=== PATIENT | female | born 1970 | race Caucasian/White ===

== ENCOUNTER → 2017-03-24 17:11 | Outpatient (CLI) | payer OTHER, SELFPAY ==
[2017-03-24 17:52] LABS: Prothrombin Time (Protime)PT. 12.9 SECONDS (11.7-14.9)
== END ==
PROVIDERS: Family Provider Student in an Organized Health Care Education/Training Program; PCP Student in an Organized Health Care Education/Training Program; Visit Provider Internal Medicine Nephrology
DX: R80.9 Proteinuria, unspecified (principal)
CPT/HCPCS: 36415; 85610; 85730

== ENCOUNTER → 2017-03-26 08:56 | Outpatient (CLI) | payer OTHER, SELFPAY ==
--- NOTE | 2017-03-26 09:00 | CT_ITS ---
PROCEDURE: CT GUIDED PERCUTANEOUS KIDNEY BIOPSY. DATE: March 26, 2017. INDICATION: Female, 46 years old. Proteinuria PHYSICIAN: Ulisses Navarro M.D. MEDICATIONS: 3 mg of Versed and 75 mcg of fentanyl intravenously. Conscious sedation protocol was followed and monitored in the pelvis by the department nurse. Conscious sedation was started 9:54 AM and terminated at 10:11 AM. ACCESS SITE: Lower pole left kidney. NEEDLE: 18-gauge core biopsy needle SPECIMEN: 4 18-gauge cores EBL: None. COMPLICATIONS: None immediate. RADIATION DOSAGE (If Supplied By Facility): CTDIvol = ( 13 ) mGy, DLP = ( 285.1 ) mGycm. Individualized dose optimization techniques were utilized. The risks, benefits, and alternatives to the procedure and sedation were explained to the patient. The specific risk of hemorrhage requiring further treatment or intervention was detailed and accepted. Written informed consent was obtained. The patient was placed on the CT table in the prone position. Multiple axial images were obtained from the lung base through the caudal extent of the kidneys. An appropriate entry site was identified and a angel made on the skin. The skin overlying the [left ] posterior flank was prepped and draped in sterile fashion. 1% lidocaine was administered subcutaneously for local anesthesia. Initially, a 22 gauge needle was advanced and CT images confirmed good needle position. The 22 gauge needle was then exchanged for an 17 gauge introducer needle which was advanced. Repeat CT images confirmed good needle trajectory and tip position. The introducer needle was then advanced into the periphery of the inferior renal pole, and CT images were again obtained to confirm exact tip location. The inner stylet of the introducer needle was then removed and an 18 gauge coaxial needle was advanced thru the introducer needle and biopsy performed. A total of [4 ] passes were performed and the specimen collected was sent to Pathology for further evaluation. The needle was withdrawn. Hemostasis was achieved with manual compression and a sterile dressing was applied. Repeat CT images of the biopsy area was performed which demonstrated no gross bleeding or hematoma. The patient tolerated the procedure well without immediate complications. The patient was transported to the [floor/recovery area] in stable condition. CT/Biopsy/Inj or Needle Placement IMPRESSION: Successful CT guided percutaneous kidney biopsy. Electronically Signed: Ulisses Navarro MD at 11:40 EST Tel [phone], Service support ,
[2017-03-26 09:16] VITALS: BP 143/57; PULSE 76; RESP 14; TEMP 37.1; O2SAT 95; BMI 46.0
--- NOTE | 2017-03-26 10:10 | KI_PTH ---
PATIENT: SHAYNE ROME LOC: CT U#:[id number] AGE/SX: 54/F ROOM: RE03/26/[address]: Dr. Estefania Hedrick DO : 1970 BED: DIS: SPEC #: [id number] RECD: 03/26/17 11:30 STATUS: ARVIND JADEN #: [id number] OMAR: 03/26/17 10:[address]: Estefania Hedrick DEPT: SURGICAL PATHOLOGY RECD BY: Nyasia Rhodes ENTERED: 03/26/17 13:21 SP TYPE: KIDNEY BX OTHR DR: Dr. Deven James DO Tissues: Kidney, NOS Procedures: Electron Microscopy (ACH) Fluorescent Antibody (ACH) Sp St Grp II Kidney (ACH) Kidney Biopsy (ACH) HEADER OPERATION: CT-guided left kidney biopsy PRE-OP DIAGNOSIS: Proteinuria TISSUE SUBMITTED: 18g core x4, left kidney MICROSCOPIC DIAGNOSIS Renal biopsy demonstrating amyloidosis, arteriosclerosis and chronic tubulointerstitial changes. COMMENT The findings in this renal biopsy are consistent with amyloidosis. Immunofluorescence for kappa and lambda light chains is negative which is not suggestive of AL type. MICROSCOPIC DESCRIPTION Sections are evaluated with H & E, PAS, Wong, trichrome and Congo red stains. Ten glomeruli are present. Glomeruli demonstrate extensive expansion of mesangial areas and capillary loops by amorphous eosinophilic material. No cellular proliferation or active glomerulitis are identified. There is approximately 50-60% interstitial fibrosis with proportionate tubular atrophy. There is a moderate, patchy mononuclear inflammatory infiltrate. Arterioles show moderate medial thickening. No arteritis is identified. Congo red stains demonstrate diffuse orangeophilic staining of the glomeruli with apple green birefringence under polarization. IMMUNOFLUORESCENCE: There is no specific glomerular staining to indicate the deposition of immunoglobulins (IgG, IgA or IgM) or complement components (C3 or C1q). Stains for light chains kappa and lambda show no evidence of deposition in glomerular or tubular basement membranes. Glomerular fibrin deposition is not increased. ELECTRON MICROSCOPY: One glomerulus is evaluated. Mesangial areas are significantly expanded with small, randomly arranged fibrillary deposits. Glomerular capillary loops are markedly thickened with small, randomly arranged fibrillary deposits. There is extensive effacement of overlying epithelial cell foot processes. Tubular basement membranes are slightly thickened with no discrete electron dense deposits. GROSS DESCRIPTION The specimen is sent entirely to [facility] for diagnosis. The specimen is received in transport medium and consists of four cores of foote renal tissue that range in length from 0.5 cm to 2.0 cm. The cores are divided for histology, immunofluorescence and electron microscopy.
[2017-03-26 11:40] VITALS: BP 102/39; PULSE 60; RESP 14; O2SAT 95
== END ==
PROVIDERS: Family Provider Student in an Organized Health Care Education/Training Program; PCP Student in an Organized Health Care Education/Training Program; Visit Provider Internal Medicine Nephrology
DX: R80.9 Proteinuria, unspecified (principal)
CPT/HCPCS: 50200; 77012; 88305; 88313; 88346; 88348; 99156; 99157; J7040; A4216

== ENCOUNTER → 2017-04-07 11:58 | Outpatient (CLI) | payer OTHER, SELFPAY ==
[2017-04-08 16:09] LABS: Albumin 3.4 g/dL (2.9-4.4); Albumin, Ur 79.1 % (.); Alpha-1-Globulin, Ur 3.3 % (.); Alpha-1-Globulins 0.2 g/dL (0.0-0.4); Alpha-2-Globulins, Ur 2.6 % (.); Beta Globulin, Ur 8.5 % (.); Gamma Globulin 1.1 g/dL (0.4-1.8); Gamma Globulin, Ur 6.5 % (.); Immunoglobulin A 547 mg/dL (87-352); Immunoglobulin G 847 mg/dL (700-1600); Immunoglobulin M 56 mg/dL (26-217); M-Spike, Ur % Not Observed % (Not Observed)
[2017-04-09 10:24] LABS: IMMUNOFIXATION RESULT,S Comment: (.)
== END ==
PROVIDERS: Family Provider Student in an Organized Health Care Education/Training Program; PCP Student in an Organized Health Care Education/Training Program; Visit Provider Internal Medicine Nephrology
DX: R80.9 Proteinuria, unspecified (principal)
CPT/HCPCS: 36415; 82784; 84165; 84166; 86334; 86335

== ENCOUNTER → 2017-07-03 07:56 | Outpatient (CLI) | payer OTHER, BC, SELFPAY ==
--- NOTE | 2017-07-03 08:03 | BI_ITS ---
MAMMOGRAPHY - BILATERAL SCREENING REASON FOR EXAM: Female, 46 years old. Routine annual screening examination. PERTINENT HISTORY: Non-contributory. TECHNIQUE: Digital bilateral breast carl (3D mammographic acquisition) in the CC and MLO projections. 2-D mediolateral oblique (MLO) and craniocaudad (CC) views of both breasts were obtained. CAD: Full Field Digital Mammography with Computer Added Detection was performed. COMPARISON: Comparison is made with prior study dated May 02, 2016 and April 12, 2015. FINDINGS: Breast Composition: There are scattered areas of fibroglandular density. There are no dominant masses or suspicious calcifications. Stable benign-appearing bilateral axillary lymph nodes. No other significant abnormalities are identified. There has been no significant change since the prior study. BI/SCREENING MAMM (CAD), BILAT IMPRESSION: Stable bilateral screening mammogram. Yearly follow-up mammogram recommended. (A) ASSESSMENT CATEGORY: BIRADS Category 2: Benign. A letter regarding these results will be sent to the patient by the facility within 30 days. Approximately 10% of breast cancers are not detected by mammography. A normal mammogram should not delay biopsy of a clinically suspicious abnormality. [id number] Electronically Signed: Ulisses Navarro MD at 11:02 EDT Tel [phone], Service support ,
== END ==
PROVIDERS: Family Provider Student in an Organized Health Care Education/Training Program; PCP Student in an Organized Health Care Education/Training Program; Visit Provider Student in an Organized Health Care Education/Training Program
DX: Z12.31 Encounter for screening mammogram for malignant neoplasm of breast (principal)
CPT/HCPCS: 77063; 77067

== ENCOUNTER → 2017-12-14 16:53 | Outpatient (CLI) | payer OTHER, BC, SELFPAY | PROVIDERS: Family Provider Student in an Organized Health Care Education/Training Program; PCP Student in an Organized Health Care Education/Training Program; Referring Provider Internal Medicine Hematology & Oncology; Visit Provider Internal Medicine Hematology & Oncology | DX: C90.00 Multiple myeloma not having achieved remission (principal) | CPT/HCPCS: 86850; 86900 ==

== ENCOUNTER → 2018-04-02 15:46 | Outpatient (CLI) | payer OTHER, BC, SELFPAY ==
[2017-03-26 09:16] VITALS: BMI 46.0
== END ==
PROVIDERS: Family Provider Student in an Organized Health Care Education/Training Program; PCP Student in an Organized Health Care Education/Training Program; Referring Provider Otolaryngology Otolaryngology/Facial Plastic Surgery; Visit Provider Otolaryngology Otolaryngology/Facial Plastic Surgery
DX: J32.9 Chronic sinusitis, unspecified (principal); J02.9 Acute pharyngitis, unspecified
CPT/HCPCS: 87070; 87205

== ENCOUNTER → 2018-09-02 09:56 | Outpatient (CLI) | payer OTHER, BC, SELFPAY ==
[2017-03-26 09:16] VITALS: BMI 46.0
--- NOTE | 2018-09-02 09:59 | VDUE_ITS ---
Reason For Study: ESRD Right Arm Left Arm Right cephalic vein is compressible. Left Cephalic Vein at the shoulder Right Cephalic Vein at the shoulder measures .26 x .27 cm. measures .37 x .45 cm. Left Cephalic Vein at mid bicep measures .24 Right Cephalic Vein mid bicep measures .27 x .24 cm. x .28 cm. Left Cephalic Vein above antecub Right Cephalic Vein above antecub measures .07 x .07 cm. measures .31 x .32 cm. Left Cephalic Vein below antecub Right Cephalic Vein below antecub measures .13 x .14 cm. measures .23 x .24 cm. Left Cephalic Vein in the forearm Right Cephalic Vein in the forearm measures .13 x .16 cm. measures .27 x .29 cm. Left Cephalic Vein at the wrist measures .11 Right Cephalic Vein at the wrist measures .21 x .12 cm. x .23 cm. Basilic vein at bicep measures .31 x .29 cm. Right basilic vein is compressible. Basilic vein above antecub measures .34 Right Basilic Vein mid bicep measures .4 x .35 cm. x .42 cm. Basilic vein below antecub measures .13 Right Basilic Vein above antecub measures .45 x .13 cm. x .47 cm. Basilic vein in the forearm measures .11 Right Basilic Vein below antecub measures .14 x .12 cm. x .15 cm. Basilic vein at the wrist measures .11 x .12 Right Basilic Vein in the forearm measures .1 cm. x ,1 cm. Brachial Art .26 x .28 cm Right Basilic Vein at the wrist measures .1 Brachial Art 103.8 cm/s x .09 cm. Radial Art .13 x .16cm Brachial Art .23 x .27 cm Radial Art 62.0 cm/s. Brachial Art 111.6 cm/s Radial Art .13 x .15 cm Radial Art 58.2 cm/s High brachial artery bifurcaton noted. Interpretation Summary Adequate right upper extremity cephalic vein Adequate right upper arm basilic vein Small left cephalic vein throughout Adequate left upper arm basilic vein Veins are deeply placed suggesting increased body habitus Very small radial arteries Borderline small bilateral brachial arteries High bifurcation right brachial artery Ordering Physician: Luan Lawrence Performed By: Clem Anderson RVT ?
== END ==
PROVIDERS: Family Provider Student in an Organized Health Care Education/Training Program; PCP Student in an Organized Health Care Education/Training Program; Referring Provider Internal Medicine Nephrology; Visit Provider Internal Medicine Nephrology
DX: N18.6 End stage renal disease (principal)
CPT/HCPCS: 93970

== ENCOUNTER 2018-09-10 17:06 | Emergency (ER) | payer OTHER, BC, SELFPAY ==
[2017-03-26 09:16] VITALS: BMI 46.0
[2018-09-10 17:08] VITALS: BP 137/91; PULSE 66; RESP 20; TEMP 37.1; O2SAT 99; BMI 40.8
--- NOTE | 2018-09-10 17:29 | CT_ITS ---
STUDY: CT BRAIN WITHOUT CONTRAST REASON FOR EXAM: Female, 47 years old. Shapeable episode at dialysis, facial pain RADIATION DOSAGE (If Supplied By Facility): CTDIvol = ( 44.99 ) mGy, DLP = ( 745.49 ) mGycm TECHNIQUE: Transaxial CT imaging of the brain was performed without administration of intravenous contrast material. Individualized dose optimization techniques were used for this CT. COMPARISON: No relevant priors. FINDINGS: There is focal right sided facial soft tissue edema at the level of the maxilla. Normal calvarium. Normal size ventricles and extra-axial spaces for the patient's age. Normal white matter tracts of the cerebral hemispheres. Normal basal ganglia and thalami. Normal brainstem. Normal cerebellum. There is no intracranial hemorrhage. There are no findings of an acute ischemic infarction. Normal visualized paranasal sinuses. CT/Brain/Head without Contrast IMPRESSION: Right facial soft tissue edema no visualized fracture. No evidence of acute hemorrhage infarct or edema. Electronically Signed: Francia Van MD at 18:32 EDT Tel , Service support ,
--- NOTE | 2018-09-10 17:29 | EKG12_ITS ---
Test Reason : SYNCOPE Blood Pressure : / mmHG Vent. Rate : 062 BPM Atrial Rate : 062 BPM P-R Int : 166 ms QRS Dur : 084 ms QT Int : 412 ms P-R-T Axes : 030 006 007 degrees QTc Int : 418 ms Normal sinus rhythm Normal ECG Confirmed by NOMI MELGAR, DRISS ([id number]), sound editor JESSICA THOMAS ([id number]) on 09/13/2018 1:02:26 PM Referred By: DC Confirmed By:DRISS MOSHER MD
--- NOTE | 2018-09-10 17:30 | RAD_ITS ---
STUDY: X-RAY CHEST REASON FOR EXAM: Female, 47 years old. Syncope during dialysis when standing up TECHNIQUE: Single AP portable view of the chest. COMPARISON: None. FINDINGS: The lungs are clear and underexpanded. There is no demonstrated pleural abnormality. Normal size heart. Normal mediastinum and yumiko. Normal visualized pulmonary arteries. Normal visualized aortic arch and descending thoracic aorta. Normal visualized thoracic spine. Normal visualized ribs, clavicles, and shoulders. There is no demonstrated abnormality of the visualized soft tissue structures of the upper abdomen. RAD/Chest 1 View (Portable) IMPRESSION: Normal x-ray examination of the chest. Electronically Signed: Francia Van MD at 17:50 EDT Tel , Service support ,
--- NOTE | 2018-09-10 17:30 | RAD_ITS ---
STUDY: X-RAY - RIGHT WRIST REASON FOR EXAM: Female, 47 years old. Syncopal episode TECHNIQUE: 3 view(s) of the wrist were obtained. COMPARISON: None. FINDINGS: Normal visualized distal radius and ulna. Normal radiocarpal articulation. Normal distal radioulnar articulation. Normal carpal bones. Normal carpal articulations. Normal carpometacarpal articulation of the thumb. Normal second through fifth carpometacarpal articulations. Normal visualized metacarpal bones. The soft tissue structures are unremarkable. RAD/Wrist min 3 Views IMPRESSION: Normal x-ray examination of the wrist. Electronically Signed: Francia Van MD at 17:53 EDT Tel , Service support ,
[2018-09-10 18:02] LABS: Absolute Lymphocyte Count 1.39 X10^3/uL (0.83-4.51); Absolute Neutrophil Count 5.8 X10^3/uL (2.0-7.7); Basophil# 0.06 X10^3/uL; Basophil% 0.7 % (0-1); Eosinophils% 4.7 % (0-5); Hematocrit 40.1 % (37-47); Hemoglobin 13.2 g/dL (12.0-15.0); Lymphocyte # 1.39 X10^3/ul (4.0); Lymphocyte % 16.4 % (19-41); Mean Corp Hgb Conc 32.9 g/dL (32-36); Mean Corpuscular Hgb 30.6 pg (27.0-32.0); Mean Corpuscular Volume 92.8 fL (81-99); Mean Platelet Vol. 8.7 fl (6.2-12.0); Monocyte% 9.4 % (0-10); NRBC Flagged by Analyzer 0 % (0-5); Neutrophil # 5.75 X10^3/uL (2.7-7.7); Platelet Count 265 K/mm3 (150-450); RBC Distribution Width SD 47.4 fl (35.1-43.9); Red Blood Count 4.32 M/mm3 (4.2-5.4); White Blood Count 8.5 K/mm3 (4.4-11.0)
[2018-09-10 18:17] LABS: Anion Gap 6 (5-15); BUN 22 mg/dL (7-18); BUN/Creat Ratio 5.4 RATIO (10-20); Calcium,Total 10.1 mg/dL (8.5-10.1); Chloride 96 mmol/L (98-107); Creatinine, Serum 4.04 mg/dL (0.55-1.02); EST Glomerular Filtration Rate 13 mL/min (>60); Est Glom Filt Rate - Afr Amer 15 mL/min (>60); Estimated Creatinine Clearance 13.32 ml/min; Glucose 126 mg/dL (74-106); Potassium 4.5 mmol/L (3.5-5.1); Sodium Level 131 mmol/L (136-145)
[2018-09-10 19:06] VITALS: BP 136/88; PULSE 65; RESP 17; O2SAT 97
--- NOTE | 2018-09-10 20:11 | NURSING ---
ACCEPTED TO [facility] [id number] BED REPORT
--- NOTE | 2018-09-10 20:20 | ED.DCSUM_ITS ---
- ER Visit Summary Date of Service: 09/10/18 Chief Complaint: Patient presents with syncope. History of Present Illness: The patient is a 47 F who had a syncopal episode after dialysis. She completed dialysis today. She stood up to check her blood pressure per their protocol and she fainted. She woke up on the ground. She complains of pain to her right wrist and right cheek. She also pulled out her left chest Vas-Cath when she fell. Placed at [facility]. She had one previously in her right chest which was removed due to infection. She plans to follow-up with Dr. Brock for fistula placement. Physical Examination: Afebrile and vital signs unremarkable. Head and neck at raumatic except for some right cheek tenderness to palpation. Neck is nontender. Heart regular. Lungs clear. Abdomen soft. Dorsal right wrist tenderness. Otherwise extremities unremarkable. No focal or lateralizing neurologic abnormalities grossly. Test Results: EKG showed sinus rhythm at a rate of 62. Laboratory studies unremarkable. Troponin normal. Chest x-ray unremarkable. Wrist x-ray normal. CT brain showed no fracture or acute abnormality. Emergency Department Course and Treatment: Patient had an unremarkable syncope work-up as above. This was likely secondary to volume changes after dialysis. She was placed on a monitor. Patient will need dialysis on Thursday. She has no access. I contacted her dialysis center who referred me to Dr. Allan. I spoke with Dr. Escobar who was on-call. She advised evaluation by a vascular surgeon. Patient was planning to follow-up with Dr. Brock so [facility] was contacted. The patient was accepted by Dr. oVgt. Treatment Plan: As above Disposition: Transfer Impression: 1. Syncope 2. Needs dialysis access This note was generated with [employer] dictation software. It may contain incorrect words, spelling, and punctuation that were not noted in review of the chart prior to signing ED Disposition - Plan for ED Patient: Referrals: Deven James DO [Primary Care Provider] -
[2018-09-10 20:38] VITALS: BP 135/84; PULSE 65; RESP 17; O2SAT 98
== END 2018-09-10 20:44 | disposition short-term general hospital (02) ==
LOC: ED 17:49
PROVIDERS: Emergency Provider Emergency Medicine; Family Provider Student in an Organized Health Care Education/Training Program; PCP Student in an Organized Health Care Education/Training Program
DX: R55 Syncope and collapse (principal); T82.42XA Displacement of vascular dialysis catheter, initial encounter; M25.531 Pain in right wrist; N18.6 End stage renal disease; Z99.2 Dependence on renal dialysis; F32.9 Major depressive disorder, single episode, unspecified; F41.9 Anxiety disorder, unspecified; Z79.899 Other long term (current) drug therapy; Z87.891 Personal history of nicotine dependence
CPT/HCPCS: 70450; 71045; 73110; 80048; 84484; 85025; 93005; 99285; A4216

== ENCOUNTER 2019-01-04 12:49 | Emergency (ER) | payer OTHER, BC, SELFPAY ==
[2019-01-04 12:50] VITALS: BP 183/105; PULSE 65; RESP 16; TEMP 36.6; O2SAT 96; BMI 43.3
--- NOTE | 2019-01-04 13:29 | ED.VISSUMM ---
- ER Visit Summary Date of Service: 01/04/19 Chief Complaint: Bleeding at fistula site History of Present Illness: The patient is a 48 F with bleeding at her fistula site. Patient has had at least 2 surgeries for this new fistula, last one was on December [address] Brock at [facility]. About 30 minutes prior to arrival, the patient noted some blood oozing at the site. She attempted to apply direct pressure, but it did not seem to help. She thought that there might be some draining from the wound, but it seems to continue to ooze. She denies any new weakness or numbness. Denies any other associated symptoms. She is not on blood thinners. Physical Examination: Afebrile and vital signs unremarkable. Patient has a dressing over her left upper arm fistula. There is a positive thrill. Good perfusion distally. On removal of the dressing, there is an area in the middle of the incision which is oozing dark blood. I cannot express any other drainage. It just continues to ooze. Test Results: Basic labs pending. Emergency Department Course and Treatment: Direct pressure applied. We will check some basic labs and page vascular surgery at [facility]. The patient does not seem to be responding to direct pressure. In the span of about 15 minutes, she has saturated a 4 x 4. We are awaiting vascular surgery input for further care. Surgery felt this was likely a hematoma. They advised checking labs, and DDAVP as needed. Labs were all fairly unremarkable. On reevaluation, bleeding has resolved. Patient will be discharged to follow-up as an outpatient. Treatment Plan: As above Disposition: Discharge Impression: 1. Left arm fistula bleeding This note was generated with [employer] dictation software. It may contain incorrect words, spelling, and punctuation that were not noted in review of the chart prior to signing ED Disposition - Plan for ED Patient: Referrals: Deven James DO [Primary Care Provider] -
[2019-01-04 13:51] LABS: Absolute Lymphocyte Count 1.57 X10^3/uL (0.83-4.51); Absolute Neutrophil Count 7.1 X10^3/uL (2.0-7.7); Basophil# 0.05 X10^3/uL; Basophil% 0.5 % (0-1); Eosinophil# 0.68 X10^3/uL; Eosinophils% 6.6 % (0-5); Hematocrit 27.2 % (37-47); Hemoglobin 8.9 g/dL (12.0-15.0); Lymphocyte # 1.57 X10^3/ul (4.0); Lymphocyte % 15.2 % (19-41); Mean Corp Hgb Conc 32.7 g/dL (32-36); Mean Corpuscular Hgb 33.5 pg (27.0-32.0); Mean Corpuscular Volume 102.3 fL (81-99); Mean Platelet Vol. 8.9 fl (6.2-12.0); Monocyte# 0.87 X10^3/uL; Monocyte% 8.4 % (0-10); NRBC Flagged by Analyzer 0 % (0-5); Neutrophil # 7.07 X10^3/uL (2.7-7.7); Neutrophil % 68.6 % (47-70); Platelet Count 262 K/mm3 (150-450); RBC Distribution Width CV 15.5 % (11.6-14.6); RBC Distribution Width SD 56.9 fl (35.1-43.9); Red Blood Count 2.66 M/mm3 (4.2-5.4); White Blood Count 10.3 K/mm3 (4.4-11.0)
[2019-01-04 14:08] LABS: International Normalized Ratio 1.1
[2019-01-04 14:09] LABS: Partial Thromboplast Time 31.2 Seconds (24.1-36.2)
--- NOTE | 2019-01-04 14:45 | ED.DEP ---
ED Disposition - Plan for ED Patient: Instructions: POST OP WOUND CHECK, Bleeding Additional Instructions: follow up with your surgeon
[2019-01-04 14:50] VITALS: BP 131/62; PULSE 77; RESP 16; O2SAT 98
== END 2019-01-04 14:51 | disposition home or self-care (01) ==
LOC: ED 13:37
PROVIDERS: Emergency Provider Emergency Medicine; Family Provider Student in an Organized Health Care Education/Training Program; PCP Student in an Organized Health Care Education/Training Program
DX: T82.838A Hemorrhage due to vascular prosthetic devices, implants and grafts, initial encounter (principal); N18.6 End stage renal disease; Z79.899 Other long term (current) drug therapy
CPT/HCPCS: 85025; 85610; 85730; 99283; A4216

== ENCOUNTER 2019-01-19 21:10 | Inpatient (IN) | payer OTHER, BC, SELFPAY ==
[2019-01-19] VITALS (9 sets, daily range): BP systolic 112–196; BP diastolic 65–82; PULSE 90–106; RESP 21–35; TEMP 39–39.9; O2SAT 78–94; BMI 34.2
--- NOTE | 2019-01-19 21:42 | EKG12_ITS ---
Test Reason : SOB Blood Pressure : / mmHG Vent. Rate : 100 BPM Atrial Rate : 100 BPM P-R Int : 156 ms QRS Dur : 082 ms QT Int : 336 ms P-R-T Axes : 059 050 035 degrees QTc Int : 433 ms Normal sinus rhythm Normal ECG Confirmed by NOMI MELGAR, DRISS ([id number]), purchasing expeditor FRANCIS RUBY ([id number]) on 01/21/2019 11:04:05 AM Referred By: Jeremiah Espinoza Confirmed By:DRISS MOSHER MD
--- NOTE | 2019-01-19 21:42 | RAD_ITS ---
STUDY: X-RAY CHEST REASON FOR EXAM: Female, 48 years old. N/V, FEVER, AND COUGH. PT HAD DIALYSIS LINE REMOVED [facility] YESTERDAY TECHNIQUE: Single AP portable view of the chest. COMPARISON: September 10, 2018 FINDINGS: Mild pulmonary edema is present in the right perihilar region and mild to moderate pulmonary edema is present in the left upper and lower lobes. Normal size heart. Normal mediastinum and yumiko. Stable osseous structures. RAD/Chest 1 View (Portable) IMPRESSION: 1. Mild to moderate bilateral pulmonary edema, left greater than right Electronically Signed: Andrew Schumacher MD at 22:14 EST , Service support ,
[2019-01-19] MEDS: Acetaminophen 500 MG Tablet 1000 MG PO (22:11)
[2019-01-19 22:15] LABS: Absolute Lymphocyte Count 0.44 X10^3/uL (0.83-4.51); Absolute Neutrophil Count 10.7 X10^3/uL (2.0-7.7); Basophil# 0.03 X10^3/uL; Basophil% 0.3 % (0-1); Eosinophil# 0.03 X10^3/uL; Eosinophils% 0.3 % (0-5); Hematocrit 24.4 % (37-47); Hemoglobin 8.1 g/dL (12.0-15.0); Lymphocyte # 0.44 X10^3/ul (4.0); Lymphocyte % 3.7 % (19-41); Mean Corp Hgb Conc 33.2 g/dL (32-36); Mean Corpuscular Hgb 33.2 pg (27.0-32.0); Mean Platelet Vol. 8.9 fl (6.2-12.0); Monocyte# 0.66 X10^3/uL; Monocyte% 5.6 % (0-10); NRBC Flagged by Analyzer 0 % (0-5); Neutrophil # 10.69 X10^3/uL (2.7-7.7); Neutrophil % 89.8 % (47-70); POSITIVE DIFFERENTIAL YES; Platelet Count 208 K/mm3 (150-450); RBC Distribution Width CV 14.2 % (11.6-14.6); Red Blood Count 2.44 M/mm3 (4.2-5.4); White Blood Count 11.9 K/mm3 (4.4-11.0)
[2019-01-19 22:27] LABS: Differential Indicated SCAN CRITERIA MET
[2019-01-19 22:31] LABS: Lactic Acid 1.5 mmol/L (0.4-2.0)
[2019-01-19 22:39] LABS: ALB/GLOB Ratio 0.7 RATIO (0.9-2.4); AST(SGOT) 90 U/L (15-37); Alanine Aminotransfer ALT/SGPT 81 U/L (13-56); Albumin, Serum 3.1 g/dL (3.2-5.0); Alkaline Phosphatase 134 U/L (45-117); Anion Gap 12 (5-15); BUN 65 mg/dL (7-18); BUN/Creat Ratio 7.4 RATIO (10-20); Calcium,Total 9.5 mg/dL (8.5-10.1); Chloride 95 mmol/L (98-107); Creatinine, Serum 8.83 mg/dL (0.55-1.02); EST Glomerular Filtration Rate 5 mL/min (>60); Est Glom Filt Rate - Afr Amer 6 mL/min (>60); Estimated Creatinine Clearance 8.24 ml/min; Globulin 4.5 g/dL (2.2-4.2); Glucose 121 mg/dL (74-106); Protein, Total 7.6 g/dL (6.4-8.2); Sodium Level 134 mmol/L (136-145)
--- NOTE | 2019-01-19 22:45 | ED.VISSUMM ---
- ER Visit Summary Date of Service: 01/19/19 Chief Complaint: Shortness of breath History of Present Illness: The patient is a 48 F who presents with shortness of breath that began today. Patient states she has been having a cough with yellow sputum. Patient states she has been feeling weak all over today. Patient states nothing makes it better or worse. Patient admits to subjective chills but denies any fevers. Patient had a med port removed yesterday at [facility]. Patient also complains of pain in her right ear and a sore throat. Patient admits to some nausea and vomiting. Patient also admits to a generalized headache. Physical Examination: Vital signs showed a mild tachycardia of 106 and a mild tachypnea of 21. Pulse oximeter 78% on room air. Patient is febrile with a temperature of 102.9. Oral mucosa is pink and moist. Neck is supple. Trachea is midline. There is no JVD. Tympanic membranes are clear bilaterally. Heart was regular and tachycardic. Lungs are diminished bilaterally. Abdomen is soft. Bowel sounds are normal. There is no tenderness, guarding, or rebound. Cranial nerves II through XII are intact. There are no focal motor or sensory deficits noted. Test Results: CBC shows a mild leukocytosis of 11.9. There is a mild anemia with a hemoglobin of 8.1 and hematocrit of 24.4. BUN was elevated at 65 and creatinine was 8.83. This is elevated from previous result in August. Total bilirubin was slightly elevated at 1.2, alk phos was slightly elevated at 134, ALT was 81 and AST was 90. Troponin was normal. Lactate was normal. Portable chest x-ray was obtained. There is right perihilar edema and edema of the left upper and lower lobes. I also think that this could be an infiltrate in the left upper and lower lobes. Emergency Department Course and Treatment: Blood cultures were obtained. Urinalysis was ordered however the patient does not make any urine. Patient was given Tylenol. Patient was started on Levaquin and vancomycin. Case was discussed with the hospitalist. He will admit the patient to the hospital. Disposition: Admit to hospital Impression: 1. Pneumonia 2. Severe sepsis This note was generated with [employer] software. It may contain incorrect words, spelling, and punctuation that were not noted in review of the chart prior to signing ED Disposition - Plan for ED Patient: Disposition: Acute Care Hospital [facility] Diagnosis: Pneumonia, Severe sepsis Referrals: Deven James DO [Primary Care Provider] -
[2019-01-19 22:50] LABS: International Normalized Ratio 1.3; Prothrombin Time (Protime)PT. 16.3 SECONDS (11.7-14.9)
[2019-01-19 22:51] LABS: Partial Thromboplast Time 41.4 Seconds (24.1-36.2)
[2019-01-19] MEDS: levoFLOXacin IV 750 MG/150 ML BAG 150 MG IV (23:19)
--- NOTE | 2019-01-19 23:25 | HP.PCM_ITS ---
Problem List (1) ESRD (end stage renal disease) Status: Chronic (2) Pneumonia Status: Acute (3) Sepsis Status: Acute History of Present Illness Date of Admission: 01/19/19 Chief Complaint: malaise The patient is a 48 year old F with a significant history of amyloidosis reportedly in remission after stem cell transplant; end-stage renal disease from amyloidosis; hypertension; depression and anxiety who presented to the emergency department with 1 day history of malaise. Associated with her symptoms is subjective fever; productive cough of yellow sputum; shortness of breath; weakness; anorexia; chills and rigors. At the Emergency department patient was found to have tachycardia; tachypnea and T-max of 102.2. Chest x-ray at the emergency department was interpreted as mild to moderate bilateral pulmonary edema, left greater than right. Of note patient gets dialysis Mondays; Wednesdays; and Thursday but with the (2018) her dialysis scheduled was changed to Thursday and Thursday. Her next dialysis is scheduled to be on 01/21/2019 and then she will revert to her previous dialysis schedule of Mondays; Wednesdays and Fridays. On the day before presentation an implanted port for dialysis was removed from her left chest at [facility]. It was a same-day procedure. She reports a history of sepsis from prior right side implanted port for which she was treated at [facility] about 2 months ago.. Past Medical History Past Medical History (Chronic Problems): Chronic Problems ESRD (end stage renal disease) (Chronic) Allergies No Known Allergies Allergy (Verified 01/04/19 12:52) Home Medications: Ambulatory Orders Medication Instructions Recorded Clonazepam [Klonopin] 0.5 mg PO PRN PRN 11/20/16 Citalopram [Celexa] 20 mg PO DAILY 03/26/17 Furosemide 40 mg PO BID 01/19/19 NIFEdipine [Procardia XL] 90 mg PO DAILY 01/19/19 Pantoprazole Sodium 20 mg PO DAILY 01/19/19 Propranolol HCl [Inderal (Beta 20 mg PO BID 01/19/19 Lupis)] Sevelamer Carbonate [Renvela] 800 mg PO TID 01/19/19 Surgical History: cholecystectomy Lives: With Family Smoking Status: Former smoker - She was a social smoker about 20 years ago. Alcohol: Rare - *Family History Maternal History Items: Cancer - Leukemia, Dementia Paternal History Items: Heart Disease, Renal Disease Review of Systems Constitutional: Reports: Anorexia, Chills, Fever, Malaise. Denies: Weight Change HEENT: Denies: Head Aches, Sinus Congestion, Sinus Drainage Cardiovascular: Denies: Chest Pain, Palpitations Respiratory: Reports: Cough, Shortness of Breath, Sputum production. Denies: Shortness of breath at rest Gastrointestinal: Reports: Nausea, Vomiting. Denies: Abdominal Pain Genitourinary: Denies: Dysuria Musculoskeletal: Denies: Joint Pain, Joint Tenderness Skin: Denies: Rash, Wounds Neurological: Denies: Numbness, Tingling, Focal weakness Psychiatric: Denies: Anxiety, Depression, Homicidal Ideations, Suicidal Ideations Hematologic/ Lymphatic: Denies: Easy Bruising, Easy Bleeding VTE Information - Inpt Only VTE Present on Admission: No VTE Mechan Device Prophylaxis: None VTE Pharm Prophylaxis ordered?: Yes Patient Problems: Active and Suspected Problems Pneumonia (Acute) Sepsis (Acute) - Physical Exam Vitals/I&O's: Vital Signs Temp Pulse Resp BP Pulse Ox 102.2 F H 94 30 H 135/65 H 93 01/19/19 23:03 01/19/19 23:03 01/19/19 23:03 01/19/19 23:03 01/19/19 23:03 Oxygen Flow Rate (L/min) 5 Oxygen Delivery Method Nasal Cannula Weight: 108.409 kg Body Mass Index (BMI) 34.2 General: Alert, Oriented x3, Cooperative, - - Patient is clammy. HEENT: Atraumatic, PERRLA, EOMI, Normocephalic Neck: Supple, No JVD, Negative Carotid Bruits Lungs: No wheeze, Rales - Left base, Tachypneic Cardiovascular: Regular rate, Normal S1, Normal S2, No murmurs Abdomen: Bowel Sounds Present, Soft, Non Tender Extremities: No edema, Capillary Refill Less than 3 Seconds Skin: - - Left chest with sutures at where implanted port was removed a day before presentation; mildly tender. Musculoskeletal: No Tenderness to Palpation of Joints or Extremities Neurological: Cranial nerves II-XII grossly intact Psych/Mental Status: Normal Affect, Appropriate Microbiology Past 72 Hours 01/19/19 21:35 Sputum, Expectorated/Coughed Gram Stain - Preliminary Laboratory Results 01/19/19 21:55: WBC 11.9 H, RBC 2.44 L, Hgb 8.1 L, Hct 24.4 L, MCV 100.0 H, MCH 33.2 H, MCHC 33.2, RDW Std Deviation 52.0 H, RDW Coeff of Fracisco 14.2, Plt Count 208, MPV 8.9, Immature Gran % (Auto) 0.300, Neut % (Auto) 89.8 H, Lymph % (Auto) 3.7 L, Russell % (Auto) 5.6, Eos % (Auto) 0.3, Baso % (Auto) 0.3, Absolute Neuts (auto) 10.7 H, Absolute Lymphs (auto) 0.44 L, Nucleated RBC % 0, Differential Comment 01/19/19 21:55: PT 16.3 H, INR 1.3, APTT 41.4 H 01/19/19 21:55: Sodium 134 L, Potassium 5.0, Chloride 95 L, Carbon Dioxide 27.0, Anion Gap 12, BUN 65 H, Creatinine 8.83 H*, Estim Creat Clear Calc 8.24, Est GFR (MDRD) Af Amer 6 L, Est GFR (MDRD) Non-Af 5 L, BUN/Creatinine Ratio 7.4 L, Glucose 121 H, Calcium 9.5, Total Bilirubin 1.20 H, AST 90 H, ALT 81 H, Alkaline Phosphatase 134 H, Troponin I < 0.015, Total Protein 7.6, Albumin 3.1 L, Globulin 4.5 H, Albumin/Globulin Ratio 0.7 L 01/19/19 21:55: Lactic Acid 1.5 Current Medications Levofloxacin (Levaquin Iv) 750 mg in 150 mls @ 150 mls/hr IV X1 ONE Stop: 01/20/19 00:06 Last Admin: 01/19/19 23:19 Dose: 150 mls/hr Documented by: Vancomycin HCl (Vancomycin) 1,000 mg in 200 mls @ 200 mls/hr IV X1 ONE Stop: 01/20/19 00:14 Assessment/Plan All Active Problems Pneumonia (Acute) Sepsis (Acute) The patient is a 48 year old F with a significant history of amyloidosis reportedly in remission after stem cell transplant; end-stage renal disease from amyloidosis; hypertension; depression and anxiety who presented to the emergency department with malaise; fever; productive cough of yellow sputum; shortness of breath; weakness; anorexia; chills and rigors; and found to have tachycardia; tachypnea; abnormal liver enzymes and with radiographic findings of pulmonary edema consistent with severe sepsis secondary to likely pneumonia. Sepsis secondary to community-acquired pneumonia with risk factors for multidrug-resistant organisms. Lactic acid: 1.5 RR:27 to 32 Pulse rate 86-99 Although her creatinine on presentation was 8.83. Review of community EMR ([facility] sync on 01/07/2019) creatinine of 7.90. Her elevated creatinine could just because of a history of end-stage renal disease and note because of severe sepsis. Blood culture ?2 is pending; follow. Chest x-ray: Radiologist impression was mild to moderate bilateral pulmonary edema, left greater than right. Chest x-ray was independently reviewed. I agree with radiologist interpretation. Clinically patient appears to have pneumonia. Respiratory Gram stain and culture was ordered for the emergency department Antibiotics: Vancomycin and Levaquin at the emergency department. We will broaden antibiotics to vancomycin and Zosyn. Pharmacy to dose vancomycin with dialysis. Albuterol as needed Legionella antigen screen and Strep antigen ordered. Urine culture was ordered from the ED. Of note patient is a dialysis patient and she makes very minimal urine. Influenza swab ordered. Spirometer and chest physiotherapy ordered. Left upper chest where implanted port was pulled was accessed. The area does not look infected. Tylenol prn for fever. Zofran for nausea/vomiting. Trend CBC Elevated liver enzymes Patient denies previous liver disease. Could be due to sepsis. Discussed with patient's to follow-up with PCP for repeat liver enzymes when discharged. Hypertension secondary to chronic kidney disease On presentation her blood pressure was not within goal Lisinopril; propranolol: Procardia and furosemide continued. Trend blood pressure and adjust blood pressure medications Depression and anxiety Citalopram and Klonopin continued End stage renal disease Patient get dialysis on Wednesdays and Fridays. However because of the iday (2018) her dialysis schedule was changed to Thursday and Thursday. Her next dialysis is supposed to be 01/21/2019. Thereafter the plan is to revert to her previous schedule of Thursday; Thursday and Thursday. She makes minimal urine and is on Lasix Patient sees Dr. Lawrence. Will consult nephrology. Low phosphorus and low potassium diet ordered. Renvela continued. Macrocytic anemia Presentation her hemoglobin was 8.1 Review of old records shows that her hemoglobin on 01/04/2019 was 8.9 and Hgb February and August of this year was 13.2 and 13.4 respectively. Different diagnoses include inflammatory anemia; anemia of kidney disease; and arthritis. Iron studies; vitamin B12 and folic acid ordered. Stool occult blood ordered Implanted Port removal Mildly tender area; mild erythema. Per patient she was instructed that dressing should be removed on 01/21/2019. Sutures in place DVT Prophylaxis SCD. Chemical thromboprophylaxis was not done because of anemia. Code Visit Inpatient E&M: 36834 Init Hosp L3
[2019-01-19] MEDS: Morphine 4 MG/ML Syringe IV (23:31)
[2019-01-20] VITALS (42 sets, daily range): BP systolic 95–147; BP diastolic 54–79; PULSE 62–108; RESP 12–34; TEMP 36.6–39.2; O2SAT 62–100; BMI 42.3
[2019-01-20] MEDS: Vancomycin IV 1,000 MG/200 ML BAG 200 MG IV (01:10)
--- NOTE | 2019-01-20 01:39 | PCM.RX.CS ---
Consult Pharmacy has been consulted to manage selected antiobiotic: Vancomycin Type of Consult: New start Suspected Infection: Sepsis, Pneumonia Prior Doses of Antibiotics Received/Current Regimen: Medications Discontinued Medications Vancomycin HCl (Vancomycin) 1,000 mg in 200 mls @ 200 mls/hr IV X1 ONE Stop: 01/20/19 00:14 Last Admin: 01/20/19 01:10 Dose: 200 mls/hr Labs: Sodium 134 mmol/L (136-145) L 01/19/19 21:55 Potassium 5.0 mmol/L (3.5-5.1) 01/19/19 21:55 Chloride 95 mmol/L (98-107) L 01/19/19 21:55 Carbon Dioxide 27.0 mmol/L (21.0-32.0) 01/19/19 21:55 Anion Gap 12 (5-15) 01/19/19 21:55 BUN 65 mg/dL (7-18) H 01/19/19 21:55 Creatinine 8.83 mg/dL (0.55-1.02) H* 01/19/19 21:55 Est GFR (MDRD) Af Amer 6 mL/min (>60) L 01/19/19 21:55 Est GFR (MDRD) Non-Af 5 mL/min (>60) L 01/19/19 21:55 BUN/Creatinine Ratio 7.4 RATIO (10-20) L 01/19/19 21:55 Glucose 121 mg/dL (74-106) H 01/19/19 21:55 Microbiology: Microbiology 01/19/19 21:35 Sputum, Expectorated/Coughed Gram Stain - Preliminary Weight used for dosin.9 kg Goal Trough: 15-20 mcg/mL Pharmacy Plan for Drug Dosing: Initial vancomycin dose was given in ED 01/20/19 @0110. Second dose will be scheduled for after dialysis on 01/21/19, and continuing doses will be determined from pre-dialysis vanco levels. Pharmacy Service will continue to monitor and adjust dosing as required.
[2019-01-20 02:33] LABS: Ferritin 927 ng/mL (8-252); Iron 15 ug/dL (50-170); Iron Binding Capacity,Total 187 ug/dL (250-450)
[2019-01-20] MEDS: Albuterol 2.5 MG/3 ML VIAL.NEB. INHALATION (02:59)
--- NOTE | 2019-01-20 03:27 | US_ITS ---
STUDY: ABDOMINAL ULTRASOUND - RIGHT UPPER QUADRANT REASON FOR VISIT: Female, 48 years old TECHNIQUE: Ultrasound evaluation of the right upper quadrant was performed with real-time and static leon-scale imaging. TECHNICAL QUALITY: Adequate. COMPARISON: None. FINDINGS: Liver: The liver measures 18.6 cm. With slightly hyperechoic texture could be related to fatty infiltration.. The bile ducts are within normal limits. There is hepatic color flow. The direction of portal flow is hepatopetal. There is no demonstrated mass lesion. Gallbladder: Absent because of previous cholecystectomy. Common Bile Duct (C.B.D.): The common bile duct measures 4.9 mm. Pancreas: Normal size of the head, body and tail of the pancreas. There is normal echogenicity of the pancreas. There is no demonstrated pancreatic mass or cyst. Right Kidney: Normal size of the right kidney. The right kidney measures 9.6 x 4.6 x 4 cm. Normal renal cortex. The right cortex measures 0.8 cm. There is no demonstrated renal mass or cyst. There is no right hydronephrosis. US/Abdomen Limited IMPRESSION: Mildly enlarged liver with fatty infiltration. Cholecystectomy. Electronically Signed: Anthony Wynn, at 14:28 EST Tel , Service support ,
[2019-01-20] MEDS: Ondansetron 4 MG/2 ML Vial IV (03:46)
[2019-01-20] MEDS: Acetaminophen 325 MG Tablet 650 MG PO ×3 (04:06→17:17)
[2019-01-20 06:08] LABS: Absolute Lymphocyte Count 0.31 X10^3/uL (0.83-4.51); Absolute Neutrophil Count 7.4 X10^3/uL (2.0-7.7); Basophil# 0.01 X10^3/uL; Basophil% 0.1 % (0-1); Eosinophils% 2.3 % (0-5); Hematocrit 22.3 % (37-47); Hemoglobin 7.2 g/dL (12.0-15.0); Lymphocyte # 0.31 X10^3/ul (4.0); Lymphocyte % 3.6 % (19-41); Mean Corp Hgb Conc 32.3 g/dL (32-36); Mean Corpuscular Hgb 32.4 pg (27.0-32.0); Mean Corpuscular Volume 100.5 fL (81-99); Mean Platelet Vol. 8.9 fl (6.2-12.0); Monocyte# 0.62 X10^3/uL; Monocyte% 7.2 % (0-10); NRBC Flagged by Analyzer 0 % (0-5); Neutrophil # 7.37 X10^3/uL (2.7-7.7); Neutrophil % 86.1 % (47-70); POSITIVE DIFFERENTIAL YES; POSITIVE MORPHOLOGY YES; Platelet Count 179 K/mm3 (150-450); RBC Distribution Width CV 14.1 % (11.6-14.6); RBC Distribution Width SD 51.8 fl (35.1-43.9); Red Blood Count 2.22 M/mm3 (4.2-5.4); White Blood Count 8.6 K/mm3 (4.4-11.0)
[2019-01-20 06:14] LABS: Differential Indicated SCAN CRITERIA MET
[2019-01-20 06:35] LABS: Anion Gap 13 (5-15); BUN 70 mg/dL (7-18); BUN/Creat Ratio 7.5 RATIO (10-20); Calcium,Total 9.2 mg/dL (8.5-10.1); Chloride 96 mmol/L (98-107); Creatinine, Serum 9.35 mg/dL (0.55-1.02); EST Glomerular Filtration Rate 5 mL/min (>60); Est Glom Filt Rate - Afr Amer 6 mL/min (>60); Estimated Creatinine Clearance 5.69 ml/min; Glucose 104 mg/dL (74-106); Potassium 4.6 mmol/L (3.5-5.1); Sodium Level 134 mmol/L (136-145)
[2019-01-20] MEDS: Ipratropium/Albuterol Sulfate 3 ML AMPUL.NEB INHALATION ×4 (06:47→18:43)
--- NOTE | 2019-01-20 07:11 | PCM.PROGNOTE ---
Patient Problems: Active and Suspected Problems Acute hypoxemic respiratory failure (Acute) Severe sepsis (Acute) Pneumonia (Acute) Sepsis (Acute) Subjective: The patient is a 48-year-old female with a past medical of amyloidosis (reportedly in remission after stem cell transplant), end-stage renal disease from amyloidosis on hemodialysis, hypertension, morbid obesity and anxiety/depression who presented to the emergency department at [facility] on 01/19/2019 complaining of not feeling well. She complained of subjective fever, cough productive of yellow sputum, shortness of breath, weakness and chills. Temp at admission was 102.9 and the heart rate was 106. Blood pressure was 157/79 and the respiratory rate was 21 with a pulse ox of 78% on room air and 92% on a 4 L nasal cannula. White blood cell count was elevated at 11.9 with 90% neutrophils. Hemoglobin is 8.1 and the platelets were within normal limits. MCV was 100. Hemoglobin in August 2018 was 13.2. PT was prolonged at 16.3 and the PTT was 41.4. Lactic acid was 1.5. Chest x-ray was reported as mild to moderate bilateral pulmonary edema, left greater than right. Per my review it looks like she has left side pneumonia. She was admitted to the hospital with a diagnosis of severe sepsis due to community-acquired pneumonia. She was treated with vancomycin and Levaquin in the emergency department and was admitted on vancomycin with transition to Zosyn. All events of the past 24 hours of been reviewed. T-max is 103.9. Current temp is 99.3 and she received Tylenol at 4 AM. Blood pressure is within normal limits heart rate has ranged from 82-1 06. Current heart rate is 88. Currently on a Ventimask at 12 L and maintaining an oxygen saturation of 98 to 100% howevere the RR is 28 All lab was personally reviewed. White blood cell count today is 8.6 with 86% neutrophils. Hemoglobin is 7.2, down from 8.1 at admission. Platelets are within normal limits. Sodium is mildly decreased to 134. Potassium is 4.6. Creatinine is 9.35 with a BUN of 70. LFTs were abnormal at admission and the total bilirubin was 1.2 with an AST of 90 and ALT of 81 and an alkaline phosphatase of 134. B12 is pending and the folate was within normal limits. She denies chest pain. The shortness of breath has improved since she was placed on a Ventimask. She was able to produce a sputum sample. She has some nausea from all the drainage but has no emesis and no abdominal pain. She denies diarrhea. She used to have a tunneled catheter for dialysis but is now using an AV fistula and all catheters of been removed. She was admitted to [facility] not too long ago for sepsis secondary to an infected port. She tells me that the only organ affected by the amyloidosis was the kidney. The stem cell transplant was in April and that is the same time she went on dialysis. Hemoglobin has dropped since his stem cell transplant and being placed on dialysis. She denies any black tarry stools. Eyes lightheadedness. - Physical Exam Vitals/I&O's: Vital Signs Temp Pulse Resp BP Pulse Ox 99.3 F H 88 28 H 115/61 98 01/20/19 06:58 01/20/19 06:58 01/20/19 06:58 01/20/19 06:58 01/20/19 06:58 Oxygen Flow Rate (L/min) 12 Oxygen Delivery Method Venturi Mask Weight: 231 lb 4.238 oz Body Mass Index (BMI) 42.3 Intake and Output for Last 24 Hours 01/18/19 01/19/19 01/20/19 23:59 23:59 23:59 Intake Total 400 / 400 Balance 400 / 400 General: Alert, Oriented x3, Cooperative, Well developed, Well nourished, - - She looks very fatigued. She is markedly diaphoretic at the present time. HEENT: Atraumatic, Normocephalic Oral: Moist Mucosa Neck: Supple, No Nodes, Trachea Midline Lungs: Rales - minimal in the left base posteriorly otherwise CTA, - - No conversational dyspnea as long as she has the Ventimask on. Cardiovascular: Regular rate, Regular Rhythm, Normal S1, Normal S2, No murmurs, No rub noted, No Gallop Abdomen: Bowel Sounds Present, Soft, Non Tender, Non-Distended, Obese Extremities: No clubbing, No cyanosis, No edema, Diminished Peripheral Pulses Skin: No rashes Neurological: Cranial nerves II-XII grossly intact, Neuro grossly intact Psych/Mental Status: Normal Affect, Appropriate Microbiology Past 72 Hours 01/20/19 03:00 Mucosa - Nose Influenza Types A,B Direct FA (HEATHER) - Final 01/19/19 21:35 Sputum, Expectorated/Coughed Gram Stain - Preliminary Laboratory Results 01/19/19 21:55: WBC 11.9 H, RBC 2.44 L, Hgb 8.1 L, Hct 24.4 L, MCV 100.0 H, MCH 33.2 H, MCHC 33.2, RDW Std Deviation 52.0 H, RDW Coeff of Fracisco 14.2, Plt Count 208, MPV 8.9, Immature Gran % (Auto) 0.300, Neut % (Auto) 89.8 H, Lymph % (Auto) 3.7 L, Brule % (Auto) 5.6, Eos % (Auto) 0.3, Baso % (Auto) 0.3, Absolute Neuts (auto) 10.7 H, Absolute Lymphs (auto) 0.44 L, Nucleated RBC % 0, Differential Comment 01/19/19 21:55: PT 16.3 H, INR 1.3, APTT 41.4 H 01/19/19 21:55: Sodium 134 L, Potassium 5.0, Chloride 95 L, Carbon Dioxide 27.0, Anion Gap 12, BUN 65 H, Creatinine 8.83 H*, Estim Creat Clear Calc 8.24, Est GFR (MDRD) Af Amer 6 L, Est GFR (MDRD) Non-Af 5 L, BUN/Creatinine Ratio 7.4 L, Glucose 121 H, Calcium 9.5, Total Bilirubin 1.20 H, AST 90 H, ALT 81 H, Alkaline Phosphatase 134 H, Troponin I < 0.015, Total Protein 7.6, Albumin 3.1 L, Globulin 4.5 H, Albumin/Globulin Ratio 0.7 L 01/19/19 21:55: Lactic Acid 1.5 01/19/19 21:55: Iron 15 L, TIBC 187 L, Iron Saturation 8.0 L, Ferritin 927 H, Folate 15.70 01/19/19 21:55: Vitamin B12 Pending 01/20/19 05:30: WBC 8.6, RBC 2.22 L, Hgb 7.2 L, Hct 22.3 L, MCV 100.5 H, MCH 32.4 H, MCHC 32.3, RDW Std Deviation 51.8 H, RDW Coeff of Fracisco 14.1, Plt Count 179, MPV 8.9, Immature Gran % (Auto) 0.700, Neut % (Auto) 86.1 H, Lymph % (Auto) 3.6 L, Brule % (Auto) 7.2, Eos % (Auto) 2.3, Baso % (Auto) 0.1, Absolute Neuts (auto) 7.4, Absolute Lymphs (auto) 0.31 L, Nucleated RBC % 0 01/20/19 05:30: Sodium 134 L, Potassium 4.6, Chloride 96 L, Carbon Dioxide 25.0, Anion Gap 13, BUN 70 H, Creatinine 9.35 H*, Estim Creat Clear Calc 5.69, Est GFR (MDRD) Af Amer 6 L, Est GFR (MDRD) Non-Af 5 L, BUN/Creatinine Ratio 7.5 L, Glucose 104, Calcium 9.2 Current Medications Acetaminophen (Tylenol) 650 mg PO Q6H PRN PRN PRN Reason: Pain Score 1-10/Temp > 100.7 F Last Admin: 01/20/19 04:06 Dose: 650 mg Documented by: Albuterol Sulfate (Ventolin Aerosols) 2.5 mg INHALATION Q2H PRN PRN PRN Reason: Shortness of Breath/Wheezing Last Admin: 01/20/19 02:59 Dose: 2.5 mg Documented by: Albuterol/Ipratropium (Duoneb) 3 ml INHALATION Q4HWA.RT [facility] Last Admin: 01/20/19 06:47 Dose: 3 ml Documented by: Citalopram Hydrobromide (Celexa) 20 mg PO DAILY [facility] Clonazepam (Klonopin) 0.5 mg PO BID PRN PRN PRN Reason: ANXIETY Dextrose (D50w Syringe) 0 gm IV X1 PRN; Protocol PRN Reason: Hypoglycemia Glucagon () 1 mg IM .X1 PRN PRN Reason: Hypoglycemia Guaifenesin (Mucinex) 1,200 mg PO BID [facility] Vancomycin IV Pharmacy to Dose (1,250 ea/ Sodium Chloride) 500 mls @ 250 mls/hr IV PRN PRN; Protocol Piperacillin Sod/Tazobactam (Sod 3.375 gm/ Sodium Chloride) 50 mls @ 12.5 mls/hr IV Q12 [facility] Last Infusion: 01/20/19 06:12 Dose: Infused Documented by: Azithromycin 500 mg/ Dextrose 255 mls @ 250 mls/hr IV Q24@2200 [facility] Last Admin: 01/20/19 06:22 Dose: 250 mls/hr Documented by: Nifedipine (Procardia Xl) 90 mg PO DAILY [facility] Ondansetron HCl (Zofran) 4 mg IV Q8H PRN PRN PRN Reason: NAUSEA/VOMITING Last Admin: 01/20/19 03:46 Dose: 4 mg Documented by: Pantoprazole Sodium (Protonix) 20 mg PO DAILY [facility] Propranolol HCl (Inderal) 20 mg PO BID [facility] Sevelamer Carbonate (Renvela) 800 mg PO TIDCM [facility] Medical Necessity - Tobacco Use Smoking Status: Former smoker - She was a social smoker about 20 years ago. Assessment/Plan All Active Problems Acute hypoxemic respiratory failure (Acute) Severe sepsis (Acute) Pneumonia (Acute) Sepsis (Acute) Day #2 vancomycin, Zosyn and azithromycin Impressions 1. Severe sepsis secondary to community-acquired pneumonia in an immunocompromised patient with ESRD on hemodialysis. Continue Zosyn and vancomycin. Influenza swab is negative. Cultures are pending. Sputum Gram stain is pending. sputum culture to be set up today 2. Acute hypoxemic respiratory failure secondary to pneumonia - Transfer to the ICU and trial of BIPAP. Dr. Anaya placed on consult. ABG now. 3. Hyponatremia 4. Abnormal LFTs-more likely than not secondary to sepsis/pneumonia 5. Macrocytic anemia -hemoglobin today is 7.2 and she is hypoxemic. Will monitor the hemoglobin closely and if it drops below 7 will need transfusion. She is agreeable to this. If the hypoxia does not improve with antibiotics may consider transfusion to improve oxygen carrying capacity. B12 is pending and folate is within normal limits. We will also check a TSH. 6. ESRD due to amyloidosis - Dr. Lawrence is on consult 7. hx of Amyloidosis - had a stem cell transplant in April 2018 8. recent admission to [facility] for sepsis due to infected port - has been removed and she no longer has a port. HD using fistula 9. Morbid obesity 10. GI prophylaxis with Pepcid 20 mg p.o. every 48 hours 11. DVT prophylaxis with heparin 5000 units subcu every 12 hours and JULES cristóbale Transfer to ICU for acute respiratory failure Consult Dr. Anaya to participate in management Continue vancomycin and Zosyn Respiratory panel consider CT chest if she deteriorates May need transfusion if HGB drops to less than 7......will type and screen for blood products Schedule tylenol Q 6H for the next 48H to prevent rigors Incentive spirometry for 10 breaths every hour while awake Not currently wheezing and she is not a smoker - no need for steroids at this time Code Visit Inpatient E&M: 78463 Subs Hosp L3
[2019-01-20 07:23] LABS: Differential Comment SCANNED; Hypochromasia 2+; Microcytosis 2+
--- NOTE | 2019-01-20 08:25 | NURSING ---
REPORT CALLED TO JOAQUIM GARCIA IN ICU
--- NOTE | 2019-01-20 08:53 | CON.PCM_ITS ---
Problem List (1) Amyloidosis Status: Acute Qualifiers: Amyloidosis type: unspecified amyloidosis Qualified Code(s): E85.9 - Amyloidosis, unspecified (2) Morbid obesity due to excess calories Status: Chronic (3) Acute hypoxemic respiratory failure Status: Acute (4) Severe sepsis Status: Acute (5) Pneumonia Status: Acute (6) ESRD (end stage renal disease) Status: Chronic Reason for Consult Date of Consultation: 01/20/19 Reason for Consultation: Respiratory failure History of Present Illness: The patient is a 48 year old F, with past medical history listed below, who presented with [facility] on 01/19/2019 secondary to shortness of breath and a cough productive of yellow sputum. Patient reportedly had felt increasing weakness throughout the day and had reported some subjective chills without fevers. Patient had a hemodialysis catheter removed on the day prior to presentation. Patient reported that this had been in place for approximately 3 months. Patient had reported some pain in her right ear and sore throat. Some nausea and vomiting have been reported, but patient did not report any generalized aspiration event. In the ER, patient was noted to be tachycardic at 106 bpm and tachypnea. Patient was 78% on room air and febrile at 102.9 ?F. Laboratory work-up showed a mild leukocytosis of 11.9 and a hemoglobin of 8.1. Creatinine was 8.83. Chest x-ray showed perihilar edema and left lower lobe infiltrate. Hospitalist was consulted and patient was admitted [facility]. This morning, patient was evaluated by the oncoming hospitalist secondary to tachypnea. Patient reportedly was breathing 20-30 times per minute on a Ventimask and reporting worsening shortness of breath. After evaluation, it was recommended that the patient come to the intensive care unit for further evaluation. 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 Patient has had hemodialysis for several months using a tunneled hemodialysis catheter. Patient reportedly had this removed prior to presentation. Patient does have a functioning fistula, but states that her last hemodialysis was on Thursday. Patient states that this is altered from her normal Thursday, Thursday, Thursday schedule secondary to the holiday. Patient does report she has a history of asthma at baseline, but only uses as needed albuterol. Patient does not report any COPD. Patient is not reporting any significant sick contacts. Review of systems otherwise negative from a constitutional, HEENT, respiratory, cardiovascular, GI, genitourinary, musculoskeletal, skin, neurologic, psychiatric and hematologic system unless stated above. Past Medical History Past Medical History (Chronic Problems): Chronic Problems Morbid obesity due to excess calories (Chronic) ESRD (end stage renal disease) (Chronic) Allergies No Known Allergies Allergy (Verified 01/04/19 12:52) Home Medications: Ambulatory Orders Medication Instructions Recorded Clonazepam [Klonopin] 0.5 mg PO PRN PRN 11/20/16 Citalopram [Celexa] 20 mg PO DAILY 03/26/17 Furosemide 40 mg PO BID 01/19/19 NIFEdipine [Procardia XL] 90 mg PO QHS 01/19/19 Pantoprazole Sodium 20 mg PO DAILY 01/19/19 Propranolol HCl [Inderal (Beta 20 mg PO BID 01/19/19 Lupis)] Sevelamer Carbonate [Renvela] 800 mg PO TID 01/19/19 Surgical History: cholecystectomy Lives: With Family Smoking Status: Former smoker - She was a social smoker about 20 years ago. Alcohol: Rare - *Family History Maternal History Items: Cancer - Leukemia, Dementia Paternal History Items: Heart Disease, Renal Disease Review of Systems Comment: See HPI Patient Problems: Active and Suspected Problems Amyloidosis (Acute) Acute hypoxemic respiratory failure (Acute) Severe sepsis (Acute) Pneumonia (Acute) Sepsis (Acute) Objective: Chest x-ray was personally reviewed. There does appear to be some cephalization, but left lower lobe infiltrate is noted. No lines are appreciated. - Physical Exam Vitals/I&O's: Vital Signs Temp Pulse Resp BP Pulse Ox 37.9 C H 87 28 H 95/54 L 95 01/20/19 08:17 01/20/19 08:17 01/20/19 08:17 01/20/19 08:17 01/20/19 08:17 Oxygen Flow Rate (L/min) 95 Oxygen Delivery Method Venturi Mask Weight: 104.9 kg Body Mass Index (BMI) 42.3 Intake and Output for Last 24 Hours 01/18/19 01/19/19 01/20/19 23:59 23:59 23:59 Intake Total 655 / 655 Balance 655 / 655 General: Alert, Oriented x3, Cooperative, - - Moderate respiratory distress on presentation. Resolved with BiPAP administration. Morbidly obese. HEENT: Atraumatic, PERRLA, EOMI, Normocephalic, - - Slightly pale mucosa Oral: Moist Mucosa, No Gingival or Mucosal Lesions/ Ulcerations Neck: Supple, No JVD, No Nodes, Trachea Midline Lungs: No rhonchi, No wheeze, No rales, Diminished, - - Symmetric expansion. Cardiovascular: Normal S1, Normal S2, No murmurs, No rub noted, No Gallop, Tachycardic Abdomen: Bowel Sounds Present, Soft, Non Tender, Non-Distended, Obese Extremities: No clubbing, No cyanosis, No edema, - - Fistula of left upper extremity Skin: No rashes, No breakdown Musculoskeletal: No Tenderness to Palpation of Joints or Extremities Lymphatic: No Cervical, Supraclavicular, or Inguinal Adenopathy Neurological: Cranial nerves II-XII grossly intact, Neuro grossly intact, Motor Exam 5/5 strength throughout Psych/Mental Status: Appropriate, Anxious Microbiology Past 72 Hours 01/19/19 21:55 Blood Culture (Wb) - Anticubital Left Blood Culture - Preliminary 01/20/19 03:00 Mucosa - Nose Influenza Types A,B Direct FA (HEATHER) - Final 01/19/19 21:35 Sputum, Expectorated/Coughed Gram Stain - Preliminary Laboratory Results 01/19/19 21:55: WBC 11.9 H, RBC 2.44 L, Hgb 8.1 L, Hct 24.4 L, MCV 100.0 H, MCH 33.2 H, MCHC 33.2, RDW Std Deviation 52.0 H, RDW Coeff of [place] 14.2, Plt Count 208, MPV 8.9, Immature Gran % (Auto) 0.300, Neut % (Auto) 89.8 H, Lymph % (Auto) 3.7 L, [place]mer[place]da % (Auto) 5.6, Eos % (Auto) 0.3, Baso % (Auto) 0.3, Absolute Neuts (auto) 10.7 H, Absolute Lymphs (auto) 0.44 L, Nucleated RBC % 0, Differential Comment 01/19/19 21:55: PT 16.3 H, INR 1.3, APTT 41.4 H 01/19/19 21:55: Sodium 134 L, Potassium 5.0, Chloride 95 L, Carbon Dioxide 27.0, Anion Gap 12, BUN 65 H, Creatinine 8.83 H*, Estim Creat Clear Calc 8.24, Est GFR (MDRD) Af Amer 6 L, Est GFR (MDRD) Non-Af 5 L, BUN/Creatinine Ratio 7.4 L, Glucose 121 H, Calcium 9.5, Total Bilirubin 1.20 H, AST 90 H, ALT 81 H, Alkaline Phosphatase 134 H, Troponin I < 0.015, Total Protein 7.6, Albumin 3.1 L, Globulin 4.5 H, Albumin/Globulin Ratio 0.7 L 01/19/19 21:55: Lactic Acid 1.5 01/19/19 21:55: Iron 15 L, TIBC 187 L, Iron Saturation 8.0 L, Ferritin 927 H, Folate 15.70 01/19/19 21:55: Vitamin B12 Pending 01/20/19 05:30: WBC 8.6, RBC 2.22 L, Hgb 7.2 L, Hct 22.3 L, MCV 100.5 H, MCH 32.4 H, MCHC 32.3, RDW Std Deviation 51.8 H, RDW Coeff of [place] 14.1, Plt Count 179, MPV 8.9, Immature Gran % (Auto) 0.700, Neut % (Auto) 86.1 H, Lymph % (Auto) 3.6 L, [place]mer[place]da % (Auto) 7.2, Eos % (Auto) 2.3, Baso % (Auto) 0.1, Absolute Neuts (auto) 7.4, Absolute Lymphs (auto) 0.31 L, Nucleated RBC % 0, Differential Comment SCANNED, Hypochromasia 2+, Microcytosis 2+ 01/20/19 05:30: Sodium 134 L, Potassium 4.6, Chloride 96 L, Carbon Dioxide 25.0, Anion Gap 13, BUN 70 H, Creatinine 9.35 H*, Estim Creat Clear Calc 5.69, Est GFR (MDRD) Af Amer 6 L, Est GFR (MDRD) Non-Af 5 L, BUN/Creatinine Ratio 7.5 L, Glucose 104, Calcium 9.2 Clinical Impression(s) from Imaging Studies Chest X-Ray 01/19/19 21:42 IMPRESSION: 1. Mild to moderate bilateral pulmonary edema, left greater than right Electronically Signed: Andrew Schumacher MD at 22:14 EST , Service support , Current Medications Acetaminophen (Tylenol) 650 mg PO Q6 [facility] Stop: 01/22/19 00:01 Albuterol Sulfate (Ventolin Aerosols) 2.5 mg INHALATION Q2H PRN PRN PRN Reason: Shortness of Breath/Wheezing Last Admin: 01/20/19 02:59 Dose: 2.5 mg Documented by: Albuterol/Ipratropium (Duoneb) 3 ml INHALATION Q4HWA.RT [facility] Last Admin: 01/20/19 06:47 Dose: 3 ml Documented by: Citalopram Hydrobromide (Celexa) 20 mg PO DAILY [facility] Clonazepam (Klonopin) 0.5 mg PO BID PRN PRN PRN Reason: ANXIETY Dextrose (D50w Syringe) 0 gm IV X1 PRN; Protocol PRN Reason: Hypoglycemia Famotidine (Pepcid) 20 mg PO Q48 [facility] Glucagon () 1 mg IM .X1 PRN PRN Reason: Hypoglycemia Guaifenesin (Mucinex) 1,200 mg PO BID [facility] Heparin Sodium (Porcine) (Heparin Na) 5,000 unit SC Q12 [facility] Vancomycin IV Pharmacy to Dose (1,250 ea/ Sodium Chloride) 500 mls @ 250 mls/hr IV PRN PRN; Protocol Piperacillin Sod/Tazobactam (Sod 3.375 gm/ Sodium Chloride) 50 mls @ 12.5 mls/hr IV Q12 [facility] Last Infusion: 01/20/19 06:12 Dose: Infused Documented by: Azithromycin 500 mg/ Dextrose 255 mls @ 250 mls/hr IV Q24@2200 [facility] Last Infusion: 01/20/19 07:24 Dose: Infused Documented by: Nifedipine (Procardia Xl) 90 mg PO DAILY [facility] Ondansetron HCl (Zofran) 4 mg IV Q8H PRN PRN PRN Reason: NAUSEA/VOMITING Last Admin: 01/20/19 03:46 Dose: 4 mg Documented by: Pantoprazole Sodium (Protonix) 20 mg PO DAILY [facility] Propranolol HCl (Inderal) 20 mg PO BID [facility] Sevelamer Carbonate (Renvela) 800 mg PO TIDCM [facility] Assessment/Plan Active and Suspected Problems Amyloidosis (Acute) Acute hypoxemic respiratory failure (Acute) Severe sepsis (Acute) Pneumonia (Acute) Sepsis (Acute) RECOMMENDATIONS: 1. Continue BiPAP therapy. Wean FiO2 as tolerated 2. Continue vancomycin and Zosyn. Okay to discontinue azithromycin 3. Fluid boluses as necessary 4. Attempt to avoid central line if possible for 24 to 48 hours 5. Transfuse for hemoglobin less than 7 IMPRESSIONS: 1. Acute hypoxic respiratory failure secondary to probable embolic pneumonia with staph aureus Patient appears to have a left lower lobe infiltrate. Clinical suspicion for embolic pneumonia secondary to line removal with staph aureus. Patient is already growing bacteria from the blood in less than 12 hours. Patient does have high fevers and a productive cough suggestive of staph aureus. Patient is responding well to BiPAP therapy. Likely continue BiPAP for the next 24 hours. BiPAP breaks tomorrow if tolerates. Does not have underlying obstructive lung disease to indicate a need for bronchodilators or steroids at this time. 2. Severe sepsis secondary to probable staph aureus/line infection Clinical suspicion for bacteremia following removal of tunneled blind. Patient is already growing what appears to be staph aureus. MRSA versus MSSA would be a consideration. Would continue with vancomycin and Zosyn for now. Await sensitivities. Okay to discontinue azithromycin from my standpoint. Patient can receive some fluid boluses if becomes hypotensive. Blood products would also be a consideration given her hemoglobin of 7. Blood would not extravasate like crystalloids. Would attempt to avoid any central access for at least 24 to 48 hours to attempt to clear bacteremia and avoid reseeding of foreign bodies 3. Morbid obesity/depression/anxiety/end-stage renal disease/amyloidosis/hypertension Complicates care, management, recovery and prognosis. Patient is directable at this time from an anxiety standpoint. Would not be opposed to using Haldol if necessary. Would avoid benzodiazepines if possible. Nephrology has been notified and plans on dialysis tomorrow. Did confirm patient is a full CODE STATUS. TIME: 33 minutes of critical care time spent addressing patient's acute hypoxic respiratory failure, severe sepsis, end-stage renal disease, review of all data and collaboration with care team (8:45 AM to 9:30 AM) Code Visit [id number]: [id number] Critical care first hour
--- NOTE | 2019-01-20 09:00 | NURSING ---
called Patric to update on pt transfer to ICU for further monitoring.
[2019-01-20 09:01] LABS: Allen Test POS; Base Excess 2 mmol/L (-2 to +2); Bicarbonate 25.8 mmol/L (22-26); Blood Gas Specimen Type ART; FI02 40; PO2 65 mmHG (75-100); SITE R Radial; SO2 93 % (95-99); Time Given 851; Total Carbon Dioxide 27 mmol/L; pCO2 36.4 mmHg (35-45); pH 7.46 (7.35-7.45)
[2019-01-20 10:15] LABS: Hematocrit 21.6 % (37-47); Hemoglobin 7.1 g/dL (12.0-15.0)
[2019-01-20] MEDS: Heparin Injection (Vial) 5,000 UNIT/ML VIAL 5000 UNIT SC ×2 (10:16→21:36)
[2019-01-20 10:28] LABS: Magnesium 1.7 mg/dL (1.6-2.6); Phosphorus 4.4 mg/dL (2.5-4.9)
[2019-01-20] MEDS: Citalopram 20 MG Tablet PO (11:14)
[2019-01-20] MEDS: SEVELAMER CARBONATE 800 MG TABLET PO (11:14)
[2019-01-20] MEDS: Propranolol 10 MG Tablet 20 MG PO ×2 (11:14→21:35)
[2019-01-20] MEDS: NIFEdipine 90 MG Tablet PO (11:15)
[2019-01-20] MEDS: guaiFENesin 1,200 MG Tablet 1200 MG PO ×2 (11:15→21:35)
[2019-01-20] MEDS: Pantoprazole Sodium 20 MG Tablet PO (11:15)
[2019-01-20] MEDS: Famotidine 20 MG Tablet PO (11:18)
--- NOTE | 2019-01-20 15:29 | CON.PCM_ITS ---
Problem List (1) ESRD (end stage renal disease) Status: Chronic Consultation - Renal 01/20/19 PCP/ Referring MD: Requesting physician: Dr Ritchie Primary care physician: Deven James DO Reason for Consultation:: ESRD - History of Present Illness History of Present Illness: The patient is a 48 year old F who is admitted to the hospital with complaints of fever, chills, productive cough for the last 2 days. She has known history of ESRD secondary to amyloidosis. Has been on dialysis for about a year now. Had a IJ tunneled dialysis catheter from which she developed MSSA bacteremia in October. She was treated with IV antibiotics and has finished course. Follow-up cultures were negative. She had a left arm AV fistula placed and tunneled dialysis catheter removed 2 days ago. Started noticing above symptoms after catheter removal. Being diagnosed with pneumonia, left-sided, presumably embolic origin. Currently on Ventimask. - Allergies Allergies: Allergies No Known Allergies Allergy (Verified 01/04/19 12:52) - Current Medications Current Medications: Current Medications Acetaminophen (Tylenol) 650 mg PO Q6 [facility] Stop: 01/22/19 00:01 Last Admin: 01/20/19 11:19 Dose: Not Given Documented by: Albuterol Sulfate (Ventolin Aerosols) 2.5 mg INHALATION Q2H PRN PRN PRN Reason: Shortness of Breath/Wheezing Last Admin: 01/20/19 02:59 Dose: 2.5 mg Documented by: Albuterol/Ipratropium (Duoneb) 3 ml INHALATION Q4HWA.RT [facility] Last Admin: 01/20/19 14:59 Dose: 3 ml Documented by: Citalopram Hydrobromide (Celexa) 20 mg PO DAILY [facility] Last Admin: 01/20/19 11:14 Dose: 20 mg Documented by: Clonazepam (Klonopin) 0.5 mg PO BID PRN PRN PRN Reason: ANXIETY Dextrose (D50w Syringe) 0 gm IV X1 PRN; Protocol PRN Reason: Hypoglycemia Famotidine (Pepcid) 20 mg PO Q48 [facility] Last Admin: 01/20/19 11:18 Dose: 20 mg Documented by: Glucagon () 1 mg IM .X1 PRN PRN Reason: Hypoglycemia Guaifenesin (Mucinex) 1,200 mg PO BID [facility] Last Admin: 11/28/19 11:15 Dose: 1,200 mg Documented by: Heparin Sodium (Porcine) (Heparin Na) 5,000 unit SC Q12 [facility] Last Admin: 01/20/19 10:16 Dose: 5,000 unit Documented by: Vancomycin IV Pharmacy to Dose (1,250 ea/ Sodium Chloride) 500 mls @ 250 mls/hr IV PRN PRN; Protocol Piperacillin Sod/Tazobactam (Sod 3.375 gm/ Sodium Chloride) 50 mls @ 12.5 mls/hr IV Q12 [facility] Last Admin: 01/20/19 10:10 Dose: 12.5 mls/hr Documented by: Nifedipine (Procardia Xl) 90 mg PO DAILY [facility] Last Admin: 01/20/19 11:15 Dose: 90 mg Documented by: Ondansetron HCl (Zofran) 4 mg IV Q8H PRN PRN PRN Reason: NAUSEA/VOMITING Last Admin: 01/20/19 03:46 Dose: 4 mg Documented by: Pantoprazole Sodium (Protonix) 20 mg PO DAILY [facility] Last Admin: 01/20/19 11:15 Dose: 20 mg Documented by: Propranolol HCl (Inderal) 20 mg PO BID [facility] Last Admin: 01/20/19 11:14 Dose: 20 mg Documented by: Sevelamer Carbonate (Renvela) 800 mg PO TIDCM [facility] Last Admin: 01/20/19 11:18 Dose: Not Given Documented by: - Past Medical History Past Medical History (Chronic Problems): Chronic Problems Morbid obesity due to excess calories (Chronic) ESRD (end stage renal disease) (Chronic) - Past Surgical History Surgical History: cholecystectomy - Social History Smoking Status: Former smoker - She was a social smoker about 20 years ago. Alcohol: Rare - Family History Maternal History Items: Cancer - Leukemia, Dementia Paternal History Items: Heart Disease, Renal Disease Review of Systems Constitutional: Reports: Chills, Fever. Denies: Weight Change HEENT: Denies: Head Aches, Sinus Congestion, Sinus Drainage Cardiovascular: Denies: Chest Pain, Palpitations Respiratory: Reports: Shortness of Breath. Denies: Cough, Shortness of breath at rest, Sputum production Gastrointestinal: Denies: Abdominal Pain, Nausea, Vomiting Genitourinary: Denies: Dysuria Musculoskeletal: Denies: Joint Pain, Joint Tenderness Skin: Denies: Rash, Wounds Neurological: Denies: Numbness, Tingling, Focal weakness Psychiatric: Denies: Anxiety, Depression, Homicidal Ideations, Suicidal Ideations Hematologic/ Lymphatic: Denies: Easy Bruising, Easy Bleeding Patient Problems: Active and Suspected Problems Amyloidosis (Acute) Acute hypoxemic respiratory failure (Acute) Severe sepsis (Acute) Pneumonia (Acute) Sepsis (Acute) - Physical Exam Vitals/I&O's: Vital Signs Temp Pulse Resp BP Pulse Ox 98.4 F 65 25 H 109/70 99 01/20/19 12:00 01/20/19 15:01 01/20/19 15:01 01/20/19 14:00 01/20/19 15:01 Oxygen Flow Rate (L/min) 95 Oxygen Delivery Method Bi-pap Weight: 104.9 kg Body Mass Index (BMI) 42.3 Intake and Output for Last 24 Hours 01/18/19 01/19/19 01/20/19 23:59 23:59 23:59 Intake Total 655 / 655 Output Total 0 / 0 Balance 655 / 655 General: Alert, Oriented x3, Cooperative Microbiology Past 72 Hours 01/19/19 21:55 Blood Culture (Wb) - Anticubital Left Blood Culture - Preliminary 01/19/19 22:30 Blood Culture (Wb) - Right Wrist Blood Culture - Preliminary 01/19/19 21:35 Sputum, Expectorated/Coughed Gram Stain - Final 01/19/19 21:35 Sputum, Expectorated/Coughed Respiratory Culture - Preliminary Appears to be normal respiratory yrn. Further studies to follow. 01/20/19 09:04 Mucosa - Nasopharyngeal Respiratory Panel (PCR) - Final 01/20/19 03:00 Mucosa - Nose Influenza Types A,B Direct FA (HEATHER) - Final Laboratory Results 01/19/19 21:55: WBC 11.9 H, RBC 2.44 L, Hgb 8.1 L, Hct 24.4 L, MCV 100.0 H, MCH 33.2 H, MCHC 33.2, RDW Std Deviation 52.0 H, RDW Coeff of [place]ac[place] 14.2, Plt Count 208, MPV 8.9, Immature Gran % (Auto) 0.300, Neut % (Auto) 89.8 H, Lymph % (Auto) 3.7 L, [place] % (Auto) 5.6, Eos % (Auto) 0.3, Baso % (Auto) 0.3, Absolute Neuts (auto) 10.7 H, Absolute Lymphs (auto) 0.44 L, Nucleated RBC % 0, Differential Comment 01/19/19 21:55: PT 16.3 H, INR 1.3, APTT 41.4 H 01/19/19 21:55: Sodium 134 L, Potassium 5.0, Chloride 95 L, Carbon Dioxide 27.0, Anion Gap 12, BUN 65 H, Creatinine 8.83 H*, Estim Creat Clear Calc 8.24, Est GFR (MDRD) Af Amer 6 L, Est GFR (MDRD) Non-Af 5 L, BUN/Creatinine Ratio 7.4 L, Glucose 121 H, Calcium 9.5, Total Bilirubin 1.20 H, AST 90 H, ALT 81 H, Alkaline Phosphatase 134 H, Troponin I < 0.015, Total Protein 7.6, Albumin 3.1 L, Globulin 4.5 H, Albumin/Globulin Ratio 0.7 L 01/19/19 21:55: Lactic Acid 1.5 01/19/19 21:55: Iron 15 L, TIBC 187 L, Iron Saturation 8.0 L, Ferritin 927 H, Folate 15.70 01/19/19 21:55: Vitamin B12 Pending 01/20/19 05:30: WBC 8.6, RBC 2.22 L, Hgb 7.2 L, Hct 22.3 L, MCV 100.5 H, MCH 32.4 H, MCHC 32.3, RDW Std Deviation 51.8 H, RDW Coeff of [place] 14.1, Plt Count 179, MPV 8.9, Immature Gran % (Auto) 0.700, Neut % (Auto) 86.1 H, Lymph % (Auto) 3.6 L, [place] % (Auto) 7.2, Eos % (Auto) 2.3, Baso % (Auto) 0.1, Absolute Neuts (auto) 7.4, Absolute Lymphs (auto) 0.31 L, Nucleated RBC % 0, Differential Comment SCANNED, Hypochromasia 2+, Microcytosis 2+ 01/20/19 05:30: Sodium 134 L, Potassium 4.6, Chloride 96 L, Carbon Dioxide 25.0, Anion Gap 13, BUN 70 H, Creatinine 9.35 H*, Estim Creat Clear Calc 5.69, Est GFR (MDRD) Af Amer 6 L, Est GFR (MDRD) Non-Af 5 L, BUN/Creatinine Ratio 7.5 L, Glucose 104, Calcium 9.2 01/20/19 08:54: Specimen Type ART, Sample Site R Radial, pH 7.46 H, Bicarbonate Actual 25.8, POC Total CO2 27, Base Excess 2, O2 Saturation 93 L, O2 % 40, ABG pCO2 36.4, ABG pO2 65 L, Elvis Test POS, O2 Delivery Device Vent Mask, Blood Gas Notified Whom ICU MD, Blood Gas Notified Time 851 01/20/19 10:00: TSH 1.90 01/20/19 10:00: Hgb 7.1 L, Hct 21.6 L 01/20/19 10:00: Blood Type O POSITIVE, Antibody Screen NEGATIVE 01/20/19 10:00: Phosphorus 4.4, Magnesium 1.7 Current Medications Acetaminophen (Tylenol) 650 mg PO Q6 [facility] Stop: 01/22/19 00:01 Last Admin: 01/20/19 11:19 Dose: Not Given Documented by: Albuterol Sulfate (Ventolin Aerosols) 2.5 mg INHALATION Q2H PRN PRN PRN Reason: Shortness of Breath/Wheezing Last Admin: 01/20/19 02:59 Dose: 2.5 mg Documented by: Albuterol/Ipratropium (Duoneb) 3 ml INHALATION Q4HWA.RT [facility] Last Admin: 01/20/19 14:59 Dose: 3 ml Documented by: Citalopram Hydrobromide (Celexa) 20 mg PO DAILY [facility] Last Admin: 01/20/19 11:14 Dose: 20 mg Documented by: Clonazepam (Klonopin) 0.5 mg PO BID PRN PRN PRN Reason: ANXIETY Dextrose (D50w Syringe) 0 gm IV X1 PRN; Protocol PRN Reason: Hypoglycemia Famotidine (Pepcid) 20 mg PO Q48 [facility] Last Admin: 01/20/19 11:18 Dose: 20 mg Documented by: Glucagon () 1 mg IM .X1 PRN PRN Reason: Hypoglycemia Guaifenesin (Mucinex) 1,200 mg PO BID [facility] Last Admin: 01/20/19 11:15 Dose: 1,200 mg Documented by: Heparin Sodium (Porcine) (Heparin Na) 5,000 unit SC Q12 [facility] Last Admin: 01/20/19 10:16 Dose: 5,000 unit Documented by: Vancomycin IV Pharmacy to Dose (1,250 ea/ Sodium Chloride) 500 mls @ 250 mls/hr IV PRN PRN; Protocol Piperacillin Sod/Tazobactam (Sod 3.375 gm/ Sodium Chloride) 50 mls @ 12.5 mls/hr IV Q12 [facility] Last Admin: 01/20/19 10:10 Dose: 12.5 mls/hr Documented by: Nifedipine (Procardia Xl) 90 mg PO DAILY [facility] Last Admin: 01/20/19 11:15 Dose: 90 mg Documented by: Ondansetron HCl (Zofran) 4 mg IV Q8H PRN PRN PRN Reason: NAUSEA/VOMITING Last Admin: 01/20/19 03:46 Dose: 4 mg Documented by: Pantoprazole Sodium (Protonix) 20 mg PO DAILY [facility] Last Admin: 01/20/19 11:15 Dose: 20 mg Documented by: Propranolol HCl (Inderal) 20 mg PO BID [facility] Last Admin: 01/20/19 11:14 Dose: 20 mg Documented by: Sevelamer Carbonate (Renvela) 800 mg PO TIDCM [facility] Last Admin: 01/20/19 11:18 Dose: Not Given Documented by: Assessment/Plan All Active Problems Amyloidosis (Acute) Acute hypoxemic respiratory failure (Acute) Severe sepsis (Acute) Pneumonia (Acute) Sepsis (Acute) End-stage renal disease Pneumonia Presumably staph bacteremia Last dialysis was Thursday with AV fistula. Noticed symptoms after tunneled dialysis catheter removal. Exit site looks clean. Continue vancomycin for now. No acute indications for dialysis. Chest infiltrates are mostly on the left side. Anemia. With low iron deficiency. Hold Venofer due to bacteremia. Next dialysis possibly tomorrow.
--- NOTE | 2019-01-20 16:44 | CPS ---
Took patient off bipap at this time for a break.
[2019-01-21] VITALS (34 sets, daily range): BP systolic 78–138; BP diastolic 56–89; PULSE 64–87; RESP 12–35; TEMP 36.4–36.9; O2SAT 90–100
[2019-01-21] MEDS: Acetaminophen 325 MG Tablet 650 MG PO ×5 (00:02→23:00)
[2019-01-21 05:14] LABS: Absolute Lymphocyte Count 0.92 X10^3/uL (0.83-4.51); Absolute Neutrophil Count 7.4 X10^3/uL (2.0-7.7); Basophil# 0.01 X10^3/uL; Basophil% 0.1 % (0-1); Eosinophil# 0.25 X10^3/uL; Eosinophils% 2.7 % (0-5); Hematocrit 19.8 % (37-47); Hemoglobin 6.4 g/dL (12.0-15.0); Lymphocyte # 0.92 X10^3/ul (4.0); Lymphocyte % 9.9 % (19-41); Mean Corp Hgb Conc 32.3 g/dL (32-36); Mean Corpuscular Hgb 32.7 pg (27.0-32.0); Mean Platelet Vol. 9.4 fl (6.2-12.0); Monocyte# 0.76 X10^3/uL; Monocyte% 8.1 % (0-10); NRBC Flagged by Analyzer 0 % (0-5); Neutrophil # 7.35 X10^3/uL (2.7-7.7); Neutrophil % 78.7 % (47-70); Platelet Count 152 K/mm3 (150-450); RBC Distribution Width CV 14.4 % (11.6-14.6); RBC Distribution Width SD 52.3 fl (35.1-43.9); Red Blood Count 1.96 M/mm3 (4.2-5.4); White Blood Count 9.3 K/mm3 (4.4-11.0)
[2019-01-21] MEDS: clonazePAM 0.5 MG Tablet PO ×2 (05:25→13:36)
[2019-01-21 05:43] LABS: ALB/GLOB Ratio 0.6 RATIO (0.9-2.4); AST(SGOT) 38 U/L (15-37); Alanine Aminotransfer ALT/SGPT 55 U/L (13-56); Albumin, Serum 2.5 g/dL (3.2-5.0); Alkaline Phosphatase 100 U/L (45-117); Anion Gap 11 (5-15); BUN 87 mg/dL (7-18); BUN/Creat Ratio 7.9 RATIO (10-20); Calcium,Total 9.1 mg/dL (8.5-10.1); Chloride 94 mmol/L (98-107); EST Glomerular Filtration Rate 4 mL/min (>60); Est Glom Filt Rate - Afr Amer 5 mL/min (>60); Estimated Creatinine Clearance 4.84 ml/min; Globulin 4.1 g/dL (2.2-4.2); Glucose 84 mg/dL (74-106); Magnesium 2.2 mg/dL (1.6-2.6); Phosphorus 5.8 mg/dL (2.5-4.9); Potassium 5.2 mmol/L (3.5-5.1); Protein, Total 6.6 g/dL (6.4-8.2); Sodium Level 131 mmol/L (136-145)
[2019-01-21] MEDS: Ipratropium/Albuterol Sulfate 3 ML AMPUL.NEB INHALATION ×3 (07:19→19:07)
--- NOTE | 2019-01-21 07:22 | PN_ITS ---
Subjective: Patient did okay overnight. No hemodynamic instability was reported. Patient was able to come off of BiPAP therapy this morning and feels subjectively improved compared to previous. Patient did develop a cough productive of purulent sputum overnight and sputum was sent for culture. No active bleeding was noted. General: Alert, Oriented x3, Cooperative, No apparent distress, Well developed, Well nourished, - - Morbidly obese. Speaking in full sentences. HEENT: Atraumatic, PERRLA, EOMI, Normocephalic, - - Pale mucous membranes. Oral: Moist Mucosa, No Gingival or Mucosal Lesions/ Ulcerations Neck: Supple, No JVD, No Nodes, Trachea Midline Lungs: No wheeze, No rales, Diminished, Rhonchi - Scattered, - - Symmetric expansion. No dullness to percussion Cardiovascular: Regular rate, Regular Rhythm, Normal S1, Normal S2, No murmurs, No rub noted, No Gallop Abdomen: Bowel Sounds Present, Soft, Non Tender, Non-Distended, Obese Extremities: No clubbing, No cyanosis, Capillary Refill Less than 3 Seconds, Edema Skin: No rashes, No breakdown Musculoskeletal: No Tenderness to Palpation of Joints or Extremities Lymphatic: No Cervical, Supraclavicular, or Inguinal Adenopathy Neurological: Cranial nerves II-XII grossly intact, Neuro grossly intact, Motor Exam 5/5 strength throughout Psych/Mental Status: Alert and oriented to time, place, person, mood and affect Vital Signs Temp Pulse Resp BP Pulse Ox 36.9 C 69 20 H 101/87 H 97 01/21/19 05:00 01/21/19 07:20 01/21/19 07:20 01/21/19 06:00 01/21/19 07:20 Oxygen Flow Rate (L/min) 3 Oxygen Delivery Method Nasal Cannula Weight: 111 kg Body Mass Index (BMI) 42.3 Intake and Output for Last 24 Hours 01/19/19 01/20/19 01/21/19 23:59 23:59 23:59 Intake Total 905 / 1145 410 / 410 Output Total 0 / 10 Balance 905 / 1135 400 / 400 Labs (Last 48 Hours) 01/19/19 01/19/19 01/19/19 21:55 21:55 21:55 WBC 11.9 H RBC 2.44 L Hgb 8.1 L Hct 24.4 L MCV 100.0 H MCH 33.2 H MCHC 33.2 RDW Std Deviation 52.0 H RDW Coeff of [place] 14.2 Plt Count 208 MPV 8.9 Immature Gran % (Auto) 0.300 Neut % (Auto) 89.8 H Lymph % (Auto) 3.7 L [place] % (Auto) 5.6 Eos % (Auto) 0.3 Baso % (Auto) 0.3 Absolute Neuts (auto) 10.7 H Absolute Lymphs (auto) 0.44 L Nucleated RBC % 0 Differential Comment Hypochromasia Microcytosis PT 16.3 H INR 1.3 APTT 41.4 H Specimen Type Sample Site pH Bicarbonate Actual POC Total CO2 Base Excess O2 Saturation O2 % ABG pCO2 ABG pO2 Elvis Test O2 Delivery Device Blood Gas Notified Whom Blood Gas Notified Time Sodium 134 L Potassium 5.0 Chloride 95 L Carbon Dioxide 27.0 Anion Gap 12 BUN 65 H Creatinine 8.83 H* Estim Creat Clear Calc 8.24 Est GFR (MDRD) Af Amer 6 L Est GFR (MDRD) Non-Af 5 L BUN/Creatinine Ratio 7.4 L Glucose 121 H Lactic Acid Calcium 9.5 Phosphorus Magnesium Iron TIBC Iron Saturation Ferritin Total Bilirubin 1.20 H AST 90 H ALT 81 H Alkaline Phosphatase 134 H Troponin I < 0.015 Total Protein 7.6 Albumin 3.1 L Globulin 4.5 H Albumin/Globulin Ratio 0.7 L Vitamin B12 Folate TSH Blood Type Antibody Screen 01/19/19 01/19/19 01/19/19 21:55 21:55 21:55 WBC RBC Hgb Hct MCV MCH MCHC RDW Std Deviation RDW Coeff of [place] Plt Count MPV Immature Gran % (Auto) Neut % (Auto) Lymph % (Auto) [place] % (Auto) Eos % (Auto) Baso % (Auto) Absolute Neuts (auto) Absolute Lymphs (auto) Nucleated RBC % Differential Comment Hypochromasia Microcytosis PT INR APTT Specimen Type Sample Site pH Bicarbonate Actual POC Total CO2 Base Excess O2 Saturation O2 % ABG pCO2 ABG pO2 Elvis Test O2 Delivery Device Blood Gas Notified Whom Blood Gas Notified Time Sodium Potassium Chloride Carbon Dioxide Anion Gap BUN Creatinine Estim Creat Clear Calc Est GFR (MDRD) Af Amer Est GFR (MDRD) Non-Af BUN/Creatinine Ratio Glucose Lactic Acid 1.5 Calcium Phosphorus Magnesium Iron 15 L TIBC 187 L Iron Saturation 8.0 L Ferritin 927 H Total Bilirubin AST ALT Alkaline Phosphatase Troponin I Total Protein Albumin Globulin Albumin/Globulin Ratio Vitamin B12 Pending Folate 15.70 TSH Blood Type Antibody Screen 01/20/19 01/20/19 01/20/19 05:30 05:30 08:54 WBC 8.6 RBC 2.22 L Hgb 7.2 L Hct 22.3 L MCV 100.5 H MCH 32.4 H MCHC 32.3 RDW Std Deviation 51.8 H RDW Coeff of [place] 14.1 Plt Count 179 MPV 8.9 Immature Gran % (Auto) 0.700 Neut % (Auto) 86.1 H Lymph % (Auto) 3.6 L [place] % (Auto) 7.2 Eos % (Auto) 2.3 Baso % (Auto) 0.1 Absolute Neuts (auto) 7.4 Absolute Lymphs (auto) 0.31 L Nucleated RBC % 0 Differential Comment SCANNED Hypochromasia 2+ Microcytosis 2+ PT INR APTT Specimen Type ART Sample Site R Radial pH 7.46 H Bicarbonate Actual 25.8 POC Total CO2 27 Base Excess 2 O2 Saturation 93 L O2 % 40 ABG pCO2 36.4 ABG pO2 65 L Elvis Test POS O2 Delivery Device Vent Mask Blood Gas Notified Whom ICU MD Blood Gas Notified Time 851 Sodium 134 L Potassium 4.6 Chloride 96 L Carbon Dioxide 25.0 Anion Gap 13 BUN 70 H Creatinine 9.35 H* Estim Creat Clear Calc 5.69 Est GFR (MDRD) Af Amer 6 L Est GFR (MDRD) Non-Af 5 L BUN/Creatinine Ratio 7.5 L Glucose 104 Lactic Acid Calcium 9.2 Phosphorus Magnesium Iron TIBC Iron Saturation Ferritin Total Bilirubin AST ALT Alkaline Phosphatase Troponin I Total Protein Albumin Globulin Albumin/Globulin Ratio Vitamin B12 Folate TSH Blood Type Antibody Screen 01/20/19 01/20/19 01/20/19 10:00 10:00 10:00 WBC RBC Hgb 7.1 L Hct 21.6 L MCV MCH MCHC RDW Std Deviation RDW Coeff of [place] Plt Count MPV Immature Gran % (Auto) Neut % (Auto) Lymph % (Auto) [place] % (Auto) Eos % (Auto) Baso % (Auto) Absolute Neuts (auto) Absolute Lymphs (auto) Nucleated RBC % Differential Comment Hypochromasia Microcytosis PT INR APTT Specimen Type Sample Site pH Bicarbonate Actual POC Total CO2 Base Excess O2 Saturation O2 % ABG pCO2 ABG pO2 Elvis Test O2 Delivery Device Blood Gas Notified Whom Blood Gas Notified Time Sodium Potassium Chloride Carbon Dioxide Anion Gap BUN Creatinine Estim Creat Clear Calc Est GFR (MDRD) Af Amer Est GFR (MDRD) Non-Af BUN/Creatinine Ratio Glucose Lactic Acid Calcium Phosphorus Magnesium Iron TIBC Iron Saturation Ferritin Total Bilirubin AST ALT Alkaline Phosphatase Troponin I Total Protein Albumin Globulin Albumin/Globulin Ratio Vitamin B12 Folate TSH 1.90 Blood Type O POSITIVE Antibody Screen NEGATIVE 01/20/19 01/21/19 01/21/19 10:00 04:58 04:58 WBC 9.3 RBC 1.96 L Hgb 6.4 L Hct 19.8 L MCV 101.0 H MCH 32.7 H MCHC 32.3 RDW Std Deviation 52.3 H RDW Coeff of [place] 14.4 Plt Count 152 MPV 9.4 Immature Gran % (Auto) 0.500 Neut % (Auto) 78.7 H Lymph % (Auto) 9.9 L [place] % (Auto) 8.1 Eos % (Auto) 2.7 Baso % (Auto) 0.1 Absolute Neuts (auto) 7.4 Absolute Lymphs (auto) 0.92 Nucleated RBC % 0 Differential Comment Hypochromasia Microcytosis PT INR APTT Specimen Type Sample Site pH Bicarbonate Actual POC Total CO2 Base Excess O2 Saturation O2 % ABG pCO2 ABG pO2 Elvis Test O2 Delivery Device Blood Gas Notified Whom Blood Gas Notified Time Sodium 131 L Potassium 5.2 H Chloride 94 L Carbon Dioxide 26.0 Anion Gap 11 BUN 87 H Creatinine 11.00 H* Estim Creat Clear Calc 4.84 Est GFR (MDRD) Af Amer 5 L Est GFR (MDRD) Non-Af 4 L BUN/Creatinine Ratio 7.9 L Glucose 84 Lactic Acid Calcium 9.1 Phosphorus 4.4 5.8 H Magnesium 1.7 2.2 Iron TIBC Iron Saturation Ferritin Total Bilirubin 1.10 H AST 38 H ALT 55 Alkaline Phosphatase 100 Troponin I Total Protein 6.6 Albumin 2.5 L Globulin 4.1 Albumin/Globulin Ratio 0.6 L Vitamin B12 Folate TSH Blood Type Antibody Screen Microbiology 01/19/19 22:30 Blood Culture (Wb) - Right Wrist Bacteria Detection (PCR) - Preliminary Staphylococcus aureus 11/27/19 22:30 Blood Culture (Wb) - Right Wrist Blood Culture - Preliminary 01/19/19 21:55 Blood Culture (Wb) - Anticubital Left Blood Culture - Preliminary 01/19/19 21:35 Sputum, Expectorated/Coughed Gram Stain - Final 01/19/19 21:35 Sputum, Expectorated/Coughed Respiratory Culture - Preliminary Appears to be normal respiratory yrn. Further studies to follow. 01/20/19 09:04 Mucosa - Nasopharyngeal Respiratory Panel (PCR) - Final 01/20/19 03:00 Mucosa - Nose Influenza Types A,B Direct FA (HEATHER) - Final Clinical Impression(s) from Imaging Studies Abdomen Ultrasound 01/20/19 03:27 IMPRESSION: Mildly enlarged liver with fatty infiltration. Cholecystectomy. Electronically Signed: Anthony Wynn, at 14:28 EST Tel , Service support , Medical Necessity - Tobacco Use Smoking Status: Former smoker - She was a social smoker about 20 years ago. Assessment/Plan All Active Problems Amyloidosis (Acute) Acute hypoxemic respiratory failure (Acute) Severe sepsis (Acute) Pneumonia (Acute) Sepsis (Acute) RECOMMENDATIONS: 1. Continue BiPAP therapy as needed for rescue. Wean FiO2 as tolerated 2. Continue vancomycin and Zosyn pending sensitivities 3. Repeat blood cultures 4. Hemodialysis per renal 5. Transfuse for hemoglobin less than 7 IMPRESSIONS: 1. Acute hypoxic respiratory failure secondary to probable embolic pneumonia with staph aureus Patient appears to have a left lower lobe infiltrate. Clinical suspicion for embolic pneumonia secondary to line removal with staph aureus. Patient is already growing bacteria from the blood in less than 12 hours. Patient does have high fevers and a productive cough suggestive of staph aureus. We will repeat blood cultures to see if blood has been cleared. Patient can continue to use BiPAP therapy for rescue. Would continue to hold off on any steroids or bronchodilators. 2. Severe sepsis secondary to probable staph aureus/line infection Clinical suspicion for bacteremia following removal of tunneled blind. Patient is already growing what appears to be staph aureus. MRSA versus MSSA would be a consideration. Would continue with vancomycin and Zosyn for now. Await sensitivities. Patient will be transfused blood products secondary to decreased hemoglobin. Patient appears to be tolerating infection well. Some concern for possible endocarditis as patient has had multiple bouts of staph aureus in the past. 3. Morbid obesity/depression/anxiety/end-stage renal disease/amyloidosis/hypertension Complicates care, management, recovery and prognosis. Patient is directab le at this time from an anxiety standpoint. Would not be opposed to using Haldol if necessary. Would avoid benzodiazepines if possible. Nephrology has been notified and plans on dialysis tomorrow. Did confirm patient is a full CODE STATUS. Code Visit Inpatient E&M: 72038 Subs Hosp L3
[2019-01-21] MEDS: SEVELAMER CARBONATE 800 MG TABLET PO (08:45)
--- NOTE | 2019-01-21 09:21 | PCM.PN.HOSP ---
Patient Problems: Active and Suspected Problems Amyloidosis (Acute) Acute hypoxemic respiratory failure (Acute) Severe sepsis (Acute) Pneumonia (Acute) Sepsis (Acute) Reason for Visit: Patient seen and examined. SHe has no complaints this morning. she denies any nausea, vomiting, fever, chills, chest pain, palpitations, diarrhea or vomiting. Review of systems is otherwise negative. Labs and vitals reviewed. Hb noted to have dropped to 6.4 today, from 8.1 on admission. Potassium noted to be up to 5.2. She is due for dialysis today. Vitals/I&O's: Vital Signs Temp Pulse Resp BP Pulse Ox 97.6 F L 79 16 96/86 H 91 01/21/19 08:00 01/21/19 08:00 01/21/19 08:00 01/21/19 08:00 01/21/19 08:00 Oxygen Flow Rate (L/min) 1 Oxygen Delivery Method Nasal Cannula Weight: 244 lb 11.41 oz Body Mass Index (BMI) 42.3 Intake and Output for Last 24 Hours 01/19/19 01/20/19 01/21/19 23:59 23:59 23:59 Intake Total 905 / 1145 410 / 410 Output Total 0 / 10 10 Balance 905 / 1135 400 / 400 General: Alert, Oriented x3, Cooperative, No apparent distress HEENT: Atraumatic, PERRLA, EOMI, Normocephalic Oral: Moist Mucosa Neck: Supple, No JVD, Negative Carotid Bruits Lungs: Clear to auscultation, Normal air movement, No rhonchi, No wheeze, - - on 2L of oxygen Cardiovascular: Regular rate, Regular Rhythm, Normal S1, Normal S2, No murmurs Abdomen: Bowel Sounds Present, Soft, Non Tender, Non-Distended, No Hepato-splenomegaly Extremities: No clubbing, No cyanosis, No edema, Capillary Refill Less than 3 Seconds Skin: No rashes, No breakdown Musculoskeletal: No Tenderness to Palpation of Joints or Extremities, - - AV fistula in LUE inner forearm Lymphatic: No Cervical, Supraclavicular, or Inguinal Adenopathy Neurological: Cranial nerves II-XII grossly intact, Neuro grossly intact, Motor Exam 5/5 strength throughout Psych/Mental Status: Normal Affect, Appropriate, Alert and oriented to time, place, person, mood and affect Microbiology Past 72 Hours 01/19/19 22:30 Blood Culture (Wb) - Right Wrist Bacteria Detection (PCR) - Final Staphylococcus aureus 01/19/19 22:30 Blood Culture (Wb) - Right Wrist Blood Culture - Preliminary Staphylococcus aureus 01/19/19 21:55 Blood Culture (Wb) - Anticubital Left Blood Culture - Preliminary 01/19/19 21:35 Sputum, Expectorated/Coughed Gram Stain - Final 01/19/19 21:35 Sputum, Expectorated/Coughed Respiratory Culture - Preliminary Appears to be normal respiratory yrn. Further studies to follow. 01/20/19 09:04 Mucosa - Nasopharyngeal Respiratory Panel (PCR) - Final 01/20/19 03:00 Mucosa - Nose Influenza Types A,B Direct FA (HEATHER) - Final Laboratory Results 01/20/19 10:00: TSH 1.90 01/20/19 10:00: Hgb 7.1 L, Hct 21.6 L 01/20/19 10:00: Blood Type O POSITIVE, Antibody Screen NEGATIVE 01/20/19 10:00: Phosphorus 4.4, Magnesium 1.7 01/20/19 10:00: Crossmatch See Detail 01/21/19 04:58: WBC 9.3, RBC 1.96 L, Hgb 6.4 L, Hct 19.8 L, MCV 101.0 H, MCH 32.7 H, MCHC 32.3, RDW Std Deviation 52.3 H, RDW Coeff of [place] 14.4, Plt Count 152, MPV 9.4, Immature Gran % (Auto) 0.500, Neut % (Auto) 78.7 H, Lymph % (Auto) 9.9 L, [place] % (Auto) 8.1, Eos % (Auto) 2.7, Baso % (Auto) 0.1, Absolute Neuts (auto) 7.4, Absolute Lymphs (auto) 0.92, Nucleated RBC % 0 01/21/19 04:58: Sodium 131 L, Potassium 5.2 H, Chloride 94 L, Carbon Dioxide 26.0, Anion Gap 11, BUN 87 H, Creatinine 11.00 H*, Estim Creat Clear Calc 4.84, Est GFR (MDRD) Af Amer 5 L, Est GFR (MDRD) Non-Af 4 L, BUN/Creatinine Ratio 7.9 L, Glucose 84, Calcium 9.1, Phosphorus 5.8 H, Magnesium 2.2, Total Bilirubin 1.10 H, AST 38 H, ALT 55, Alkaline Phosphatase 100, Total Protein 6.6, Albumin 2.5 L, Globulin 4.1, Albumin/Globulin Ratio 0.6 L Diagnostic Data Chest X-Ray 01/19/19 21:42 IMPRESSION: 1. Mild to moderate bilateral pulmonary edema, left greater than right Electronically Signed: Andrew Schumacher MD at 22:14 EST , Service support , Abdomen Ultrasound 01/20/19 03:27 IMPRESSION: Mildly enlarged liver with fatty infiltration. Cholecystectomy. Electronically Signed: Anthony Wynn at 14:28 EST Tel , Service support , Current Medications Acetaminophen (Tylenol) 650 mg PO Q6 [facility] Stop: 01/22/19 00:01 Last Admin: 01/21/19 05:23 Dose: 650 mg Documented by: Albuterol Sulfate (Ventolin Aerosols) 2.5 mg INHALATION Q2H PRN PRN PRN Reason: Shortness of Breath/Wheezing Last Admin: 01/20/19 02:59 Dose: 2.5 mg Documented by: Albuterol/Ipratropium (Duoneb) 3 ml INHALATION Q4HWA.RT [facility] Last Admin: 01/21/19 07:19 Dose: 3 ml Documented by: Citalopram Hydrobromide (Celexa) 20 mg PO DAILY [facility] Last Admin: 01/20/19 11:14 Dose: 20 mg Documented by: Clonazepam (Klonopin) 0.5 mg PO BID PRN PRN PRN Reason: ANXIETY Last Admin: 01/21/19 05:25 Dose: 0.5 mg Documented by: Dextrose (D50w Syringe) 0 gm IV X1 PRN; Protocol PRN Reason: Hypoglycemia Famotidine (Pepcid) 20 mg PO Q48 [facility] Last Admin: 01/20/19 11:18 Dose: 20 mg Documented by: Glucagon () 1 mg IM .X1 PRN PRN Reason: Hypoglycemia Guaifenesin (Mucinex) 1,200 mg PO BID [facility] Last Admin: 01/20/19 21:35 Dose: 1,200 mg Documented by: Heparin Sodium (Porcine) (Heparin Na) 5,000 unit SC Q12 [facility] Last Admin: 01/20/19 21:36 Dose: 5,000 unit Documented by: Vancomycin IV Pharmacy to Dose (1,250 ea/ Sodium Chloride) 500 mls @ 250 mls/hr IV PRN PRN; Protocol Piperacillin Sod/Tazobactam (Sod 3.375 gm/ Sodium Chloride) 50 mls @ 12.5 mls/hr IV Q12 [facility] Last Infusion: 01/21/19 02:54 Dose: Infused Documented by: Nifedipine (Procardia Xl) 90 mg PO DAILY [facility] Last Admin: 01/20/19 11:15 Dose: 90 mg Documented by: Ondansetron HCl (Zofran) 4 mg IV Q8H PRN PRN PRN Reason: NAUSEA/VOMITING Last Admin: 01/20/19 03:46 Dose: 4 mg Documented by: Pantoprazole Sodium (Protonix) 20 mg PO DAILY [facility] Last Admin: 01/20/19 11:15 Dose: 20 mg Documented by: Propranolol HCl (Inderal) 20 mg PO BID [facility] Last Admin: 01/20/19 21:35 Dose: 20 mg Documented by: Sevelamer Carbonate (Renvela) 800 mg PO TIDCM [facility] Last Admin: 01/21/19 08:45 Dose: 800 mg Documented by: STROKE Vital Signs/Narrative: Vital Signs Temp Pulse Resp BP Pulse Ox 01/21/19 08:00 97.6 F L 79 16 96/86 H 91 01/21/19 07:20 69 20 H 97 01/21/19 06:00 70 23 H 101/87 H 96 Medical Necessity - Tobacco Use Smoking Status: Former smoker - She was a social smoker about 20 years ago. Assessment/Plan All Active Problems Amyloidosis (Acute) Acute hypoxemic respiratory failure (Acute) Severe sepsis (Acute) Pneumonia (Acute) Sepsis (Acute) 1. Severe sepsis due to community acquired pneumonia and recent dialysis port removal currently on IV vancomycin and IV zosyn wbc is down to 9.3, and she is afebrile now on 1L of oyxgen by nasal canula sputum culture showed normal respiratory yrn blood culture growing Staphylococcus aureus (2 out of 2 sets) consult infectious diseases o/a of blood growing staphylococcus Recent NARGIS at [facility] reviewed, per documentation- NARGIS was negative for vegetations and blood culures were positive for MSSA. respiratory panel was negative. critical care on board repeat blood cultures 2. Acute hypoxic respiratory failure due to community acquired pneumonia she was transferred to ICU yesterday and started on bipap now down to 1L of oxygen by nasal canula on IV vancomycin and zosyn pulmonology on board 3. 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 baseline from 09/10/18 is 13.2 4. Hyperkalemia: due to ESRD. hb is 5.2 today. should improve with dialysis today 4. 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 Nephrology on board. For dialysis today via AV fistula 5. 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
--- NOTE | 2019-01-21 09:43 | CASEMGMT ---
RN CM Assessment Presentation: Pneumonia, sepsis Intro role of CM and purpose of RN CM assessment to patient in room. Pt is awake, alert and able to participate in assessment. Demographics, PCP and Pharmacy verified. Pt states she lives independently with her , is compliant with outpt hemodialysis. PCP: Dr. Luis Specialists: Dr. Lawrence Preferred Pharmacy: Insurance: MMO Prescription Benefit: yes Dialysis: [facility]: , Patric Brunson Living Arrangements: Lives in two story home with her . Pt states she is independent in ADL, no care needs at this time. Transportation: Drives. States family drives her to dialysis but if unavailable, she will drive herself. DME: none HHC/SNF: none Patient DC goals: Home DC PLAN: Home
[2019-01-21] MEDS: Propranolol 10 MG Tablet 20 MG PO ×2 (10:32→21:04)
[2019-01-21] MEDS: Pantoprazole Sodium 20 MG Tablet PO (10:33)
[2019-01-21] MEDS: NIFEdipine 90 MG Tablet PO (10:33)
[2019-01-21] MEDS: Citalopram 20 MG Tablet PO (10:33)
[2019-01-21] MEDS: guaiFENesin 1,200 MG Tablet 1200 MG PO ×2 (10:33→21:04)
--- NOTE | 2019-01-21 11:18 | ECHOD_ITS ---
Reason For Study: Murmur Procedure This was a 2D Doppler, Color Flow transthoracic echocardiogram. Myocardial strain analysis was performed in this exam to aid in the assessment of cardiac function. Exam performed portable in ICU/CCU. Left Ventricle Normal LV size. Mild concentric left ventricular hypertrophy. Left ventricular systolic function is normal. The estimated ejection fraction is 55 %. Stage 2 diastolic dysfunction. No regional wall motion abnormalities noted. Right Ventricle Normal RV size. Normal systolic function. Atria The left atrium is moderately enlarged. Normal right atrium. Mitral Valve There is mild mitral annular calcification. Mild focal mitral valve calcification of the posterior leaflet. There is no vegetation seen on the mitral valve. Mild-Moderate (1-2+) eccentric mitral valve insufficiency. Tricuspid Valve Normal tricuspid valve. Mild to moderate (1-2+) tricuspid valve insufficiency. Pulmonary artery systolic pressure is 42 mmHg. Aortic Valve Trisinus/trileaflet aortic valve. Mild focal aortic valve calcification. There is no aortic valvular vegetation. Pulmonic Valve Normal pulmonic valve. Great Vessels Normal aortic root. The pulmonary artery is normal size. Normal inferior vena cava. Pericardium/Pleural No pericardial effusion. MMode/2D Measurements & Calculations LVIDd: 4.8 cm IVSd: 1.3 cm Ao root diam: 3.0 cm LVIDs: 3.1 cm LVPWd: 1.3 cm RVDd: 3.6 cm FS: 35.0 % LAV(MOD-bp): 106.0 ml LA A4 area: 26.7 cm2 LA dimension(2D): 4.2 cm LAV(MOD-bp) Indexed: 51.0 ml/m2 LAV(MOD-sp2): 120.4 ml LAV(MOD-sp4): 91.9 ml RA A4 area: 17.9 cm2 Doppler Measurements & Calculations MV E max mina: 134.4 cm/sec Lat Peak E' Mina: 9.8 cm/sec Med Peak E' Mina: 6.5 cm/sec MV A max mina: 93.5 cm/sec E/E' lat: 13.7 E/E' med: 20.8 MV E/A: 1.4 Ao V2 max: 187.8 cm/sec LV V1 max: 133.5 cm/sec PA V2 max: 130.4 cm/sec Ao max P.1 mmHg LV V1 max P.1 mmHg TR max mina: 303.5 cm/sec TR max P.1 mmHg Interpretation Summary Normal LV size. Mild concentric left ventricular hypertrophy. Left ventricular systolic function is normal. The estimated ejection fraction is 55 %. Stage 2 diastolic dysfunction. The left atrium is moderately enlarged. Mild-Moderate (1-2+) eccentric mitral valve insufficiency. There is no vegetation seen on the mitral valve. The global longitudinal strain = -19.4 % (normal). Ordering Physician: Efe Wilson Referring Physician: Jeremiah Espinoza Performed By: Brittany Hewitt RDCS
--- NOTE | 2019-01-21 12:44 | CON.PCM_ITS ---
Problem List (1) MSSA bacteremia Status: Acute Reason for Consult: bacteremia Consulted by: Dr. 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 Admitted to [facility] in November with MSSA bacteremia related to R chest permacath. Seen by ID, had echo done, discharged on iv abx. New permacath was placed in L chest while LUE fistula was maturing. Had been salvatore stewart, but last week at dialysis, noted to have permacath cuff exposed. No pain/redness/swelling/drainage around permacath or fistula. Taken to OR at [facility] 01/18 for permacath removal. 01/19 presented with sudden onset fever, rigors, dyspnea. Some dry cough. No chest pain. Admitted, transferred to icu on vanc/zosyn/azithro. Azithro now stopped. Bcx with mssa on pcr. Feeling better, breathing much better. No new joint/back pain. Full ROS performed and neg except as noted above. - Medical History Past Medical History (Chronic Problems): Chronic Problems Morbid obesity due to excess calories (Chronic) ESRD (end stage renal disease) (Chronic) Allergies/Adverse Reactions: Allergies No Known Allergies Allergy (Verified 01/04/19 12:52) Home Medications: Ambulatory Orders Medication Instructions Recorded Clonazepam [Klonopin] 0.5 mg PO PRN PRN 11/20/16 Citalopram [Celexa] 20 mg PO DAILY 03/26/17 Furosemide 40 mg PO DAILY PRN PRN 01/19/19 NIFEdipine [Procardia XL] 90 mg PO QHS 01/19/19 Pantoprazole Sodium 20 mg PO DAILY 01/19/19 Propranolol HCl [Inderal (Beta 40 mg PO BID 01/19/19 Lupis)] Sevelamer Carbonate [Renvela] 800 mg PO TID 01/19/19 Acyclovir 200 mg PO DAILY PRN PRN 01/20/19 Zolpidem Tartrate [Ambien 5 mg PO QHS PRN PRN 01/20/19 (Generic)] - Social History SMOKING STATUS:: Former smoker Vital Signs Temp Pulse Resp BP Pulse Ox 97.6 F L 75 18 128/71 H 98 01/21/19 08:00 01/21/19 12:31 01/21/19 12:31 01/21/19 10:00 01/21/19 10:00 Oxygen Flow Rate (L/min) 2 Oxygen Delivery Method Nasal Cannula Weight: 111 kg Body Mass Index (BMI) 42.3 Microbiology Past 72 Hours 01/21/19 10:30 Stool Occult Blood (HEATHER) - Final Stool Occult Blood Positive 01/21/19 05:32 Gram Stain - Final Sputum, Expectorated/Coughed 01/19/19 21:35 Gram Stain - Final Sputum, Expectorated/Coughed Respiratory Culture - Preliminary Appears to be normal respiratory yrn. Further studies to follow. 01/19/19 22:30 Bacteria Detection (PCR) - Final Blood Culture (Wb) - Right Wrist Staphylococcus aureus Blood Culture - Preliminary Staphylococcus aureus 01/19/19 21:55 Blood Culture - Preliminary Blood Culture (Wb) - Anticubital Left 01/20/19 09:04 Respiratory Panel (PCR) - Final Mucosa - Nasopharyngeal 01/20/19 03:00 Influenza Types A,B Direct FA (HEATHER) - Final Mucosa - Nose Laboratory Tests Past 24 Hrs 01/20/19 01/21/19 01/21/19 10:00 04:58 04:58 WBC 9.3 RBC 1.96 L Hgb 6.4 L Hct 19.8 L MCV 101.0 H MCH 32.7 H MCHC 32.3 RDW Std Deviation 52.3 H RDW Coeff of Fracisco 14.4 Plt Count 152 MPV 9.4 Immature Gran % (Auto) 0.500 Neut % (Auto) 78.7 H Lymph % (Auto) 9.9 L [place] % (Auto) 8.1 Eos % (Auto) 2.7 Baso % (Auto) 0.1 Absolute Neuts (auto) 7.4 Absolute Lymphs (auto) 0.92 Nucleated RBC % 0 Sodium 131 L Potassium 5.2 H Chloride 94 L Carbon Dioxide 26.0 Anion Gap 11 BUN 87 H Creatinine 11.00 H* Estim Creat Clear Calc 4.84 Est GFR (MDRD) Af Amer 5 L Est GFR (MDRD) Non-Af 4 L BUN/Creatinine Ratio 7.9 L Glucose 84 Calcium 9.1 Phosphorus 5.8 H Magnesium 2.2 Total Bilirubin 1.10 H AST 38 H ALT 55 Alkaline Phosphatase 100 Total Protein 6.6 Albumin 2.5 L Globulin 4.1 Albumin/Globulin Ratio 0.6 L Crossmatch See Detail - Other Studies Radiology: [] reviewed Other Studies: [] Route of nutrition/ use of supplements: [] Nutritional Intake: [] IV Site: [] Heck Catheter: [] - Physical Exam General: Alert, Oriented x3, Cooperative, No apparent distress HEENT: Atraumatic, PERRLA, EOMI Neck: Supple, No Nodes Lungs: Clear to auscultation, Normal air movement Cardiovascular: Regular rate, Regular Rhythm, No murmurs Abdomen: Soft, Non Tender, Non-Distended Extremities: No edema Skin: Ulcer/ Wound - L chest bandaged former permacath site, no redness/swelling/drainage, - - no janeway/osler/splinter hemorrhages on hands or feet IV Site: Peripheral, without redness, - - LUE fistula without inflammation Musculoskeletal: No Tenderness to Palpation of Joints or Extremities - no back pain on palpation Neurological: Cranial nerves II-XII grossly intact - Assessment/Plan Antibiotics: [] Assessment/Plan: [] Active and Suspected Problems Amyloidosis (Acute) Acute hypoxemic respiratory failure (Acute) Severe sepsis (Acute) Pneumonia (Acute) Sepsis (Acute) severe sepsis due to mssa bacteremia, likely from permacath, now removed 01/18. Repeat bcx today for peripheral and fistula. Check TTE. Has prior h/o mssa bacteremia related to R sided permacath, managed at [facility]. Will narrow abx to cefazolin. Former permacath site and fistula site do not appear inflamed. There is concern for emboli to her lungs given her procedure, bacteremia with possible endocarditis, and sudden onset of dyspnea and hypoxia. Will order CTA of chest. Will follow, thank you, d/w nursing and Dr. Villeda.
[2019-01-21 14:06] LABS: Vitamin B12 474 pg/mL (211-911)
--- NOTE | 2019-01-21 16:10 | PN.RENAL_ITS ---
Patient Problems: Active and Suspected Problems Amyloidosis (Acute) MSSA bacteremia (Acute) Acute hypoxemic respiratory failure (Acute) Severe sepsis (Acute) Pneumonia (Acute) Sepsis (Acute) Subjective: no new events - Physical Exam Vitals/I&O's: Vital Signs Temp Pulse Resp BP Pulse Ox 98.0 F 75 26 H 114/69 95 01/21/19 12:00 01/21/19 14:00 01/21/19 14:00 01/21/19 14:00 01/21/19 14:00 Oxygen Flow Rate (L/min) 2 Oxygen Delivery Method Nasal Cannula Weight: 111 kg Body Mass Index (BMI) 42.3 Intake and Output for Last 24 Hours 01/19/19 01/20/19 01/21/19 23:59 23:59 23:59 Intake Total 905 / 1145 460 / 460 Output Total 0 10 Balance 905 / 1135 450 / 450 General: Alert, Oriented x3, Cooperative HEENT: Atraumatic, PERRLA, EOMI, Normocephalic Neck: Supple, No JVD, Negative Carotid Bruits Lungs: Clear to auscultation, Normal air movement Cardiovascular: Regular rate, No murmurs Abdomen: Bowel Sounds Present, Soft, Non Tender Extremities: No edema, Capillary Refill Less than 3 Seconds Skin: No rashes, No breakdown Musculoskeletal: No Tenderness to Palpation of Joints or Extremities Neurological: Cranial nerves II-XII grossly intact Psych/Mental Status: Normal Affect, Appropriate Microbiology Past 72 Hours 01/21/19 10:30 Stool Stool Occult Blood (HEATHER) - Final Occult Blood Positive 01/21/19 05:32 Sputum, Expectorated/Coughed Gram Stain - Final 01/19/19 21:35 Sputum, Expectorated/Coughed Gram Stain - Final 01/19/19 21:35 Sputum, Expectorated/Coughed Respiratory Culture - Preliminary Appears to be normal respiratory yrn. Further studies to follow. 01/19/19 22:30 Blood Culture (Wb) - Right Wrist Bacteria Detection (PCR) - Final Staphylococcus aureus 01/19/19 22:30 Blood Culture (Wb) - Right Wrist Blood Culture - Preliminary Staphylococcus aureus 01/19/19 21:55 Blood Culture (Wb) - Anticubital Left Blood Culture - Preliminary 01/20/19 09:04 Mucosa - Nasopharyngeal Respiratory Panel (PCR) - Final 01/20/19 03:00 Mucosa - Nose Influenza Types A,B Direct FA (HEATHER) - Final Laboratory Results 01/19/19 21:55: Vitamin B12 474 01/20/19 10:00: Crossmatch See Detail 01/21/19 04:58: WBC 9.3, RBC 1.96 L, Hgb 6.4 L, Hct 19.8 L, MCV 101.0 H, MCH 32.7 H, MCHC 32.3, RDW Std Deviation 52.3 H, RDW Coeff of [place]ac[place] 14.4, Plt Count 152, MPV 9.4, Immature Gran % (Auto) 0.500, Neut % (Auto) 78.7 H, Lymph % (Auto) 9.9 L, [place] % (Auto) 8.1, Eos % (Auto) 2.7, Baso % (Auto) 0.1, Absolute Neuts (auto) 7.4, Absolute Lymphs (auto) 0.92, Nucleated RBC % 0 01/21/19 04:58: Sodium 131 L, Potassium 5.2 H, Chloride 94 L, Carbon Dioxide 26.0, Anion Gap 11, BUN 87 H, Creatinine 11.00 H*, Estim Creat Clear Calc 4.84, Est GFR (MDRD) Af Amer 5 L, Est GFR (MDRD) Non-Af 4 L, BUN/Creatinine Ratio 7.9 L, Glucose 84, Calcium 9.1, Phosphorus 5.8 H, Magnesium 2.2, Total Bilirubin 1.10 H, AST 38 H, ALT 55, Alkaline Phosphatase 100, Total Protein 6.6, Albumin 2.5 L, Globulin 4.1, Albumin/Globulin Ratio 0.6 L Current Medications Acetaminophen (Tylenol) 650 mg PO Q6 [facility] Stop: 01/22/19 00:01 Last Admin: 01/21/19 12:44 Dose: 650 mg Documented by: Albuterol Sulfate (Ventolin Aerosols) 2.5 mg INHALATION Q2H PRN PRN PRN Reason: Shortness of Breath/Wheezing Last Admin: 01/20/19 02:59 Dose: 2.5 mg Documented by: Albuterol/Ipratropium (Duoneb) 3 ml INHALATION Q4HWA.RT RINA Last Admin: 01/21/19 15:20 Dose: Not Given Documented by: Citalopram Hydrobromide (Celexa) 20 mg PO DAILY [facility] Last Admin: 01/21/19 10:33 Dose: 20 mg Documented by: Clonazepam (Klonopin) 0.5 mg PO BID PRN PRN PRN Reason: ANXIETY Last Admin: 01/21/19 13:36 Dose: 0.5 mg Documented by: Dextrose (D50w Syringe) 0 gm IV X1 PRN; Protocol PRN Reason: Hypoglycemia Famotidine (Pepcid) 20 mg PO Q48 [facility] Last Admin: 01/20/19 11:18 Dose: 20 mg Documented by: Glucagon () 1 mg IM .X1 PRN PRN Reason: Hypoglycemia Guaifenesin (Mucinex) 1,200 mg PO BID [facility] Last Admin: 01/21/19 10:33 Dose: 1,200 mg Documented by: Cefazolin Sodium () 1 gm in 50 mls @ 100 mls/hr IV QPM [facility] Nifedipine (Procardia Xl) 90 mg PO DAILY [facility] Last Admin: 01/21/19 10:33 Dose: 90 mg Documented by: Ondansetron HCl (Zofran) 4 mg IV Q8H PRN PRN PRN Reason: NAUSEA/VOMITING Last Admin: 01/20/19 03:46 Dose: 4 mg Documented by: Pantoprazole Sodium (Protonix) 20 mg PO DAILY [facility] Last Admin: 01/21/19 10:33 Dose: 20 mg Documented by: Propranolol HCl (Inderal) 20 mg PO BID [facility] Last Admin: 01/21/19 10:32 Dose: 20 mg Documented by: Sevelamer Carbonate (Renvela) 2,400 mg PO TIDCM [facility] Last Admin: 01/21/19 13:59 Dose: Not Given Documented by: Medical Necessity - Tobacco Use Smoking Status: Former smoker - She was a social smoker about 20 years ago. Assessment/Plan All Active Problems Amyloidosis (Acute) MSSA bacteremia (Acute) Acute hypoxemic respiratory failure (Acute) Severe sepsis (Acute) Pneumonia (Acute) Sepsis (Acute) End-stage renal disease Pneumonia Presumably staph bacteremia Last dialysis was Thursday with AV fistula. seen on HD today Anemia. With low iron deficiency. Hold Venofer due to bacteremia. reviewed ID note. cultures sent
--- NOTE | 2019-01-21 18:40 | DIALYSIS ---
Hemodialysis completed using left upper arm Fistula. One unit of PRBC was transfused on dialysis without incident. Fluid removed was 600 ml due to some asymptomatic hypotension during treatment, Dr Lawrence is aware. Next dialysis will be ThursdayJan 24. Blood cultures were sent from fistula site. See flow sheet for details.
[2019-01-21] MEDS: SEVELAMER CARBONATE 800 MG TABLET 2400 MG PO (18:46)
[2019-01-21] MEDS: Cefazolin 1 GM/50 ML BAG IV (21:04)
[2019-01-22] VITALS (23 sets, daily range): BP systolic 107–135; BP diastolic 64–80; PULSE 64–88; RESP 12–26; TEMP 36.1–36.8; O2SAT 93–99
[2019-01-22] MEDS: Rizatriptan Benzoate 10 MG Tablet PO (04:50)
[2019-01-22 05:42] LABS: Absolute Lymphocyte Count 0.95 X10^3/uL (0.83-4.51); Absolute Neutrophil Count 4.8 X10^3/uL (2.0-7.7); Basophil# 0.01 X10^3/uL; Basophil% 0.1 % (0-1); Eosinophil# 0.24 X10^3/uL; Eosinophils% 3.6 % (0-5); Hematocrit 22.8 % (37-47); Hemoglobin 7.6 g/dL (12.0-15.0); Lymphocyte # 0.95 X10^3/ul (4.0); Lymphocyte % 14.1 % (19-41); Mean Corp Hgb Conc 33.3 g/dL (32-36); Mean Corpuscular Hgb 32.1 pg (27.0-32.0); Mean Corpuscular Volume 96.2 fL (81-99); Mean Platelet Vol. 9.5 fl (6.2-12.0); Monocyte# 0.72 X10^3/uL; Monocyte% 10.7 % (0-10); NRBC Flagged by Analyzer 0 % (0-5); Neutrophil # 4.77 X10^3/uL (2.7-7.7); Neutrophil % 70.8 % (47-70); Platelet Count 152 K/mm3 (150-450); RBC Distribution Width CV 15.9 % (11.6-14.6); RBC Distribution Width SD 56.7 fl (35.1-43.9); Red Blood Count 2.37 M/mm3 (4.2-5.4); White Blood Count 6.7 K/mm3 (4.4-11.0)
[2019-01-22 06:00] LABS: Anion Gap 10 (5-15); BUN 49 mg/dL (7-18); BUN/Creat Ratio 6.7 RATIO (10-20); Calcium,Total 8.7 mg/dL (8.5-10.1); Chloride 97 mmol/L (98-107); Creatinine, Serum 7.32 mg/dL (0.55-1.02); EST Glomerular Filtration Rate 6 mL/min (>60); Est Glom Filt Rate - Afr Amer 8 mL/min (>60); Estimated Creatinine Clearance 7.27 ml/min; Glucose 109 mg/dL (74-106); Potassium 4.1 mmol/L (3.5-5.1); Sodium Level 135 mmol/L (136-145)
[2019-01-22] MEDS: Ipratropium/Albuterol Sulfate 3 ML AMPUL.NEB INHALATION ×4 (06:34→19:58)
--- NOTE | 2019-01-22 07:24 | PCM.PN.INT ---
Subjective: Patient did okay overnight. Patient did have some hypotension following hemodialysis, so stay in the intensive care unit overnight. Patient did have some complaints of migraine headache this morning and was given a Maxalt. This has worked for her in the past. General: Alert, Oriented x3, Cooperative, No apparent distress, Well developed, Well nourished, - - Morbidly obese. Speaking in full sentences. HEENT: Atraumatic, PERRLA, EOMI, Normocephalic, - - No scleral icterus or injection noted Oral: Moist Mucosa, No Gingival or Mucosal Lesions/ Ulcerations Neck: Supple, No JVD, No Nodes, Trachea Midline Lungs: No wheeze, No rales, Diminished, Rhonchi - Scattered, - - Symmetric expansion. Cardiovascular: Regular rate, Regular Rhythm, Normal S1, Normal S2, No murmurs, No rub noted, No Gallop Abdomen: Bowel Sounds Present, Soft, Non Tender, Non-Distended, Obese Extremities: No clubbing, No cyanosis, Edema - Trace to 1+ Skin: No rashes, No breakdown Musculoskeletal: No Tenderness to Palpation of Joints or Extremities Lymphatic: No Cervical, Supraclavicular, or Inguinal Adenopathy Neurological: Cranial nerves II-XII grossly intact, Neuro grossly intact, Motor Exam 5/5 strength throughout Psych/Mental Status: Alert and oriented to time, place, person, mood and affect Vital Signs Temp Pulse Resp BP Pulse Ox 36.1 C L 69 12 124/80 H 96 01/22/19 06:00 01/22/19 07:00 01/22/19 07:00 01/22/19 07:00 01/22/19 07:00 Oxygen Flow Rate (L/min) 2 Oxygen Delivery Method Nasal Cannula Weight: 111.6 kg Body Mass Index (BMI) 42.3 Intake and Output for Last 24 Hours 01/20/19 01/21/19 01/22/19 23:59 23:59 23:59 Intake Total 905 / 1145 910 / 910 200 / 200 Output Total 0 / 10 610 / 610 Balance 905 / 1135 300 / 300 200 / 200 Labs (Last 48 Hours) 01/19/19 01/20/19 01/20/19 21:55 08:54 10:00 WBC RBC Hgb Hct MCV MCH MCHC RDW Std Deviation RDW Coeff of Fracisco Plt Count MPV Immature Gran % (Auto) Neut % (Auto) Lymph % (Auto) [place] % (Auto) Eos % (Auto) Baso % (Auto) Absolute Neuts (auto) Absolute Lymphs (auto) Nucleated RBC % Specimen Type ART Sample Site R Radial pH 7.46 H Bicarbonate Actual 25.8 POC Total CO2 27 Base Excess 2 O2 Saturation 93 L O2 % 40 ABG pCO2 36.4 ABG pO2 65 L Elvis Test POS O2 Delivery Device Vent Mask Blood Gas Notified Whom ICU MD Blood Gas Notified Time 851 Sodium Potassium Chloride Carbon Dioxide Anion Gap BUN Creatinine Estim Creat Clear Calc Est GFR (MDRD) Af Amer Est GFR (MDRD) Non-Af BUN/Creatinine Ratio Glucose Calcium Phosphorus Magnesium Total Bilirubin AST ALT Alkaline Phosphatase Total Protein Albumin Globulin Albumin/Globulin Ratio Vitamin B12 474 TSH 1.90 Blood Type Antibody Screen Crossmatch 01/20/19 01/20/19 01/20/19 10:00 10:00 10:00 WBC RBC Hgb 7.1 L Hct 21.6 L MCV MCH MCHC RDW Std Deviation RDW Coeff of [place] Plt Count MPV Immature Gran % (Auto) Neut % (Auto) Lymph % (Auto) [place] % (Auto) Eos % (Auto) Baso % (Auto) Absolute Neuts (auto) Absolute Lymphs (auto) Nucleated RBC % Specimen Type Sample Site pH Bicarbonate Actual POC Total CO2 Base Excess O2 Saturation O2 % ABG pCO2 ABG pO2 Elvis Test O2 Delivery Device Blood Gas Notified Whom Blood Gas Notified Time Sodium Potassium Chloride Carbon Dioxide Anion Gap BUN Creatinine Estim Creat Clear Calc Est GFR (MDRD) Af Amer Est GFR (MDRD) Non-Af BUN/Creatinine Ratio Glucose Calcium Phosphorus 4.4 Magnesium 1.7 Total Bilirubin AST ALT Alkaline Phosphatase Total Protein Albumin Globulin Albumin/Globulin Ratio Vitamin B12 TSH Blood Type O POSITIVE Antibody Screen NEGATIVE Crossmatch 01/20/19 01/21/19 01/21/19 10:00 04:58 04:58 WBC 9.3 RBC 1.96 L Hgb 6.4 L Hct 19.8 L MCV 101.0 H MCH 32.7 H MCHC 32.3 RDW Std Deviation 52.3 H RDW Coeff of [place] 14.4 Plt Count 152 MPV 9.4 Immature Gran % (Auto) 0.500 Neut % (Auto) 78.7 H Lymph % (Auto) 9.9 L [place] % (Auto) 8.1 Eos % (Auto) 2.7 Baso % (Auto) 0.1 Absolute Neuts (auto) 7.4 Absolute Lymphs (auto) 0.92 Nucleated RBC % 0 Specimen Type Sample Site pH Bicarbonate Actual POC Total CO2 Base Excess O2 Saturation O2 % ABG pCO2 ABG pO2 Elvis Test O2 Delivery Device Blood Gas Notified Whom Blood Gas Notified Time Sodium 131 L Potassium 5.2 H Chloride 94 L Carbon Dioxide 26.0 Anion Gap 11 BUN 87 H Creatinine 11.00 H* Estim Creat Clear Calc 4.84 Est GFR (MDRD) Af Amer 5 L Est GFR (MDRD) Non-Af 4 L BUN/Creatinine Ratio 7.9 L Glucose 84 Calcium 9.1 Phosphorus 5.8 H Magnesium 2.2 Total Bilirubin 1.10 H AST 38 H ALT 55 Alkaline Phosphatase 100 Total Protein 6.6 Albumin 2.5 L Globulin 4.1 Albumin/Globulin Ratio 0.6 L Vitamin B12 TSH Blood Type Antibody Screen Crossmatch See Detail 01/22/19 01/22/19 05:35 05:35 WBC 6.7 RBC 2.37 L Hgb 7.6 L Hct 22.8 L MCV 96.2 MCH 32.1 H MCHC 33.3 RDW Std Deviation 56.7 H RDW Coeff of [place] 15.9 H Plt Count 152 MPV 9.5 Immature Gran % (Auto) 0.700 Neut % (Auto) 70.8 H Lymph % (Auto) 14.1 L [place] % (Auto) 10.7 H Eos % (Auto) 3.6 Baso % (Auto) 0.1 Absolute Neuts (auto) 4.8 Absolute Lymphs (auto) 0.95 Nucleated RBC % 0 Specimen Type Sample Site pH Bicarbonate Actual POC Total CO2 Base Excess O2 Saturation O2 % ABG pCO2 ABG pO2 Elvis Test O2 Delivery Device Blood Gas Notified Whom Blood Gas Notified Time Sodium 135 L Potassium 4.1 Chloride 97 L Carbon Dioxide 28.0 Anion Gap 10 BUN 49 H Creatinine 7.32 H Estim Creat Clear Calc 7.27 Est GFR (MDRD) Af Amer 8 L Est GFR (MDRD) Non-Af 6 L BUN/Creatinine Ratio 6.7 L Glucose 109 H Calcium 8.7 Phosphorus Magnesium Total Bilirubin AST ALT Alkaline Phosphatase Total Protein Albumin Globulin Albumin/Globulin Ratio Vitamin B12 TSH Blood Type Antibody Screen Crossmatch Microbiology 01/21/19 10:30 Stool Stool Occult Blood (HEATHER) - Final Occult Blood Positive 01/21/19 05:32 Sputum, Expectorated/Coughed Gram Stain - Final 01/19/19 21:35 Sputum, Expectorated/Coughed Gram Stain - Final 01/19/19 21:35 Sputum, Expectorated/Coughed Respiratory Culture - Preliminary Appears to be normal respiratory yrn. Further studies to follow. 01/19/19 22:30 Blood Culture (Wb) - Right Wrist Bacteria Detection (PCR) - Final Staphylococcus aureus 01/19/19 22:30 Blood Culture (Wb) - Right Wrist Blood Culture - Preliminary Staphylococcus aureus 01/19/19 21:55 Blood Culture (Wb) - Anticubital Left Blood Culture - Preliminary 01/20/19 09:04 Mucosa - Nasopharyngeal Respiratory Panel (PCR) - Final 01/20/19 03:00 Mucosa - Nose Influenza Types A,B Direct FA (HEATHER) - Final Medical Necessity - Tobacco Use Smoking Status: Former smoker - She was a social smoker about 20 years ago. Assessment/Plan All Active Problems Amyloidosis (Acute) MSSA bacteremia (Acute) Acute hypoxemic respiratory failure (Acute) Severe sepsis (Acute) Pneumonia (Acute) Sepsis (Acute) RECOMMENDATIONS: 1. Continue BiPAP therapy as needed for rescue. Wean FiO2 as tolerated 2. Continue ceftezole and per infectious disease 3. Await repeat blood cultures 4. Hemodialysis per renal 5. Transfuse for hemoglobin less than 7 6. Hemodynamically stable. Okay to transfer from the intensive care unit from my perspective IMPRESSIONS: 1. Acute hypoxic respiratory failure secondary to probable embolic pneumonia with MSSA Patient appears to have a left lower lobe infiltrate. Clinical suspicion for embolic pneumonia secondary to line removal with staph aureus. Patient grew bacteria from the blood in less than 12 hours on initial cultures. Repeat cultures have been sent. Patient does have high fevers and a productive cough suggestive of MSSA. We will repeat blood cultures as necessary to document bacteremia has been cleared. Patient can continue to use BiPAP therapy for rescue. Would continue to hold off on any steroids or bronchodilators. 2. Severe sepsis secondary to probable staph aureus/line infection Clinical suspicion for bacteremia following removal of tunneled line. Patient is already growing what appears to be staph aureus. Infectious diseases following. Patient will be transfused blood products secondary to decreased hemoglobin. Patient appears to be tolerating infection well. Some concern for possible endocarditis as patient has had multiple bouts of staph aureus in the past. 3. Morbid obesity/depression/anxiety/end-stage renal disease/amyloidosis/hypertension Complicates care, management, recovery and prognosis. Patient is directable at this time from an anxiety standpoint. Would not be opposed to using Haldol if necessary. Would avoid benzodiazepines if possible. Nephrology has been notified and plans on dialysis tomorrow. Did confirm patient is a full CODE STATUS. Code Visit Inpatient E&M: 14161 Subs Hosp L3
[2019-01-22] MEDS: Pantoprazole Sodium 20 MG Tablet PO (09:07)
[2019-01-22] MEDS: Propranolol 10 MG Tablet 20 MG PO ×2 (09:07→21:21)
[2019-01-22] MEDS: NIFEdipine 90 MG Tablet PO (09:07)
[2019-01-22] MEDS: guaiFENesin 1,200 MG Tablet 1200 MG PO ×2 (09:07→21:21)
[2019-01-22] MEDS: Famotidine 20 MG Tablet PO (09:07)
[2019-01-22] MEDS: SEVELAMER CARBONATE 800 MG TABLET 2400 MG PO ×3 (09:07→16:50)
[2019-01-22] MEDS: Citalopram 20 MG Tablet PO (09:07)
--- NOTE | 2019-01-22 09:07 | PCM.PN.HOSP ---
Patient Problems: Active and Suspected Problems Amyloidosis (Acute) MSSA bacteremia (Acute) Acute hypoxemic respiratory failure (Acute) Severe sepsis (Acute) Pneumonia (Acute) Sepsis (Acute) Reason for Visit: Patient seen and examined. She complained of migraine headache. She was given Maxalt to help with the headache. She denies any fever or chills, nausea vomiting, shortness of breath or diarrhea. She remains on 2 L of oxygen. Infectious disease is on board. She was due to have a CT of the chest yesterday but this was deferred as she would need contrast; she had however already had dialysis. To have the CT of the chest on Thursday and then she can have dialysis subsequently did clear the contrast. Vitals/I&O's: Vital Signs Temp Pulse Resp BP Pulse Ox 96.9 F L 88 21 H 117/76 98 01/22/19 06:00 01/22/19 09:00 01/22/19 09:00 01/22/19 09:00 01/22/19 09:00 Oxygen Flow Rate (L/min) 2 Oxygen Delivery Method Room Air Weight: 246 lb 0.574 oz Body Mass Index (BMI) 42.3 Intake and Output for Last 24 Hours 01/20/19 01/21/19 01/22/19 23:59 23:59 23:59 Intake Total 905 / 1145 910 / 910 200 / 200 Output Total 0 / 10 610 / 610 Balance 905 / 1135 300 / 300 200 / 200 General: Alert, Oriented x3, Cooperative, No apparent distress HEENT: Atraumatic, PERRLA, EOMI, Normocephalic Oral: Moist Mucosa Neck: Supple, No JVD, Negative Carotid Bruits Lungs: Clear to auscultation, Normal air movement, No rhonchi, No wheeze, - - on 2L of oxygen Cardiovascular: Regular rate, Regular Rhythm, Normal S1, Normal S2, No murmurs Abdomen: Bowel Sounds Present, Soft, Non Tender, Non-Distended, No Hepato-splenomegaly Extremities: No clubbing, No cyanosis, No edema, Capillary Refill Less than 3 Seconds Skin: No rashes, No breakdown; site of port removal on right chest not erythematous, non tender Musculoskeletal: No Tenderness to Palpation of Joints or Extremities, - - AV fistula in LUE inner forearm Lymphatic: No Cervical, Supraclavicular, or Inguinal Adenopathy Neurological: Cranial nerves II-XII grossly intact, Neuro grossly intact, Motor Exam 5/5 strength throughout Psych/Mental Status: Normal Affect, Appropriate, Alert and oriented to time, place, person, mood and affect Microbiology Past 72 Hours 01/19/19 21:35 Sputum, Expectorated/Coughed Gram Stain - Final 01/19/19 21:35 Sputum, Expectorated/Coughed Respiratory Culture - Final Mixed normal respiratory yrn. No Streptococcus pneumoniae, beta-hemolytic Streptococcus or Staphylococcus aureus isolated. 01/19/19 21:55 Blood Culture (Wb) - Anticubital Left Blood Culture - Final Staphylococcus aureus 01/19/19 22:30 Blood Culture (Wb) - Right Wrist Bacteria Detection (PCR) - Final Staphylococcus aureus 01/19/19 22:30 Blood Culture (Wb) - Right Wrist Blood Culture - Final Staphylococcus aureus 01/21/19 10:30 Stool Stool Occult Blood (HEATHER) - Final Occult Blood Positive 01/21/19 05:32 Sputum, Expectorated/Coughed Gram Stain - Final 01/20/19 09:04 Mucosa - Nasopharyngeal Respiratory Panel (PCR) - Final 01/20/19 03:00 Mucosa - Nose Influenza Types A,B Direct FA (HEATHER) - Final Laboratory Results 01/19/19 21:55: Vitamin B12 474 01/20/19 10:00: Crossmatch See Detail 01/22/19 05:35: WBC 6.7, RBC 2.37 L, Hgb 7.6 L, Hct 22.8 L, MCV 96.2, MCH 32.1 H, MCHC 33.3, RDW Std Deviation 56.7 H, RDW Coeff of [place]ac[place] 15.9 H, Plt Count 152, MPV 9.5, Immature Gran % (Auto) 0.700, Neut % (Auto) 70.8 H, Lymph % (Auto) 14.1 L, [place] % (Auto) 10.7 H, Eos % (Auto) 3.6, Baso % (Auto) 0.1, Absolute Neuts (auto) 4.8, Absolute Lymphs (auto) 0.95, Nucleated RBC % 0 01/22/19 05:35: Sodium 135 L, Potassium 4.1, Chloride 97 L, Carbon Dioxide 28.0, Anion Gap 10, BUN 49 H, Creatinine 7.32 H, Estim Creat Clear Calc 7.27, Est GFR (MDRD) Af Amer 8 L, Est GFR (MDRD) Non-Af 6 L, BUN/Creatinine Ratio 6.7 L, Glucose 109 H, Calcium 8.7 Current Medications Acetaminophen (Tylenol) 650 mg PO Q6H PRN PRN PRN Reason: HEADACHE/FEVER (T>100F) Albuterol Sulfate (Ventolin Aerosols) 2.5 mg INHALATION Q2H PRN PRN PRN Reason: Shortness of Breath/Wheezing Last Admin: 01/20/19 02:59 Dose: 2.5 mg Documented by: Albuterol/Ipratropium (Duoneb) 3 ml INHALATION Q4HWA.RT [facility] Last Admin: 01/22/19 06:34 Dose: 3 ml Documented by: Citalopram Hydrobromide (Celexa) 20 mg PO DAILY [facility] Last Admin: 01/21/19 10:33 Dose: 20 mg Documented by: Clonazepam (Klonopin) 0.5 mg PO BID PRN PRN PRN Reason: ANXIETY Last Admin: 01/21/19 13:36 Dose: 0.5 mg Documented by: Dextrose (D50w Syringe) 0 gm IV X1 PRN; Protocol PRN Reason: Hypoglycemia Famotidine (Pepcid) 20 mg PO Q48 [facility] Last Admin: 01/20/19 11:18 Dose: 20 mg Documented by: Glucagon () 1 mg IM .X1 PRN PRN Reason: Hypoglycemia Guaifenesin (Mucinex) 1,200 mg PO BID [facility] Last Admin: 01/21/19 21:04 Dose: 1,200 mg Documented by: Cefazolin Sodium () 1 gm in 50 mls @ 100 mls/hr IV QPM [facility] Last Infusion: 01/21/19 22:34 Dose: Infused Documented by: Nifedipine (Procardia Xl) 90 mg PO DAILY [facility] Last Admin: 01/21/19 10:33 Dose: 90 mg Documented by: Ondansetron HCl (Zofran) 4 mg IV Q8H PRN PRN PRN Reason: NAUSEA/VOMITING Last Admin: 01/20/19 03:46 Dose: 4 mg Documented by: Pantoprazole Sodium (Protonix) 20 mg PO DAILY [facility] Last Admin: 01/21/19 10:33 Dose: 20 mg Documented by: Propranolol HCl (Inderal) 20 mg PO BID [facility] Last Admin: 01/21/19 21:04 Dose: 20 mg Documented by: Rizatriptan Benzoate (Maxalt) 10 mg PO .[X1 PRN] PRN PRN Reason: MIGRAINE SYMPTOMS Last Admin: 01/22/19 04:50 Dose: 10 mg Documented by: Sevelamer Carbonate (Renvela) 2,400 mg PO TIDCM [facility] Last Admin: 01/21/19 18:46 Dose: 2,400 mg Documented by: STROKE Vital Signs/Narrative: Vital Signs Temp Pulse Resp BP Pulse Ox 01/22/19 09:00 88 21 H 117/76 98 01/22/19 08:00 70 20 H 128/78 H 94 01/22/19 07:38 72 01/22/19 07:00 69 12 124/80 H 96 01/22/19 06:34 69 20 H 95 01/22/19 06:00 96.9 F L 70 25 H 114/73 95 Medical Necessity - Tobacco Use Smoking Status: Former smoker - She was a social smoker about 20 years ago. Assessment/Plan All Active Problems Amyloidosis (Acute) MSSA bacteremia (Acute) Acute hypoxemic respiratory failure (Acute) Severe sepsis (Acute) Pneumonia (Acute) Sepsis (Acute) 1. Severe sepsis due to community acquired pneumonia and recent dialysis port removal currently on IV cefazolin on 2L of oxygen by nasal canula sputum culture showed normal respiratory yrn blood culture growing Staphylococcus aureus (2 out of 2 sets) repeat blood cultures pending. Recent NARGIS at [facility] reviewed, per documentation- NARGIS was negative for vegetations and blood cultures were positive for MSSA. 2D echo ordered CDT chest with contrast ordered; to be done on Thursday to assess for septic emboli that may have occurred from dialysis port removal. Patient to have dialysis after ct chest with contrast on Thursday respiratory panel was negative. critical care on board 2. Acute hypoxic respiratory failure due to community acquired pneumonia on 2L of oxygen by nasal canula IV antibiotics narrowed down to IV cefazolin. on breathing treatments pulmonology on board 3. 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 baseline from 09/10/18 is 13.2 stool occult blood is positive. Will consult general surgery 4. Hyperkalemia: resolved. K today is 4.1 4. 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 Nephrology on board.had dialysis yesterday. Next dialysis is Thursday. 5. 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 Code Visit Inpatient E&M: 35117 Subs Hosp L3
--- NOTE | 2019-01-22 11:07 | PCM.CONS.GEN ---
Problem List (1) Anemia Status: Acute Qualifiers: Anemia type: unspecified type Qualified Code(s): D64.9 - Anemia, unspecified (2) Heme positive stool Status: Acute Reason for Consult Date of Consultation: 01/22/19 History of Present Illness: The patient is a 48 year old F who presented with [facility] on 01/19/2019 secondary to shortness of breath and a cough productive of yellow sputum. Patient reportedly had felt increasing weakness throughout the day and had reported some subjective chills without fevers. Patient had a hemodialysis catheter removed on the day prior to presentation. Patient reported that this had been in place for approximately 3 months. Patient had reported some pain in her right ear and sore throat. Some nausea and vomiting have been reported, but patient did not report any generalized aspiration event. In the ER, patient was noted to be tachycardic at 106 bpm and tachypnea. Patient was 78% on room air and febrile at 102.9 ?F. Laboratory work-up showed a mild leukocytosis of 11.9 and a hemoglobin of 8.1. Creatinine was 8.83. Chest x-ray showed perihilar edema and left lower lobe infiltrate. Hospitalist was consulted and patient was admitted to [facility] for evaluation. This morning, patient was evaluated by the oncoming hospitalist secondary to tachypnea. Patient reportedly was breathing 20-30 times per minute on a Ventimask and reporting worsening shortness of breath. After evaluation, it was recommended that the patient come to the intensive care unit for further evaluation. 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 Patient has had hemodialysis for several months using a tunneled hemodialysis catheter. Patient reportedly had this removed prior to presentation. Patient does have a functioning fistula, but states that her last hemodialysis was on Thursday. Patient states that this is altered from her normal Thursday, Thursday, Thursday schedule secondary to the holiday. Patient does report she has a history of asthma at baseline, but only uses as needed albuterol. Patient does not report any COPD. 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 baseline from 09/10/18 is 13.2 stool occult blood is positive. Patient has had a bowel movement today there is no signs of melena or black tarry stools. She is not complaining of any abdominal pain. Past Medical History Past Medical History (Chronic Problems): Chronic Problems Morbid obesity due to excess calories (Chronic) ESRD (end stage renal disease) (Chronic) Allergies No Known Allergies Allergy (Verified 01/04/19 12:52) Home Medications: Ambulatory Orders Medication Instructions Recorded Clonazepam [Klonopin] 0.5 mg PO PRN PRN 11/20/16 Citalopram [Celexa] 20 mg PO DAILY 03/26/17 Furosemide 40 mg PO DAILY PRN PRN 01/19/19 NIFEdipine [Procardia XL] 90 mg PO QHS 01/19/19 Pantoprazole Sodium 20 mg PO DAILY 01/19/19 Propranolol HCl [Inderal (Beta 40 mg PO BID 01/19/19 Lupis)] Acyclovir 200 mg PO DAILY PRN PRN 01/20/19 Zolpidem Tartrate [Ambien 5 mg PO QHS PRN PRN 01/20/19 (Generic)] Sevelamer Carbonate 2,400 mg PO 01/21/19 Surgical History: cholecystectomy Lives: With Family Smoking Status: Former smoker - She was a social smoker about 20 years ago. Alcohol: Rare - *Family History Maternal History Items: Cancer - Leukemia, Dementia Paternal History Items: Heart Disease, Renal Disease Review of Systems Constitutional: Denies: Chills, Fever, Weight Change Gastrointestinal: Denies: Abdominal Pain, Constipation, Diarrhea, Hematemesis, Nausea, Melena, Vomiting Patient Problems: Active and Suspected Problems Amyloidosis (Acute) MSSA bacteremia (Acute) Anemia (Acute) Heme positive stool (Acute) Acute hypoxemic respiratory failure (Acute) Severe sepsis (Acute) Pneumonia (Acute) Sepsis (Acute) - Physical Exam Vitals/I&O's: Vital Signs Temp Pulse Resp BP Pulse Ox 96.9 F L 88 21 H 117/76 98 01/22/19 06:00 01/22/19 09:00 01/22/19 09:00 01/22/19 09:00 01/22/19 09:00 Oxygen Flow Rate (L/min) 2 Oxygen Delivery Method Room Air Weight: 246 lb 0.574 oz Body Mass Index (BMI) 42.3 Intake and Output for Last 24 Hours 01/20/19 01/21/19 01/22/19 23:59 23:59 23:59 Intake Total 905 / 1145 910 / 910 200 / 200 Output Total 0 / 10 610 / 610 Balance 905 / 1135 300 / 300 200 / 200 General: Alert, Oriented x3 Lungs: Clear to auscultation Cardiovascular: Regular rate, Regular Rhythm, No murmurs Abdomen: Bowel Sounds Present, Soft, Non Tender, Non-Distended, Obese Microbiology Past 72 Hours 01/21/19 05:32 Sputum, Expectorated/Coughed Gram Stain - Final 01/21/19 05:32 Sputum, Expectorated/Coughed Respiratory Culture - Preliminary Appears to be normal respiratory yrn. Further studies to follow. 01/19/19 21:35 Sputum, Expectorated/Coughed Gram Stain - Final 01/19/19 21:35 Sputum, Expectorated/Coughed Respiratory Culture - Final Mixed normal respiratory yrn. No Streptococcus pneumoniae, beta-hemolytic Streptococcus or Staphylococcus aureus isolated. 01/19/19 21:55 Blood Culture (Wb) - Anticubital Left Blood Culture - Final Staphylococcus aureus 01/19/19 22:30 Blood Culture (Wb) - Right Wrist Bacteria Detection (PCR) - Final Staphylococcus aureus 01/19/19 22:30 Blood Culture (Wb) - Right Wrist Blood Culture - Final Staphylococcus aureus 01/21/19 10:30 Stool Stool Occult Blood (HEATHER) - Final Occult Blood Positive 01/20/19 09:04 Mucosa - Nasopharyngeal Respiratory Panel (PCR) - Final 01/20/19 03:00 Mucosa - Nose Influenza Types A,B Direct FA (HEATHER) - Final Laboratory Results 01/19/19 21:55: Vitamin B12 474 01/20/19 10:00: Crossmatch See Detail 01/22/19 05:35: WBC 6.7, RBC 2.37 L, Hgb 7.6 L, Hct 22.8 L, MCV 96.2, MCH 32.1 H, MCHC 33.3, RDW Std Deviation 56.7 H, RDW Coeff of [place] 15.9 H, Plt Count 152, MPV 9.5, Immature Gran % (Auto) 0.700, Neut % (Auto) 70.8 H, Lymph % (Auto) 14.1 L, [place] % (Auto) 10.7 H, Eos % (Auto) 3.6, Baso % (Auto) 0.1, Absolute Neuts (auto) 4.8, Absolute Lymphs (auto) 0.95, Nucleated RBC % 0 01/22/19 05:35: Sodium 135 L, Potassium 4.1, Chloride 97 L, Carbon Dioxide 28.0, Anion Gap 10, BUN 49 H, Creatinine 7.32 H, Estim Creat Clear Calc 7.27, Est GFR (MDRD) Af Amer 8 L, Est GFR (MDRD) Non-Af 6 L, BUN/Creatinine Ratio 6.7 L, Glucose 109 H, Calcium 8.7 Current Medications Acetaminophen (Tylenol) 650 mg PO Q6H PRN PRN PRN Reason: HEADACHE/FEVER (T>100F) Albuterol Sulfate (Ventolin Aerosols) 2.5 mg INHALATION Q2H PRN PRN PRN Reason: Shortness of Breath/Wheezing Last Admin: 01/20/19 02:59 Dose: 2.5 mg Documented by: Albuterol/Ipratropium (Duoneb) 3 ml INHALATION Q4HWA.RT [facility] Last Admin: 01/22/19 06:34 Dose: 3 ml Documented by: Citalopram Hydrobromide (Celexa) 20 mg PO DAILY [facility] Last Admin: 01/22/19 09:07 Dose: 20 mg Documented by: Clonazepam (Klonopin) 0.5 mg PO BID PRN PRN PRN Reason: ANXIETY Last Admin: 01/21/19 13:36 Dose: 0.5 mg Documented by: Dextrose (D50w Syringe) 0 gm IV X1 PRN; Protocol PRN Reason: Hypoglycemia Famotidine (Pepcid) 20 mg PO Q48 [facility] Last Admin: 01/22/19 09:07 Dose: 20 mg Documented by: Glucagon () 1 mg IM .X1 PRN PRN Reason: Hypoglycemia Guaifenesin (Mucinex) 1,200 mg PO BID [facility] Last Admin: 01/22/19 09:07 Dose: 1,200 mg Documented by: Cefazolin Sodium () 1 gm in 50 mls @ 100 mls/hr IV QPM [facility] Last Infusion: 01/21/19 22:34 Dose: Infused Documented by: Nifedipine (Procardia Xl) 90 mg PO DAILY [facility] Last Admin: 01/22/19 09:07 Dose: 90 mg Documented by: Ondansetron HCl (Zofran) 4 mg IV Q8H PRN PRN PRN Reason: NAUSEA/VOMITING Last Admin: 01/20/19 03:46 Dose: 4 mg Documented by: Pantoprazole Sodium (Protonix) 20 mg PO DAILY [facility] Last Admin: 01/22/19 09:07 Dose: 20 mg Documented by: Propranolol HCl (Inderal) 20 mg PO BID [facility] Last Admin: 01/22/19 09:07 Dose: 20 mg Documented by: Rizatriptan Benzoate (Maxalt) 10 mg PO .[X1 PRN] PRN PRN Reason: MIGRAINE SYMPTOMS Last Admin: 01/22/19 04:50 Dose: 10 mg Documented by: Sevelamer Carbonate (Renvela) 2,400 mg PO TIDCM [facility] Last Admin: 01/22/19 09:07 Dose: 2,400 mg Documented by: Assessment/Plan All Active Problems Amyloidosis (Acute) MSSA bacteremia (Acute) Anemia (Acute) Heme positive stool (Acute) Acute hypoxemic respiratory failure (Acute) Severe sepsis (Acute) Pneumonia (Acute) Sepsis (Acute) Not sure there is a current role for performing a upper lower endoscopy on her at this juncture. She has had a recent colonoscopy in 2017 in [place] which was reportedly negative by the patient. She has never had an upper endoscopy. She states that her hemoglobin levels have been low in the past and has had to have transfusions in the past as well. Once she improves we might consider performing an upper endoscopy on her but at the present time I am going to hold off on this and possibly do it as an outpatient.
[2019-01-22] MEDS: Acetaminophen 325 MG Tablet 650 MG PO (14:32)
--- NOTE | 2019-01-22 16:53 | PN.RENAL_ITS ---
Patient Problems: Active and Suspected Problems Amyloidosis (Acute) MSSA bacteremia (Acute) Anemia (Acute) Heme positive stool (Acute) Acute hypoxemic respiratory failure (Acute) Severe sepsis (Acute) Pneumonia (Acute) Sepsis (Acute) Subjective: no new complaints - Physical Exam Vitals/I&O's: Vital Signs Temp Pulse Resp BP Pulse Ox 98.2 F 76 18 133/65 H 94 01/22/19 16:50 01/22/19 16:50 01/22/19 16:50 01/22/19 16:50 01/22/19 16:50 Oxygen Flow Rate (L/min) 2 Oxygen Delivery Method Nasal Cannula Weight: 111.6 kg Body Mass Index (BMI) 42.3 Intake and Output for Last 24 Hours 01/20/19 01/21/19 01/22/19 23:59 23:59 23:59 Intake Total 905 / 1145 910 / 910 350 / 350 Output Total 0 / 10 610 / 610 100 / 100 Balance 905 / 1135 300 / 300 250 / 250 General: Alert, Oriented x3, Cooperative HEENT: Atraumatic, PERRLA, EOMI, Normocephalic Neck: Supple, No JVD, Negative Carotid Bruits Lungs: Clear to auscultation, Normal air movement Cardiovascular: Regular rate, No murmurs Abdomen: Bowel Sounds Present, Soft, Non Tender Extremities: No edema, Capillary Refill Less than 3 Seconds Skin: No rashes, No breakdown Musculoskeletal: No Tenderness to Palpation of Joints or Extremities Neurological: Cranial nerves II-XII grossly intact Psych/Mental Status: Normal Affect, Appropriate Microbiology Past 72 Hours 01/21/19 05:32 Sputum, Expectorated/Coughed Gram Stain - Final 01/21/19 05:32 Sputum, Expectorated/Coughed Respiratory Culture - Preliminary Appears to be normal respiratory yrn. Further studies to follow. 01/19/19 21:35 Sputum, Expectorated/Coughed Gram Stain - Final 01/19/19 21:35 Sputum, Expectorated/Coughed Respiratory Culture - Final Mixed normal respiratory yrn. No Streptococcus pneumoniae, beta-hemolytic Streptococcus or Staphylococcus aureus isolated. 01/19/19 21:55 Blood Culture (Wb) - Anticubital Left Blood Culture - Final Staphylococcus aureus 01/19/19 22:30 Blood Culture (Wb) - Right Wrist Bacteria Detection (PCR) - Final Staphylococcus aureus 01/19/19 22:30 Blood Culture (Wb) - Right Wrist Blood Culture - Final Staphylococcus aureus 01/21/19 10:30 Stool Stool Occult Blood (HEATHER) - Final Occult Blood Positive 01/20/19 09:04 Mucosa - Nasopharyngeal Respiratory Panel (PCR) - Final 01/20/19 03:00 Mucosa - Nose Influenza Types A,B Direct FA (HEATHER) - Final Laboratory Results 01/20/19 10:00: Crossmatch See Detail 01/22/19 05:35: WBC 6.7, RBC 2.37 L, Hgb 7.6 L, Hct 22.8 L, MCV 96.2, MCH 32.1 H , MCHC 33.3, RDW Std Deviation 56.7 H, RDW Coeff of [place] 15.9 H, Plt Count 152, MPV 9.5, Immature Gran % (Auto) 0.700, Neut % (Auto) 70.8 H, Lymph % (Auto) 14.1 L, [place] % (Auto) 10.7 H, Eos % (Auto) 3.6, Baso % (Auto) 0.1, Absolute Neuts (auto) 4.8, Absolute Lymphs (auto) 0.95, Nucleated RBC % 0 01/22/19 05:35: Sodium 135 L, Potassium 4.1, Chloride 97 L, Carbon Dioxide 28.0, Anion Gap 10, BUN 49 H, Creatinine 7.32 H, Estim Creat Clear Calc 7.27, Est GFR (MDRD) Af Amer 8 L, Est GFR (MDRD) Non-Af 6 L, BUN/Creatinine Ratio 6.7 L, Glucose 109 H, Calcium 8.7 Current Medications Acetaminophen (Tylenol) 650 mg PO Q6H PRN PRN PRN Reason: HEADACHE/FEVER (T>100F) Last Admin: 01/22/19 14:32 Dose: 650 mg Documented by: Albuterol Sulfate (Ventolin Aerosols) 2.5 mg INHALATION Q2H PRN PRN PRN Reason: Shortness of Breath/Wheezing Last Admin: 01/20/19 02:59 Dose: 2.5 mg Documented by: Albuterol/Ipratropium (Duoneb) 3 ml INHALATION Q4HWA.RT [facility] Last Admin: 01/22/19 14:50 Dose: 3 ml Documented by: Citalopram Hydrobromide (Celexa) 20 mg PO DAILY [facility] Last Admin: 01/22/19 09:07 Dose: 20 mg Documented by: Clonazepam (Klonopin) 0.5 mg PO BID PRN PRN PRN Reason: ANXIETY Last Admin: 01/21/19 13:36 Dose: 0.5 mg Documented by: Dextrose (D50w Syringe) 0 gm IV X1 PRN; Protocol PRN Reason: Hypoglycemia Famotidine (Pepcid) 20 mg PO Q48 [facility] Last Admin: 01/22/19 09:07 Dose: 20 mg Documented by: Glucagon () 1 mg IM .X1 PRN PRN Reason: Hypoglycemia Guaifenesin (Mucinex) 1,200 mg PO BID [facility] Last Admin: 01/22/19 09:07 Dose: 1,200 mg Documented by: Cefazolin Sodium () 1 gm in 50 mls @ 100 mls/hr IV QPM [facility] Last Infusion: 01/21/19 22:34 Dose: Infused Documented by: Sodium Chloride () 250 mls @ 15 mls/hr IV .[id number] PRN PRN Reason: Saline Flush Nifedipine (Procardia Xl) 90 mg PO DAILY [facility] Last Admin: 01/22/19 09:07 Dose: 90 mg Documented by: Ondansetron HCl (Zofran) 4 mg IV Q8H PRN PRN PRN Reason: NAUSEA/VOMITING Last Admin: 01/20/19 03:46 Dose: 4 mg Documented by: Pantoprazole Sodium (Protonix) 20 mg PO DAILY [facility] Last Admin: 01/22/19 09:07 Dose: 20 mg Documented by: Propranolol HCl (Inderal) 20 mg PO BID [facility] Last Admin: 01/22/19 09:07 Dose: 20 mg Documented by: Rizatriptan Benzoate (Maxalt) 10 mg PO .[X1 PRN] PRN PRN Reason: MIGRAINE SYMPTOMS Last Admin: 01/22/19 04:50 Dose: 10 mg Documented by: Sevelamer Carbonate (Renvela) 2,400 mg PO TIDCM [facility] Last Admin: 01/22/19 16:50 Dose: 2,400 mg Documented by: Sodium Chloride () 10 - 40 ml IV UD PRN PRN Reason: SALINE FLUSH Medical Necessity - Tobacco Use Smoking Status: Former smoker - She was a social smoker about 20 years ago. Assessment/Plan All Active Problems Amyloidosis (Acute) MSSA bacteremia (Acute) Anemia (Acute) Heme positive stool (Acute) Acute hypoxemic respiratory failure (Acute) Severe sepsis (Acute) Pneumonia (Acute) Sepsis (Acute) End-stage renal disease Pneumonia Presumably staph bacteremia HD thursday Anemia. With low iron deficiency. Hold Venofer due to bacteremia. received PRBC reviewed ID note. cultures sent
[2019-01-22] MEDS: Cefazolin 1 GM/50 ML BAG IV (21:20)
[2019-01-22] MEDS: 0.9% Saline Lock 10 ML Syringe IV (21:23)
[2019-01-23] VITALS (19 sets, daily range): BP systolic 134–160; BP diastolic 77–84; PULSE 63–89; RESP 12–18; TEMP 36.9–37.2; O2SAT 92–97
[2019-01-23 05:29] LABS: Absolute Lymphocyte Count 1.02 X10^3/uL (0.83-4.51); Absolute Neutrophil Count 4.4 X10^3/uL (2.0-7.7); Basophil# 0.02 X10^3/uL; Basophil% 0.3 % (0-1); Eosinophil# 0.31 X10^3/uL; Eosinophils% 4.8 % (0-5); Hematocrit 22.3 % (37-47); Hemoglobin 7.4 g/dL (12.0-15.0); Lymphocyte # 1.02 X10^3/ul (4.0); Lymphocyte % 15.8 % (19-41); Mean Corp Hgb Conc 33.2 g/dL (32-36); Mean Corpuscular Volume 96.5 fL (81-99); Mean Platelet Vol. 9.8 fl (6.2-12.0); Monocyte# 0.62 X10^3/uL; Monocyte% 9.6 % (0-10); NRBC Flagged by Analyzer 0 % (0-5); Neutrophil # 4.43 X10^3/uL (2.7-7.7); Neutrophil % 68.6 % (47-70); Platelet Count 173 K/mm3 (150-450); RBC Distribution Width CV 15.9 % (11.6-14.6); RBC Distribution Width SD 56.9 fl (35.1-43.9); Red Blood Count 2.31 M/mm3 (4.2-5.4); White Blood Count 6.5 K/mm3 (4.4-11.0)
[2019-01-23 06:11] LABS: Anion Gap 11 (5-15); BUN 73 mg/dL (7-18); Calcium,Total 8.9 mg/dL (8.5-10.1); Chloride 98 mmol/L (98-107); Creatinine, Serum 9.07 mg/dL (0.55-1.02); EST Glomerular Filtration Rate 5 mL/min (>60); Est Glom Filt Rate - Afr Amer 6 mL/min (>60); Estimated Creatinine Clearance 5.87 ml/min; Glucose 84 mg/dL (74-106); Potassium 4.3 mmol/L (3.5-5.1); Sodium Level 135 mmol/L (136-145)
[2019-01-23] MEDS: Ipratropium/Albuterol Sulfate 3 ML AMPUL.NEB INHALATION ×3 (07:17→19:44)
[2019-01-23] MEDS: guaiFENesin 1,200 MG Tablet 1200 MG PO ×2 (09:00→21:19)
[2019-01-23] MEDS: SEVELAMER CARBONATE 800 MG TABLET 2400 MG PO ×3 (09:00→15:53)
[2019-01-23] MEDS: Citalopram 20 MG Tablet PO (09:00)
[2019-01-23] MEDS: Pantoprazole Sodium 20 MG Tablet PO (09:01)
[2019-01-23] MEDS: Propranolol 10 MG Tablet 20 MG PO ×2 (09:01→21:19)
[2019-01-23] MEDS: NIFEdipine 90 MG Tablet PO (09:02)
--- NOTE | 2019-01-23 09:44 | PCM.PN.PUL ---
Patient Problems: Active and Suspected Problems Amyloidosis (Acute) MSSA bacteremia (Acute) Anemia (Acute) Heme positive stool (Acute) Pneumonia (Acute) Sepsis (Acute) Subjective: Patient did well overnight. And has reported the development of intermittent epistaxis overnight that she attributes to her supplemental oxygen. Patient is able to ambulate to the bathroom independently. Patient denies any abdominal pain, nausea or vomiting. - Physical Exam Vitals/I&O's: Vital Signs Temp Pulse Resp BP Pulse Ox 36.9 C 77 18 154/77 H 92 01/23/19 08:57 01/23/19 08:57 01/23/19 08:57 01/23/19 08:57 01/23/19 08:57 Oxygen Flow Rate (L/min) 2 Oxygen Delivery Method Room Air Weight: 111.6 kg Body Mass Index (BMI) 42.3 Intake and Output for Last 24 Hours 01/21/19 01/22/19 01/23/19 23:59 23:59 23:59 Intake Total 910 / 910 960.5 / 960.5 50 / 50 Output Total 610 / 610 100 / 100 0 / 0 Balance 300 / 300 860.5 / 860.5 50 / 50 General: Alert, Oriented x3, Cooperative, No apparent distress, Well developed, Well nourished, - - Morbidly obese. No conversational dyspnea. HEENT: Atraumatic, PERRLA, EOMI, Normocephalic, - - No scleral icterus or injection noted Oral: Moist Mucosa, No Gingival or Mucosal Lesions/ Ulcerations Neck: Supple, No JVD, No Nodes, Trachea Midline Lungs: No rhonchi, No wheeze, No rales, Diminished, - - Symmetric expansion. No dullness to percussion. Cardiovascular: Regular rate, Regular Rhythm, Normal S1, Normal S2, No murmurs, No rub noted, No Gallop Abdomen: Bowel Sounds Present, Soft, Non Tender, Non-Distended, Obese Extremities: No clubbing, No cyanosis, No edema, - - Left upper extremity fistula Skin: No rashes, No breakdown, - - No splinter hemorrhages appreciated Musculoskeletal: No Tenderness to Palpation of Joints or Extremities Lymphatic: No Cervical, Supraclavicular, or Inguinal Adenopathy Neurological: Cranial nerves II-XII grossly intact, Neuro grossly intact, Motor Exam 5/5 strength throughout Psych/Mental Status: Alert and oriented to time, place, person, mood and affect Microbiology Past 72 Hours 01/21/19 05:32 Sputum, Expectorated/Coughed Gram Stain - Final 01/21/19 05:32 Sputum, Expectorated/Coughed Respiratory Culture - Final Presumptive C albicans Mixed Yrn 01/21/19 14:25 Blood Culture (Wb) - Dialysis/Fistula Blood Culture - Preliminary No growth in 48 hours. 01/19/19 21:35 Sputum, Expectorated/Coughed Gram Stain - Final 01/19/19 21:35 Sputum, Expectorated/Coughed Respiratory Culture - Final Mixed normal respiratory yrn. No Streptococcus pneumoniae, beta-hemolytic Streptococcus or Staphylococcus aureus isolated. 01/19/19 21:55 Blood Culture (Wb) - Anticubital Left Blood Culture - Final Staphylococcus aureus 01/19/19 22:30 Blood Culture (Wb) - Right Wrist Bacteria Detection (PCR) - Final Staphylococcus aureus 01/19/19 22:30 Blood Culture (Wb) - Right Wrist Blood Culture - Final Staphylococcus aureus 01/21/19 10:30 Stool Stool Occult Blood (HEATHER) - Final Occult Blood Positive 01/20/19 09:04 Mucosa - Nasopharyngeal Respiratory Panel (PCR) - Final Laboratory Results 01/20/19 10:00: Crossmatch See Detail 01/23/19 05:10: WBC 6.5, RBC 2.31 L, Hgb 7.4 L, Hct 22.3 L, MCV 96.5, MCH 32.0, MCHC 33.2, RDW Std Deviation 56.9 H, RDW Coeff of [place] 15.9 H, Plt Count 173, MPV 9.8, Immature Gran % (Auto) 0.900, Neut % (Auto) 68.6, Lymph % (Auto) 15.8 L, [place] % (Auto) 9.6, Eos % (Auto) 4.8, Baso % (Auto) 0.3, Absolute Neuts (auto) 4.4, Absolute Lymphs (auto) 1.02, Nucleated RBC % 0 01/23/19 05:10: Sodium 135 L, Potassium 4.3, Chloride 98, Carbon Dioxide 26.0, Anion Gap 11, BUN 73 H, Creatinine 9.07 H*, Estim Creat Clear Calc 5.87, Est GFR (MDRD) Af Amer 6 L, Est GFR (MDRD) Non-Af 5 L, BUN/Creatinine Ratio 8.0 L, Glucose 84, Calcium 8.9 Current Medications Acetaminophen (Tylenol) 650 mg PO Q6H PRN PRN PRN Reason: HEADACHE/FEVER (T>100F) Last Admin: 01/22/19 14:32 Dose: 650 mg Documented by: Albuterol Sulfate (Ventolin Aerosols) 2.5 mg INHALATION Q2H PRN PRN PRN Reason: Shortness of Breath/Wheezing Last Admin: 01/20/19 02:59 Dose: 2.5 mg Documented by: Albuterol/Ipratropium (Duoneb) 3 ml INHALATION Q4HWA.RT [facility] Last Admin: 01/23/19 07:17 Dose: 3 ml Documented by: Citalopram Hydrobromide (Celexa) 20 mg PO DAILY [facility] Last Admin: 01/23/19 09:00 Dose: 20 mg Documented by: Clonazepam (Klonopin) 0.5 mg PO BID PRN PRN PRN Reason: ANXIETY Last Admin: 01/21/19 13:36 Dose: 0.5 mg Documented by: Dextrose (D50w Syringe) 0 gm IV X1 PRN; Protocol PRN Reason: Hypoglycemia Famotidine (Pepcid) 20 mg PO Q48 [facility] Last Admin: 01/22/19 09:07 Dose: 20 mg Documented by: Glucagon () 1 mg IM .X1 PRN PRN Reason: Hypoglycemia Guaifenesin (Mucinex) 1,200 mg PO BID [facility] Last Admin: 01/23/19 09:00 Dose: 1,200 mg Documented by: Cefazolin Sodium () 1 gm in 50 mls @ 100 mls/hr IV QPM [facility] Last Infusion: 01/22/19 21:50 Dose: Infused Documented by: Sodium Chloride () 250 mls @ 15 mls/hr IV .[id number] PRN PRN Reason: Saline Flush Last Infusion: 01/22/19 21:20 Dose: 0 mls/hr Documented by: Nifedipine (Procardia Xl) 90 mg PO DAILY [facility] Last Admin: 01/23/19 09:02 Dose: 90 mg Documented by: Ondansetron HCl (Zofran) 4 mg IV Q8H PRN PRN PRN Reason: NAUSEA/VOMITING Last Admin: 01/20/19 03:46 Dose: 4 mg Documented by: Pantoprazole Sodium (Protonix) 20 mg PO DAILY [facility] Last Admin: 01/23/19 09:01 Dose: 20 mg Documented by: Propranolol HCl (Inderal) 20 mg PO BID [facility] Last Admin: 01/23/19 09:01 Dose: 20 mg Documented by: Rizatriptan Benzoate (Maxalt) 10 mg PO .[X1 PRN] PRN PRN Reason: MIGRAINE SYMPTOMS Last Admin: 01/22/19 04:50 Dose: 10 mg Documented by: Sevelamer Carbonate (Renvela) 2,400 mg PO TIDCM [facility] Last Admin: 01/23/19 09:00 Dose: 2,400 mg Documented by: Sodium Chloride () 10 - 40 ml IV UD PRN PRN Reason: SALINE FLUSH Last Admin: 01/22/19 21:23 Dose: 10 ml Documented by: Medical Necessity - Tobacco Use Smoking Status: Former smoker - She was a social smoker about 20 years ago. Assessment/Plan All Active Problems Amyloidosis (Acute) MSSA bacteremia (Acute) Anemia (Acute) Heme positive stool (Acute) Acute hypoxemic respiratory failure (Acute) Severe sepsis (Acute) Pneumonia (Acute) Sepsis (Acute) RECOMMENDATIONS: 1. Continue BiPAP therapy as needed for rescue only. Wean FiO2 as tolerated 2. Continue cefazolin per infectious disease 3. Await repeat blood cultures 4. Hemodialysis per renal 5. Transfuse for hemoglobin less than 7 6. Await results of CTA of the chest IMPRESSIONS: 1. Acute hypoxic respiratory failure secondary to probable embolic pneumonia with MSSA Patient appears to have a left lower lobe infiltrate. Clinical suspicion for embolic pneumonia secondary to line removal with staph aureus. Patient grew bacteria from the blood in less than 12 hours on initial cultures. Repeat cultures have been sent and show no growth to date. He is likely do not need to be repeated if negative. Fever curve is improving on current therapy. Patient can continue to use BiPAP therapy for rescue. Would continue to hold off on any steroids or bronchodilators. 2. Severe sepsis secondary to probable staph aureus/line infection Clinical suspicion for bacteremia following removal of tunneled line. Patient is already growing what appears to be staph aureus. Infectious diseases following. Patient will be transfused blood products secondary to decreased hemoglobin. Patient appears to be tolerating infection well. Some concern for possible endocarditis as patient has had multiple bouts of staph aureus in the past. However, patient appears to have cleared bacteremia within 24 to 48 hours, decreasing suspicion for endocarditis. 3. Morbid obesity/depression/anxiety/end-stage renal disease/amyloidosis/hypertension Complicates care, management, recovery and prognosis. Patient is back to her baseline. Nephrology has been notified and plans on dialysis tomorrow following CTA. Did confirm patient is a full CODE STATUS. Code Visit Inpatient E&M: 63238 Subs Hosp L2
--- NOTE | 2019-01-23 10:24 | PN_ITS ---
Patient Problems: Active and Suspected Problems Amyloidosis (Acute) MSSA bacteremia (Acute) Anemia (Acute) Heme positive stool (Acute) Pneumonia (Acute) Sepsis (Acute) Reason for Visit: Patient seen and examined this morning. She had no complaints. She denied any shortness of breath, chest pain, palpitations, dizziness, diarrhea vomiting. Review of systems otherwise negative. Labs and vitals reviewed. Vitals/I&O's: Vital Signs Temp Pulse Resp BP Pulse Ox 98.4 F 77 18 154/77 H 92 01/23/19 08:57 01/23/19 08:57 01/23/19 08:57 01/23/19 08:57 01/23/19 09:00 Oxygen Flow Rate (L/min) 2 Oxygen Delivery Method Room Air Weight: 246 lb 0.574 oz Body Mass Index (BMI) 42.3 Intake and Output for Last 24 Hours 01/21/19 01/22/19 01/23/19 23:59 23:59 23:59 Intake Total 910 / 910 960.5 / 960.5 50 / 50 Output Total 610 / 610 100 / 100 0 / 0 Balance 300 / 300 860.5 / 860.5 50 / 50 General: Alert, Oriented x3, Cooperative, No apparent distress HEENT: Atraumatic, PERRLA, EOMI, Normocephalic Oral: Moist Mucosa Neck: Supple, No JVD, Negative Carotid Bruits Lungs: Clear to auscultation, Normal air movement, No rhonchi, No wheeze, - - on 2L of oxygen Cardiovascular: Regular rate, Regular Rhythm, Normal S1, Normal S2, No murmurs Abdomen: Bowel Sounds Present, Soft, Non Tender, Non-Distended, No Hepato- splenomegaly Extremities: No clubbing, No cyanosis, No edema, Capillary Refill Less than 3 Seconds Skin: No rashes, No breakdown; site of port removal on right chest not erythematous, non tender Musculoskeletal: No Tenderness to Palpation of Joints or Extremities, - - AV fistula in LUE inner forearm Lymphatic: No Cervical, Supraclavicular, or Inguinal Adenopathy Neurological: Cranial nerves II-XII grossly intact, Neuro grossly intact, Motor Exam 5/5 strength throughout Psych/Mental Status: Normal Affect, Appropriate, Alert and oriented to time, place, person, mood and affect Microbiology Past 72 Hours 01/21/19 05:32 Sputum, Expectorated/Coughed Gram Stain - Final 01/21/19 05:32 Sputum, Expectorated/Coughed Respiratory Culture - Final Presumptive C albicans Mixed Yrn 01/21/19 14:25 Blood Culture (Wb) - Dialysis/Fistula Blood Culture - Preliminary No growth in 48 hours. 01/19/19 21:35 Sputum, Expectorated/Coughed Gram Stain - Final 01/19/19 21:35 Sputum, Expectorated/Coughed Respiratory Culture - Final Mixed normal respiratory yrn. No Streptococcus pneumoniae, beta-hemolytic Streptococcus or Staphylococcus aureus isolated. 01/19/19 21:55 Blood Culture (Wb) - Anticubital Left Blood Culture - Final Staphylococcus aureus 01/19/19 22:30 Blood Culture (Wb) - Right Wrist Bacteria Detection (PCR) - Final Staphylococcus aureus 01/19/19 22:30 Blood Culture (Wb) - Right Wrist Blood Culture - Final Staphylococcus aureus 01/21/19 10:30 Stool Stool Occult Blood (HEATHER) - Final Occult Blood Positive 01/20/19 09:04 Mucosa - Nasopharyngeal Respiratory Panel (PCR) - Final Laboratory Results 01/20/19 10:00: Crossmatch See Detail 01/23/19 05:10: WBC 6.5, RBC 2.31 L, Hgb 7.4 L, Hct 22.3 L, MCV 96.5, MCH 32.0, MCHC 33.2, RDW Std Deviation 56.9 H, RDW Coeff of [place] 15.9 H, Plt Count 173, MPV 9.8, Immature Gran % (Auto) 0.900, Neut % (Auto) 68.6, Lymph % (Auto) 15.8 L, [place] % (Auto) 9.6, Eos % (Auto) 4.8, Baso % (Auto) 0.3, Absolute Neuts (auto) 4.4, Absolute Lymphs (auto) 1.02, Nucleated RBC % 0 01/23/19 05:10: Sodium 135 L, Potassium 4.3, Chloride 98, Carbon Dioxide 26.0, Anion Gap 11, BUN 73 H, Creatinine 9.07 H*, Estim Creat Clear Calc 5.87, Est GFR (MDRD) Af Amer 6 L, Est GFR (MDRD) Non-Af 5 L, BUN/Creatinine Ratio 8.0 L, Glucose 84, Calcium 8.9 Current Medications Acetaminophen (Tylenol) 650 mg PO Q6H PRN PRN PRN Reason: HEADACHE/FEVER (T>100F) Last Admin: 01/22/19 14:32 Dose: 650 mg Documented by: Albuterol Sulfate (Ventolin Aerosols) 2.5 mg INHALATION Q2H PRN PRN PRN Reason: Shortness of Breath/Wheezing Last Admin: 01/20/19 02:59 Dose: 2.5 mg Documented by: Albuterol/Ipratropium (Duoneb) 3 ml INHALATION Q4HWA.RT [facility] Last Admin: 01/23/19 07:17 Dose: 3 ml Documented by: Citalopram Hydrobromide (Celexa) 20 mg PO DAILY [facility] Last Admin: 01/23/19 09:00 Dose: 20 mg Documented by: Clonazepam (Klonopin) 0.5 mg PO BID PRN PRN PRN Reason: ANXIETY Last Admin: 01/21/19 13:36 Dose: 0.5 mg Documented by: Dextrose (D50w Syringe) 0 gm IV X1 PRN; Protocol PRN Reason: Hypoglycemia Famotidine (Pepcid) 20 mg PO Q48 [facility] Last Admin: 01/22/19 09:07 Dose: 20 mg Documented by: Glucagon () 1 mg IM .X1 PRN PRN Reason: Hypoglycemia Guaifenesin (Mucinex) 1,200 mg PO BID [facility] Last Admin: 01/23/19 09:00 Dose: 1,200 mg Documented by: Cefazolin Sodium () 1 gm in 50 mls @ 100 mls/hr IV QPM [facility] Last Infusion: 01/22/19 21:50 Dose: Infused Documented by: Sodium Chloride () 250 mls @ 15 mls/hr IV .[id number] PRN PRN Reason: Saline Flush Last Infusion: 01/22/19 21:20 Dose: 0 mls/hr Documented by: Nifedipine (Procardia Xl) 90 mg PO DAILY [facility] Last Admin: 01/23/19 09:02 Dose: 90 mg Documented by: Ondansetron HCl (Zofran) 4 mg IV Q8H PRN PRN PRN Reason: NAUSEA/VOMITING Last Admin: 01/20/19 03:46 Dose: 4 mg Documented by: Pantoprazole Sodium (Protonix) 20 mg PO DAILY [facility] Last Admin: 01/23/19 09:01 Dose: 20 mg Documented by: Propranolol HCl (Inderal) 20 mg PO BID [facility] Last Admin: 01/23/19 09:01 Dose: 20 mg Documented by: Rizatriptan Benzoate (Maxalt) 10 mg PO .[X1 PRN] PRN PRN Reason: MIGRAINE SYMPTOMS Last Admin: 01/22/19 04:50 Dose: 10 mg Documented by: Sevelamer Carbonate (Renvela) 2,400 mg PO TIDCM [facility] Last Admin: 01/23/19 09:00 Dose: 2,400 mg Documented by: Sodium Chloride () 10 - 40 ml IV UD PRN PRN Reason: SALINE FLUSH Last Admin: 01/22/19 21:23 Dose: 10 ml Documented by: STROKE Vital Signs/Narrative: Vital Signs Temp Pulse Resp BP Pulse Ox 01/23/19 09:00 92 01/23/19 08:57 98.4 F 77 18 154/77 H 92 01/23/19 07:17 80 18 92 01/23/19 07:00 77 Medical Necessity - Tobacco Use Smoking Status: Former smoker - She was a social smoker about 20 years ago. Assessment/Plan All Active Problems Amyloidosis (Acute) MSSA bacteremia (Acute) Anemia (Acute) Heme positive stool (Acute) Acute hypoxemic respiratory failure (Acute) Severe sepsis (Acute) Pneumonia (Acute) Sepsis (Acute) 1. Severe sepsis due to community acquired pneumonia and recent dialysis port removal * currently on IV cefazolin * on 2L of oxygen by nasal canula * sputum culture showed normal respiratory yrn * blood culture growing Staphylococcus aureus (2 out of 2 sets) * repeat blood cultures showed no growth after 48 hours. * Recent NARGIS at [facility] reviewed, per documentation- NARGIS was negative for vegetations and blood cultures were positive for MSSA. * CDT chest with contrast ordered; to be done on Thursday to assess for septic emboli that may have occurred from dialysis port removal. Patient to have dialysis after ct chest with contrast on Thursday * 2D echo: Ef of 55%, with mild LV concentric hypertrophy, with normal LV systolic function, and no regional wall motion abnormalities. stage 2 diastolic dysfunction. PA pressure is 42mmHg; no evidence of vegetation on the valves. * respiratory panel was negative. * critical care on board * 2. Acute hypoxic respiratory failure due to community acquired pneumonia * on 2L of oxygen by nasal canula * on IV cefazolin * on breathing treatments * pulmonology on board * titrate and wean off oxygen as tolerated * 3. Acute anemia s/p transfusion * Hb today is 7.4. 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 * baseline from 09/10/18 is 13.2 * stool occult blood is positive. * general surgery consulted; advocate conservative management now. [facility] outpatient basis for EGD as needed. She has never had an EGD. 4. Hyperkalemia: resolved. K today is 4.3 4. 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 Nephrology on board.for dialysis on Thursday 5. 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
[2019-01-23] MEDS: Sodium Chloride 0.65% 1 SPRAY SPRAY.BTL 2 SPRAY NASAL ×2 (11:59→15:54)
[2019-01-23] MEDS: clonazePAM 0.5 MG Tablet PO (19:56)
[2019-01-23] MEDS: Cefazolin 1 GM/50 ML BAG IV (21:17)
[2019-01-24] VITALS (16 sets, daily range): BP systolic 130–155; BP diastolic 78–94; PULSE 62–82; RESP 12–20; TEMP 36.5–37.2; O2SAT 94–98
[2019-01-24] MEDS: Zolpidem Tartrate 5 MG Tablet PO (00:15)
[2019-01-24 05:43] LABS: Absolute Lymphocyte Count 1.12 X10^3/uL (0.83-4.51); Absolute Neutrophil Count 3.9 X10^3/uL (2.0-7.7); Basophil# 0.02 X10^3/uL; Basophil% 0.3 % (0-1); Eosinophil# 0.36 X10^3/uL; Eosinophils% 5.9 % (0-5); Hematocrit 22.9 % (37-47); Hemoglobin 7.6 g/dL (12.0-15.0); Lymphocyte # 1.12 X10^3/ul (4.0); Lymphocyte % 18.2 % (19-41); Mean Corp Hgb Conc 33.2 g/dL (32-36); Mean Corpuscular Hgb 32.2 pg (27.0-32.0); Mean Platelet Vol. 9.8 fl (6.2-12.0); Monocyte# 0.67 X10^3/uL; Monocyte% 10.9 % (0-10); NRBC Flagged by Analyzer 0 % (0-5); Neutrophil # 3.87 X10^3/uL (2.7-7.7); Neutrophil % 63.1 % (47-70); Platelet Count 187 K/mm3 (150-450); RBC Distribution Width CV 15.4 % (11.6-14.6); RBC Distribution Width SD 54.4 fl (35.1-43.9); Red Blood Count 2.36 M/mm3 (4.2-5.4); White Blood Count 6.1 K/mm3 (4.4-11.0)
[2019-01-24 06:32] LABS: Anion Gap 12 (5-15); BUN 93 mg/dL (7-18); BUN/Creat Ratio 8.8 RATIO (10-20); Calcium,Total 9.1 mg/dL (8.5-10.1); Chloride 96 mmol/L (98-107); EST Glomerular Filtration Rate 4 mL/min (>60); Est Glom Filt Rate - Afr Amer 5 mL/min (>60); Estimated Creatinine Clearance 5.02 ml/min; Glucose 84 mg/dL (74-106); Potassium 4.9 mmol/L (3.5-5.1); Sodium Level 133 mmol/L (136-145)
[2019-01-24] MEDS: Ipratropium/Albuterol Sulfate 3 ML AMPUL.NEB INHALATION (07:12)
--- NOTE | 2019-01-24 08:24 | PCM.PN.PUL ---
Patient Problems: Active and Suspected Problems Amyloidosis (Acute) MSSA bacteremia (Acute) Anemia (Acute) Heme positive stool (Acute) Pneumonia (Acute) Sepsis (Acute) Subjective: Patient did okay overnight. Patient continues to require nasal cannula oxygen to maintain appropriate saturations. Patient denies any chest pain, nausea or vomiting. No bleeding complications have been reported. Objective: CTA of the chest was personally reviewed. Patient does not appear to have any diego abscess. Patient does have some groundglass opacities of the upper lobes noted. No significant bronchiectasis appreciated. - Physical Exam Vitals/I&O's: Vital Signs Temp Pulse Resp BP Pulse Ox 36.5 C L 76 20 H 147/83 H 96 01/24/19 05:30 01/24/19 07:35 01/24/19 05:30 01/24/19 05:30 01/24/19 05:50 Oxygen Flow Rate (L/min) 2 Oxygen Delivery Method Nasal Cannula Weight: 111.6 kg Body Mass Index (BMI) 42.3 Intake and Output for Last 24 Hours 01/22/19 01/23/19 01/24/19 23:59 23:59 23:59 Intake Total 960.5 / 960.5 810 / 810 0 / 0 Output Total 100 / 100 0 / 0 0 / 0 Balance 860.5 / 860.5 810 / 810 0 / 0 General: Alert, Oriented x3, Cooperative, No apparent distress, Well developed, Well nourished, - - Morbidly obese. No conversational dyspnea. HEENT: Atraumatic, PERRLA, EOMI, Normocephalic, - - No scleral icterus or injection noted Oral: Moist Mucosa, No Gingival or Mucosal Lesions/ Ulcerations, - - Crowded posterior pharynx Neck: Supple, No JVD, No Nodes, Trachea Midline Lungs: No rhonchi, No wheeze, No rales, Diminished Cardiovascular: Regular rate, Regular Rhythm, Normal S1, Normal S2, No murmurs, No rub noted, No Gallop Abdomen: Bowel Sounds Present, Soft, Non Tender, Non-Distended, Obese Extremities: No clubbing, No cyanosis, Edema Skin: No rashes, No breakdown Musculoskeletal: No Tenderness to Palpation of Joints or Extremities Lymphatic: No Cervical, Supraclavicular, or Inguinal Adenopathy Neurological: Cranial nerves II-XII grossly intact, Neuro grossly intact, Motor Exam 5/5 strength throughout Psych/Mental Status: Alert and oriented to time, place, person, mood and affect Microbiology Past 72 Hours 01/21/19 14:25 Blood Culture (Wb) - Dialysis/Fistula Blood Culture - Preliminary Staphylococcus aureus 01/21/19 05:32 Sputum, Expectorated/Coughed Gram Stain - Final 01/21/19 05:32 Sputum, Expectorated/Coughed Respiratory Culture - Final Presumptive C albicans Mixed Yrn 01/19/19 21:35 Sputum, Expectorated/Coughed Gram Stain - Final 01/19/19 21:35 Sputum, Expectorated/Coughed Respiratory Culture - Final Mixed normal respiratory yrn. No Streptococcus pneumoniae, beta-hemolytic Streptococcus or Staphylococcus aureus isolated. 01/19/19 21:55 Blood Culture (Wb) - Anticubital Left Blood Culture - Final Staphylococcus aureus 01/19/19 22:30 Blood Culture (Wb) - Right Wrist Bacteria Detection (PCR) - Final Staphylococcus aureus 01/19/19 22:30 Blood Culture (Wb) - Right Wrist Blood Culture - Final Staphylococcus aureus 01/21/19 10:30 Stool Stool Occult Blood (HEATHER) - Final Occult Blood Positive Laboratory Results 01/24/19 05:00: WBC 6.1, RBC 2.36 L, Hgb 7.6 L, Hct 22.9 L, MCV 97.0, MCH 32.2 H, MCHC 33.2, RDW Std Deviation 54.4 H, RDW Coeff of [place] 15.4 H, Plt Count 187, MPV 9.8, Immature Gran % (Auto) 1.600 H, Neut % (Auto) 63.1, Lymph % (Auto) 18.2 L, [place] % (Auto) 10.9 H, Eos % (Auto) 5.9 H, Baso % (Auto) 0.3, Absolute Neuts (auto) 3.9, Absolute Lymphs (auto) 1.12, Nucleated RBC % 0 01/24/19 05:00: Sodium 133 L, Potassium 4.9, Chloride 96 L, Carbon Dioxide 25.0, Anion Gap 12, BUN 93 H, Creatinine 10.60 H*, Estim Creat Clear Calc 5.02, Est GFR (MDRD) Af Amer 5 L, Est GFR (MDRD) Non-Af 4 L, BUN/Creatinine Ratio 8.8 L, Glucose 84, Calcium 9.1 Clinical Impression(s) from Imaging Studies Chest CTA 01/24/19 12:42 IMPRESSION: No CTA evidence for pulmonary emboli or aortic dissection Significant cardiomegaly, interstitial edema, small bilateral pleural effusions 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 Electronically Signed: Efe Chen, at 7:05 EST Tel , Service support , Current Medications Acetaminophen (Tylenol) 650 mg PO Q6H PRN PRN PRN Reason: HEADACHE/FEVER (T>100F) Last Admin: 01/22/19 14:32 Dose: 650 mg Documented by: Albuterol Sulfate (Ventolin Aerosols) 2.5 mg INHALATION Q2H PRN PRN PRN Reason: Shortness of Breath/Wheezing Last Admin: 01/20/19 02:59 Dose: 2.5 mg Documented by: Albuterol/Ipratropium (Duoneb) 3 ml INHALATION Q4HWA.RT [facility] Last Admin: 01/24/19 07:12 Dose: 3 ml Documented by: Citalopram Hydrobromide (Celexa) 20 mg PO DAILY [facility] Last Admin: 01/23/19 09:00 Dose: 20 mg Documented by: Clonazepam (Klonopin) 0.5 mg PO BID PRN PRN PRN Reason: ANXIETY Last Admin: 01/23/19 19:56 Dose: 0.5 mg Documented by: Dextrose (D50w Syringe) 0 gm IV X1 PRN; Protocol PRN Reason: Hypoglycemia Glucagon () 1 mg IM .X1 PRN PRN Reason: Hypoglycemia Guaifenesin (Mucinex) 1,200 mg PO BID [facility] Last Admin: 01/23/19 21:19 Dose: 1,200 mg Documented by: Cefazolin Sodium () 1 gm in 50 mls @ 100 mls/hr IV QPM [facility] Last Infusion: 01/23/19 21:47 Dose: Infused Documented by: Sodium Chloride () 250 mls @ 15 mls/hr IV .[id number] PRN PRN Reason: Saline Flush Last Infusion: 01/22/19 21:20 Dose: 0 mls/hr Documented by: Nifedipine (Procardia Xl) 90 mg PO DAILY [facility] Last Admin: 01/23/19 09:02 Dose: 90 mg Documented by: Ondansetron HCl (Zofran) 4 mg IV Q8H PRN PRN PRN Reason: NAUSEA/VOMITING Last Admin: 01/20/19 03:46 Dose: 4 mg Documented by: Pantoprazole Sodium (Protonix) 40 mg PO DAILY [facility] Propranolol HCl (Inderal) 20 mg PO BID [facility] Last Admin: 01/23/19 21:19 Dose: 20 mg Documented by: Rizatriptan Benzoate (Maxalt) 10 mg PO .[X1 PRN] PRN PRN Reason: MIGRAINE SYMPTOMS Last Admin: 01/22/19 04:50 Dose: 10 mg Documented by: Sevelamer Carbonate (Renvela) 2,400 mg PO TIDCM [facility] Last Admin: 01/23/19 15:53 Dose: 2,400 mg Documented by: Sodium Chloride () 10 - 40 ml IV UD PRN PRN Reason: SALINE FLUSH Last Admin: 01/22/19 21:23 Dose: 10 ml Documented by: Sodium Chloride ([place] Nasal [place]) 2 spray NASAL TID PRN PRN PRN Reason: NASAL DRYNESS Last Admin: 01/23/19 15:54 Dose: 2 spray Documented by: Zolpidem Tartrate (Ambien (Generic)) 5 mg PO QHS PRN PRN PRN Reason: INSOMNIA Last Admin: 01/24/19 00:15 Dose: 5 mg Documented by: Medical Necessity - Tobacco Use Smoking Status: Former smoker - She was a social smoker about 20 years ago. Assessment/Plan All Active Problems Amyloidosis (Acute) MSSA bacteremia (Acute) Anemia (Acute) Heme positive stool (Acute) Acute hypoxemic respiratory failure (Acute) Severe sepsis (Acute) Pneumonia (Acute) Sepsis (Acute) RECOMMENDATIONS: 1. Continue BiPAP therapy as needed for rescue only. Wean FiO2 as tolerated 2. Continue cefazolin per infectious disease 3. Await infectious disease recommendations 4. Hemodialysis per renal 5. Transfuse for hemoglobin less than 7 6. Consider gentle diuresis/volume removal with hemodialysis IMPRESSIONS: 1. Acute hypoxic respiratory failure secondary to probable embolic pneumonia with MSSA Patient appears to have a left lower lobe infiltrate. Clinical suspicion for embolic pneumonia secondary to line removal with staph aureus. Patient grew bacteria from the blood in less than 12 hours on initial cultures. Repeat cultures have been sent and show no growth to date. Patient's repeat blood culture is now growing staph aureus at 48 hours. Fever curve is improving on current therapy. Patient can continue to use BiPAP therapy for rescue. Would continue to hold off on any steroids or bronchodilators. 2. Severe sepsis secondary to probable staph aureus/line infection Clinical suspicion for bacteremia following removal of tunneled line. Patient is already growing what appears to be staph aureus. Infectious diseases following. Patient will be transfused blood products previously secondary to decreased hemoglobin. Patient appears to be tolerating infection well. Some concern for possible endocarditis as patient has had multiple bouts of staph aureus in the past. Repeat blood cultures raised the issue of possible endocarditis. Transthoracic echocardiogram did not show vegetations and CT of the chest did not show abscess. Defer to infectious disease on whether NARGIS would be appropriate. 3. Morbid obesity/depression/anxiety/end-stage renal disease/amyloidosis/hypertension Complicates care, management, recovery and prognosis. Patient is back to her baseline. Patient does have some groundglass opacity noted on CT of the chest and this may be from fluid overload. Patient would benefit from volume removal. Did confirm patient is a full CODE STATUS. Code Visit Inpatient E&M: 24939 Subs Hosp L2
[2019-01-24] MEDS: SEVELAMER CARBONATE 800 MG TABLET 2400 MG PO ×2 (09:00→17:01)
[2019-01-24] MEDS: Propranolol 10 MG Tablet 20 MG PO ×2 (09:00→21:47)
[2019-01-24] MEDS: Citalopram 20 MG Tablet PO (09:00)
[2019-01-24] MEDS: guaiFENesin 1,200 MG Tablet 1200 MG PO ×2 (09:01→21:47)
[2019-01-24] MEDS: NIFEdipine 90 MG Tablet PO (09:02)
[2019-01-24] MEDS: Pantoprazole Sodium 40 MG Tablet PO (09:02)
--- NOTE | 2019-01-24 10:12 | PCM.PN.SRG ---
Patient Problems: Active and Suspected Problems Amyloidosis (Acute) MSSA bacteremia (Acute) Anemia (Acute) Heme positive stool (Acute) Pneumonia (Acute) Sepsis (Acute) Subjective: Patient evaluated resting comfortably in bed. She denies rectal bleeding or hematemesis. Patient denies abdominal pain. Patient's last colonoscopy was in 2017 in [place]. She denies previous upper scope. - Physical Exam Vitals/I&O's: Vital Signs Temp Pulse Resp BP Pulse Ox 97.7 F L 76 18 147/83 H 95 01/24/19 05:30 01/24/19 07:35 01/24/19 07:12 01/24/19 05:30 01/24/19 07:12 Oxygen Flow Rate (L/min) 2 Oxygen Delivery Method Nasal Cannula Weight: 246 lb 0.574 oz Body Mass Index (BMI) 42.3 Intake and Output for Last 24 Hours 01/22/19 01/23/19 01/24/19 23:59 23:59 23:59 Intake Total 960.5 / 960.5 810 / 810 0 / 0 Output Total 100 / 100 0 / 0 0 / 0 Balance 860.5 / 860.5 810 / 810 0 / 0 General: Alert, Oriented x3, Cooperative Abdomen: Bowel Sounds Present, Soft, Non Tender, Obese Microbiology Past 72 Hours 01/21/19 16:40 Blood Culture (Wb) - Anticubital Right Blood Culture - Preliminary No growth in 48 hours. 01/21/19 14:25 Blood Culture (Wb) - Dialysis/Fistula Blood Culture - Preliminary Staphylococcus aureus 01/21/19 05:32 Sputum, Expectorated/Coughed Gram Stain - Final 01/21/19 05:32 Sputum, Expectorated/Coughed Respiratory Culture - Final Presumptive C albicans Mixed Yrn 01/19/19 21:35 Sputum, Expectorated/Coughed Gram Stain - Final 01/19/19 21:35 Sputum, Expectorated/Coughed Respiratory Culture - Final Mixed normal respiratory yrn. No Streptococcus pneumoniae, beta-hemolytic Streptococcus or Staphylococcus aureus isolated. 01/19/19 21:55 Blood Culture (Wb) - Anticubital Left Blood Culture - Final Staphylococcus aureus 01/19/19 22:30 Blood Culture (Wb) - Right Wrist Bacteria Detection (PCR) - Final Staphylococcus aureus 01/19/19 22:30 Blood Culture (Wb) - Right Wrist Blood Culture - Final Staphylococcus aureus 01/21/19 10:30 Stool Stool Occult Blood (HEATHER) - Final Occult Blood Positive Laboratory Results 01/24/19 05:00: WBC 6.1, RBC 2.36 L, Hgb 7.6 L, Hct 22.9 L, MCV 97.0, MCH 32.2 H, MCHC 33.2, RDW Std Deviation 54.4 H, RDW Coeff of [place] 15.4 H, Plt Count 187, MPV 9.8, Immature Gran % (Auto) 1.600 H, Neut % (Auto) 63.1, Lymph % (Auto) 18.2 L, [place] % (Auto) 10.9 H, Eos % (Auto) 5.9 H, Baso % (Auto) 0.3, Absolute Neuts (auto) 3.9, Absolute Lymphs (auto) 1.12, Nucleated RBC % 0 01/24/19 05:00: Sodium 133 L, Potassium 4.9, Chloride 96 L, Carbon Dioxide 25.0, Anion Gap 12, BUN 93 H, Creatinine 10.60 H*, Estim Creat Clear Calc 5.02, Est GFR (MDRD) Af Amer 5 L, Est GFR (MDRD) Non-Af 4 L, BUN/Creatinine Ratio 8.8 L, Glucose 84, Calcium 9.1 Current Medications Acetaminophen (Tylenol) 650 mg PO Q6H PRN PRN PRN Reason: HEADACHE/FEVER (T>100F) Last Admin: 01/22/19 14:32 Dose: 650 mg Documented by: Albuterol Sulfate (Ventolin Aerosols) 2.5 mg INHALATION Q2H PRN PRN PRN Reason: Shortness of Breath/Wheezing Last Admin: 01/20/19 02:59 Dose: 2.5 mg Documented by: Albuterol/Ipratropium (Duoneb) 3 ml INHALATION Q4HWA.RT [facility] Last Admin: 01/24/19 07:12 Dose: 3 ml Documented by: Citalopram Hydrobromide (Celexa) 20 mg PO DAILY [facility] Last Admin: 01/24/19 09:00 Dose: 20 mg Documented by: Clonazepam (Klonopin) 0.5 mg PO BID PRN PRN PRN Reason: ANXIETY Last Admin: 01/23/19 19:56 Dose: 0.5 mg Documented by: Dextrose (D50w Syringe) 0 gm IV X1 PRN; Protocol PRN Reason: Hypoglycemia Glucagon () 1 mg IM .X1 PRN PRN Reason: Hypoglycemia Guaifenesin (Mucinex) 1,200 mg PO BID [facility] Last Admin: 01/24/19 09:01 Dose: 1,200 mg Documented by: Cefazolin Sodium () 1 gm in 50 mls @ 100 mls/hr IV QPM [facility] Last Infusion: 01/23/19 21:47 Dose: Infused Documented by: Sodium Chloride () 250 mls @ 15 mls/hr IV .[id number] PRN PRN Reason: Saline Flush Last Infusion: 01/22/19 21:20 Dose: 0 mls/hr Documented by: Nifedipine (Procardia Xl) 90 mg PO DAILY [facility] Last Admin: 01/24/19 09:02 Dose: 90 mg Documented by: Ondansetron HCl (Zofran) 4 mg IV Q8H PRN PRN PRN Reason: NAUSEA/VOMITING Last Admin: 01/20/19 03:46 Dose: 4 mg Documented by: Pantoprazole Sodium (Protonix) 40 mg PO DAILY [facility] Last Admin: 01/24/19 09:02 Dose: 40 mg Documented by: Propranolol HCl (Inderal) 20 mg PO BID [facility] Last Admin: 01/24/19 09:00 Dose: 20 mg Documented by: Rizatriptan Benzoate (Maxalt) 10 mg PO .[X1 PRN] PRN PRN Reason: MIGRAINE SYMPTOMS Last Admin: 01/22/19 04:50 Dose: 10 mg Documented by: Sevelamer Carbonate (Renvela) 2,400 mg PO TIDCM [facility] Last Admin: 01/24/19 09:00 Dose: 2,400 mg Documented by: Sodium Chloride () 10 - 40 ml IV UD PRN PRN Reason: SALINE FLUSH Last Admin: 01/22/19 21:23 Dose: 10 ml Documented by: Sodium Chloride ([place] Nasal [place]) 2 spray NASAL TID PRN PRN PRN Reason: NASAL DRYNESS Last Admin: 01/23/19 15:54 Dose: 2 spray Documented by: Zolpidem Tartrate (Ambien (Generic)) 5 mg PO QHS PRN PRN PRN Reason: INSOMNIA Last Admin: 01/24/19 00:15 Dose: 5 mg Documented by: Medical Necessity - Tobacco Use Smoking Status: Former smoker - She was a social smoker about 20 years ago. Assessment/Plan All Active Problems Amyloidosis (Acute) MSSA bacteremia (Acute) Anemia (Acute) Heme positive stool (Acute) Acute hypoxemic respiratory failure (Acute) Severe sepsis (Acute) Pneumonia (Acute) Sepsis (Acute) I am following this patient in conjunction with Dr. Cardozo. Impression: Acute anemia Discussed patient with Dr. Cardozo. At this time we will plan for an upper scope as an outpatient. If patient's condition changes, patient will need an upper scope. Patient has had the opportunity to ask and have questions answered. Code Visit Inpatient E&M: 98270 Subs Hosp L1
--- NOTE | 2019-01-24 10:24 | PN.ID_ITS ---
Patient Problems: Active and Suspected Problems Amyloidosis (Acute) MSSA bacteremia (Acute) Anemia (Acute) Heme positive stool (Acute) Pneumonia (Acute) Sepsis (Acute) Subjective: Patient is alert overall clinically stable no cardiopulmonary distress on nasal cannula O2. No recent fevers. Tolerating Ancef well. Plan for dialysis later this morning. Objective: Alert does not appear toxic lungs are clear heart exam S1-S2 with a soft systolic murmur abdomen obese but soft. Patient has a fistula in the left arm which looks stable. - Physical Exam Vitals/I&O's: Vital Signs Temp Pulse Resp BP Pulse Ox 97.7 F L 76 18 147/83 H 95 01/24/19 05:30 01/24/19 07:35 01/24/19 07:12 01/24/19 05:30 01/24/19 07:12 Oxygen Flow Rate (L/min) 2 Oxygen Delivery Method Nasal Cannula Weight: 111.6 kg Body Mass Index (BMI) 42.3 Intake and Output for Last 24 Hours 01/22/19 01/23/19 01/24/19 23:59 23:59 23:59 Intake Total 960.5 / 960.5 810 / 810 0 / 0 Output Total 100 / 100 0 / 0 0 / 0 Balance 860.5 / 860.5 810 / 810 0 / 0 Microbiology Past 72 Hours 01/21/19 16:40 Blood Culture (Wb) - Anticubital Right Blood Culture - Preliminary No growth in 48 hours. 01/21/19 14:25 Blood Culture (Wb) - Dialysis/Fistula Blood Culture - Preliminary Staphylococcus aureus 01/21/19 05:32 Sputum, Expectorated/Coughed Gram Stain - Final 01/21/19 05:32 Sputum, Expectorated/Coughed Respiratory Culture - Final Presumptive C albicans Mixed Yrn 01/19/19 21:35 Sputum, Expectorated/Coughed Gram Stain - Final 01/19/19 21:35 Sputum, Expectorated/Coughed Respiratory Culture - Final Mixed normal respiratory yrn. No Streptococcus pneumoniae, beta-hemolytic Streptococcus or Staphylococcus aureus isolated. 01/19/19 21:55 Blood Culture (Wb) - Anticubital Left Blood Culture - Final Staphylococcus aureus 01/19/19 22:30 Blood Culture (Wb) - Right Wrist Bacteria Detection (PCR) - Final Staphylococcus aureus 01/19/19 22:30 Blood Culture (Wb) - Right Wrist Blood Culture - Final Staphylococcus aureus 01/21/19 10:30 Stool Stool Occult Blood (HEATHER) - Final Occult Blood Positive Laboratory Results 01/24/19 05:00: WBC 6.1, RBC 2.36 L, Hgb 7.6 L, Hct 22.9 L, MCV 97.0, MCH 32.2 H , MCHC 33.2, RDW Std Deviation 54.4 H, RDW Coeff of [place] 15.4 H, Plt Count 187, MPV 9.8, Immature Gran % (Auto) 1.600 H, Neut % (Auto) 63.1, Lymph % (Auto) 18.2 L, Iron % (Auto) 10.9 H, Eos % (Auto) 5.9 H, Baso % (Auto) 0.3, Absolute Neuts (auto) 3.9, Absolute Lymphs (auto) 1.12, Nucleated RBC % 0 01/24/19 05:00: Sodium 133 L, Potassium 4.9, Chloride 96 L, Carbon Dioxide 25.0, Anion Gap 12, BUN 93 H, Creatinine 10.60 H*, Estim Creat Clear Calc 5.02, Est GFR (MDRD) Af Amer 5 L, Est GFR (MDRD) Non-Af 4 L, BUN/Creatinine Ratio 8.8 L, Glucose 84, Calcium 9.1 Current Medications Acetaminophen (Tylenol) 650 mg PO Q6H PRN PRN PRN Reason: HEADACHE/FEVER (T>100F) Last Admin: 01/22/19 14:32 Dose: 650 mg Documented by: Albuterol Sulfate (Ventolin Aerosols) 2.5 mg INHALATION Q2H PRN PRN PRN Reason: Shortness of Breath/Wheezing Last Admin: 01/20/19 02:59 Dose: 2.5 mg Documented by: Albuterol/Ipratropium (Duoneb) 3 ml INHALATION Q4HWA.RT [facility] Last Admin: 01/24/19 07:12 Dose: 3 ml Documented by: Citalopram Hydrobromide (Celexa) 20 mg PO DAILY [facility] Last Admin: 01/24/19 09:00 Dose: 20 mg Documented by: Clonazepam (Klonopin) 0.5 mg PO BID PRN PRN PRN Reason: ANXIETY Last Admin: 01/23/19 19:56 Dose: 0.5 mg Documented by: Dextrose (D50w Syringe) 0 gm IV X1 PRN; Protocol PRN Reason: Hypoglycemia Glucagon () 1 mg IM .X1 PRN PRN Reason: Hypoglycemia Guaifenesin (Mucinex) 1,200 mg PO BID [facility] Last Admin: 01/24/19 09:01 Dose: 1,200 mg Documented by: Cefazolin Sodium () 1 gm in 50 mls @ 100 mls/hr IV QPM [facility] Last Infusion: 01/23/19 21:47 Dose: Infused Documented by: Sodium Chloride () 250 mls @ 15 mls/hr IV .[id number] PRN PRN Reason: Saline Flush Last Infusion: 01/22/19 21:20 Dose: 0 mls/hr Documented by: Nifedipine (Procardia Xl) 90 mg PO DAILY [facility] Last Admin: 01/24/19 09:02 Dose: 90 mg Documented by: Ondansetron HCl (Zofran) 4 mg IV Q8H PRN PRN PRN Reason: NAUSEA/VOMITING Last Admin: 01/20/19 03:46 Dose: 4 mg Documented by: Pantoprazole Sodium (Protonix) 40 mg PO DAILY [facility] Last Admin: 01/24/19 09:02 Dose: 40 mg Documented by: Propranolol HCl (Inderal) 20 mg PO BID [facility] Last Admin: 01/24/19 09:00 Dose: 20 mg Documented by: Rizatriptan Benzoate (Maxalt) 10 mg PO .[X1 PRN] PRN PRN Reason: MIGRAINE SYMPTOMS Last Admin: 01/22/19 04:50 Dose: 10 mg Documented by: Sevelamer Carbonate (Renvela) 2,400 mg PO TIDCM [facility] Last Admin: 01/24/19 09:00 Dose: 2,400 mg Documented by: Sodium Chloride () 10 - 40 ml IV UD PRN PRN Reason: SALINE FLUSH Last Admin: 01/22/19 21:23 Dose: 10 ml Documented by: Sodium Chloride ([place] Nasal [place]) 2 spray NASAL TID PRN PRN PRN Reason: NASAL DRYNESS Last Admin: 01/23/19 15:54 Dose: 2 spray Documented by: Zolpidem Tartrate (Ambien (Generic)) 5 mg PO QHS PRN PRN PRN Reason: INSOMNIA Last Admin: 01/24/19 00:15 Dose: 5 mg Documented by: Medical Necessity - Tobacco Use Smoking Status: Former smoker - She was a social smoker about 20 years ago. Route of nutrition/ use of supplements: [] Nutritional Intake: [] IV Site: [] Heck Catheter: [] - Assessment/Plan Antibiotics: [] Assessment/Plan: [] Active and Suspected Problems Amyloidosis (Acute) MSSA bacteremia (Acute) Anemia (Acute) Heme positive stool (Acute) Pneumonia (Acute) Sepsis (Acute) Recurrent MSSA bacteremia in a patient with end-stage renal disease. Currently on Ancef 1 g IV daily. Plan to repeat blood cultures today with dialysis. Low threshold for diagnostic transesophageal echocardiogram especially with the reoccurrence of her staph aureus bloodstream infection.
[2019-01-24] MEDS: Heparin 10,000 UNITS/10 ML Vial 8000 UNITS IV (12:00)
--- NOTE | 2019-01-24 12:07 | CASEMGMT ---
SW met with pt who confirms she does have advance directives. SW informed pt there is not a record on file at [facility]. Pt understanding and SW requesting a copy be brought to hospital if able. SALMA Benito
--- NOTE | 2019-01-24 12:08 | PCM.PN.REN ---
Patient Problems: Active and Suspected Problems Amyloidosis (Acute) MSSA bacteremia (Acute) Anemia (Acute) Heme positive stool (Acute) Pneumonia (Acute) Sepsis (Acute) Subjective: no new complaints CT chest reviewed - Physical Exam Vitals/I&O's: Vital Signs Temp Pulse Resp BP Pulse Ox 98.1 F 74 20 H 153/94 H 94 01/24/19 10:30 01/24/19 10:30 01/24/19 10:30 01/24/19 10:30 01/24/19 10:30 Oxygen Flow Rate (L/min) 2 Oxygen Delivery Method Nasal Cannula Weight: 111.6 kg Body Mass Index (BMI) 42.3 Intake and Output for Last 24 Hours 01/22/19 01/23/19 01/24/19 23:59 23:59 23:59 Intake Total 960.5 / 960.5 810 / 810 0 / 0 Output Total 100 / 100 0 / 0 0 / 0 Balance 860.5 / 860.5 810 / 810 0 / 0 General: Alert, Oriented x3, Cooperative HEENT: Atraumatic, PERRLA, EOMI, Normocephalic Neck: Supple, No JVD, Negative Carotid Bruits Lungs: Clear to auscultation, Normal air movement Cardiovascular: Regular rate, No murmurs Abdomen: Bowel Sounds Present, Soft, Non Tender Extremities: No edema, Capillary Refill Less than 3 Seconds Skin: No rashes, No breakdown Musculoskeletal: No Tenderness to Palpation of Joints or Extremities Neurological: Cranial nerves II-XII grossly intact Psych/Mental Status: Normal Affect, Appropriate Microbiology Past 72 Hours 01/21/19 16:40 Blood Culture (Wb) - Anticubital Right Blood Culture - Preliminary No growth in 48 hours. 01/21/19 14:25 Blood Culture (Wb) - Dialysis/Fistula Blood Culture - Preliminary Staphylococcus aureus 01/21/19 05:32 Sputum, Expectorated/Coughed Gram Stain - Final 01/21/19 05:32 Sputum, Expectorated/Coughed Respiratory Culture - Final Presumptive C albicans Mixed Yrn 01/19/19 21:35 Sputum, Expectorated/Coughed Gram Stain - Final 01/19/19 21:35 Sputum, Expectorated/Coughed Respiratory Culture - Final Mixed normal respiratory yrn. No Streptococcus pneumoniae, beta-hemolytic Streptococcus or Staphylococcus aureus isolated. 01/19/19 21:55 Blood Culture (Wb) - Anticubital Left Blood Culture - Final Staphylococcus aureus 01/19/19 22:30 Blood Culture (Wb) - Right Wrist Bacteria Detection (PCR) - Final Staphylococcus aureus 01/19/19 22:30 Blood Culture (Wb) - Right Wrist Blood Culture - Final Staphylococcus aureus 01/21/19 10:30 Stool Stool Occult Blood (HEATHER) - Final Occult Blood Positive Laboratory Results 01/24/19 05:00: WBC 6.1, RBC 2.36 L, Hgb 7.6 L, Hct 22.9 L, MCV 97.0, MCH 32.2 H, MCHC 33.2, RDW Std Deviation 54.4 H, RDW Coeff of [place]acisco 15.4 H, Plt Count 187, MPV 9.8, Immature Gran % (Auto) 1.600 H, Neut % (Auto) 63.1, Lymph % (Auto) 18.2 L, [place] % (Auto) 10.9 H, Eos % (Auto) 5.9 H, Baso % (Auto) 0.3, Absolute Neuts (auto) 3.9, Absolute Lymphs (auto) 1.12, Nucleated RBC % 0 01/24/19 05:00: Sodium 133 L, Potassium 4.9, Chloride 96 L, Carbon Dioxide 25.0, Anion Gap 12, BUN 93 H, Creatinine 10.60 H*, Estim Creat Clear Calc 5.02, Est GFR (MDRD) Af Amer 5 L, Est GFR (MDRD) Non-Af 4 L, BUN/Creatinine Ratio 8.8 L, Glucose 84, Calcium 9.1 Current Medications Acetaminophen (Tylenol) 650 mg PO Q6H PRN PRN PRN Reason: HEADACHE/FEVER (T>100F) Last Admin: 01/22/19 14:32 Dose: 650 mg Documented by: Albuterol Sulfate (Ventolin Aerosols) 2.5 mg INHALATION Q2H PRN PRN PRN Reason: Shortness of Breath/Wheezing Last Admin: 01/20/19 02:59 Dose: 2.5 mg Documented by: Albuterol/Ipratropium (Duoneb) 3 ml INHALATION Q4HWA.RT RINA Last Admin: 01/24/19 07:12 Dose: 3 ml Documented by: Citalopram Hydrobromide (Celexa) 20 mg PO DAILY [facility] Last Admin: 01/24/19 09:00 Dose: 20 mg Documented by: Clonazepam (Klonopin) 0.5 mg PO BID PRN PRN PRN Reason: ANXIETY Last Admin: 01/23/19 19:56 Dose: 0.5 mg Documented by: Dextrose (D50w Syringe) 0 gm IV X1 PRN; Protocol PRN Reason: Hypoglycemia Glucagon () 1 mg IM .X1 PRN PRN Reason: Hypoglycemia Guaifenesin (Mucinex) 1,200 mg PO BID [facility] Last Admin: 01/24/19 09:01 Dose: 1,200 mg Documented by: Cefazolin Sodium () 1 gm in 50 mls @ 100 mls/hr IV QPM [facility] Last Infusion: 01/23/19 21:47 Dose: Infused Documented by: Sodium Chloride () 250 mls @ 15 mls/hr IV .[id number] PRN PRN Reason: Saline Flush Last Infusion: 01/22/19 21:20 Dose: 0 mls/hr Documented by: Sodium Chloride () 1,000 mls @ 0 mls/hr IV .Q0M [facility] Nifedipine (Procardia Xl) 90 mg PO DAILY [facility] Last Admin: 01/24/19 09:02 Dose: 90 mg Documented by: Ondansetron HCl (Zofran) 4 mg IV Q8H PRN PRN PRN Reason: NAUSEA/VOMITING Last Admin: 01/20/19 03:46 Dose: 4 mg Documented by: Pantoprazole Sodium (Protonix) 40 mg PO DAILY [facility] Last Admin: 01/24/19 09:02 Dose: 40 mg Documented by: Propranolol HCl (Inderal) 20 mg PO BID [facility] Last Admin: 01/24/19 09:00 Dose: 20 mg Documented by: Rizatriptan Benzoate (Maxalt) 10 mg PO .[X1 PRN] PRN PRN Reason: MIGRAINE SYMPTOMS Last Admin: 01/22/19 04:50 Dose: 10 mg Documented by: Sevelamer Carbonate (Renvela) 2,400 mg PO TIDCM [facility] Last Admin: 01/24/19 09:00 Dose: 2,400 mg Documented by: Sodium Chloride () 10 - 40 ml IV UD PRN PRN Reason: SALINE FLUSH Last Admin: 01/22/19 21:23 Dose: 10 ml Documented by: Sodium Chloride ([place] Nasal [place]) 2 spray NASAL TID PRN PRN PRN Reason: NASAL DRYNESS Last Admin: 01/23/19 15:54 Dose: 2 spray Documented by: Zolpidem Tartrate (Ambien (Generic)) 5 mg PO QHS PRN PRN PRN Reason: INSOMNIA Last Admin: 01/24/19 00:15 Dose: 5 mg Documented by: Medical Necessity - Tobacco Use Smoking Status: Former smoker - She was a social smoker about 20 years ago. Assessment/Plan All Active Problems Amyloidosis (Acute) MSSA bacteremia (Acute) Anemia (Acute) Heme positive stool (Acute) Acute hypoxemic respiratory failure (Acute) Severe sepsis (Acute) Pneumonia (Acute) Sepsis (Acute) End-stage renal disease Pneumonia Presumably staph bacteremia HD thursday Anemia. With low iron deficiency. Hold Venofer due to bacteremia. received PRBC Reviewed ID note. possible NARGIS. CT chest reviewed, no emboli cultures drawn today
--- NOTE | 2019-01-24 12:09 | CASEMGMT ---
Social Work Palliative Care Screening Tool completed with a pt score of 2. No referral indicated for palliative care at this time. SALMA Benito
--- NOTE | 2019-01-24 12:42 | CT_ITS ---
STUDY: CTA CHEST REASON FOR EXAM: Female, 48 years old. Short of breath, bacteremia and end-stage renal disease RADIATION DOSAGE (If Supplied By Facility): CTDIvol = ( 7.65 ) mGy, DLP = ( 456.64 ) mGycm TECHNIQUE: The examination was performed with the intravenous administration of IV Isovue 370 100. Post-processing of the angiographic images was performed, with multiplanar reformation and 3D reconstruction. Individualized dose optimization techniques were used for this CT. COMPARISON: None. FINDINGS: There is thickening of the bilateral interlobular septa. There are diffuse bilateral groundglass pulmonary opacities. Prominence of the pulmonary vascularity. There are no filling defects within the pulmonary arteries. There is no demonstrated pulmonary embolism. There is no pulmonary consolidation. 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 There is no demonstrated aortic dissection. Normal mediastinum. Normal hilar regions. Normal visualized trachea and bronchi. The lungs are well expanded. Normal chest wall structures. Normal osseous structures. Normal visualized upper abdomen. 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
--- NOTE | 2019-01-24 13:49 | PCM.PN.HOSP ---
Patient Problems: Active and Suspected Problems Amyloidosis (Acute) MSSA bacteremia (Acute) Anemia (Acute) Heme positive stool (Acute) Pneumonia (Acute) Sepsis (Acute) Reason for Visit: Bacteremia Subjective: Pt states murmur was first discovered during her first bout of bacteremia from her dialysis line earlier this year. No fever/chills. Blood cx + again. No hand/nail changes. No chest pain or palp. Nonproductive cough. No SOB but remains on o2. Dialysis today. CTA today nonacute. Patient is also complaining of a left-sided headache. This is located over the voodoo, she reports photophobia, and feels like she may be having a migraine and would like Maxalt which she takes at home. Currently no nausea or vomiting, no visual flashers, wavy lines, etc. Vitals/I&O's: Vital Signs Temp Pulse Resp BP Pulse Ox 98.1 F 74 20 H 153/94 H 94 01/24/19 10:30 01/24/19 10:30 01/24/19 10:30 01/24/19 10:30 01/24/19 10:30 Oxygen Flow Rate (L/min) 2 Oxygen Delivery Method Nasal Cannula Weight: 246 lb 0.574 oz Body Mass Index (BMI) 42.3 Intake and Output for Last 24 Hours 01/22/19 01/23/19 01/24/19 23:59 23:59 23:59 Intake Total 960.5 / 960.5 810 / 810 0 / 0 Output Total 100 / 100 0 / 0 0 / 0 Balance 860.5 / 860.5 810 / 810 0 / 0 General: Alert, Oriented x3, Cooperative HEENT: Atraumatic, PERRLA, EOMI, Normocephalic Neck: Supple, No JVD, Negative Carotid Bruits Lungs: Clear to auscultation, Normal air movement Cardiovascular: Regular rate, Murmur - 3/6 systolic murmur best at LSB 2nd ICS Abdomen: Bowel Sounds Present, Soft, Non Tender Extremities: No edema, Capillary Refill Less than 3 Seconds Skin: No rashes, No breakdown Musculoskeletal: No Tenderness to Palpation of Joints or Extremities Neurological: Cranial nerves II-XII grossly intact Psych/Mental Status: Normal Affect, Appropriate, Alert and oriented to time, place, person, mood and affect Microbiology Past 72 Hours 01/21/19 16:40 Blood Culture (Wb) - Anticubital Right Blood Culture - Preliminary No growth in 48 hours. 01/21/19 14:25 Blood Culture (Wb) - Dialysis/Fistula Blood Culture - Preliminary Staphylococcus aureus 01/21/19 05:32 Sputum, Expectorated/Coughed Gram Stain - Final 01/21/19 05:32 Sputum, Expectorated/Coughed Respiratory Culture - Final Presumptive C albicans Mixed Yrn 01/19/19 21:35 Sputum, Expectorated/Coughed Gram Stain - Final 01/19/19 21:35 Sputum, Expectorated/Coughed Respiratory Culture - Final Mixed normal respiratory yrn. No Streptococcus pneumoniae, beta-hemolytic Streptococcus or Staphylococcus aureus isolated. 01/19/19 21:55 Blood Culture (Wb) - Anticubital Left Blood Culture - Final Staphylococcus aureus 01/19/19 22:30 Blood Culture (Wb) - Right Wrist Bacteria Detection (PCR) - Final Staphylococcus aureus 01/19/19 22:30 Blood Culture (Wb) - Right Wrist Blood Culture - Final Staphylococcus aureus 01/21/19 10:30 Stool Stool Occult Blood (HEATHER) - Final Occult Blood Positive Laboratory Results 01/24/19 05:00: WBC 6.1, RBC 2.36 L, Hgb 7.6 L, Hct 22.9 L, MCV 97.0, MCH 32.2 H, MCHC 33.2, RDW Std Deviation 54.4 H, RDW Coeff of [place] 15.4 H, Plt Count 187, MPV 9.8, Immature Gran % (Auto) 1.600 H, Neut % (Auto) 63.1, Lymph % (Auto) 18.2 L, Hand % (Auto) 10.9 H, Eos % (Auto) 5.9 H, Baso % (Auto) 0.3, Absolute Neuts (auto) 3.9, Absolute Lymphs (auto) 1.12, Nucleated RBC % 0 01/24/19 05:00: Sodium 133 L, Potassium 4.9, Chloride 96 L, Carbon Dioxide 25.0, Anion Gap 12, BUN 93 H, Creatinine 10.60 H*, Estim Creat Clear Calc 5.02, Est GFR (MDRD) Af Amer 5 L, Est GFR (MDRD) Non-Af 4 L, BUN/Creatinine Ratio 8.8 L, Glucose 84, Calcium 9.1 Current Medications Acetaminophen (Tylenol) 650 mg PO Q6H PRN PRN PRN Reason: HEADACHE/FEVER (T>100F) Last Admin: 01/22/19 14:32 Dose: 650 mg Documented by: Albuterol Sulfate (Ventolin Aerosols) 2.5 mg INHALATION Q2H PRN PRN PRN Reason: Shortness of Breath/Wheezing Last Admin: 01/20/19 02:59 Dose: 2.5 mg Documented by: Albuterol/Ipratropium (Duoneb) 3 ml INHALATION Q4HWA.RT [facility] Last Admin: 01/24/19 07:12 Dose: 3 ml Documented by: Citalopram Hydrobromide (Celexa) 20 mg PO DAILY [facility] Last Admin: 01/24/19 09:00 Dose: 20 mg Documented by: Clonazepam (Klonopin) 0.5 mg PO BID PRN PRN PRN Reason: ANXIETY Last Admin: 01/23/19 19:56 Dose: 0.5 mg Documented by: Dextrose (D50w Syringe) 0 gm IV X1 PRN; Protocol PRN Reason: Hypoglycemia Glucagon () 1 mg IM .X1 PRN PRN Reason: Hypoglycemia Guaifenesin (Mucinex) 1,200 mg PO BID [facility] Last Admin: 01/24/19 09:01 Dose: 1,200 mg Documented by: Cefazolin Sodium () 1 gm in 50 mls @ 100 mls/hr IV QPM [facility] Last Infusion: 01/23/19 21:47 Dose: Infused Documented by: Sodium Chloride () 250 mls @ 15 mls/hr IV .[id number] PRN PRN Reason: Saline Flush Last Infusion: 01/22/19 21:20 Dose: 0 mls/hr Documented by: Sodium Chloride () 1,000 mls @ 0 mls/hr IV .Q0M [facility] Nifedipine (Procardia Xl) 90 mg PO DAILY [facility] Last Admin: 01/24/19 09:02 Dose: 90 mg Documented by: Ondansetron HCl (Zofran) 4 mg IV Q8H PRN PRN PRN Reason: NAUSEA/VOMITING Last Admin: 01/20/19 03:46 Dose: 4 mg Documented by: Pantoprazole Sodium (Protonix) 40 mg PO DAILY [facility] Last Admin: 01/24/19 09:02 Dose: 40 mg Documented by: Propranolol HCl (Inderal) 20 mg PO BID [facility] Last Admin: 01/24/19 09:00 Dose: 20 mg Documented by: Rizatriptan Benzoate (Maxalt) 10 mg PO .[X1 PRN] PRN PRN Reason: MIGRAINE SYMPTOMS Last Admin: 01/22/19 04:50 Dose: 10 mg Documented by: Sevelamer Carbonate (Renvela) 2,400 mg PO TIDCM [facility] Last Admin: 01/24/19 09:00 Dose: 2,400 mg Documented by: Sodium Chloride () 10 - 40 ml IV UD PRN PRN Reason: SALINE FLUSH Last Admin: 01/22/19 21:23 Dose: 10 ml Documented by: Sodium Chloride ([place] Nasal [place]) 2 spray NASAL TID PRN PRN PRN Reason: NASAL DRYNESS Last Admin: 01/23/19 15:54 Dose: 2 spray Documented by: Zolpidem Tartrate (Ambien (Generic)) 5 mg PO QHS PRN PRN PRN Reason: INSOMNIA Last Admin: 01/24/19 00:15 Dose: 5 mg Documented by: STROKE Vital Signs/Narrative: Vital Signs Temp Pulse Resp BP Pulse Ox 01/24/19 10:30 98.1 F 74 20 H 153/94 H 94 Medical Necessity - Tobacco Use Smoking Status: Former smoker - She was a social smoker about 20 years ago. Assessment/Plan All Active Problems Amyloidosis (Acute) MSSA bacteremia (Acute) Anemia (Acute) Heme positive stool (Acute) Acute hypoxemic respiratory failure (Acute) Severe sepsis (Acute) Pneumonia (Acute) Sepsis (Acute) 1. Severe sepsis / Bacteremia 2/2 MSSA, suspected from dialysis cath, possible septic emboli - Continue cefazolin. Repeat Blood cultures + with staph. NARGIS in the AM. TTE negative. + murmur + recurrent bacteremia with dialysis line. Infected line removed. CTA today negtative. Resp panel neg. Pulm/ID/surgery/nephrology following. -Repeat blood cultures drawn today. 2. Acute anemia - + hemoccult. Surgery following. Iron panel c/w iron deficiency. May need endoscopy as outpatient. Stable after total 2 units PRBC. TSH normal. Continue PPI. 3. Acute hypoxic respiratory failure 2/2 #1 - present on admission - stable now on 2 lpm NC. Wean as tolerated. Continue aerosols. Continue IS/PEP therapy 4. ESRD - 2/2 hx of amyloidosis - nephrology following. Dialysis completed today. 5. Migraine - maxalt x 1. Avoid NSAIDs with #2. If persists tomorrow will consider alternative therapy. 6. Depression/Anx - celexa/klonopin 7. HTN - mildly elevated. 8. 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 DVT prophylaxis: SCDs Discharge planning: Blood cultures are persistently positive. This patient was seen by Toby Pereira PA-C under the supervision of Doctor Guillermo.
--- NOTE | 2019-01-24 16:03 | DIALYSIS ---
hemodialysis completed as ordered. -3600ml off today. tolerated well. stable t/o. hemostasis obtained x 5 mins. gauze/tape applied. Report to Renuka MARCH. See dialysis flowsheet for further tx details.
--- NOTE | 2019-01-24 16:50 | CHAPLAIN ---
Type of Pastoral Visit _x__ Initial Visit ___ Follow-up Visit ___ On-call Visit ___ General Patient Visit ___ Spiritual Assessment ___ Family Conference ___ Bereavement ___ Rapid Response ___ Code Blue ___ Other (describe below) Pastoral Care Referral From ___ Patient ___ Family _x__ Nurse ___ Physician ___ Wave Guide Assembler ___ Basket Machine Operator ___ Other (describe below) Sacrament/Intervention ___ Active listening ___ Anointing ___ Hinduism ___ Bereavement ___ Communion ___ Lyndsay exploration ___ ___ Life review _x__ Prayer ___ Reconciliation ___ Sacrament of Sick _x__ Supportive presence ___ Wedding ___ Other (describe below) Pastoral Comments patient does want spiritual care support and requested a visit tomorrow since she is doing dialysis today; pt has some questions to discuss and admits to some discouragement
[2019-01-24] MEDS: Rizatriptan Benzoate 5 MG Tablet PO (17:04)
[2019-01-24] MEDS: Cefazolin 1 GM/50 ML BAG IV (21:47)
[2019-01-24] MEDS: 0.9% Saline Lock 10 ML Syringe IV (21:47)
[2019-01-25] VITALS (13 sets, daily range): BP systolic 137–164; BP diastolic 58–86; PULSE 69–96; RESP 16–18; TEMP 36.3–37.2; O2SAT 93–98; BMI 45.0
[2019-01-25 06:30] LABS: Absolute Neutrophil Count 7.3 X10^3/uL (2.0-7.7); Basophil# 0.06 X10^3/uL; Basophil% 0.6 % (0-1); Eosinophil# 0.37 X10^3/uL; Eosinophils% 3.6 % (0-5); Hematocrit 27.6 % (37-47); Hemoglobin 9.2 g/dL (12.0-15.0); Lymphocyte % 12.6 % (19-41); Mean Corp Hgb Conc 33.3 g/dL (32-36); Mean Corpuscular Hgb 32.4 pg (27.0-32.0); Mean Corpuscular Volume 97.2 fL (81-99); Mean Platelet Vol. 9.6 fl (6.2-12.0); Monocyte# 0.99 X10^3/uL; Monocyte% 9.6 % (0-10); NRBC Flagged by Analyzer 0 % (0-5); Neutrophil # 7.32 X10^3/uL (2.7-7.7); Neutrophil % 70.9 % (47-70); Platelet Count 264 K/mm3 (150-450); RBC Distribution Width SD 54.4 fl (35.1-43.9); Red Blood Count 2.84 M/mm3 (4.2-5.4); White Blood Count 10.3 K/mm3 (4.4-11.0)
[2019-01-25 06:50] LABS: Anion Gap 10 (5-15); BUN 52 mg/dL (7-18); BUN/Creat Ratio 6.6 RATIO (10-20); Calcium,Total 9.6 mg/dL (8.5-10.1); Chloride 96 mmol/L (98-107); Creatinine, Serum 7.87 mg/dL (0.55-1.02); EST Glomerular Filtration Rate 6 mL/min (>60); Est Glom Filt Rate - Afr Amer 7 mL/min (>60); Estimated Creatinine Clearance 6.76 ml/min; Glucose 88 mg/dL (74-106); Potassium 4.7 mmol/L (3.5-5.1); Sodium Level 135 mmol/L (136-145)
--- NOTE | 2019-01-25 08:00 | ECHOTEE_ITS ---
Reason For Study: R/O Endocarditis Medication NARGIS probe 6VT-D (SN [id number]) passed without difficulty. No complications were noted. Cetacaine Topical [place] given X3 orally. Versed 1 mg given slow IVP. Fentanyl 50 mcg given slow IVP. Performed a rapid injection of agitated mix of 9 cc saline and 1cc air to assess for atrial septal defect. Left Ventricle Normal LV size. Left ventricular systolic function is normal. The estimated ejection fraction is 65 %. No regional wall motion abnormalities noted. Right Ventricle Normal RV size. Normal systolic function. Atria No doppler evidence for ASD. Bubble contrast study negative for right to left interatrial shunt. The left atrium is mildly enlarged. There is no sponatenous contrast in the left atrium. No thrombus is detected in the left atrial appendage. Normal right atrium. There is no sponatenous contrast in the right atrium. No RA /appendage thrombus identified. Mitral Valve There is mild to moderate mitral annular calcification. Extension of the mitral annular calcification onto the mitral valve leaflets. Moderate (2+) eccentric mitral valve insufficiency. Tricuspid Valve Normal tricuspid valve. Mild to moderate (1-2+) tricuspid valve insufficiency. Aortic Valve Trisinus/trileaflet aortic valve. Moderate focal aortic valve calcification. Trivial aortic valve insufficiency. Pulmonic Valve The pulmonic valve is not well visualized. Vessels Normal appearing thoracic aorta. Pericardium No pericardial effusion. Interpretation Summary Left ventricular systolic function is normal. The estimated ejection fraction is 65 %. The left atrium is mildly enlarged. There is no sponatenous contrast in the left atrium. No thrombus is detected in the left atrial appendage. There is mild to moderate mitral annular calcification. Extension of the mitral annular calcification onto the mitral valve leaflets. Moderate (2+) eccentric mitral valve insufficiency. Mild to moderate (1-2+) tricuspid valve insufficiency. Moderate focal aortic valve calcification. Trivial aortic valve insufficiency. Bubble contrast study negative for right to left interatrial shunt. Based upon the 2D echocardiograhic images obtained: no obvious echocardiographic findings c/w vegetations identified. Ordering Physician: James Solano Referring Physician: Jeremiah Espinoza Performed By: Brittany Hewitt RDCS
--- NOTE | 2019-01-25 08:00 | PCM.PN.BLA ---
Progress Note Patient's hgb is increasing. She denies abdominal pain, bloody bowel movements. Discussed patient with Dr. Cardozo. No upper scope being recommended at this time. Patient may follow-up as an outpatient for an elective upper scope. We will sign off now. Please re-consult if needed. Thank you for allowing us to participate in this patient's care. STROKE Vital Signs/Narrative: Vital Signs Pulse 01/25/19 06:49 71 Code Visit Inpatient E&M: 74182 Subs Hosp L1
[2019-01-25] MEDS: NIFEdipine 90 MG Tablet PO (10:03)
[2019-01-25] MEDS: guaiFENesin 1,200 MG Tablet 1200 MG PO ×2 (10:03→21:40)
[2019-01-25] MEDS: Citalopram 20 MG Tablet PO (10:03)
[2019-01-25] MEDS: Propranolol 10 MG Tablet 20 MG PO ×2 (10:03→21:40)
[2019-01-25] MEDS: Pantoprazole Sodium 40 MG Tablet PO (10:04)
--- NOTE | 2019-01-25 11:40 | PN_ITS ---
Patient Problems: Active and Suspected Problems Amyloidosis (Acute) MSSA bacteremia (Acute) Anemia (Acute) Heme positive stool (Acute) Pneumonia (Acute) Sepsis (Acute) Reason for Visit: Recurrent bacteremia Subjective: Dry cough. No fever/chills. No night sweats. Headache resolved today. No CP/heaviness/tightness. No LH.dizziness. No SOB. NARGIS this AM showed no vegetation. Pt is eager for DC home. Vitals/I&O's: Vital Signs Temp Pulse Resp BP Pulse Ox 98.4 F 69 18 147/58 H 96 01/25/19 10:00 01/25/19 10:00 01/25/19 10:00 01/25/19 10:00 01/25/19 10:00 Oxygen Flow Rate (L/min) 2 Oxygen Delivery Method Nasal Cannula Weight: 246 lb 0.574 oz Body Mass Index (BMI) 45.0 Intake and Output for Last 24 Hours 01/23/19 01/24/19 01/25/19 23:59 23:59 23:59 Intake Total 810 / 810 357.25 / 677.25 430 / 430 Output Total 0 / 0 3600 / 3600 Balance 810 / 810 -3242.75 / -2922.75 430 / 430 General: Alert, Oriented x3, Cooperative HEENT: Atraumatic, PERRLA, EOMI, Normocephalic Neck: Supple, No JVD, Negative Carotid Bruits Lungs: Clear to auscultation, Normal air movement Cardiovascular: Regular rate, Murmur - 2/6 systolic murmur Abdomen: Bowel Sounds Present, Soft, Non Tender Extremities: No edema, Capillary Refill Less than 3 Seconds Skin: No rashes, No breakdown Musculoskeletal: No Tenderness to Palpation of Joints or Extremities Neurological: Cranial nerves II-XII grossly intact Psych/Mental Status: Normal Affect, Appropriate, Alert and oriented to time, place, person, mood and affect Microbiology Past 72 Hours 01/21/19 14:25 Blood Culture (Wb) - Dialysis/Fistula Blood Culture - Preliminary Staphylococcus aureus 01/21/19 16:40 Blood Culture (Wb) - Anticubital Right Blood Culture - Preliminary No growth in 48 hours. 01/21/19 05:32 Sputum, Expectorated/Coughed Gram Stain - Final 01/21/19 05:32 Sputum, Expectorated/Coughed Respiratory Culture - Final Presumptive C albicans Mixed Yrn 01/19/19 21:35 Sputum, Expectorated/Coughed Gram Stain - Final 01/19/19 21:35 Sputum, Expectorated/Coughed Respiratory Culture - Final Mixed normal respiratory yrn. No Streptococcus pneumoniae, beta-hemolytic Streptococcus or Staphylococcus aureus isolated. 01/19/19 21:55 Blood Culture (Wb) - Anticubital Left Blood Culture - Final Staphylococcus aureus 01/19/19 22:30 Blood Culture (Wb) - Right Wrist Bacteria Detection (PCR) - Final Staphylococcus aureus 01/19/19 22:30 Blood Culture (Wb) - Right Wrist Blood Culture - Final Staphylococcus aureus Laboratory Results 01/25/19 06:10: WBC 10.3, RBC 2.84 L, Hgb 9.2 L, Hct 27.6 L, MCV 97.2, MCH 32.4 H, MCHC 33.3, RDW Std Deviation 54.4 H, RDW Coeff of [place] 15.0 H, Plt Count 264, MPV 9.6, Immature Gran % (Auto) 2.700 H, Neut % (Auto) 70.9 H, Lymph % (Auto) 12.6 L, [place] % (Auto) 9.6, Eos % (Auto) 3.6, Baso % (Auto) 0.6, Absolute Neuts (auto) 7.3, Absolute Lymphs (auto) 1.30, Nucleated RBC % 0 01/25/19 06:10: Sodium 135 L, Potassium 4.7, Chloride 96 L, Carbon Dioxide 29.0, Anion Gap 10, BUN 52 H, Creatinine 7.87 H*, Estim Creat Clear Calc 6.76, Est GFR (MDRD) Af Amer 7 L, Est GFR (MDRD) Non-Af 6 L, BUN/Creatinine Ratio 6.6 L, Glucose 88, Calcium 9.6 Current Medications Acetaminophen (Tylenol) 650 mg PO Q6H PRN PRN PRN Reason: HEADACHE/FEVER (T>100F) Last Admin: 01/22/19 14:32 Dose: 650 mg Documented by: Albuterol Sulfate (Ventolin Aerosols) 2.5 mg INHALATION Q2H PRN PRN PRN Reason: Shortness of Breath/Wheezing Last Admin: 01/20/19 02:59 Dose: 2.5 mg Documented by: Albuterol/Ipratropium (Duoneb) 3 ml INHALATION Q4HWA.RT [facility] Last Admin: 01/25/19 06:43 Dose: Not Given Documented by: Citalopram Hydrobromide (Celexa) 20 mg PO DAILY [facility] Last Admin: 01/25/19 10:03 Dose: 20 mg Documented by: Clonazepam (Klonopin) 0.5 mg PO BID PRN PRN PRN Reason: ANXIETY Last Admin: 01/23/19 19:56 Dose: 0.5 mg Documented by: Dextrose (D50w Syringe) 0 gm IV X1 PRN; Protocol PRN Reason: Hypoglycemia Glucagon () 1 mg IM .X1 PRN PRN Reason: Hypoglycemia Guaifenesin (Mucinex) 1,200 mg PO BID [facility] Last Admin: 01/25/19 10:03 Dose: 1,200 mg Documented by: Cefazolin Sodium () 1 gm in 50 mls @ 100 mls/hr IV QPM [facility] Last Infusion: 01/24/19 22:50 Dose: Infused Documented by: Sodium Chloride () 250 mls @ 15 mls/hr IV .[id number] PRN PRN Reason: Saline Flush Last Infusion: 01/24/19 23:19 Dose: 0 mls/hr Documented by: Sodium Chloride () 1,000 mls @ 0 mls/hr IV .Q0M [facility] Nifedipine (Procardia Xl) 90 mg PO DAILY [facility] Last Admin: 01/25/19 10:03 Dose: 90 mg Documented by: Ondansetron HCl (Zofran) 4 mg IV Q8H PRN PRN PRN Reason: NAUSEA/VOMITING Last Admin: 01/20/19 03:46 Dose: 4 mg Documented by: Pantoprazole Sodium (Protonix) 40 mg PO DAILY [facility] Last Admin: 01/25/19 10:04 Dose: 40 mg Documented by: Polysaccharide [facility] ([facility] 150[facility] Propranolol HCl (Inderal) 20 mg PO BID [facility] Last Admin: 01/25/19 10:03 Dose: 20 mg Documented by: Rizatriptan Benzoate (Maxalt) 10 mg PO .[X1 PRN] PRN PRN Reason: MIGRAINE SYMPTOMS Last Admin: 01/22/19 04:50 Dose: 10 mg Documented by: Sevelamer Carbonate (Renvela) 2,400 mg PO TIDCM [facility] Last Admin: 01/25/19 10:02 Dose: Not Given Documented by: Sodium Chloride () 10 - 40 ml IV UD PRN PRN Reason: SALINE FLUSH Last Admin: 01/24/19 21:47 Dose: 10 ml Documented by: Sodium Chloride ([place] Nasal [place]) 2 spray NASAL TID PRN PRN PRN Reason: NASAL DRYNESS Last Admin: 01/23/19 15:54 Dose: 2 spray Documented by: Temazepam (Restoril) 15 mg PO QHS PRN PRN PRN Reason: INSOMNIA STROKE Vital Signs/Narrative: Vital Signs Temp Pulse Resp BP Pulse Ox 01/25/19 10:00 98.4 F 69 18 147/58 H 96 01/25/19 09:20 98.4 F 76 18 157/84 H 93 Medical Necessity - Tobacco Use Smoking Status: Former smoker - She was a social smoker about 20 years ago. Assessment/Plan All Active Problems Amyloidosis (Acute) MSSA bacteremia (Acute) Anemia (Acute) Heme positive stool (Acute) Acute hypoxemic respiratory failure (Acute) Severe sepsis (Acute) Pneumonia (Acute) Sepsis (Acute) 1. Severe sepsis / Bacteremia 2/2 MSSA, suspected from dialysis cath, possible septic emboli - Continue cefazolin. Repeat Blood cultures + with staph. Infected line removed. CTA today negtative. Resp panel neg. Pulm/ID/surgery/nephrology following. -Repeat blood cultures pending. -NARGIS negative. 2. Acute anemia - + hemoccult. Surgery signed off --> f.u as o/p. Iron panel c/w iron deficiency : venofer and po iron started. May need endoscopy as outpatient. Stable after total 2 units PRBC. TSH normal. Continue PPI. 3. Acute hypoxic respiratory failure 2/2 #1 - present on admission - stable now on 2 lpm NC. Wean as tolerated. Continue aerosols. Continue IS/PEP therapy 4. ESRD - 2/2 hx of amyloidosis - nephrology following. Dialysis yesterday. 5. Migraine - resolved 6. Depression/Anx - celexa/klonopin 7. HTN - mildly elevated. 8. Morbid obesity - stuffed casing tier eval. DVT prophylaxis: SCDs Discharge planning: follow repeat cultures. This patient was seen by Toby Pereira PA-C under the supervision of Doctor Mima.
[2019-01-25] MEDS: SEVELAMER CARBONATE 800 MG TABLET 2400 MG PO ×2 (12:30→17:36)
[2019-01-25] MEDS: 0.9% Saline Lock 10 ML Syringe IV ×2 (12:30→16:15)
--- NOTE | 2019-01-25 13:13 | PN_ITS ---
Patient Problems: Active and Suspected Problems Amyloidosis (Acute) MSSA bacteremia (Acute) Anemia (Acute) Heme positive stool (Acute) Pneumonia (Acute) Sepsis (Acute) Subjective: Patient did well overnight. Patient did have a NARGIS earlier today and tolerated okay. Patient reportedly had no vegetations noted. Patient reports some subjective improvement in dyspnea on exertion compared to yesterday. Patient did have dialysis yesterday with 3.6 L removed. - Physical Exam Vitals/I&O's: Vital Signs Temp Pulse Resp BP Pulse Ox 36.9 C 69 18 147/58 H 96 01/25/19 10:00 01/25/19 10:00 01/25/19 10:00 01/25/19 10:00 01/25/19 10:00 Oxygen Flow Rate (L/min) 2 Oxygen Delivery Method Nasal Cannula Weight: 111.6 kg Body Mass Index (BMI) 45.0 Intake and Output for Last 24 Hours 01/23/19 01/24/19 01/25/19 23:59 23:59 23:59 Intake Total 810 / 810 357.25 / 677.25 830 / 830 Output Total 0 / 0 3600 / 3600 Balance 810 / 810 -3242.75 / -2922.75 830 / 830 General: Alert, Oriented x3, Cooperative, No apparent distress, Well developed, Well nourished, - - No conversational dyspnea. HEENT: Atraumatic, PERRLA, EOMI, Normocephalic, - - No scleral icterus or injection noted Oral: Moist Mucosa, No Gingival or Mucosal Lesions/ Ulcerations Neck: Supple, No JVD, No Nodes, Trachea Midline Lungs: No rhonchi, No wheeze, Diminished, Rales - Right base, - - Symmetric expansion Cardiovascular: Regular rate, Regular Rhythm, Normal S1, Normal S2, No murmurs, No rub noted, No Gallop Abdomen: Bowel Sounds Present, Soft, Non Tender, Non-Distended, Obese Extremities: No clubbing, No cyanosis, Edema Skin: No rashes, No breakdown Musculoskeletal: No Tenderness to Palpation of Joints or Extremities Lymphatic: No Cervical, Supraclavicular, or Inguinal Adenopathy Neurological: Cranial nerves II-XII grossly intact, Neuro grossly intact, Motor Exam 5/5 strength throughout Psych/Mental Status: Alert and oriented to time, place, person, mood and affect Microbiology Past 72 Hours 01/21/19 14:25 Blood Culture (Wb) - Dialysis/Fistula Blood Culture - Preliminary Staphylococcus aureus 01/21/19 16:40 Blood Culture (Wb) - Anticubital Right Blood Culture - Preliminary No growth in 48 hours. 01/21/19 05:32 Sputum, Expectorated/Coughed Gram Stain - Final 01/21/19 05:32 Sputum, Expectorated/Coughed Respiratory Culture - Final Presumptive C albicans Mixed Yrn 01/19/19 21:35 Sputum, Expectorated/Coughed Gram Stain - Final 01/19/19 21:35 Sputum, Expectorated/Coughed Respiratory Culture - Final Mixed normal respiratory yrn. No Streptococcus pneumoniae, beta-hemolytic Streptococcus or Staphylococcus aureus isolated. Laboratory Results 01/25/19 06:10: WBC 10.3, RBC 2.84 L, Hgb 9.2 L, Hct 27.6 L, MCV 97.2, MCH 32.4 H, MCHC 33.3, RDW Std Deviation 54.4 H, RDW Coeff of [place] 15.0 H, Plt Count 264, MPV 9.6, Immature Gran % (Auto) 2.700 H, Neut % (Auto) 70.9 H, Lymph % (Auto) 12.6 L, [place] % (Auto) 9.6, Eos % (Auto) 3.6, Baso % (Auto) 0.6, Absolute Neuts (auto) 7.3, Absolute Lymphs (auto) 1.30, Nucleated RBC % 0 01/25/19 06:10: Sodium 135 L, Potassium 4.7, Chloride 96 L, Carbon Dioxide 29.0, Anion Gap 10, BUN 52 H, Creatinine 7.87 H*, Estim Creat Clear Calc 6.76, Est GFR (MDRD) Af Amer 7 L, Est GFR (MDRD) Non-Af 6 L, BUN/Creatinine Ratio 6.6 L, Glucose 88, Calcium 9.6 Current Medications Acetaminophen (Tylenol) 650 mg PO Q6H PRN PRN PRN Reason: HEADACHE/FEVER (T>100F) Last Admin: 01/22/19 14:32 Dose: 650 mg Documented by: Albuterol Sulfate (Ventolin Aerosols) 2.5 mg INHALATION Q2H PRN PRN PRN Reason: Shortness of Breath/Wheezing Last Admin: 01/20/19 02:59 Dose: 2.5 mg Documented by: Albuterol/Ipratropium (Duoneb) 3 ml INHALATION Q4HWA.RT [facility] Last Admin: 01/25/19 06:43 Dose: Not Given Documented by: Citalopram Hydrobromide (Celexa) 20 mg PO DAILY [facility] Last Admin: 01/25/19 10:03 Dose: 20 mg Documented by: Clonazepam (Klonopin) 0.5 mg PO BID PRN PRN PRN Reason: ANXIETY Last Admin: 01/23/19 19:56 Dose: 0.5 mg Documented by: Dextrose (D50w Syringe) 0 gm IV X1 PRN; Protocol PRN Reason: Hypoglycemia Glucagon () 1 mg IM .X1 PRN PRN Reason: Hypoglycemia Guaifenesin (Mucinex) 1,200 mg PO BID [facility] Last Admin: 01/25/19 10:03 Dose: 1,200 mg Documented by: Cefazolin Sodium () 1 gm in 50 mls @ 100 mls/hr IV QPM [facility] Last Infusion: 01/24/19 22:50 Dose: Infused Documented by: Sodium Chloride () 250 mls @ 15 mls/hr IV .[id number] PRN PRN Reason: Saline Flush Last Infusion: 01/24/19 23:19 Dose: 0 mls/hr Documented by: Sodium Chloride () 1,000 mls @ 0 mls/hr IV .Q0M [facility] Nifedipine (Procardia Xl) 90 mg PO DAILY [facility] Last Admin: 01/25/19 10:03 Dose: 90 mg Documented by: Ondansetron HCl (Zofran) 4 mg IV Q8H PRN PRN PRN Reason: NAUSEA/VOMITING Last Admin: 01/20/19 03:46 Dose: 4 mg Documented by: Pantoprazole Sodium (Protonix) 40 mg PO DAILY [facility] Last Admin: 01/25/19 10:04 Dose: 40 mg Documented by: Polysaccharide Iron Complex (Ferrex 150) 150 mg PO DAILYCM [facility] Propranolol HCl (Inderal) 20 mg PO BID [facility] Last Admin: 01/25/19 10:03 Dose: 20 mg Documented by: Rizatriptan Benzoate (Maxalt) 10 mg PO .[X1 PRN] PRN PRN Reason: MIGRAINE SYMPTOMS Last Admin: 01/22/19 04:50 Dose: 10 mg Documented by: Sevelamer Carbonate (Renvela) 2,400 mg PO TIDCM [facility] Last Admin: 01/25/19 12:30 Dose: 2,400 mg Documented by: Sodium Chloride () 10 - 40 ml IV UD PRN PRN Reason: SALINE FLUSH Last Admin: 01/25/19 12:30 Dose: 10 ml Documented by: Sodium Chloride ([place] Nasal [place]) 2 spray NASAL TID PRN PRN PRN Reason: NASAL DRYNESS Last Admin: 01/23/19 15:54 Dose: 2 spray Documented by: Temazepam (Restoril) 15 mg PO QHS PRN PRN PRN Reason: INSOMNIA Medical Necessity - Tobacco Use Smoking Status: Former smoker - She was a social smoker about 20 years ago. Assessment/Plan All Active Problems Amyloidosis (Acute) MSSA bacteremia (Acute) Anemia (Acute) Heme positive stool (Acute) Acute hypoxemic respiratory failure (Acute) Severe sepsis (Acute) Pneumonia (Acute) Sepsis (Acute) RECOMMENDATIONS: 1. Continue BiPAP therapy as needed for rescue only. Wean FiO2 as tolerated 2. Continue cefazolin per infectious disease 3. Continue volume removal with hemodialysis 4. Hemodialysis per renal 5. Transfuse for hemoglobin less than 7 6. Walking oximetry prior to discharge IMPRESSIONS: 1. Acute hypoxic respiratory failure secondary to probable embolic pneumonia with MSSA Patient appears to have a left lower lobe infiltrate. Clinical suspicion for embolic pneumonia secondary to line removal with staph aureus. Patient grew bacteria from the blood in less than 12 hours on initial cultures. Repeat cultures have been sent and show no growth to date. Patient's repeat blood culture from 01/21/2019 was positive for MSSA. Fever curve is resolved on current therapy. Patient can continue to use BiPAP therapy for rescue. Would continue to hold off on any steroids or bronchodilators. Clinical suspicion for continued oxygen requirement secondary to volume overload. Would continue to remove fluid as tolerated with hemodialysis. 2. Severe sepsis secondary to probable staph aureus/line infection Clinical suspicion for bacteremia following removal of tunneled line. Patient is already growing what appears to be staph aureus. Infectious diseases following. Patient will be transfused blood products previously secondary to decreased hemoglobin. Patient did have a NARGIS today that reportedly does not show any endocarditis. Blood cultures from the are positive, but were resent from January 24, 2019 and these are still pending. 3. Morbid obesity/depression/anxiety/end-stage renal disease/amyloidosis/hypertension Complicates care, management, recovery and prognosis. Patient is back to her baseline. Patient does have some groundglass opacity noted on CT of the chest and this may be from fluid overload. Patient would benefit from volume removal. Did confirm patient is a full CODE STATUS. Code Visit Inpatient E&M: 66527 Subs Hosp L2
--- NOTE | 2019-01-25 15:00 | NURSING ---
This RN is taking over care of this patient at this time.
--- NOTE | 2019-01-25 15:25 | CHAPLAIN ---
Type of Pastoral Visit ___ Initial Visit _x__ Follow-up Visit ___ On-call Visit ___ General Patient Visit ___ Spiritual Assessment ___ Family Conference ___ Bereavement ___ Rapid Response ___ Code Blue ___ Other (describe below) Pastoral Care Referral From _x__ Patient ___ Family ___ Nurse ___ Physician ___ Deputy Juvenile Officer ___ Framing Carpenter ___ Other (describe below) Sacrament/Intervention _x__ Active listening ___ Anointing ___ Samaritan ___ Bereavement ___ Communion _x__ Lyndsay exploration ___ _x__ Life review _x__ Prayer ___ Reconciliation ___ Sacrament of Sick _x__ Supportive presence ___ Wedding ___ Other (describe below) Pastoral Comments patient expresses her feelings and her questions about growing in her lyndsay
[2019-01-25] MEDS: hydrALAZINE 20 MG/ML Vial 10 MG IV (16:15)
[2019-01-25] MEDS: Cefazolin 1 GM/50 ML BAG IV (20:12)
[2019-01-25] MEDS: Temazepam 15 MG Capsule PO (23:31)
[2019-01-26] VITALS (9 sets, daily range): BP systolic 151–179; BP diastolic 82–89; PULSE 71–92; RESP 16–20; TEMP 36.6–37; O2SAT 92–93
[2019-01-26] MEDS: Acetaminophen 325 MG Tablet 650 MG PO (02:41)
[2019-01-26 06:26] LABS: Hematocrit 22.8 % (37-47); Hemoglobin 7.6 g/dL (12.0-15.0)
[2019-01-26 06:56] LABS: Anion Gap 10 (5-15); BUN 72 mg/dL (7-18); BUN/Creat Ratio 7.3 RATIO (10-20); Calcium,Total 9.1 mg/dL (8.5-10.1); Chloride 97 mmol/L (98-107); Creatinine, Serum 9.86 mg/dL (0.55-1.02); EST Glomerular Filtration Rate 4 mL/min (>60); Est Glom Filt Rate - Afr Amer 5 mL/min (>60); Glucose 87 mg/dL (74-106); Potassium 4.6 mmol/L (3.5-5.1); Sodium Level 134 mmol/L (136-145)
[2019-01-26] MEDS: Rizatriptan Benzoate 10 MG Tablet PO (08:35)
[2019-01-26] MEDS: Ondansetron 4 MG/2 ML Vial IV (08:57)
[2019-01-26] MEDS: 0.9% Saline Lock 10 ML Syringe IV (08:57)
[2019-01-26] MEDS: SEVELAMER CARBONATE 800 MG TABLET 2400 MG PO ×2 (10:22→17:49)
--- NOTE | 2019-01-26 10:23 | PN_ITS ---
Patient Problems: Active and Suspected Problems Amyloidosis (Acute) MSSA bacteremia (Acute) Anemia (Acute) Heme positive stool (Acute) Pneumonia (Acute) Sepsis (Acute) Subjective: Patient did well overnight. No acute issues were reported. Patient reports she is subjectively improved from a respiratory standpoint and has been taken off of supplemental oxygen. Patient does report that she had a migraine this morning, but this is not atypical from baseline. - Physical Exam Vitals/I&O's: Vital Signs Temp Pulse Resp BP Pulse Ox 36.6 C 80 16 179/89 H 92 01/26/19 08:38 01/26/19 08:38 01/26/19 08:38 01/26/19 08:38 01/26/19 08:38 Oxygen Flow Rate (L/min) 2 Oxygen Delivery Method Room Air Weight: 109.4 kg Body Mass Index (BMI) 45.0 Intake and Output for Last 24 Hours 01/24/19 01/25/19 01/26/19 23:59 23:59 23:59 Intake Total 357.25 / 677.25 1420 / 1420 262 / 262 Output Total 3600 / 3600 Balance -3242.75 / -2922.75 1420 / 1420 262 / 262 General: Alert, Oriented x3, Cooperative, No apparent distress, Well developed, Well nourished, - - Morbidly obese. No conversational dyspnea. HEENT: Atraumatic, PERRLA, EOMI, Normocephalic, - - No scleral icterus or injection noted Oral: Moist Mucosa, No Gingival or Mucosal Lesions/ Ulcerations Neck: Supple, No JVD, No Nodes, Trachea Midline Lungs: No rhonchi, No wheeze, No rales, Diminished, - - Symmetric expansion. Cardiovascular: Regular rate, Regular Rhythm, Normal S1, Normal S2, No murmurs, No rub noted, No Gallop Abdomen: Bowel Sounds Present, Soft, Non Tender, Non-Distended, Obese Extremities: No clubbing, No cyanosis, Edema, - - Positive thrill noted in extremity Skin: No rashes, No breakdown Musculoskeletal: No Tenderness to Palpation of Joints or Extremities Lymphatic: No Cervical, Supraclavicular, or Inguinal Adenopathy Neurological: Cranial nerves II-XII grossly intact, Neuro grossly intact, Motor Exam 5/5 strength throughout Psych/Mental Status: Alert and oriented to time, place, person, mood and affect Microbiology Past 72 Hours 01/21/19 14:25 Blood Culture (Wb) - Dialysis/Fistula Blood Culture - Pr eliminary Staphylococcus aureus 01/21/19 16:40 Blood Culture (Wb) - Anticubital Right Blood Culture - Preliminary No growth in 48 hours. 01/21/19 05:32 Sputum, Expectorated/Coughed Gram Stain - Final 01/21/19 05:32 Sputum, Expectorated/Coughed Respiratory Culture - Final Presumptive C albicans Mixed [facility] Laboratory Results 01/26/19 06:10: Hgb 7.6 L, Hct 22.8 L 01/26/19 06:10: Sodium 134 L, Potassium 4.6, Chloride 97 L, Carbon Dioxide 27.0, Anion Gap 10, BUN 72 H, Creatinine 9.86 H*, Estim Creat Clear Calc 5.40, Est GFR (MDRD) Af Amer 5 L, Est GFR (MDRD) Non-Af 4 L, BUN/Creatinine Ratio 7.3 L, Glucose 87, Calcium 9.1 Current Medications Acetaminophen (Tylenol) 650 mg PO Q6H PRN PRN PRN Reason: HEADACHE/FEVER (T>100F) Last Admin: 01/26/19 02:41 Dose: 650 mg Documented by: Albuterol Sulfate (Ventolin Aerosols) 2.5 mg INHALATION Q2H PRN PRN PRN Reason: Shortness of Breath/Wheezing Last Admin: 01/20/19 02:59 Dose: 2.5 mg Documented by: Albuterol/Ipratropium (Duoneb) 3 ml INHALATION Q4HWA.RT [facility] Last Admin: 01/26/19 09:24 Dose: Not Given Documented by: Citalopram Hydrobromide (Celexa) 20 mg PO DAILY [facility] Last Admin: 01/25/19 10:03 Dose: 20 mg Documented by: Clonazepam (Klonopin) 0.5 mg PO BID PRN PRN PRN Reason: ANXIETY Last Admin: 01/23/19 19:56 Dose: 0.5 mg Documented by: Dextrose (D50w Syringe) 0 gm IV X1 PRN; Protocol PRN Reason: Hypoglycemia Glucagon () 1 mg IM .X1 PRN PRN Reason: Hypoglycemia Guaifenesin (Mucinex) 1,200 mg PO BID [facility] Last Admin: 01/25/19 21:40 Dose: 1,200 mg Documented by: Hydralazine HCl (Apresoline Iv) 10 mg IV Q4H PRN PRN PRN Reason: SBP > 160 Last Admin: 01/25/19 16:15 Dose: 10 mg Documented by: Cefazolin Sodium () 1 gm in 50 mls @ 100 mls/hr IV QPM [facility] Last Infusion: 01/25/19 20:42 Dose: Infused Documented by: Sodium Chloride () 250 mls @ 15 mls/hr IV .[id number] PRN PRN Reason: Saline Flush Last Infusion: 01/26/19 07:30 Dose: 0 mls/hr Documented by: Sodium Chloride () 1,000 mls @ 0 mls/hr IV .Q0M [facility] Nifedipine (Procardia Xl) 90 mg PO DAILY [facility] Last Admin: 01/25/19 10:03 Dose: 90 mg Documented by: Ondansetron HCl (Zofran) 4 mg IV Q8H PRN PRN PRN Reason: NAUSEA/VOMITING Last Admin: 01/26/19 08:57 Dose: 4 mg Documented by: Pantoprazole Sodium (Protonix) 40 mg PO DAILY [facility] Last Admin: 01/25/19 10:04 Dose: 40 mg Documented by: Polysaccharide Iron Complex (Ferrex 150) 150 mg PO DAILYCM [facility] Propranolol HCl (Inderal) 40 mg PO BID [facility] Rizatriptan Benzoate (Maxalt) 10 mg PO .[X1 PRN] PRN PRN Reason: MIGRAINE SYMPTOMS Last Admin: 01/26/19 08:35 Dose: 10 mg Documented by: Sevelamer Carbonate (Renvela) 2,400 mg PO TIDCM [facility] Last Admin: 01/26/19 10:22 Dose: 2,400 mg Documented by: Sodium Chloride () 10 - 40 ml IV UD PRN PRN Reason: SALINE FLUSH Last Admin: 01/26/19 08:57 Dose: 10 ml Documented by: Sodium Chloride ([place] Nasal [place]) 2 spray NASAL TID PRN PRN PRN Reason: NASAL DRYNESS Last Admin: 01/23/19 15:54 Dose: 2 spray Documented by: Temazepam (Restoril) 15 mg PO QHS PRN PRN PRN Reason: INSOMNIA Last Admin: 01/25/19 23:31 Dose: 15 mg Documented by: Medical Necessity - Tobacco Use Smoking Status: Former smoker - She was a social smoker about 20 years ago. Assessment/Plan All Active Problems Amyloidosis (Acute) MSSA bacteremia (Acute) Anemia (Acute) Heme positive stool (Acute) Acute hypoxemic respiratory failure (Acute) Severe sepsis (Acute) Pneumonia (Acute) Sepsis (Acute) RECOMMENDATIONS: 1. Continue BiPAP therapy as needed for rescue only. Outpatient PSG would be appropriate 2. Continue cefazolin per infectious disease 3. Continue volume removal with hemodialysis 4. Hemodialysis per renal 5. Transfuse for hemoglobin less than 7 6. Walking oximetry prior to discharge 7. No need for pulmonary follow-up unless patient requires supplemental oxygen at discharge 8. Hemodynamically stable on room air. Will sign off from a critical care/pulmonary perspective IMPRESSIONS: 1. Acute hypoxic respiratory failure secondary to probable embolic pneumonia with MSSA Patient appears to have a left lower lobe infiltrate. Clinical suspicion for embolic pneumonia secondary to line removal with staph aureus. Patient grew bacteria from the blood in less than 12 hours on initial cultures. Repeat cultures have been sent and show no growth to date. Patient's repeat blood culture from 01/21/2019 was positive for MSSA. Fever curve is resolved on current therapy. Patient would benefit from evaluation for obstructive sleep apnea as an outpatient, but BiPAP rescue is likely no longer needed. Patient should have a walking oximetry prior to discharge. Patient should have fluid removed with hemodialysis. No need for pulmonary outpatient follow-up unless patient require supplemental oxygen at discharge. 2. Severe sepsis secondary to probable staph aureus/line infection Clinical suspicion for bacteremia following removal of tunneled line. Patient is already growing what appears to be staph aureus. Infectious diseases following. Patient will be transfused blood products previously secondary to decreased hemoglobin. Patient did have a NARGIS that reportedly does not show any endocarditis. Blood cultures from the are positive, but were resent from January 24, 2019 and these are still pending. 3. Morbid obesity/depression/anxiety/end-stage renal disease/amyloidosis/hypertension Complicates care, management, recovery and prognosis. Patient is back to her baseline. Patient does have some groundglass opacity noted on CT of the chest and this may be from fluid overload. Patient would benefit from volume removal. Did confirm patient is a full CODE STATUS. Code Visit Inpatient E&M: 88974 Subs Hosp L2
--- NOTE | 2019-01-26 12:09 | PCM.DC ---
- Discharge Diagnoses Current Active Problems: Current Active and Chronic Problems Amyloidosis (Acute) Morbid obesity due to excess calories (Chronic) MSSA bacteremia (Acute) Anemia (Acute) Heme positive stool (Acute) Pneumonia (Acute) ESRD (end stage renal disease) (Chronic) Sepsis (Acute) You will use the following diet at home:: Renal (restricted protein/sodium) Your food should be the consistency of: Regular Your liquids should be the consistency of: Regular/Thin Discharge Activity: Return to Normal Activity Allergies/Adverse Reactions: Allergies No Known Allergies Allergy (Verified 01/04/19 12:52) Medications to take at Discharge Clonazepam [Klonopin] 0.5 mg PO PRN PRN 11/20/16 Citalopram [Celexa] 20 mg PO DAILY 03/26/17 Furosemide 40 mg PO DAILY PRN PRN 01/19/19 NIFEdipine [Procardia XL] 90 mg PO QHS 01/19/19 Propranolol HCl [Inderal (Beta Lupis)] 40 mg PO BID 01/19/19 Acyclovir 200 mg PO DAILY PRN PRN 01/20/19 Zolpidem Tartrate [Ambien] 5 mg PO QHS PRN PRN 01/20/19 Sevelamer Carbonate 2,400 mg PO 01/21/19 Cefazolin 1 gm IV UD #1 bag 01/26/19 Iron Polysaccharide Complex [Ferrex 150] 150 mg PO DAILYCM #30 cap 01/26/19 Pantoprazole Sodium [Protonix] 40 mg PO DAILY #30 tab 01/26/19 The following prescriptions were given: Cefazolin 1 gm IV UD #1 bag Prescription Printed [place] Polysaccharide Complex [Ferrex 150] 150 mg PO DAILYCM #30 cap Transmission Status: Pending to [facility] Pantoprazole Sodium [Protonix] 40 mg PO DAILY #30 tab Transmission Status: Pending to [facility] Primary Care Physician: Deven James DO [Primary Care Provider] - Please follow up with your Primary Care Physician in: 1-2 weeks Test Results: Test results from this visit will be discussed in further detail at your follow-up appointment, if applicable. Please Follow Up With: Deven James DO Please Follow Up With: Luan Lawrence MD - Nephrology When: As directed Please Follow Up With: Ant Anaya MD - Pulmonology When: 2 weeks Please Follow Up With: Efe Wilson MD - Infectious Disease When: 2 weeks Please Follow Up With: Jimbo Cardozo MD - General surgery When: 2 weeks Proposed Discharge Date: 01/26/19
--- NOTE | 2019-01-26 12:25 | PN.RENAL_ITS ---
Patient Problems: Active and Suspected Problems Amyloidosis (Acute) MSSA bacteremia (Acute) Anemia (Acute) Heme positive stool (Acute) Pneumonia (Acute) Sepsis (Acute) Subjective: no new complaints - Physical Exam Vitals/I&O's: Vital Signs Temp Pulse Resp BP Pulse Ox 97.9 F 80 16 179/89 H 92 01/26/19 08:38 01/26/19 08:38 01/26/19 08:38 01/26/19 08:38 01/26/19 08:38 Oxygen Flow Rate (L/min) 2 Oxygen Delivery Method Room Air Weight: 109.4 kg Body Mass Index (BMI) 45.0 Intake and Output for Last 24 Hours 01/24/19 01/25/19 01/26/19 23:59 23:59 23:59 Intake Total 357.25 / 677.25 1420 / 1420 262 / 262 Output Total 3600 / 3600 Balance -3242.75 / -2922.75 1420 / 1420 262 / 262 General: Alert, Oriented x3, Cooperative HEENT: Atraumatic, PERRLA, EOMI, Normocephalic Neck: Supple, No JVD, Negative Carotid Bruits Lungs: Clear to auscultation, Normal air movement Cardiovascular: Regular rate, No murmurs Abdomen: Bowel Sounds Present, Soft, Non Tender Extremities: No edema, Capillary Refill Less than 3 Seconds Skin: No rashes, No breakdown Musculoskeletal: No Tenderness to Palpation of Joints or Extremities Neurological: Cranial nerves II-XII grossly intact Psych/Mental Status: Normal Affect, Appropriate Microbiology Past 72 Hours 01/24/19 11:10 Blood Culture (Wb) - No Site/Description Given Blood Culture - Preliminary No growth in 48 hours. 01/24/19 10:30 Blood Culture (Wb) - Right Hand Blood Culture - Preliminary No growth in 48 hours. 01/21/19 14:25 Blood Culture (Wb) - Dialysis/Fistula Blood Culture - Preliminary Staphylococcus aureus 01/21/19 16:40 Blood Culture (Wb) - Anticubital Right Blood Culture - Preliminary No growth in 48 hours. 01/21/19 05:32 Sputum, Expectorated/Coughed Gram Stain - Final 01/21/19 05:32 Sputum, Expectorated/Coughed Respiratory Culture - Final Presumptive C albicans Mixed [facility] Laboratory Results 01/26/19 06:10: Hgb 7.6 L, Hct 22.8 L 01/26/19 06:10: Sodium 134 L, Potassium 4.6, Chloride 97 L, Carbon Dioxide 27.0, Anion Gap 10, BUN 72 H, Creatinine 9.86 H*, Estim Creat Clear Calc 5.40, Est GFR (MDRD) Af Amer 5 L, Est GFR (MDRD) Non-Af 4 L, BUN/Creatinine Ratio 7.3 L, Glucose 87, Calcium 9.1 Current Medications Acetaminophen (Tylenol) 650 mg PO Q6H PRN PRN PRN Reason: HEADACHE/FEVER (T>100F) Last Admin: 01/26/19 02:41 Dose: 650 mg Documented by: Albuterol Sulfate (Ventolin Aerosols) 2.5 mg INHALATION Q2H PRN PRN PRN Reason: Shortness of Breath/Wheezing Last Admin: 01/20/19 02:59 Dose: 2.5 mg Documented by: Albuterol/Ipratropium (Duoneb) 3 ml INHALATION Q4HWA.RT [facility] Last Admin: 01/26/19 11:30 Dose: Not Given Documented by: Citalopram Hydrobromide (Celexa) 20 mg PO DAILY [facility] Last Admin: 01/25/19 10:03 Dose: 20 mg Documented by: Clonazepam (Klonopin) 0.5 mg PO BID PRN PRN PRN Reason: ANXIETY Last Admin: 01/23/19 19:56 Dose: 0.5 mg Documented by: Dextrose (D50w Syringe) 0 gm IV X1 PRN; Protocol PRN Reason: Hypoglycemia Glucagon () 1 mg IM .X1 PRN PRN Reason: Hypoglycemia Guaifenesin (Mucinex) 1,200 mg PO BID [facility] Last Admin: 01/25/19 21:40 Dose: 1,200 mg Documented by: Hydralazine HCl (Apresoline Iv) 10 mg IV Q4H PRN PRN PRN Reason: SBP > 160 Last Admin: 01/25/19 16:15 Dose: 10 mg Documented by: Cefazolin Sodium () 1 gm in 50 mls @ 100 mls/hr IV QPM [facility] Last Infusion: 01/25/19 20:42 Dose: Infused Documented by: Sodium Chloride () 250 mls @ 15 mls/hr IV .[id number] PRN PRN Reason: Saline Flush Last Infusion: 01/26/19 07:30 Dose: 0 mls/hr Documented by: Sodium Chloride () 1,000 mls @ 0 mls/hr IV .Q0M [facility] Nifedipine (Procardia Xl) 90 mg PO DAILY [facility] Last Admin: 01/25/19 10:03 Dose: 90 mg Documented by: Ondansetron HCl (Zofran) 4 mg IV Q8H PRN PRN PRN Reason: NAUSEA/VOMITING Last Admin: 01/26/19 08:57 Dose: 4 mg Documented by: Pantoprazole Sodium (Protonix) 40 mg PO DAILY [facility] Last Admin: 01/25/19 10:04 Dose: 40 mg Documented by: Polysaccharide Iron Complex (Ferrex 150) 150 mg PO DAILYCM [facility] Propranolol HCl (Inderal) 40 mg PO BID [facility] Rizatriptan Benzoate (Maxalt) 10 mg PO .[X1 PRN] PRN PRN Reason: MIGRAINE SYMPTOMS Last Admin: 01/26/19 08:35 Dose: 10 mg Documented by: Sevelamer Carbonate (Renvela) 2,400 mg PO TIDCM [facility] Last Admin: 01/26/19 10:22 Dose: 2,400 mg Documented by: Sodium Chloride () 10 - 40 ml IV UD PRN PRN Reason: SALINE FLUSH Last Admin: 01/26/19 08:57 Dose: 10 ml Documented by: Sodium Chloride ([place] Nasal [place]) 2 spray NASAL TID PRN PRN PRN Reason: NASAL DRYNESS Last Admin: 01/23/19 15:54 Dose: 2 spray Documented by: Temazepam (Restoril) 15 mg PO QHS PRN PRN PRN Reason: INSOMNIA Last Admin: 01/25/19 23:31 Dose: 15 mg Documented by: Medical Necessity - Tobacco Use Smoking Status: Former smoker - She was a social smoker about 20 years ago. Assessment/Plan All Active Problems Amyloidosis (Acute) MSSA bacteremia (Acute) Anemia (Acute) Heme positive stool (Acute) Acute hypoxemic respiratory failure (Acute) Severe sepsis (Acute) Pneumonia (Acute) Sepsis (Acute) End-stage renal disease Pneumonia MSSA staph bacteremia HD thursday Anemia. With low iron deficiency. Hold Venofer due to bacteremia. received PRBC seen on HD today called in dialysis unit for cefazolin
--- NOTE | 2019-01-26 13:15 | PCM.PN.ID ---
Patient Problems: Active and Suspected Problems Amyloidosis (Acute) MSSA bacteremia (Acute) Anemia (Acute) Heme positive stool (Acute) Pneumonia (Acute) Sepsis (Acute) Subjective: Patient is alert overall clinically stable. No cardiopulmonary distress. Currently being dialyzed. Objective: Alert does not appear toxic fistula is functioning well on the left arm. - Physical Exam Vitals/I&O's: Vital Signs Temp Pulse Resp BP Pulse Ox 97.9 F 80 16 179/89 H 92 01/26/19 08:38 01/26/19 08:38 01/26/19 08:38 01/26/19 08:38 01/26/19 08:38 Oxygen Flow Rate (L/min) 2 Oxygen Delivery Method Room Air Weight: 109.4 kg Body Mass Index (BMI) 45.0 Intake and Output for Last 24 Hours 01/24/19 01/25/19 01/26/19 23:59 23:59 23:59 Intake Total 357.25 / 677.25 1420 / 1420 262 / 262 Output Total 3600 / 3600 Balance -3242.75 / -2922.75 1420 / 1420 262 / 262 Microbiology Past 72 Hours 01/24/19 11:10 Blood Culture (Wb) - No Site/Description Given Blood Culture - Preliminary No growth in 48 hours. 01/24/19 10:30 Blood Culture (Wb) - Right Hand Blood Culture - Preliminary No growth in 48 hours. 01/21/19 14:25 Blood Culture (Wb) - Dialysis/Fistula Blood Culture - Preliminary Staphylococcus aureus 01/21/19 16:40 Blood Culture (Wb) - Anticubital Right Blood Culture - Preliminary No growth in 48 hours. 01/21/19 05:32 Sputum, Expectorated/Coughed Gram Stain - Final 01/21/19 05:32 Sputum, Expectorated/Coughed Respiratory Culture - Final Presumptive C albicans Mixed [facility] Laboratory Results 01/26/19 06:10: Hgb 7.6 L, Hct 22.8 L 01/26/19 06:10: Sodium 134 L, Potassium 4.6, Chloride 97 L, Carbon Dioxide 27.0, Anion Gap 10, BUN 72 H, Creatinine 9.86 H*, Estim Creat Clear Calc 5.40, Est GFR (MDRD) Af Amer 5 L, Est GFR (MDRD) Non-Af 4 L, BUN/Creatinine Ratio 7.3 L, Glucose 87, Calcium 9.1 Current Medications Acetaminophen (Tylenol) 650 mg PO Q6H PRN PRN PRN Reason: HEADACHE/FEVER (T>100F) Last Admin: 01/26/19 02:41 Dose: 650 mg Documented by: Albuterol Sulfate (Ventolin Aerosols) 2.5 mg INHALATION Q2H PRN PRN PRN Reason: Shortness of Breath/Wheezing Last Admin: 01/20/19 02:59 Dose: 2.5 mg Documented by: Albuterol/Ipratropium (Duoneb) 3 ml INHALATION Q4HWA.RT [facility] Last Admin: 01/26/19 11:30 Dose: Not Given Documented by: Citalopram Hydrobromide (Celexa) 20 mg PO DAILY [facility] Last Admin: 01/25/19 10:03 Dose: 20 mg Documented by: Clonazepam (Klonopin) 0.5 mg PO BID PRN PRN PRN Reason: ANXIETY Last Admin: 01/23/19 19:56 Dose: 0.5 mg Documented by: Dextrose (D50w Syringe) 0 gm IV X1 PRN; Protocol PRN Reason: Hypoglycemia Glucagon () 1 mg IM .X1 PRN PRN Reason: Hypoglycemia Guaifenesin (Mucinex) 1,200 mg PO BID [facility] Last Admin: 01/25/19 21:40 Dose: 1,200 mg Documented by: Hydralazine HCl (Apresoline Iv) 10 mg IV Q4H PRN PRN PRN Reason: SBP > 160 Last Admin: 01/25/19 16:15 Dose: 10 mg Documented by: Cefazolin Sodium () 1 gm in 50 mls @ 100 mls/hr IV QPM [facility] Last Infusion: 01/25/19 20:42 Dose: Infused Documented by: Sodium Chloride () 250 mls @ 15 mls/hr IV .[id number] PRN PRN Reason: Saline Flush Last Infusion: 01/26/19 07:30 Dose: 0 mls/hr Documented by: Sodium Chloride () 1,000 mls @ 0 mls/hr IV .Q0M [facility] Nifedipine (Procardia Xl) 90 mg PO DAILY [facility] Last Admin: 01/25/19 10:03 Dose: 90 mg Documented by: Ondansetron HCl (Zofran) 4 mg IV Q8H PRN PRN PRN Reason: NAUSEA/VOMITING Last Admin: 01/26/19 08:57 Dose: 4 mg Documented by: Pantoprazole Sodium (Protonix) 40 mg PO DAILY [facility] Last Admin: 01/25/19 10:04 Dose: 40 mg Documented by: Polysaccharide Iron Complex (Ferrex 150) 150 mg PO DAILYCM [facility] Propranolol HCl (Inderal) 40 mg PO BID [facility] Rizatriptan Benzoate (Maxalt) 10 mg PO .[X1 PRN] PRN PRN Reason: MIGRAINE SYMPTOMS Last Admin: 01/26/19 08:35 Dose: 10 mg Documented by: Sevelamer Carbonate (Renvela) 2,400 mg PO TIDCM [facility] Last Admin: 01/26/19 10:22 Dose: 2,400 mg Documented by: Sodium Chloride () 10 - 40 ml IV UD PRN PRN Reason: SALINE FLUSH Last Admin: 01/26/19 08:57 Dose: 10 ml Documented by: Sodium Chloride ([place] Nasal [place]) 2 spray NASAL TID PRN PRN PRN Reason: NASAL DRYNESS Last Admin: 01/23/19 15:54 Dose: 2 spray Documented by: Temazepam (Restoril) 15 mg PO QHS PRN PRN PRN Reason: INSOMNIA Last Admin: 01/25/19 23:31 Dose: 15 mg Documented by: Medical Necessity - Tobacco Use Smoking Status: Former smoker - She was a social smoker about 20 years ago. Route of nutrition/ use of supplements: [] Nutritional Intake: [] IV Site: [] Heck Catheter: [] - Assessment/Plan MSSA bacteremia, most recent blood cultures January 24 remain sterile. Transesophageal echocardiogram was made aware that there were no vegetations evident. My recommendation is to continue Ancef 2 g after dialysis on Thursday, 2 g after dialysis on Thursday and 3 g after dialysis on Thursday through February 21.
--- NOTE | 2019-01-26 13:56 | CASEMGMT ---
Pt to have Cefazolin 1gm/50ml piggyback after dialysis on MWF and script faxed to [facility] at this time. Call to Catalina at [facility] to update on antibx after dialysis, voices understanding. Catalina states that don't need anything else at this time. This RN CM to room to speak with pt regarding discharge plan and pt states no concerns with going home at discharge and states no need for any further resources at this time. [place] RN CM
--- NOTE | 2019-01-26 15:20 | DS.PCM_ITS ---
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 Mild concentric left ventricular hypertrophy. Left ventricular systolic function is normal. The estimated ejection fraction is 55 %. Stage 2 diastolic dysfunction. The left atrium is moderately enlarged. Mild-Moderate (1-2+) eccentric mitral valve insufficiency. There is no vegetation seen on the mitral valve. The global longitudinal strain = -19.4 % (normal). US/Abdomen Limited IMPRESSION: Mildly enlarged liver with fatty infiltration. Cholecystectomy. RAD/Chest 1 View (Portable) IMPRESSION: 1. 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 The estimated ejection fraction is 65 %. The left atrium is mildly enlarged. There is no sponatenous contrast in the left atrium. No thrombus is detected in the left atrial appendage. There is mild to moderate mitral annular calcification. Extension of the mitral annular calcification onto the mitral valve leaflets. Moderate (2+) eccentric mitral valve insufficiency. Mild to moderate (1-2+) tricuspid valve insufficiency. Moderate focal aortic valve calcification. Trivial aortic valve insufficiency. Bubble contrast study negative for right to left interatrial shunt. Based upon the 2D echocardiograhic images obtained: no obvious echocardiographic findings c/w vegetations identified. Consults: HAROON - Steve / Alessandra Nephro - Melinda Pulmonary - Héctor Gen Surgery - Chandler Operations: None Procedures: Transesophageal Echo, Transthoracic echo Summary of Care Provided: Hospital course The patient is a 48 year old F past medical history of amyloidosis with associated ESRD, recent infected dialysis port, who presented to the emergency room with increased generalized malaise. In the emergency room she was felt to have sepsis secondary to community-acquired pneumonia and she was started on vancomycin and Levaquin and admitted to the PCU. Patient ended up having bacteremia with MSSA. Infectious disease, pulmonary medicine, nephrology were consulted. She also had anemia requiring blood transfusion and Hemoccult stools. General surgery was consulted to follow this. Her anemia stabilized without further intervention and general surgery signed off recommending outpatient follow-up and possible endoscopy. General surgery placed her on Ancef IV for bacteremia with MSSA. Her infected line was removed. We are concerned she may have had a septic emboli causing her pneumonia. As she recently had bacteremia and a infected dialysis catheter with a low threshold for repeating a NARGIS. She did have a murmur and had recurrent positive blood cultures. This was performed and no vegetation was found. Her leukocytosis and fevers resolved. After her blood cultures were clear after 48 hours we recommended discharge with ongoing IV antibiotics. Infectious disease recommended ongoing cefazolin dosed after dialysis. Thursday she will have 2 g of her dialysis Thursday she will have 3 g after dialysis. Patient was discharged home in stable condition. She will be follow-up with nephrology as directed, pulmonology in 2 weeks, general surgery in 2 weeks, infectious disease in 2 weeks, and with her PCP in 1 to 2 weeks. This patient was seen by Toby Pereira PA-C under the supervision of Doctor Crockett. [] Patient Problems: Active and Suspected Problems Amyloidosis (Acute) MSSA bacteremia (Acute) Anemia (Acute) Heme positive stool (Acute) Pneumonia (Acute) Sepsis (Acute) - Physical Exam Vitals/I&O's: Vital Signs Temp Pulse Resp BP Pulse Ox 97.9 F 80 16 179/89 H 92 01/26/19 08:38 01/26/19 08:38 12 08:38 01/26/19 08:38 01/26/19 08:38 Oxygen Flow Rate (L/min) 2 Oxygen Delivery Method Room Air Weight: 241 lb 2.971 oz Body Mass Index (BMI) 45.0 Intake and Output for Last 24 Hours 01/24/19 01/25/19 01/26/19 23:59 23:59 23:59 Intake Total 357.25 / 677.25 1420 / 1420 262 / 262 Output Total 3600 / 3600 Balance -3242.75 / -2922.75 1420 / 1420 262 / 262 General: Alert, Oriented x3, Cooperative HEENT: Atraumatic, PERRLA, EOMI, Normocephalic Neck: Supple, No JVD, Negative Carotid Bruits Lungs: Clear to auscultation, Normal air movement Cardiovascular: Regular rate, No murmurs Abdomen: Bowel Sounds Present, Soft, Non Tender Extremities: No edema, Capillary Refill Less than 3 Seconds Skin: No rashes, No breakdown Musculoskeletal: No Tenderness to Palpation of Joints or Extremities Neurological: Cranial nerves II-XII grossly intact Psych/Mental Status: Normal Affect, Appropriate, Alert and oriented to time, place, person, mood and affect Microbiology Past 72 Hours 01/24/19 10:30 Blood Culture (Wb) - Right Hand Blood Culture - Preliminary No growth in 48 hours. 01/24/19 11:10 Blood Culture (Wb) - No Site/Description Given Blood Culture - Preliminary No growth in 48 hours. 01/21/19 14:25 Blood Culture (Wb) - Dialysis/Fistula Blood Culture - Preliminary Staphylococcus aureus 01/21/19 16:40 Blood Culture (Wb) - Anticubital Right Blood Culture - Preliminary No growth in 48 hours. Laboratory Results 01/26/19 06:10: Hgb 7.6 L, Hct 22.8 L 01/26/19 06:10: Sodium 134 L, Potassium 4.6, Chloride 97 L, Carbon Dioxide 27.0, Anion Gap 10, BUN 72 H, Creatinine 9.86 H*, Estim Creat Clear Calc 5.40, Est GFR (MDRD) Af Amer 5 L, Est GFR (MDRD) Non-Af 4 L, BUN/Creatinine Ratio 7.3 L, Glucose 87, Calcium 9.1 Current Medications Acetaminophen (Tylenol) 650 mg PO Q6H PRN PRN PRN Reason: HEADACHE/FEVER (T>100F) Last Admin: 01/26/19 02:41 Dose: 650 mg Documented by: Albuterol Sulfate (Ventolin Aerosols) 2.5 mg INHALATION Q2H PRN PRN PRN Reason: Shortness of Breath/Wheezing Last Admin: 01/20/19 02:59 Dose: 2.5 mg Documented by: Albuterol/Ipratropium (Duoneb) 3 ml INHALATION Q4HWA.RT [facility] Last Admin: 01/26/19 11:30 Dose: Not Given Documented by: Citalopram Hydrobromide (Celexa) 20 mg PO DAILY [facility] Last Admin: 01/25/19 10:03 Dose: 20 mg Documented by: Clonazepam (Klonopin) 0.5 mg PO BID PRN PRN PRN Reason: ANXIETY Last Admin: 01/23/19 19:56 Dose: 0.5 mg Documented by: Dextrose (D50w Syringe) 0 gm IV X1 PRN; Protocol PRN Reason: Hypoglycemia Glucagon () 1 mg IM .X1 PRN PRN Reason: Hypoglycemia Guaifenesin (Mucinex) 1,200 mg PO BID [facility] Last Admin: 01/25/19 21:40 Dose: 1,200 mg Documented by: Hydralazine HCl (Apresoline Iv) 10 mg IV Q4H PRN PRN PRN Reason: SBP > 160 Last Admin: 01/25/19 16:15 Dose: 10 mg Documented by: Cefazolin Sodium () 1 gm in 50 mls @ 100 mls/hr IV QPM [facility] Last Infusion: 01/25/19 20:42 Dose: Infused Documented by: Sodium Chloride () 250 mls @ 15 mls/hr IV .[id number] PRN PRN Reason: Saline Flush Last Infusion: 01/26/19 07:30 Dose: 0 mls/hr Documented by: Sodium Chloride () 1,000 mls @ 0 mls/hr IV .Q0M [facility] Nifedipine (Procardia Xl) 90 mg PO DAILY [facility] Last Admin: 01/25/19 10:03 Dose: 90 mg Documented by: Ondansetron HCl (Zofran) 4 mg IV Q8H PRN PRN PRN Reason: NAUSEA/VOMITING Last Admin: 01/26/19 08:57 Dose: 4 mg Documented by: Pantoprazole Sodium (Protonix) 40 mg PO DAILY [facility] Last Admin: 01/25/19 10:04 Dose: 40 mg Documented by: Polysaccharide Iron Complex (Ferrex 150) 150 mg PO DAILYCM RINA Propranolol HCl (Inderal) 40 mg PO BID RINA Rizatriptan Benzoate (Maxalt) 10 mg PO .[X1 PRN] PRN PRN Reason: MIGRAINE SYMPTOMS Last Admin: 01/26/19 08:35 Dose: 10 mg Documented by: Sevelamer Carbonate (Renvela) 2,400 mg PO TIDCM RINA Last Admin: 01/26/19 10:22 Dose: 2,400 mg Documented by: Sodium Chloride () 10 - 40 ml IV UD PRN PRN Reason: SALINE FLUSH Last Admin: 01/26/19 08:57 Dose: 10 ml Documented by: Sodium Chloride ([place] Nasal [place]) 2 spray NASAL TID PRN PRN PRN Reason: NASAL DRYNESS Last Admin: 01/23/19 15:54 Dose: 2 spray Documented by: Temazepam (Restoril) 15 mg PO QHS PRN PRN PRN Reason: INSOMNIA Last Admin: 01/25/19 23:31 Dose: 15 mg Documented by: Discharge Diet: Renal Diet Discharge Activity: Return to Normal Activity Home Medications: Medications to take at Discharge Clonazepam [Klonopin] 0.5 mg PO PRN PRN 11/20/16 Citalopram [Celexa] 20 mg PO DAILY 03/26/17 Furosemide 40 mg PO DAILY PRN PRN 01/19/19 NIFEdipine [Procardia XL] 90 mg PO QHS 01/19/19 Propranolol HCl [Inderal (Beta Lupis)] 40 mg PO BID 01/19/19 Acyclovir 200 mg PO DAILY PRN PRN 01/20/19 Zolpidem Tartrate [Ambien] 5 mg PO QHS PRN PRN 01/20/19 Sevelamer Carbonate 2,400 mg PO 01/21/19 Cefazolin 1 gm IV UD #1 bag 01/26/19 Iron Polysaccharide Complex [Ferrex 150] 150 mg PO DAILYCM #30 cap 01/26/19 Pantoprazole Sodium [Protonix] 40 mg PO DAILY #30 tab 01/26/19 Following Prescrptions Were Given to Patient: Cefazolin 1 gm IV UD #1 bag Prescription Printed Iron Polysaccharide Complex [Ferrex 150] 150 mg PO DAILYCM #30 cap Transmission Status: Sent to [facility] Pantoprazole Sodium [Protonix] 40 mg PO DAILY #30 tab Transmission Status: Received by [facility] Primary Care Physician: Deven James DO [Primary Care Provider] - Please follow up with your Primary Care Physician in: 1-2 weeks Please Follow Up With: Deven James DO Please Follow Up With: Luan Lawrence MD When: As directed Please Follow Up With: Ant Anaya MD When: 2 weeks Please Follow Up With: Efe Wilson MD When: 2 weeks Please Follow Up With: Jimbo Cardozo MD When: 2 weeks Disposition: Home Minutes spent on discharge:: 35 Patient Condition:: Stable Medical Necessity - Tobacco Use Smoking Status: Former smoker - She was a social smoker about 20 years ago. Meaningful Use Info Meaningful Use Diagnoses (Choose all that apply): None applicable
[2019-01-26] MEDS: Propranolol 40 MG Tablet PO (15:49)
--- NOTE | 2019-01-26 16:12 | DIALYSIS ---
Pt tolerated 4hr HD tx well. Net UF -3200ml. Good flow from [facility] using 17g needles. See flow record for tx data.
[2019-01-26] MEDS: Citalopram 20 MG Tablet PO (17:49)
[2019-01-26] MEDS: guaiFENesin 1,200 MG Tablet 1200 MG PO (17:49)
[2019-01-26] MEDS: Pantoprazole Sodium 40 MG Tablet PO (17:52)
[2019-01-26] MEDS: NIFEdipine 90 MG Tablet PO (17:52)
--- NOTE | 2019-01-27 14:58 | CASEMGMT ---
JOAQUIM STEVENS Discharge F/U Phone Call LACDemetria: 15 Strata: 4 Discharge date: 01/26/19 Call date: 01/27/19 Call time: [id number] Duration: Admission dx: Severe sepsis w/ acute respiratory failure Pt states is doing 'a lot better' since discharge yesterday. Pt states that she is not sure why she was set up with general surgery f/u as she had dialysis cath removed at [facility] and she states that Dr. Anaya had told her that she did not need to f/u after discharge and according to his note, pt only needed to f/u if she went home on oxygen and pt did not. Pt states she will be calling to cancel those 2 appt's but plans to f/u with PCP and will see Dr. Lawrence at the dialysis clinic. She states that Dr. Lawrence states he gave the order for the Cefazolin after dialysis that that Pk from [facility] stated they did not have the script. This RN CM advised pt that it was faxed(with confirmation) yesterday and that this RN CM will call to verify again with the dialysis clinic that it was received, pt voices understanding. Pt states no further questions/concerns/needs at this time. Call to Marcella at [facility] and she states that they do have the script for the Cefazolin at this time. She states that pt will be in tomorrow. Trung MARCH CM
== END 2019-01-26 18:33 | disposition home or self-care (01) | DRG 314 ==
LOC: ED 23:37 → MS3 01-20 00:41 → ICU 01-20 13:54 → PCU 01-22 13:41
PROVIDERS: Internal Medicine; Physician Assistant; Student in an Organized Health Care Education/Training Program; Admitting Provider Hospitalist; Emergency Provider Emergency Medicine; Family Provider Student in an Organized Health Care Education/Training Program; PCP Student in an Organized Health Care Education/Training Program; Referring Provider Hospitalist; Visit Provider Family Medicine
DX: T82.7XXA Infection and inflammatory reaction due to other cardiac and vascular devices, implants and grafts, initial encounter (principal); A41.01 Sepsis due to Methicillin susceptible Staphylococcus aureus; J15.211 Pneumonia due to Methicillin susceptible Staphylococcus aureus; J96.01 Acute respiratory failure with hypoxia; N18.6 End stage renal disease; R65.20 Severe sepsis without septic shock; Z94.84 Stem cells transplant status; E87.1 Hypo-osmolality and hyponatremia; E85.9 Amyloidosis, unspecified; K92.2 Gastrointestinal hemorrhage, unspecified; Z68.41 Body mass index [BMI] 40.0-44.9, adult; Z99.2 Dependence on renal dialysis; E66.01 Morbid (severe) obesity due to excess calories; F41.9 Anxiety disorder, unspecified; F32.9 Major depressive disorder, single episode, unspecified; K21.9 Gastro-esophageal reflux disease without esophagitis; G47.33 Obstructive sleep apnea (adult) (pediatric); E87.5 Hyperkalemia; G43.909 Migraine, unspecified, not intractable, without status migrainosus; Z87.891 Personal history of nicotine dependence; D63.1 Anemia in chronic kidney disease; D50.0 Iron deficiency anemia secondary to blood loss (chronic); I10 Essential (primary) hypertension
CPT/HCPCS: 36415; 36600; 71045; 71275; 76705; 80048; 80053; 82274; 82607; 82728; 82746; 82803; 83540; 83550; 83605; 83735; 84100; 84443; 84484; 85014; 85018; 85025; 85610; 85730; 86850; 86900; 86901; 86920; 87040; 87070; 87077; 87149; 87186; 87205; 87633; 87804; 90937; 93005; 93306; 93312; 93320; 93325; 94002; 94003; 94640; 94667; 94668; 97116; 97162; 97166; 97530; 97802; 99251; 99285; J1756; J7030; J7050; P9016; Q9957; Q9967; A4216; G0257; G0463; J2405; Q5106

== ENCOUNTER → 2019-03-02 20:45 | Outpatient (CLI) | payer OTHER, BC, SELFPAY ==
[2019-02-17 08:36] VITALS: BMI 42.3
[2019-03-02] MEDS: Zolpidem Tartrate 5 MG Tablet PO (21:40)
== END ==
PROVIDERS: Family Provider Student in an Organized Health Care Education/Training Program; PCP Student in an Organized Health Care Education/Training Program; Referring Provider Nurse Practitioner Acute Care; Visit Provider Nurse Practitioner Acute Care
DX: G47.33 Obstructive sleep apnea (adult) (pediatric) (principal)
CPT/HCPCS: 95811

== ENCOUNTER → 2019-03-17 16:34 | Outpatient (CLI) | payer OTHER, BC, SELFPAY ==
[2019-02-17 08:36] VITALS: BMI 42.3
--- NOTE | 2019-03-17 16:38 | BI_ITS ---
MAMMOGRAPHY - BILATERAL SCREENING REASON FOR EXAM: Female, 48 years old. Routine annual screening examination. PERTINENT HISTORY: Non-contributory. TECHNIQUE: Digital bilateral breast chris (3D mammographic acquisition) in the CC and MLO projections. 2-D mediolateral oblique (MLO) and craniocaudad (CC) views of both breasts were obtained. CAD: Full Field Digital Mammography with Computer Added Detection was performed. COMPARISON: Comparison is made with prior study dated July 03, 2017 and May 02, 2016. FINDINGS: Breast Composition: There are scattered areas of fibroglandular density. There are no dominant masses or suspicious calcifications. No other significant abnormalities are identified. There has been no significant change since the prior study. BI/SCREEN MAMM (CAD) W/CHRIS BILAT IMPRESSION: Stable bilateral screening mammogram. Yearly follow-up mammogram recommended. (A) ASSESSMENT CATEGORY: BIRADS Category 1: Negative. A letter regarding these results will be sent to the patient by the facility within 30 days. Approximately 10% of breast cancers are not detected by mammography. A normal mammogram should not delay biopsy of a clinically suspicious abnormality. [id number] Electronically Signed: Ulisses Navarro, at 8:29 EST , Service support ,
== END ==
PROVIDERS: Family Provider Student in an Organized Health Care Education/Training Program; PCP Student in an Organized Health Care Education/Training Program; Referring Provider Student in an Organized Health Care Education/Training Program; Visit Provider Student in an Organized Health Care Education/Training Program
DX: Z12.31 Encounter for screening mammogram for malignant neoplasm of breast (principal)
CPT/HCPCS: 77063; 77067

== ENCOUNTER 2021-07-31 07:09 | Emergency (ER) | payer MEDICARE, BC, SELFPAY ==
[2021-07-31] VITALS (9 sets, daily range): BP systolic 125–149; BP diastolic 72–88; PULSE 62–89; RESP 15–18; TEMP 36.1–37.1; O2SAT 91–100; BMI 47.5
--- NOTE | 2021-07-31 07:21 | EKG12_ITS ---
Test Reason : ABN LABS Blood Pressure : / mmHG Vent. Rate : 081 BPM Atrial Rate : 081 BPM P-R Int : 182 ms QRS Dur : 090 ms QT Int : 416 ms P-R-T Axes : 056 009 045 degrees QTc Int : 483 ms Normal sinus rhythm Nonspecific ST and T wave abnormality Prolonged QT Abnormal ECG Confirmed by NOMI MELGAR, DRISS ([id number]), news assignment editor CHEIKH WILKERSON ([id number]) on 08/05/2021 7:33:45 AM Referred By: CAROLIN Confirmed By:DRISS MOSHER MD
--- NOTE | 2021-07-31 07:42 | EDS_ITS ---
HPI History of Present Illness Chief Complaint: Abn Labs Informant: patient Narrative Narrative: Patient is a 50-year-old female with history of end-stage renal disease, chronic anemia as well as recent gastric bypass on 07/15 at [facility] presenting for anemia. Patient had a hemoglobin of 5.7 that was drawn on 07/29. She was told to come to the emergency room to be evaluated further and for blood transfusion. She has required blood transfusions in the past. She notes for the past week she has felt like the walking . She notes she felt a little bit better yesterday but continues to have dyspnea on exertion. She was post have dialysis today but did not go because she came here instead. Her tower erector is Dr. Palomo. She had a full session of dialysis 2 days ago on Thursday. Notes her stools have been a little dark but attribute that to medications. Has some continual serous drainage from one of the port sites from her prior surgery but denies any new pain or rash. No other complaints at this time. [facility] Medical History (Updated 07/31/21 @ 12:[address] Martha Smart, DO) Anxiety Cholecystectomy planned Depression Fistula Kidney disease Home Medications citalopram 20 mg PO BID 03/26/17 [History Last Taken 01/19/19 20 mg] vitamin B complex-vitamin C-folic acid 0.8 mg tablet 1 tab PO DAILY 02/17/19 [History Last Taken Unknown] cinacalcet 60 mg tablet 60 mg PO DAILY 10/25/20 [History Last Taken Unknown] melatonin 5 mg capsule 5 mg PO QHS cap 10/25/20 [History Last Taken Unknown] cholecalciferol (vitamin D3) 25 mcg (1,000 unit) capsule 100 mcg PO DAILY 04/23/21 [History Last Taken Unknown] nifedipine 30 mg tablet,extended release 60 mg PO QHS tab 04/23/21 [History Last Taken Unknown] propranolol 40 mg tablet 40 mg PO DAILY tab 04/23/21 [History Last Taken Unknown] ondansetron 4 mg PO Q4H PRN 07/31/21 [History Last Taken Unknown] oxycodone-acetaminophen 1 tab PO Q6H PRN 07/31/21 [History Last Taken Unknown] sucralfate 1 g PO TID 07/31/21 [History Last Taken Unknown] Allergy/AdvReac Type Severity Reaction Status Date / Time No Known Allergies Allergy Verified 07/31/21 07:46 Surgical History (Updated 07/31/21 @ 07:44 by Karlos Lara) Bariatric surgery status Hx of section Stem cells transplant status Social History Smoking Status: Former smoker ROS ROS ED Constitutional Constitutional ED: Denies chills or fever(s) Eyes Eyes: Denies change in vision ENT ENT ED: Denies rhinorrhea or sore throat Cardiovascular Cardiovascular: Denies chest pain Respiratory/Chest Respiratory/Chest: Reports dyspnea on exertion; Denies cough or dyspnea Gastrointestinal Gastrointestinal: Denies abdominal pain, diarrhea, melena or vomiting Genitourinary Genitourinary ED: Reports other Details: Does not make urine Musculoskeletal Musculoskeletal: Denies arthralgias or myalgias Integumentary Reports other Details: Abdominal surgical wounds from prior surgery, mild drainage on left port site ; Denies rash Neurologic Neurologic: Reports weakness; Denies headache(s) or paresthesias Psychiatric Psychiatric: Denies depression EXAM Physical Exam Const Vital Signs: 07/31/21 07:10 07/31/21 08:34 07/31/21 09:23 Temperature 97.1 F L Temperature Source Temporal Pulse Rate 85 89 Respiratory Rate 18 17 Respiratory Effort Normal Non-Labored Respiratory Pattern Normal Blood Pressure 125/72 H 139/88 H Blood Pressure Mean 89 105 Blood Pressure Source Blood Pressure Position Blood Pressure Location Pulse Ox 97 96 Oxygen Delivery Method Room Air Room Air Oxygen Flow Rate (L/min) 07/31/21 11:11 07/31/21 12:12 07/31/21 12:17 Temperature 98.7 F 97 F L Temperature Source Temporal Temporal Pulse Rate 62 79 85 Respiratory Rate 15 16 17 Respiratory Effort Respiratory Pattern Blood Pressure 138/77 H 139/80 H 145/79 H Blood Pressure Mean 97 99 101 Blood Pressure Source Monitor Monitor Blood Pressure Position Supine Supine Blood Pressure Location Right Arm Right Arm Pulse Ox 98 91 100 Oxygen Delivery Method Room Air Nasal Cannula Nasal Cannula Oxygen Flow Rate (L/min) 2 2 07/31/21 12:20 07/31/21 12:24 Temperature 97.3 F L 97.6 F L Temperature Source Temporal Temporal Pulse Rate 82 82 Respiratory Rate 16 17 Respiratory Effort Respiratory Pattern Blood Pressure 144/82 H 149/81 H Blood Pressure Mean 102 103 Blood Pressure Source Monitor Monitor Blood Pressure Position Supine Supine Blood Pressure Location Right Arm Right Arm Pulse Ox 100 100 Oxygen Delivery Method Nasal Cannula Nasal Cannula Oxygen Flow Rate (L/min) 2 2 Positive well nourished and well developed General Appearance ED: well developed, NAD and pallor HEENT Reports moist mucous membranes Negative for trauma Eyes PERRL and EOMs intact bilaterally General Eye ED: Yes pale conjunctiva Neck supple and no JVD Chest Wall inspection of chest normal Resp normal respiratory effort and clear to auscultation bilaterally Cardio regular rate, regular rhythm and no murmurs GI normal to inspection, nondistended, normoactive bowel sounds GI Narrative: Mild tenderness around healing incision site. Palpation: soft; Negative for guarding or rebound tenderness present Extremity normal to inspection Extremity Narrative: AV fistula with palpable thrill in the left upper extremity General Extremety ED: Negative for edema or tenderness General Extremity: Negative for edema Neuro oriented x3 Sensorium / Orientation: alert Psych mental status grossly normal Skin no wounds Skin Narrative: Healing surgical incisions on the abdomen. No active drainage at this time. No surrounding erythema, fluctuance or seroma appreciated. General Skin Exam: pallor MDM MDM MDM Narrative Medical decision making narrative: Patient was found to have acute on chronic anemia with hemoglobin of 5.2. She is Hemoccult positive. She is less than 30 days out from gastric bypass surgery and hospitalist feels that she would be better suited back at [facility] where her surgeons are in case she has anastomosis bleed. On rectal exam she has brown stool with no obvious signs of bleeding. Patient's lab work otherwise shows a mild hypokalemia of 2.9 as well as elevated BUN and creatinine consistent with end-stage renal disease. Discussed with nurse practitioner for her surgeon and ultimately she spoke with Dr. Espino, surgeon on-call and she will be transferred to [facility] emergency room for further disposition. She started on blood transfusion for her anemia while in the emergency room. Patient is agreeable this plan of care. She remains hemodynamically stable. Lab Data Attestation: I reviewed the patient's lab results. Labs: Laboratory Results - last 24 hr 07/31/21 07/31/21 07/31/21 07:30 07:30 07:30 WBC 8.7 RBC 1.44 L Hgb 5.2 L* Hct 17.2 L MCV 119.4 H MCH 36.1 H MCHC 30.2 L RDW Std Deviation 94.6 H RDW Coeff of Fracisco 22.5 H Plt Count 330 MPV 8.5 Immature Gran % (Auto) 3.800 H Neut % (Auto) 62.4 Lymph % (Auto) 14.1 L Webb % (Auto) 10.5 H Eos % (Auto) 8.9 H Baso % (Auto) 0.3 Absolute Neuts (auto) 5.4 Absolute Lymphs (auto) 1.22 Nucleated RBC % 0.2 Platelet Estimate ADEQUATE Polychromasia 1+ Hypochromasia 1+ Anisocytosis 1+ Macrocytosis 1+ Sodium 136 Potassium 2.9 L Chloride 96 L Carbon Dioxide 29.0 BUN 44 H Creatinine 7.12 H Estim Creat Clear Calc 7.31 Est GFR (MDRD) Af Amer 8 L Est GFR (MDRD) Non-Af 6 L BUN/Creatinine Ratio 6.2 L Glucose 101 Calcium 8.2 L Phosphorus 4.9 Albumin 2.9 L Blood Type O POSITIVE Antibody Screen NEGATIVE Crossmatch 07/31/21 07:30 WBC RBC Hgb Hct MCV MCH MCHC RDW Std Deviation RDW Coeff of [place]ac[place] Plt Count MPV Immature Gran % (Auto) Neut % (Auto) Lymph % (Auto) Webb % (Auto) Eos % (Auto) Baso % (Auto) Absolute Neuts (auto) Absolute Lymphs (auto) Nucleated RBC % Platelet Estimate Polychromasia Hypochromasia Anisocytosis Macrocytosis Sodium Potassium Chloride Carbon Dioxide BUN Creatinine Estim Creat Clear Calc Est GFR (MDRD) Af Amer Est GFR (MDRD) Non-Af BUN/Creatinine Ratio Glucose Calcium Phosphorus Albumin Blood Type Antibody Screen Crossmatch See Detail Rhythm Strip Rhythm Strip: Sinus Rhythm Rate: 81 Ectopy: None EKG Initial EKG: Attestation: I personally reviewed and interpreted this EKG as follows: Interpretation: Sinus Rhythm Comments: Normal sinus rhythm at a rate of 81 Normal axis Normal intervals Normal ST segments Prior EKG tracings: available for review Prior: Unchanged Discharge Plan Triage Chief Complaint: Abn Labs ED Provider: Martha Smart Dx/Rx/DC Orders Clinical Impression: Heme positive stool, Anemia, ESRD (end stage renal disease) Prescriptions: No Action Nephro-Stephen 0.8 mg tablet 1 tab PO DAILY RF: 0 melatonin 5 mg capsule 5 mg PO QHS RF: 0 cinacalcet [Sensipar] 60 mg tablet 60 mg PO DAILY RF: 0 propranolol 40 mg tablet 40 mg PO DAILY RF: 0 nifedipine 30 mg tablet extended release 60 mg PO QHS RF: 0 cholecalciferol (vitamin D3) 25 mcg (1,000 unit) capsule 100 mcg PO DAILY RF: 0 citalopram 20 MG tablet 20 mg PO BID RF: 0 sucralfate 1 gram Tablet 1 g PO TID RF: 0 oxycodone-acetaminophen 5-325 mg Tablet 1 tab PO Q6H PRN (Reason: Pain) RF: 0 ondansetron 4 mg Tablet,Disintegrating 4 mg PO Q4H PRN (Reason: Nausea) RF: 0 Primary Care Provider: Deven James Referrals: Deven James DO [Primary Care Provider] - Disposition Disposition: Acute Care Hospital Discharge Location: [facility]
[2021-07-31 07:44] LABS: Absolute Lymphocyte Count 1.22 X10^3/uL (0.83-4.51); Absolute Neutrophil Count 5.4 X10^3/uL (2.0-7.7); Basophil# 0.03 X10^3/uL; Basophil% 0.3 % (0-1); Eosinophil# 0.77 X10^3/uL; Eosinophils% 8.9 % (0-5); Hematocrit 17.2 % (37-47); Lymphocyte # 1.22 X10^3/ul (0.83-4.51); Lymphocyte % 14.1 % (19-41); Mean Corp Hgb Conc 30.2 g/dL (32-36); Mean Corpuscular Hgb 36.1 pg (27.0-32.0); Mean Corpuscular Volume 119.4 fL (81-99); Mean Platelet Vol. 8.5 fl (6.2-12.0); Monocyte# 0.91 X10^3/uL; Monocyte% 10.5 % (0-10); NRBC Flagged by Analyzer 0.2 % (0-5); Neutrophil % 62.4 % (47-70); POSITIVE COUNT YES; POSITIVE MORPHOLOGY YES; Platelet Count 330 K/mm3 (150-450); RBC Distribution Width CV 22.5 % (11.6-14.6); RBC Distribution Width SD 94.6 fl (35.1-43.9); Red Blood Count 1.44 M/mm3 (4.2-5.4); White Blood Count 8.7 K/mm3 (4.4-11.0)
[2021-07-31 07:48] LABS: Differential Indicated SCAN CRITERIA MET; Hemoglobin 5.2 g/dL (12.0-15.0)
[2021-07-31 07:58] LABS: Albumin, Serum 2.9 g/dL (3.2-5.0); BUN 44 mg/dL (7-18); BUN/Creat Ratio 6.2 RATIO (10-20); Calcium,Total 8.2 mg/dL (8.5-10.1); Chloride 96 mmol/L (98-107); Creatinine, Serum 7.12 mg/dL (0.55-1.02); EST Glomerular Filtration Rate 6 mL/min (>60); Est Glom Filt Rate - Afr Amer 8 mL/min (>60); Estimated Creatinine Clearance 7.31 ml/min; Glucose 101 mg/dL (74-106); Phosphorus 4.9 mg/dL (2.5-4.9); Potassium 2.9 mmol/L (3.5-5.1); Sodium Level 136 mmol/L (136-145)
[2021-07-31 08:12] LABS: Anisocytosis 1+; Hypochromasia 1+; Macrocytosis 1+; Platelet Estimate ADEQUATE (ADEQ); Polychromasia 1+
[2021-07-31] MEDS: oxyCODONE 5 MG Tablet PO (10:32)
--- NOTE | 2021-07-31 12:31 | ED.RN ---
ATTEMPTED TO CALL REPORT, LEFT MESSAGE FOR A RETURN CALL.
--- NOTE | 2021-07-31 12:35 | ED.RN ---
PHYSICIANS CALLED BACK ETA CHANGED FROM 30 MINUTES TO NOW 60 TO 90 MINUTES
--- NOTE | 2021-07-31 14:11 | NURSING ---
I CALLED PHYSICIANS TO SEE WHEN THEY WOULD BE ARRIVING TO GET THE PATIENT. THEY GAVE AN ETA OF 60-90 MINUTES ON THE INITIAL CALL. NOW ITS GOING TO 40-60. ITS VERY FRUSTRATING WHEN THEY DONT CALL AND TELL US THERE IS GOING TO BE A DELAY.
[2021-08-01 12:33] LABS: Pathologist Review Reviewed
== END 2021-07-31 15:06 | disposition short-term general hospital (02) ==
PROVIDERS: Emergency Provider Emergency Medicine; PCP Student in an Organized Health Care Education/Training Program; Visit Provider Emergency Medicine
DX: R19.5 Other fecal abnormalities (principal); N18.6 End stage renal disease; D64.9 Anemia, unspecified; E87.6 Hypokalemia; Z98.84 Bariatric surgery status; F32.A Depression, unspecified; F41.9 Anxiety disorder, unspecified; Z79.899 Other long term (current) drug therapy; Z87.891 Personal history of nicotine dependence
CPT/HCPCS: 36430; 80069; 82274; 85025; 86850; 86900; 86901; 86920; 86922; 93005; 99285; J7030; P9016

== ENCOUNTER 2022-04-17 02:00 | Inpatient (IN) | payer MEDICARE, BC, SELFPAY ==
[2022-04-17] VITALS (15 sets, daily range): BP systolic 113–173; BP diastolic 69–100; PULSE 82–100; RESP 16–26; TEMP 36.1–38.5; O2SAT 85–97; BMI 39.2; BMI 38.2
--- NOTE | 2022-04-17 02:31 | RAD_ITS ---
INDICATION: sob EXAMINATION/TECHNIQUE: X-RAY - XR Chest 1 View AP portable. 3:01 AM. COMPARISON: 01/19/2019 FINDINGS: LINES/DEVICES: None. LUNGS: Right perihilar and basilar infiltrates. No pneumothorax. MEDIASTINUM: Unremarkable. CARDIAC SILHOUETTE: Not enlarged. BONES AND SOFT TISSUES: No acute abnormalities. RAD/Chest 1 View (Portable) IMPRESSION: Right basilar infiltrates consistent with pneumonia.. Electronically Signed: Hali Cuello MD at 3:19 EST ,
[2022-04-17] MEDS: Ipratropium/Albuterol Sulfate 3 ML AMPUL.NEB INHALATION (02:45)
[2022-04-17 02:49] LABS: Absolute Lymphocyte Count 0.68 X10^3/uL (0.83-4.51); Absolute Neutrophil Count 4.7 X10^3/uL (2.0-7.7); Basophil# 0.01 X10^3/uL; Basophil% 0.2 % (0-1); Eosinophil# 0.01 X10^3/uL; Eosinophils% 0.2 % (0-5); Hematocrit 30.8 % (37-47); Hemoglobin 9.6 g/dL (12.0-15.0); Lymphocyte # 0.68 X10^3/ul (0.83-4.51); Lymphocyte % 11.5 % (19-41); Mean Corp Hgb Conc 31.2 g/dL (32-36); Mean Corpuscular Hgb 31.8 pg (27.0-32.0); Mean Platelet Vol. 8.8 fl (6.2-12.0); Monocyte% 8.4 % (0-10); NRBC Flagged by Analyzer 0.8 % (0-5); Neutrophil # 4.68 X10^3/uL (2.7-7.7); Neutrophil % 78.9 % (47-70); Platelet Count 199 K/mm3 (150-450); RBC Distribution Width CV 15.1 % (11.6-14.6); RBC Distribution Width SD 57.5 fl (35.1-43.9); Red Blood Count 3.02 M/mm3 (4.2-5.4); White Blood Count 5.9 K/mm3 (4.4-11.0)
[2022-04-17 03:19] LABS: Anion Gap 7 (5-15); BUN 27 mg/dL (7-18); BUN/Creat Ratio 4.9 RATIO (10-20); Calcium,Total 8.9 mg/dL (8.5-10.1); Chloride 93 mmol/L (98-107); Creatinine, Serum 5.47 mg/dL (0.55-1.02); EST Glomerular Filtration Rate 9 mL/min (>60); Est Glom Filt Rate - Afr Amer 11 mL/min (>60); Estimated Creatinine Clearance 9.41 ml/min; Glucose 115 mg/dL (74-106); Phosphorus 5.3 mg/dL (2.5-4.9); Sodium Level 135 mmol/L (136-145)
--- NOTE | 2022-04-17 03:45 | EX.ED.DYSGE1 ---
HPI History of Present Illness Chief Complaint: Shortness of Breath Narrative Narrative: Patient is a 51-year-old female with past medical history of chronic anemia secondary to end-stage renal disease on dialysis as well as obstructive sleep apnea and amyloidosis. She states on Thursday she had mild congestion and fatigue. She states since that time symptoms have been slowly increasing to where this evening she developed a fever of approximately 100.5 and had increased shortness of breath. She states she took a home COVID test which was negative and with her worsening symptoms was concern for underlying infection and therefore comes to the hospital for evaluation. Patient denies any need for supplemental oxygen [facility] Medical History (Updated 04/17/22 @ 04:[address] Sury Guillermo MD) Amyloidosis Anxiety and depression Chronic anemia ESRD (end stage renal disease) on dialysis Former tobacco use GERD (gastroesophageal reflux disease) Hypothyroidism Morbid obesity CONCHIS on CPAP Home Medications citalopram 20 mg tablet 20 mg PO BID Depression 03/26/17 [History Last Taken 01/19/19 20 mg] vitamin B complex-vitamin C-folic acid 0.8 mg tablet (Nephro-Stephen) 1 tab PO DAILY 02/17/19 [History Last Taken Unknown] cinacalcet 60 mg tablet (Sensipar) 60 mg PO DAILY 10/25/20 [History Last Taken Unknown] melatonin 5 mg capsule 5 mg PO QHS 10/25/20 [History Last Taken Unknown] cholecalciferol (vitamin D3) 25 mcg (1,000 unit) capsule 100 mcg PO DAILY 04/23/21 [History Last Taken Unknown] nifedipine 30 mg tablet,extended release 60 mg PO QHS 04/23/21 [History Last Taken Unknown] Allergy/AdvReac Type Severity Reaction Status Date / Time No Known Allergies Allergy Verified 07/31/21 07:46 Family History (Updated 04/17/22 @ 02:[address] Sury Guillermo MD) Mother Dementia Leukemia Father Heart disease Kidney disease Surgical History (Updated 04/17/22 @ 03:[address] Sury Guillermo MD) History of Eben-en-Y gastric bypass Hx of section Stem cells transplant status Social History (Updated 04/17/22 @ 02:[address] Sury Guillermo MD) household members: family Smoking Status: Former smoker alcohol intake: never substance use type: does not use ROS ROS ED Constitutional Constitutional ED: Reports chills and fever(s) ENT ENT ED: Reports rhinorrhea and sore throat Cardiovascular Cardiovascular: Denies chest pain Respiratory/Chest Respiratory/Chest: Reports cough, dyspnea and dyspnea on exertion Gastrointestinal Gastrointestinal: Denies abdominal pain, diarrhea, nausea or vomiting Genitourinary Genitourinary ED: Denies dysuria Musculoskeletal Musculoskeletal: Reports myalgias Integumentary Denies rash Neurologic Neurologic: Denies headache(s) Hematologic/Lymphatic Hematologic/Lymphatic: Denies easy bleeding or easy bruising EXAM Physical Exam Const Vital Signs: 04/17/22 02:01 04/17/22 02:06 04/17/22 02:01 Temperature 100.5 F H Temperature Source Temporal Pulse Rate 100 Respiratory Rate 22 H 23 H Respiratory Effort Short of Breath Respiratory Depth Deep Respiratory Pattern Tachypnea Blood Pressure 173/83 H Blood Pressure Mean 113 Pulse Ox 85 95 Oxygen Delivery Method Room Air Nasal Cannula Nasal Cannula Oxygen Flow Rate (L/min) 2 2 04/17/22 02:46 04/17/22 02:36 Temperature Temperature Source Pulse Rate 98 Respiratory Rate 18 Respiratory Effort Respiratory Depth Respiratory Pattern Blood Pressure Blood Pressure Mean Pulse Ox 95 Oxygen Delivery Method Nasal Cannula Oxygen Flow Rate (L/min) 2 Positive well nourished, well developed and obese General Appearance ED: well developed Nutritional Appearance: obese HEENT Reports dry mucous membranes HEENT Narrative: Cobblestoning noted in the posterior pharynx consistent with sinus drainage without airway edema or compromise Mouth ED: Yes dry mucous membranes Mouth: dry mucous membranes Eyes PERRL and EOMs intact bilaterally Neck supple and no JVD Resp Resp Narrative: Patient is tachypneic and breath sounds are diminished throughout. Faint expiratory wheeze noted in the bilateral upper lobes as well as lower lobes with rhonchi present in the right lower lobe greater than left. Cardio regular rate and regular rhythm Extremity Extremity Narrative: Patient has a fistula present in the left upper arm with palpable thrill and good bruit No asymmetric edema no pitting edema negative Homans' sign bilaterally Neuro oriented x3 and CN's II-XII intact bilaterally Sensorium / Orientation: alert Psych mental status grossly normal Skin no rashes or lesions noted MDM MDM MDM Narrative Medical decision making narrative: Patient presented to the ER slightly febrile at 100.5 with signs of mild respiratory distress with tachypnea and a room air pulse ox of 85%. Patient states she does not normally require supplemental oxygen. Based on her chronic medical condition there is concern she is once again anemic which she has been in the past as a cause of her hypoxia or has developed a secondary infection such as pneumonia or COVID. Secondary to this basic blood work was obtained along with a chest x-ray. Patient's hemoglobin is low at 9.6 but chart review reveals this is her baseline. Kidney function is grossly elevated consistent with her end-stage renal disease on dialysis but otherwise there is no clinically significant electrolyte abnormality. Patient's chest x-ray did show right lower lobe pneumonia consistent with her exam. At this time as she is requiring supplemental oxygen and does not normally need this or have it available at home it is unsafe to send her and therefore should be kept in the hospital for further care. Based on her chronic medical conditions blood cultures will be obtained and patient will be started on Rocephin and Zithromax as she denies being in the hospital in the last 90 days. The case was discussed with medicine on-call who agrees except the patient at this time and therefore will be admitted to the hospital for further care Lab Data Attestation: I reviewed the patient's lab results. Labs: Laboratory Results - last 24 hr 04/17/22 04/17/22 02:45 02:45 WBC 5.9 RBC 3.02 L Hgb 9.6 L Hct 30.8 L MCV 102.0 H MCH 31.8 MCHC 31.2 L RDW Std Deviation 57.5 H RDW Coeff of [place] 15.1 H Plt Count 199 MPV 8.8 Immature Gran % (Auto) 0.800 Neut % (Auto) 78.9 H Lymph % (Auto) 11.5 L [place] % (Auto) 8.4 Eos % (Auto) 0.2 Baso % (Auto) 0.2 Absolute Neuts (auto) 4.7 Absolute Lymphs (auto) 0.68 L Nucleated RBC % 0.8 Sodium 135 L Potassium 4.0 Chloride 93 L Carbon Dioxide 35.0 H Anion Gap 7 BUN 27 H Creatinine 5.47 H Estim Creat Clear Calc 9.41 Est GFR (MDRD) Af Amer 11 L Est GFR (MDRD) Non-Af 9 L BUN/Creatinine Ratio 4.9 L Glucose 115 H Calcium 8.9 Phosphorus 5.3 H Magnesium 2.0 Radiography Diagnostic Testing: Clinical Impression(s) from Imaging Studies Chest X-Ray 04/17/22 02:31 IMPRESSION: Right basilar infiltrates consistent with pneumonia.. Electronically Signed: Hali Cuello MD at 3:19 EST , Chest x-ray as interpreted by the emergency medicine physician reveals right basilar infiltrate without pneumothorax or pleural effusion Discharge Plan Dx/Rx/DC Orders Clinical Impression: Acute respiratory failure with hypoxia, Amyloidosis, Right lower lobe pneumonia, End stage renal disease on dialysis, Anemia, chronic disease Disposition Disposition: Acute Care Hospital [facility] Discharge Date/Time: 04/17/22 04:07
[2022-04-17] MEDS: Ceftriaxone 1 GM/50 ML BAG IV ×2 (03:52→21:18)
--- NOTE | 2022-04-17 04:01 | PCM.HP.STD ---
HPI - General General Date of Admission: 04/17/22 Date of Service: 04/17/22 Chief Complaint: Dyspnea, productive cough. HPI Narrative The patient is a 51 y/o F w/ PMHx: Hypothyroidism, ESRD on HD MWF, Morbid Obesity, CONCHIS on CPAP q HS, Chronic anemia/AOCD, Amyloidosis s/p stem cell transplant in remission, HTN, HLD, Anxiety and Depression, GERD, Former tobacco use who presents to [facility] ED on 04/17/22 with history of increased fatigue, malaise, fever, shortness of breath productive cough of yellow sputum persistent since the Thursday prior to presentation, worsening especially with any activity prompting ED evaluation. She notes onset of chills over the last 24 to 48 hours but no specific fevers although currently she reports feeling warm and reports a mild frontal throbbing headache. With deep inspiratory effort she does have onset of coughing. Her who is present denies being ill recently. She does report 1-2 loose stools daily associated with her current illness. Work-up in the ED included T 100.5, heart rate 100, BP 173/83, respiratory rate 22, initially 85% on room air with improvement to 95% on 2 L nasal cannula, CBC with WBC 5.9, hemoglobin 9.6, platelet 199 with lymphopenia, BMP with sodium 135, chloride 93, CO2 35, BUN/creatinine 27/5.47, glucose 115, magnesium 2.0, phosphorus 5.3, chest x-ray with right basilar infiltrate consistent with pneumonia, rapid SARS COVID and influenza antigens negative. [facility] Medical History (Updated 04/17/22 @ 04:[address] Sury Guillermo MD) Amyloidosis Anxiety and depression Chronic anemia ESRD (end stage renal disease) on dialysis Former tobacco use GERD (gastroesophageal reflux disease) Hypothyroidism Morbid obesity CONCHIS on CPAP Home Medications citalopram 20 mg tablet 20 mg PO BID Depression 03/26/17 [History Last Taken 01/19/19 20 mg] vitamin B complex-vitamin C-folic acid 0.8 mg tablet (Nephro-Stephen) 1 tab PO DAILY 02/17/19 [History Last Taken Unknown] cinacalcet 60 mg tablet (Sensipar) 60 mg PO DAILY 10/25/20 [History Last Taken Unknown] melatonin 5 mg capsule 5 mg PO QHS 10/25/20 [History Last Taken Unknown] cholecalciferol (vitamin D3) 25 mcg (1,000 unit) capsule 100 mcg PO DAILY 04/23/21 [History Last Taken Unknown] nifedipine 30 mg tablet,extended release 60 mg PO QHS 04/23/21 [History Last Taken Unknown] Allergy/AdvReac Type Severity Reaction Status Date / Time No Known Allergies Allergy Verified 07/31/21 07:46 Family History (Updated 04/17/22 @ 02:[address] Sury Guillermo MD) Mother Dementia Leukemia Father Heart disease Kidney disease Surgical History (Updated 04/17/22 @ 03:[address] Sury Guillermo MD) History of Eben-en-Y gastric bypass Hx of section Stem cells transplant status Social History (Updated 04/17/22 @ 02:[address] Sury Guillermo MD) household members: family Smoking Status: Former smoker alcohol intake: never substance use type: does not use ROS ROS Narrative Admission Review of Systems: CONSTITUTIONAL: No weight loss, fever, + chills, weakness or fatigue. HEENT: Eyes: No visual loss, blurred vision, double vision or yellow sclerae. Ears, Nose, Throat: No hearing loss, sneezing, congestion, runny nose or sore throat. SKIN: No rash or itching, lesions, wounds. CARDIOVASCULAR: No chest pain, chest pressure or chest discomfort, palpitations, edema, orthopnea, syncopal events. RESPIRATORY: + shortness of breath, cough with yellow productive sputum, No wheezing, hemoptysis. GASTROINTESTINAL: + anorexia, diarrhea, No nausea, vomiting, abdominal pain, melena, BRBPR. GENITOURINARY: No dysuria, frequency, urgency or retention. NEUROLOGICAL: + headache, No dizziness, syncope, paralysis, ataxia, numbness or tingling in the extremities, focal weakness, change in bowel or bladder control, seizure. MUSCULOSKELETAL: + muscle, back pain, joint pain or stiffness. HEMATOLOGIC: + anemia, bleeding or bruising. LYMPHATICS: No enlarged nodes. No history of splenectomy. PSYCHIATRIC: + history of depression or anxiety. ENDOCRINOLOGIC: + reports of cold or heat intolerance. No polyuria or polydipsia. ALLERGIES: No history of asthma, hives, eczema or rhinitis. Vital Signs Vital Signs Vital Signs: 04/17/22 02:01 04/17/22 02:06 02/23/23 02:01 Temperature 100.5 F H Temperature Source Temporal Pulse Rate 100 Respiratory Rate 22 H 23 H Respiratory Effort Short of Breath Respiratory Depth Deep Respiratory Pattern Tachypnea Blood Pressure 173/83 H Blood Pressure Mean 113 Pulse Ox 85 95 Oxygen Delivery Method Room Air Nasal Cannula Nasal Cannula Oxygen Flow Rate (L/min) 2 2 04/17/22 02:46 04/17/22 02:36 Temperature Temperature Source Pulse Rate 98 Respiratory Rate 18 Respiratory Effort Respiratory Depth Respiratory Pattern Blood Pressure Blood Pressure Mean Pulse Ox 95 Oxygen Delivery Method Nasal Cannula Oxygen Flow Rate (L/min) 2 Weight Weight: 214 lb 11.684 oz Body Mass Index (BMI) 39.2 Physical Exam Narrative Physical Examination: General: Awake, alert, oriented x 3 and cooperative, seated upright in the ED bed, fatigued and ill-appearing. Skin: Normal color, normal turgor, no icterus, no cyanosis. HEENT: AT/NC, EOMI, PERRLA, dry MM, no carotid bruits or JVD noted; however, thickened neck makes evaluation difficult. Lungs: Diminished, mildly coarse right base, coughing fits with deep inspiratory effort, mildly increased respiratory rate but no distress, no rhonchi or wheezing. Heart: Mildly tachycardic with regular rhythm; no gallop, rub audible. Abdomen: Soft, obese, NTTP, no obvious evidence of distention, mildly hyperactive BS, no obvious evidence of HSM however habitus makes evaluation difficult. Extremities: No cyanosis, clubbing, or edema. Neurological: Patient awake, alert, oriented as noted, cognitive function intact; pupils equally reactive to light and accommodation, cranial nerves II-XII grossly normal, moving all 4 extremities, no focal deficits, strength moderately to severely global decrease secondary to acute presentation complaints. Psychiatric: Affect appears fatigued, ill-appearing, no acute evidence of depressive or anxiety feelings. Results Lab / Micro Data Result Diagrams: 04/17/22 02:45 04/17/22 02:45 Labs: Laboratory Results - last 24 hr 04/17/22 02:45: WBC 5.9, RBC 3.02 L, Hgb 9.6 L, Hct 30.8 L, MCV 102.0 H, MCH 31.8, MCHC 31.2 L, RDW Std Deviation 57.5 H, RDW Coeff of [place]ac[place] 15.1 H, Plt Count 199, MPV 8.8, Immature Gran % (Auto) 0.800, Neut % (Auto) 78.9 H, Lymph % (Auto) 11.5 L, [place] % (Auto) 8.4, Eos % (Auto) 0.2, Baso % (Auto) 0.2, Absolute Neuts (auto) 4.7, Absolute Lymphs (auto) 0.68 L, Nucleated RBC % 0.8 04/17/22 02:45: Sodium 135 L, Potassium 4.0, Chloride 93 L, Carbon Dioxide 35.0 H, Anion Gap 7, BUN 27 H, Creatinine 5.47 H, Estim Creat Clear Calc 9.41, Est GFR (MDRD) Af Amer 11 L, Est GFR (MDRD) Non-Af 9 L, BUN/Creatinine Ratio 4.9 L, Glucose 115 H, Calcium 8.9, Phosphorus 5.3 H, Magnesium 2.0 Micro: Microbiology 04/17/22 02:48 Nasal Secretion SARS-CoV-2 & FLU Antigen (Rapid) - Final Radiology Impression Chest X-Ray 04/17/22 02:31 IMPRESSION: Right basilar infiltrates consistent with pneumonia.. Electronically Signed: Hali Cuello MD at 3:19 EST , Assessment & Plan Assessment/Plan (1) Right lower lobe pneumonia: (2) Hypoxia: PLAN: Plan The patient is a 51 y/o F w/ PMHx: Hypothyroidism, ESRD on HD MWF, Morbid Obesity, CONCHIS on CPAP q HS, Chronic anemia/AOCD, Amyloidosis s/p stem cell transplant in remission, HTN, HLD, Anxiety and Depression, GERD, Former tobacco use who presents to the [facility] ED on 04/17/22 with history of increased fatigue, malaise, fever, shortness of breath productive cough of yellow sputum persistent since the Thursday prior to presentation, worsening especially with any activity prompting ED evaluation. #1. Acute Hypoxia secondary to Acute right basilar pneumonia: Will admit to [facility], maintain on oxygen with wean as tolerated to room air, PRN albuterol, maintained on IV Rocephin and Azithromycin, HOB, IS parameters w/ pending sputum cultures, respiratory viral panel and urine antigens. Bld cx x 2 obtained in the ED. #2. ESRD: Patient with ongoing HD Thursday, nephrology Dr. Lawrence group consulted, pending. #3. Chronic anemia/AOCD: Admission hemoglobin 9.6, baseline hemoglobin appears primarily 7-8 since 2019 although did have a drop 07/31/2021 5.2 presumed with GI bleed as guaiac positive stools were noted in records, will trend CBC. #4. Amyloidosis: Patient s/p stem cell transplant in remission, encourage continued outpatient follow-up. #5. Anxiety and depression: We will continue patient home citalopram regimen. #6. Hx of Hypertension: Previously on nifedipine and propranolol, off these medications since her Eben-en-Y however BP is elevated above goal upon presentation therefore may necessitate restart but will continue to closely monitor and add regimen if appropriate as she meds and her blood pressure has normalized following the surgery, PRN hydralazine. #7. Hyperlipidemia: Per current list on a regimen, defer to outpatient. #8. GERD: We will continue patient home PPI. #9. Former tobacco usage: Encourage continued tobacco cessation. #10. CONCHIS: CPAP 13 cm water with a residual AHI of 1.8 nightly. #11. Hypothyroidism: We will continue patient on levothyroxine regimen. #12. DVT prophylaxis: SCDs, heparin. CODE status: Patient JOSE L is her and her mother and living will is currently in place. Full Code status. Admission Evaluation Time spent evaluating chart, patient history, patient evaluation, care planning and discussion with specialists: 76 minutes. Charges/Coding Visit Charges Inpatient E&M: 57784 Init Hosp L3
[2022-04-17] MEDS: 0.9% Normal Saline 1,000 ML 100 ML IV (04:36)
[2022-04-17] MEDS: guaiFENesin 10 ML UDC (200MG/10ML) 20 ML PO ×3 (04:49→20:06)
[2022-04-17] MEDS: Acetaminophen 325 MG Tablet 650 MG PO ×2 (04:50→20:06)
[2022-04-17] MEDS: Levothyroxine 50 MCG Tablet PO (04:51)
[2022-04-17] MEDS: Ondansetron 4 MG/2 ML Vial IV (04:54)
[2022-04-17] MEDS: 0.9% Saline Lock 10 ML Syringe IV ×2 (04:54→12:23)
[2022-04-17] MEDS: CLARIFY ORDER 1 EACH NOTE (05:36)
[2022-04-17 06:40] LABS: Absolute Lymphocyte Count 0.64 X10^3/uL (0.83-4.51); Basophil# 0.01 X10^3/uL; Basophil% 0.2 % (0-1); Eosinophil# 0.01 X10^3/uL; Eosinophils% 0.2 % (0-5); Hematocrit 30.6 % (37-47); Hemoglobin 9.6 g/dL (12.0-15.0); Lymphocyte # 0.64 X10^3/ul (0.83-4.51); Lymphocyte % 12.5 % (19-41); Mean Corp Hgb Conc 31.4 g/dL (32-36); Mean Corpuscular Hgb 31.9 pg (27.0-32.0); Mean Corpuscular Volume 101.7 fL (81-99); Mean Platelet Vol. 9.3 fl (6.2-12.0); Monocyte% 7.8 % (0-10); NRBC Flagged by Analyzer 0 % (0-5); Neutrophil # 4.04 X10^3/uL (2.7-7.7); Neutrophil % 78.5 % (47-70); Platelet Count 204 K/mm3 (150-450); RBC Distribution Width CV 15.2 % (11.6-14.6); RBC Distribution Width SD 57.1 fl (35.1-43.9); Red Blood Count 3.01 M/mm3 (4.2-5.4); White Blood Count 5.1 K/mm3 (4.4-11.0)
[2022-04-17 07:06] LABS: Lactic Acid 1.8 mmol/L (0.4-1.9)
[2022-04-17 07:15] LABS: ALB/GLOB Ratio 0.7 RATIO (0.9-2.4); AST(SGOT) 16 U/L (15-37); Alanine Aminotransfer ALT/SGPT 15 U/L (13-56); Albumin, Serum 2.8 g/dL (3.2-5.0); Alkaline Phosphatase 147 U/L (45-117); Anion Gap 9 (5-15); BUN 28 mg/dL (7-18); BUN/Creat Ratio 4.9 RATIO (10-20); Calcium,Total 9.1 mg/dL (8.5-10.1); Chloride 92 mmol/L (98-107); Creatinine, Serum 5.66 mg/dL (0.55-1.02); EST Glomerular Filtration Rate 8 mL/min (>60); Est Glom Filt Rate - Afr Amer 10 mL/min (>60); Estimated Creatinine Clearance 9.09 ml/min; Globulin 4.2 g/dL (2.2-4.2); Glucose 127 mg/dL (74-106); Potassium 3.7 mmol/L (3.5-5.1); Sodium Level 133 mmol/L (136-145)
--- NOTE | 2022-04-17 07:47 | PN.HOSP_ITS ---
Reason for Visit Reason for Visit: Diagnoses Pneumonia, unspecified organism (04/17/22) Hypoxemia (04/17/22) Subjective Subjective Still with shortness of breath. Objective Data Objective Data Vital Signs: Vital Signs Temp Pulse Resp BP Pulse Ox O2 Del Method O2 Flow Rate 37.6 C H 83 18 113/69 94 Nasal Cannula 2 04/17/22 06:00 04/17/22 06:00 04/17/22 06:00 04/17/22 06:00 04/17/22 06:00 04/17/22 06:00 04/17/22 06:00 Oxygen Flow Rate (L/min) 2 Oxygen Delivery Method Nasal Cannula Weight: 94.971 kg Body Mass Index (BMI) 38.2 Intake & Output: Intake and Output for Last 24 Hours 04/15/22 04/16/22 04/17/22 23:59 23:59 23:59 Intake Total 308.33 / 308.33 Balance 308.33 / 308.33 Lab / Micro Data Result Diagrams: 04/17/22 05:30 04/17/22 05:30 Labs: Laboratory Results - last 24 hr 04/17/22 02:45: WBC 5.9, RBC 3.02 L, Hgb 9.6 L, Hct 30.8 L, MCV 102.0 H, MCH 31.8, MCHC 31.2 L, RDW Std Deviation 57.5 H, RDW Coeff of Frac[place] 15.1 H, Plt Count 199, MPV 8.8, Immature Gran % (Auto) 0.800, Neut % (Auto) 78.9 H, Lymph % (Auto) 11.5 L, [place] % (Auto) 8.4, Eos % (Auto) 0.2, Baso % (Auto) 0.2, Absolute Neuts (auto) 4.7, Absolute Lymphs (auto) 0.68 L, Nucleated RBC % 0.8 04/17/22 02:45: Sodium 135 L, Potassium 4.0, Chloride 93 L, Carbon Dioxide 35.0 H, Anion Gap 7, BUN 27 H, Creatinine 5.47 H, Estim Creat Clear Calc 9.41, Est GFR (MDRD) Af Amer 11 L, Est GFR (MDRD) Non-Af 9 L, BUN/Creatinine Ratio 4.9 L, Glucose 115 H, Calcium 8.9, Phosphorus 5.3 H, Magnesium 2.0 04/17/22 05:30: WBC 5.1, RBC 3.01 L, Hgb 9.6 L, Hct 30.6 L, MCV 101.7 H, MCH 31.9, MCHC 31.4 L, RDW Std Deviation 57.1 H, RDW Coeff of [place] 15.2 H, Plt Count 204, MPV 9.3, Immature Gran % (Auto) 0.800, Neut % (Auto) 78.5 H, Lymph % (Auto) 12.5 L, [place] % (Auto) 7.8, Eos % (Auto) 0.2, Baso % (Auto) 0.2, Absolute Neuts (auto) 4.0, Absolute Lymphs (auto) 0.64 L, Nucleated RBC % 0 04/17/22 05:30: Sodium 133 L, Potassium 3.7, Chloride 92 L, Carbon Dioxide 32.0, Anion Gap 9, BUN 28 H, Creatinine 5.66 H, Estim Creat Clear Calc 9.09, Est GFR (MDRD) Af Amer 10 L, Est GFR (MDRD) Non-Af 8 L, BUN/Creatinine Ratio 4.9 L, Glucose 127 H, Calcium 9.1, Total Bilirubin 0.50, AST 16, ALT 15, Alkaline Phosphatase 147 H, Total Protein 7.0, Albumin 2.8 L, Globulin 4.2, Albumin/Globulin Ratio 0.7 L 04/17/22 06:30: Lactic Acid 1.8 Micro: Microbiology 04/17/22 02:48 Nasal Secretion SARS-CoV-2 & FLU Antigen (Rapid) - Final Radiography Diagnostic Testing: Radiology Impression Chest X-Ray 04/17/22 02:31 IMPRESSION: Right basilar infiltrates consistent with pneumonia.. Electronically Signed: Hali Cuello MD at 3:19 EST , Physical Exam Const alert and no apparent distress Resp Resp Narrative: coarse BS RLL. Cardio regular rate, regular rhythm, S1 normal heart sound and S2 normal heart sound GI normal to inspection, nondistended, normoactive bowel sounds, soft to palpation, non-tender and non-distended Psych affect normal Assessment & Plan Assessment/Plan (1) Right lower lobe pneumonia: PLAN: Suspected pneumococcal On azithromycin and ceftriaxone Pulmonary toilet (2) Hypoxia: PLAN: Multifactorial Secondary to pneumonia, Obesity hypoventilation syndrome, CONCHIS Wean oxygen as tolerated (3) ESRD (end stage renal disease): PLAN: Patient with ongoing HD Thursday, nephrology Dr. Lawrence group consulted, pending. PLAN: Plan Chronic conditions: * Chronic anemia/AOCD: Stable * Amyloidosis: Patient s/p stem cell transplant in remission, encourage continued outpatient follow-up. * Anxiety and depression: We will continue patient home citalopram regimen. * Hypertension: Previously on nifedipine and propranolol, off these medications since her Eben-en-Y however BP is elevated above goal upon presentation therefore may necessitate restart but will continue to closely monitor and add regimen if appropriate as she meds and her blood pressure has normalized following the surgery, PRN hydralazine. * Hyperlipidemia: Per current list on a regimen, defer to outpatient. * GERD: We will continue patient home PPI. * Former tobacco usage: Encourage continued tobacco cessation. * CONCHIS: CPAP 13 cm water with a residual AHI of 1.8 nightly. * Hypothyroidism: We will continue patient on levothyroxine regimen. DVT prophylaxis: SCDs, heparin. Charges/Coding Visit Charges Inpatient E&M: 04815 Subs Hosp L2
--- NOTE | 2022-04-17 09:24 | CON.PCM.RE_ITS ---
Assessment & Plan Assessment/Plan (1) ESRD (end stage renal disease): PLAN: HD tomorrow, keep on her regular schedule HPI Consult Data Date of Consult: 04/17/22 HPI Narrative Reason for Consultation: ESRD HPI Narrative: Pt is 51 years old with maltitude of medical issues that has come to ER with c/o SOB, cough, fever and was diagnosed with pneumonia. She has ESRD due to amyloidosis and has been on HD foerr many years on MWF schedule via upper arm AVF. She also has morbid obesity, sleep apnea and other aliments. She is due for dialysis tomorros. No signs of fluid overload, hyperkalemia or uremia PFSH Medical History Amyloidosis Anxiety and depression Chronic anemia CPAP (continuous positive airway pressure) dependence Depression Dialysis patient ESRD (end stage renal disease) on dialysis Former smoker Former tobacco use GERD (gastroesophageal reflux disease) Hypothyroidism Kidney disease Migraines Morbid obesity CONCHIS on CPAP Home Medications citalopram 20 mg tablet 20 mg PO DAILY Depression 03/26/17 [History Last Taken 01/19/19 20 mg] vitamin B complex-vitamin C-folic acid 0.8 mg tablet (Nephro-Stephen) 1 tab PO DAILY 02/17/19 [History Last Taken Unknown] cinacalcet 60 mg tablet (Sensipar) 60 mg PO DAILY 10/25/20 [History Last Taken Unknown] melatonin 5 mg capsule 5 mg PO QHS 10/25/20 [History Last Taken Unknown] cholecalciferol (vitamin D3) 25 mcg (1,000 unit) capsule 100 mcg PO DAILY 04/23/21 [History Last Taken Unknown] Allergy/AdvReac Type Severity Reaction Status Date / Time No Known Allergies Allergy Verified 07/31/21 07:46 Family History (Updated 04/17/22 @ 02:[address] Sury Guillermo MD) Mother Dementia Leukemia Father Heart disease Kidney disease Surgical History (Updated 04/17/22 @ 04:32 by Diandra Badillo) History of cholecystectomy History of Eben-en-Y gastric bypass Hx of section Stem cells transplant status Social History (Updated 04/17/22 @ 02:[address] Sury Guillermo MD) household members: family Smoking Status: Former smoker alcohol intake: never substance use type: does not use Medical Records Data Attestation: I reviewed the patient's medical records Lab / Micro Data Attestation: I reviewed the patient's lab results. Result Diagrams: 04/17/22 05:30 04/17/22 05:30 Labs: Laboratory Results - last 24 hr 04/17/22 02:45: WBC 5.9, RBC 3.02 L, Hgb 9.6 L, Hct 30.8 L, MCV 102.0 H, MCH 31.8, MCHC 31.2 L, RDW Std Deviation 57.5 H, RDW Coeff of [place] 15.1 H, Plt Count 199, MPV 8.8, Immature Gran % (Auto) 0.800, Neut % (Auto) 78.9 H, Lymph % (Auto) 11.5 L, [place] % (Auto) 8.4, Eos % (Auto) 0.2, Baso % (Auto) 0.2, Absolute Neuts (auto) 4.7, Absolute Lymphs (auto) 0.68 L, Nucleated RBC % 0.8 04/17/22 02:45: Sodium 135 L, Potassium 4.0, Chloride 93 L, Carbon Dioxide 35.0 H, Anion Gap 7, BUN 27 H, Creatinine 5.47 H, Estim Creat Clear Calc 9.41, Est GFR (MDRD) Af Amer 11 L, Est GFR (MDRD) Non-Af 9 L, BUN/Creatinine Ratio 4.9 L, Glucose 115 H, Calcium 8.9, Phosphorus 5.3 H, Magnesium 2.0 04/17/22 05:30: WBC 5.1, RBC 3.01 L, Hgb 9.6 L, Hct 30.6 L, MCV 101.7 H, MCH 31 .9, MCHC 31.4 L, RDW Std Deviation 57.1 H, RDW Coeff of [place] 15.2 H, Plt Count 204, MPV 9.3, Immature Gran % (Auto) 0.800, Neut % (Auto) 78.5 H, Lymph % (Auto) 12.5 L, [place] % (Auto) 7.8, Eos % (Auto) 0.2, Baso % (Auto) 0.2, Absolute Neuts (auto) 4.0, Absolute Lymphs (auto) 0.64 L, Nucleated RBC % 0 04/17/22 05:30: Sodium 133 L, Potassium 3.7, Chloride 92 L, Carbon Dioxide 32.0, Anion Gap 9, BUN 28 H, Creatinine 5.66 H, Estim Creat Clear Calc 9.09, Est GFR (MDRD) Af Amer 10 L, Est GFR (MDRD) Non-Af 8 L, BUN/Creatinine Ratio 4.9 L, Glucose 127 H, Calcium 9.1, Total Bilirubin 0.50, AST 16, ALT 15, Alkaline Phosphatase 147 H, Total Protein 7.0, Albumin 2.8 L, Globulin 4.2, Albumin/Globulin Ratio 0.7 L 04/17/22 06:30: Lactic Acid 1.8 Micro: Microbiology 04/17/22 04:30 Mucosa - Nasopharyngeal Respiratory Panel (PCR) - Final Human [place] 04/17/22 02:48 Nasal Secretion SARS-CoV-2 & FLU Antigen (Rapid) - Final Radiology Impression Chest X-Ray 04/17/22 02:31 IMPRESSION: Right basilar infiltrates consistent with pneumonia.. Electronically Signed: Hali Cuello MD at 3:19 EST ,
[2022-04-17] MEDS: Citalopram 20 MG Tablet PO (09:27)
[2022-04-17] MEDS: Cinacalcet HCl 30 MG Tablet 60 MG PO (09:27)
[2022-04-17] MEDS: Pantoprazole Sodium 20 MG Tablet PO (09:28)
[2022-04-17] MEDS: Heparin Injection (Vial) 5,000 UNIT/ML VIAL 5000 UNIT SC ×2 (09:28→21:19)
--- NOTE | 2022-04-17 10:55 | CASEMGMT ---
JOAQUIM STEVENS Assessment: Face to Face with pt for initial transition planning/care coordination assessment. RN RODNEY introduced self and role at [facility], pt voices understanding and consents to assessment. Pt is A/O x4 and answers all questions appropriately at this time. Pt lying in bed in no distress with oxygen on. Care providers, pharmacy, and demographics verified/updated. Admitting Dx: hypoxia, pna PCP:Jacob Specialists:Rola, onc; Héctor, pulm; bariatric OR in [place]; Melinda, nephro Preferred Pharmacy: [facility] Retail Insurance: [employer] Prescription Benefit: yes LNOK: Patric Brunson, ; Leslie Torres, mother Living Arrangements: Pt lives with and dtr in a single story home with 2 steps to enter with a rail. Pt reports she is I in ADL's and denies concerns at home. Transportation: Pt drives self and denies concerns with transportation. DME/HHC/SNF: Pt has a CPAP at home, no other DME. Pt denies hx of HHC or SNF stays. Pt states no concerns with going home at time of dc. Pt goes to [facility] on M[facility] with a chair time of 7am. Pt states no further concerns/needs. CM to follow. Advised pt to ask CM if any further question/concerns/needs arise, voices understanding. Pt Goal: Home Plan: Home
[2022-04-17] MEDS: proCHLORPERazine 10 MG/2 ML Vial 5 MG IV (12:22)
[2022-04-17 13:50] LABS: M R Staph aureus DNA By PCR Negative (Negative); Probe Check PASS; Specimen Processing Control PASS
[2022-04-17] MEDS: Albuterol 2.5 MG/3 ML VIAL.NEB. INHALATION (14:15)
--- NOTE | 2022-04-17 14:45 | CHAPLAIN ---
Type of Pastoral Visit _x__ Initial Visit ___ Follow-up Visit ___ On-call Visit ___ General Patient Visit ___ Spiritual Assessment ___ Family Conference ___ Bereavement ___ Rapid Response ___ Code Blue ___ Other (describe below) Pastoral Care Referral From _x__ Patient ___ Family ___ Nurse ___ Physician ___ Mixer Pigment ___ Laboratory Aide ___ Other (describe below) Sacrament/Intervention _x__ Active listening ___ Anointing ___ Gnosticist ___ Bereavement ___ Communion ___ Lyndsay exploration ___ ___ Life review _x__ Prayer ___ Reconciliation ___ Sacrament of Sick _x__ Supportive presence ___ Wedding ___ Other (describe below) Pastoral Comments patient is alert and having some sob; pt states that she would like prayer support; offered words of comfort and encouragement along with the prayer; told pt she did not need to talk more for her comfort; pt agreed to stay quiet and was expressive of thanks for time and prayer given
[2022-04-17] MEDS: predniSONE 20 MG Tablet 40 MG PO (15:40)
[2022-04-17] MEDS: MELATONIN 10 MG TABLET 5 MG PO (21:19)
[2022-04-18] VITALS (10 sets, daily range): BP systolic 136–152; BP diastolic 78–92; PULSE 76–97; RESP 18–36; TEMP 37.2–37.4; O2SAT 93–96; BMI 39.8
[2022-04-18] MEDS: guaiFENesin 10 ML UDC (200MG/10ML) 20 ML PO ×3 (04:04→21:30)
[2022-04-18] MEDS: Levothyroxine 50 MCG Tablet PO (04:05)
[2022-04-18] MEDS: Albuterol 2.5 MG/3 ML VIAL.NEB. INHALATION ×4 (04:18→21:09)
[2022-04-18 06:52] LABS: Absolute Lymphocyte Count 0.63 X10^3/uL (0.83-4.51); Absolute Neutrophil Count 4.7 X10^3/uL (2.0-7.7); Basophil# 0.01 X10^3/uL; Basophil% 0.2 % (0-1); Hematocrit 34.4 % (37-47); Hemoglobin 10.7 g/dL (12.0-15.0); Lymphocyte # 0.63 X10^3/ul (0.83-4.51); Mean Corp Hgb Conc 31.1 g/dL (32-36); Mean Corpuscular Hgb 31.4 pg (27.0-32.0); Mean Corpuscular Volume 100.9 fL (81-99); Mean Platelet Vol. 9.1 fl (6.2-12.0); Monocyte# 0.31 X10^3/uL; Monocyte% 5.4 % (0-10); NRBC Flagged by Analyzer 0 % (0-5); Neutrophil # 4.74 X10^3/uL (2.7-7.7); Neutrophil % 82.5 % (47-70); Platelet Count 222 K/mm3 (150-450); RBC Distribution Width CV 14.7 % (11.6-14.6); RBC Distribution Width SD 54.6 fl (35.1-43.9); Red Blood Count 3.41 M/mm3 (4.2-5.4); White Blood Count 5.7 K/mm3 (4.4-11.0)
[2022-04-18 07:17] LABS: Anion Gap 12 (5-15); BUN 44 mg/dL (7-18); BUN/Creat Ratio 5.6 RATIO (10-20); Calcium,Total 8.9 mg/dL (8.5-10.1); Chloride 93 mmol/L (98-107); Creatinine, Serum 7.82 mg/dL (0.55-1.02); EST Glomerular Filtration Rate 6 mL/min (>60); Est Glom Filt Rate - Afr Amer 7 mL/min (>60); Estimated Creatinine Clearance 6.58 ml/min; Glucose 104 mg/dL (74-106); Potassium 4.2 mmol/L (3.5-5.1); Sodium Level 134 mmol/L (136-145)
--- NOTE | 2022-04-18 07:37 | PN.HOSP_ITS ---
Reason for Visit Reason for Visit: Diagnoses Pneumonia, unspecified organism (04/17/22) End stage renal disease (04/17/22) Hypoxemia (04/17/22) Subjective Subjective Still short of breath. Objective Data Objective Data Vital Signs: Vital Signs Temp Pulse Resp BP Pulse Ox O2 Del Method O2 Flow Rate 37.4 C H 77 25 H 151/92 H 93 Nasal Cannula 2 04/18/22 04:01 04/18/22 04:18 04/18/22 04:18 04/18/22 04:01 04/18/22 04:01 04/18/22 04:01 04/18/22 04:01 Oxygen Flow Rate (L/min) 2 Oxygen Delivery Method Nasal Cannula Weight: 98.1 kg Body Mass Index (BMI) 39.8 Intake & Output: Intake and Output for Last 24 Hours 04/16/22 04/17/22 04/18/22 23:59 23:59 23:59 Intake Total 1323.33 / 1323.33 255 / 255 Balance 1323.33 / 1323.33 255 / 255 Lab / Micro Data Result Diagrams: 04/18/22 06:35 04/18/22 06:35 Labs: Laboratory Results - last 24 hr 04/17/22 06:20: MRSA (PCR) Negative 04/18/22 06:35: WBC 5.7, RBC 3.41 L, Hgb 10.7 L, Hct 34.4 L, MCV 100.9 H, MCH 31.4, MCHC 31.1 L, RDW Std Deviation 54.6 H, RDW Coeff of [place] 14.7 H, Plt Count 222, MPV 9.1, Immature Gran % (Auto) 0.900, Neut % (Auto) 82.5 H, Lymph % (Auto) 11.0 L, [place] % (Auto) 5.4, Eos % (Auto) 0.0, Baso % (Auto) 0.2, Absolute Neuts (auto) 4.7, Absolute Lymphs (auto) 0.63 L, Nucleated RBC % 0 04/18/22 06:35: Sodium 134 L, Potassium 4.2, Chloride 93 L, Carbon Dioxide 29.0, Anion Gap 12, BUN 44 H, Creatinine 7.82 H*, Estim Creat Clear Calc 6.58, Est GFR (MDRD) Af Amer 7 L, Est GFR (MDRD) Non-Af 6 L, BUN/Creatinine Ratio 5.6 L, Glucose 104, Calcium 8.9 Micro: Microbiology 04/17/22 04:40 Sputum, Expectorated/Coughed Gram Stain - Final 04/17/22 04:30 Mucosa - Nasopharyngeal Respiratory Panel (PCR) - Final Human [place] 04/17/22 02:48 Nasal Secretion SARS-CoV-2 & FLU Antigen (Rapid) - Final Physical Exam Const alert and no apparent distress HEENT head/scalp atraumatic and moist oral mucous membranes Resp normal respiratory effort, no retractions, no use of accessory muscles and clear to auscultation bilaterally Cardio regular rate, regular rhythm, S1 normal heart sound and S2 normal heart sound GI normal to inspection, nondistended, normoactive bowel sounds, soft to palpation, non-tender and non-distended Neuro oriented x3, CN's II-XII intact bilaterally, moves all extremities and no focal motor deficits Assessment & Plan Assessment/Plan (1) Right lower lobe pneumonia: PLAN: Suspected pneumococcal On azithromycin and ceftriaxone Pulmonary toilet Sputum culture pending, blood cultures COVID and influenza negative (2) Hypoxia: PLAN: Multifactorial Secondary to human metapneumovirus and bronchitis, possible pneumonia, Obesity hypoventilation syndrome, CONCHIS. Patient also has what sounds like reactive airway disease. Wean oxygen as tolerated Started on prednisone on (3) ESRD (end stage renal disease): PLAN: Patient with ongoing HD Thursday, nephrology Dr. Lawrence group consulted, pending. PLAN: Plan Chronic conditions: * Chronic anemia/AOCD: Stable * Amyloidosis: Patient s/p stem cell transplant in remission, encourage co ntinued outpatient follow-up. * Anxiety and depression: We will continue patient home citalopram regimen. * Hypertension: Previously on nifedipine and propranolol, off these medications since her Eben-en-Y however BP is elevated above goal upon presentation therefore may necessitate restart but will continue to closely monitor and add regimen if appropriate as she meds and her blood pressure has normalized following the surgery, PRN hydralazine. * Hyperlipidemia: Per current list on a regimen, defer to outpatient. * GERD: We will continue patient home PPI. * Former tobacco usage: Encourage continued tobacco cessation. * CONCHIS: CPAP 13 cm water with a residual AHI of 1.8 nightly. * Hypothyroidism: We will continue patient on levothyroxine regimen. DVT prophylaxis: SCDs, heparin. Disposition: To be determined. Hopefully just 1 more day here in the hospital. Charges/Coding Visit Charges Inpatient E&M: 31822 Subs Hosp L2
[2022-04-18] MEDS: Cinacalcet HCl 30 MG Tablet 60 MG PO (09:27)
[2022-04-18] MEDS: Citalopram 20 MG Tablet PO (09:27)
[2022-04-18] MEDS: predniSONE 20 MG Tablet 40 MG PO (09:27)
[2022-04-18] MEDS: Heparin Injection (Vial) 5,000 UNIT/ML VIAL 5000 UNIT SC ×2 (09:27→21:31)
[2022-04-18] MEDS: Pantoprazole Sodium 20 MG Tablet PO (09:27)
[2022-04-18] MEDS: Acetaminophen 325 MG Tablet 650 MG PO ×2 (09:33→19:42)
--- NOTE | 2022-04-18 11:45 | CASEMGMT ---
JOAQUIM CM in to pt room, pt lying in bed receiving dialysis. Discussed should pt dc home oxygen process should pt need oxygen upon dc. Provided pt with a local in network list of DME companies, pt chose [employer]. Pt denies further homegoing needs. Green sheet on chart for oxygen.
--- NOTE | 2022-04-18 13:04 | PCM.PN.REN ---
Subjective Subjective Came over to supervise during dialysis session. Feels sick, continues to cough, now on contact precautions. She is on nasal cannula oxygen pulse ox 92%. She is 3 kg above EDW, tolerates ultrafiltration fine. Blood pressure is stable, using AV fistula with a blood flow 400 cc/min. Objective Data Objective Data Vital Signs: Vital Signs Temp Pulse Resp BP Pulse Ox O2 Del Method O2 Flow Rate 99 F 86 18 136/78 H 96 Nasal Cannula 2 04/18/22 09:21 04/18/22 09:21 04/18/22 09:21 04/18/22 09:21 04/18/22 09:21 04/18/22 09:41 04/18/22 09:41 Oxygen Flow Rate (L/min) 2 Oxygen Delivery Method Nasal Cannula Weight: 98.1 kg Body Mass Index (BMI) 39.8 Intake & Output: Intake and Output for Last 24 Hours 04/16/22 04/17/22 04/18/22 23:59 23:59 23:59 Intake Total 1323.33 / 1323.33 255 / 255 Balance 1323.33 / 1323.33 255 / 255 Lab / Micro Data Attestation: I reviewed the patient's lab results. Result Diagrams: 04/18/22 06:35 04/18/22 06:35 Labs: Laboratory Results - last 24 hr 04/17/22 06:20: MRSA (PCR) Negative 04/18/22 06:35: WBC 5.7, RBC 3.41 L, Hgb 10.7 L, Hct 34.4 L, MCV 100.9 H, MCH 31.4, MCHC 31.1 L, RDW Std Deviation 54.6 H, RDW Coeff of [place] 14.7 H, Plt Count 222, MPV 9.1, Immature Gran % (Auto) 0.900, Neut % (Auto) 82.5 H, Lymph % (Auto) 11.0 L, [place] % (Auto) 5.4, Eos % (Auto) 0.0, Baso % (Auto) 0.2, Absolute Neuts (auto) 4.7, Absolute Lymphs (auto) 0.63 L, Nucleated RBC % 0 04/18/22 06:35: Sodium 134 L, Potassium 4.2, Chloride 93 L, Carbon Dioxide 29.0, Anion Gap 12, BUN 44 H, Creatinine 7.82 H*, Estim Creat Clear Calc 6.58, Est GFR (MDRD) Af Amer 7 L, Est GFR (MDRD) Non-Af 6 L, BUN/Creatinine Ratio 5.6 L, Glucose 104, Calcium 8.9 Micro: Microbiology 04/17/22 04:40 Sputum, Expectorated/Coughed Gram Stain - Final 04/17/22 04:40 Sputum, Expectorated/Coughed Respiratory Culture - Preliminary 04/17/22 04:30 Mucosa - Nasopharyngeal Respiratory Panel (PCR) - Final Human [place] 04/17/22 02:48 Nasal Secretion SARS-CoV-2 & FLU Antigen (Rapid) - Final Physical Exam Narrative Relatively young female not in acute distress, but coughing Head is atraumatic normocephalic Oral mucosa is moist Lungs with crackles right base mcc up Left lung is clear No edema AV fistula with a good bruit and thrill Const alert and oriented x3 General Appearance: well developed HEENT normocephalic Head and Scalp: atraumatic Assessment & Plan Assessment/Plan (1) ESRD (end stage renal disease): PLAN: She appears to be stable on dialysis, no issues with access, tolerates fluid removal with stable blood pressures. Plan next dialysis session for Thursday
--- NOTE | 2022-04-18 13:51 | CASEMGMT ---
Social Work Per admitting nurse, pt states she does have a living will and health care POA naming Leslie Miller. Pt is aware documents are not on file at [facility]. SALMA Benito
--- NOTE | 2022-04-18 16:03 | DIALYSIS ---
hemodialysis x 3.75hrs completed, -3000ml UF. Stable t/o. Hemostasis x 2 sites obtained, Gauze/tape applied. Report to Rachael MARCH. See HD flowsheet for full tx details.
[2022-04-18] MEDS: MELATONIN 10 MG TABLET 5 MG PO (21:30)
[2022-04-18] MEDS: Ceftriaxone 1 GM/50 ML BAG IV (21:30)
[2022-04-18] MEDS: 0.9% Saline Lock 10 ML Syringe IV (21:31)
--- NOTE | 2022-04-18 23:19 | NURSING ---
pt couldn't tolerate hospital cpap machine placed back on nasal cannula per pt request, cps aware. pt will ask her to bring her own machine in and cps will help her set it up
[2022-04-19] VITALS (7 sets, daily range): BP systolic 130–167; BP diastolic 81–100; PULSE 81–95; RESP 18; TEMP 37.3–37.7; O2SAT 88–97; BMI 39.8
[2022-04-19] MEDS: guaiFENesin 10 ML UDC (200MG/10ML) 20 ML PO (01:29)
[2022-04-19] MEDS: ALPRAZolam 0.25 MG Tablet PO ×2 (01:29→11:58)
[2022-04-19] MEDS: Acetaminophen 325 MG Tablet 650 MG PO ×2 (01:29→05:44)
[2022-04-19] MEDS: BENZOCAINE/MENTHOL 1 LOZENGE MUCOUS MEM ×2 (01:40→05:43)
[2022-04-19] MEDS: 0.9% Saline Lock 10 ML Syringe IV ×3 (01:40→12:05)
[2022-04-19] MEDS: Ondansetron 4 MG/2 ML Vial IV ×2 (01:40→12:05)
[2022-04-19] MEDS: Levothyroxine 50 MCG Tablet PO (05:31)
[2022-04-19] MEDS: guaiFENesin 1,200 MG Tablet 1200 MG PO ×2 (05:31→09:53)
[2022-04-19] MEDS: Citalopram 20 MG Tablet PO (05:43)
[2022-04-19] MEDS: hydrALAZINE 20 MG/ML Vial 10 MG IV (05:43)
--- NOTE | 2022-04-19 07:17 | PN.HOSP_ITS ---
Reason for Visit Reason for Visit: Diagnoses Pneumonia, unspecified organism (04/17/22) End stage renal disease (04/17/22) Hypoxemia (04/17/22) Subjective Subjective Had a coughing fit last night and then became a short of breath when she could not catch her breath during her coughing. Breathing okay but is requiring oxygen. Anxious to go home. Objective Data Objective Data Vital Signs: Vital Signs Temp Pulse Resp BP Pulse Ox O2 Del Method O2 Flow Rate 37.7 C H 95 18 167/100 H 97 Nasal Cannula 2 04/19/22 05:47 04/19/22 05:47 04/19/22 05:47 04/19/22 05:47 04/19/22 05:47 04/19/22 05:47 04/19/22 05:47 FiO2 50 04/18/22 21:20 Oxygen Flow Rate (L/min) 2 Oxygen Delivery Method Nasal Cannula Weight: 98.1 kg Body Mass Index (BMI) 39.8 Intake & Output: Intake and Output for Last 24 Hours 04/17/22 04/18/22 04/19/22 23:59 23:59 23:59 Intake Total 1323.33 / 1323.33 305 / 560 255 / 255 Output Total 3000 / 3000 Balance 1323.33 / 1323.33 -2695 / -2440 255 / 255 Lab / Micro Data Result Diagrams: 04/18/22 06:35 04/18/22 06:35 Labs: Laboratory Results - last 24 hr 04/18/22 06:35: Sodium 134 L, Potassium 4.2, Chloride 93 L, Carbon Dioxide 29.0, Anion Gap 12, BUN 44 H, Creatinine 7.82 H*, Estim Creat Clear Calc 6.58, Est GFR (MDRD) Af Amer 7 L, Est GFR (MDRD) Non-Af 6 L, BUN/Creatinine Ratio 5.6 L, Glucose 104, Calcium 8.9 Micro: Microbiology 04/17/22 04:40 Sputum, Expectorated/Coughed Gram Stain - Final 04/17/22 04:40 Sputum, Expectorated/Coughed Respiratory Culture - Preliminary 04/17/22 04:30 Mucosa - Nasopharyngeal Respiratory Panel (PCR) - Final Human [place] 04/17/22 02:48 Nasal Secretion SARS-CoV-2 & FLU Antigen (Rapid) - Final Physical Exam Const alert and no apparent distress Resp normal respiratory effort and no retractions Resp Narrative: Bibasilar crackles. Diminished throughout. Cardio regular rate, regular rhythm, S1 normal heart sound and S2 normal heart sound GI normal to inspection, nondistended, normoactive bowel sounds and soft to palpation Assessment & Plan Assessment/Plan (1) Right lower lobe pneumonia: PLAN: Suspected pneumococcal On azithromycin and ceftriaxone Pulmonary toilet Sputum culture pending, blood cultures COVID and influenza negative Will discharge with 4 more days of Augmentin completed 7-day course of antibiotics. (2) Hypoxia: PLAN: Multifactorial Secondary to human metapneumovirus and bronchitis, possible pneumonia, Obesity hypoventilation syndrome, CONCHIS. Patient also has what sounds like reactive airway disease. Wean oxygen as tolerated Started on prednisone on Patient will require oxygen 3 L continuous for the time being. Recommend follow-up with pulmonology Patient with proximal isms of nonproductive cough. Discussed with patient that we would utilize guaifenesin with codeine. Explained the patient was feeling anxious because of her dyspnea with her coughing fit. She was asking about alprazolam. I told her I would not recommend that as it seemed that her anxiety was induced from the coughing fit. (3) ESRD (end stage renal disease): PLAN: Patient with ongoing HD Thursday, nephrology Dr. Lawrence group consulted PLAN: Plan Chronic conditions: * Chronic anemia/AOCD: Stable * Amyloidosis: Patient s/p stem cell transplant in remission, encourage continued outpatient follow-up. * Anxiety and depression: We will continue patient home citalopram regimen. * Hypertension: Previously on nifedipine and propranolol, off these medications since her Eben-en-Y however BP is elevated above goal upon presentation therefore may necessitate restart but will continue to closely monitor and add regimen if appropriate as she meds and her blood pressure has normalized following the surgery, PRN hydralazine. * Hyperlipidemia: Per current list on a regimen, defer to outpatient. * GERD: We will continue patient home PPI. * Former tobacco usage: Encourage continued tobacco cessation. * CONCHIS: CPAP 13 cm water with a residual AHI of 1.8 nightly. * Hypothyroidism: We will continue patient on levothyroxine regimen. DVT prophylaxis: SCDs, heparin. Disposition: To home with oxygen today. Charges/Coding Visit Charges Inpatient E&M: 60011 Subs Hosp L2
[2022-04-19] MEDS: predniSONE 20 MG Tablet 40 MG PO (08:24)
[2022-04-19] MEDS: Heparin Injection (Vial) 5,000 UNIT/ML VIAL 5000 UNIT SC (09:48)
[2022-04-19] MEDS: Pantoprazole Sodium 20 MG Tablet PO (09:53)
[2022-04-19] MEDS: Cinacalcet HCl 30 MG Tablet 60 MG PO (09:53)
--- NOTE | 2022-04-19 10:25 | DCINST_ITS ---
Discharge Instructions Diet Discharge Diet: Renal Diet Activity Discharge Activity: Return to Normal Activity Dressing / Incision Call your doctor if you observe: Shortness of breath Follow Up Care Test Results: Test results from this visit will be discussed in further detail at your follow- up appointment, if applicable. Discharge Plan Admission Admit Date/Time: 04/17/22 03:33 Primary Reason for Your Visit: Pneumonia. Bronchitis. Human metapneumoviral infection. Attending Provider: Everardo Gallardo Primary Care Provider: Deven James Consulting Providers: Luan Lawrence ; Sury Guillermo Instructions Additional Instructions / Restrictions: Dialysis every Thursday, Thursday and Thursday. Discharge Orders/Prescriptions Prescriptions: New prednisone 20 mg Tablet 40 mg PO BREAKFAST Qty: 4 0RF albuterol sulfate 90 mcg/actuation HFA aerosol inhaler 2 puff inhalation Q6H PRN (Reason: shortness of breath or wheezing) Qty: 8.5 0RF codeine-guaifenesin [Guaifenesin AC] 10-100 mg/5 mL liquid 10 ml PO Q6H PRN (Reason: coughing fits) 5 Days Qty: 237 0RF amoxicillin-pot clavulanate 875-125 mg tablet 1 tab PO BID Qty: 8 0RF Continued Nephro-Stephen 0.8 mg tablet 1 tab PO DAILY melatonin 5 mg capsule 5 mg PO QHS cinacalcet [Sensipar] 60 mg tablet 60 mg PO DAILY cholecalciferol (vitamin D3) 25 mcg (1,000 unit) capsule 100 mcg PO DAILY citalopram 20 MG tablet 20 mg PO DAILY Referrals / Follow Up: Ant Anaya MD [Med Staff - Active Staff] - 06/10/22 8:15 am Deven James DO [Primary Care Provider] - Within 2 Weeks Disposition Disposition (needs filled in before D/C Order can be placed): Home, Self Care
--- NOTE | 2022-04-19 10:31 | DS.PCM_ITS ---
Providers Date of Admission: 04/17/22 Primary Care Physician: Dr. Deven James, DO Consultations 04/17/22 04:20 Consult: Nephrology Routine Consulting Provider: Luan Lawrence Reason for Consult: ESRD on HD EMERGENT Consult: No MD Notified: Yes Date Notified: 04/17/22 Time Notified: 04:27 Method of Notification: Answering Service Reason For Visit: HYPOXIA, PNA Diagnosis Discharge Diagnosis (1) Right lower lobe pneumonia: Status: Acute Code(s): J18.9 - Pneumonia, unspecified organism Plan: Suspected pneumococcal On azithromycin and ceftriaxone Pulmonary toilet Sputum culture pending, blood cultures COVID and influenza negative Will discharge with 4 more days of Augmentin completed 7-day course of antibiotics. (2) Hypoxia: Status: Acute Code(s): R09.02 - Hypoxemia Plan: Multifactorial Secondary to human metapneumovirus and bronchitis, possible pneumonia, Obesity hypoventilation syndrome, CONCHIS. Patient also has what sounds like reactive airway disease. Wean oxygen as tolerated Started on prednisone on Patient will require oxygen 3 L continuous for the time being. Recommend follow-up with pulmonology Patient with proximal isms of nonproductive cough. Discussed with patient that we would utilize guaifenesin with codeine. Explained the patient was feeling anxious because of her dyspnea with her coughing fit. She was asking about alprazolam. I told her I would not recommend that as it seemed that her anxiety was induced from the coughing fit. (3) ESRD (end stage renal disease): Status: Chronic Code(s): N18.6 - End stage renal disease Plan: Patient with ongoing HD Thursday, nephrology Dr. Lawrence group consulted Plan Chronic conditions: * Chronic anemia/AOCD: Stable * Amyloidosis: Patient s/p stem cell transplant in remission, encourage continued outpatient follow-up. * Anxiety and depression: We will continue patient home citalopram regimen. * Hypertension: Previously on nifedipine and propranolol, off these medications since her Eben-en-Y however BP is elevated above goal upon presentation therefore may necessitate restart but will continue to closely monitor and add regimen if appropriate as she meds and her blood pressure has normalized following the surgery, PRN hydralazine. * Hyperlipidemia: Per current list on a regimen, defer to outpatient. * GERD: We will continue patient home PPI. * Former tobacco usage: Encourage continued tobacco cessation. * CONCHIS: CPAP 13 cm water with a residual AHI of 1.8 nightly. * Hypothyroidism: We will continue patient on levothyroxine regimen. Disposition: To home with oxygen today. Medications at Discharge Home Medications citalopram 20 mg tablet 20 mg PO DAILY Depression 03/26/17 vitamin B complex-vitamin C-folic acid 0.8 mg tablet (Nephro-Stephen) 1 tab PO DAILY 02/17/19 cinacalcet 60 mg tablet (Sensipar) 60 mg PO DAILY 10/25/20 melatonin 5 mg capsule 5 mg PO QHS 10/25/20 cholecalciferol (vitamin D3) 25 mcg (1,000 unit) capsule 100 mcg PO DAILY 04/23/21 albuterol sulfate 90 mcg/actuation aerosol inhaler 2 puff inhalation Q6H PRN shortness of breath or wheezing #8.5 grams 04/19/22 amoxicillin 875 mg-potassium clavulanate 125 mg tablet 1 tab PO BID #8 tabs 04/19/22 codeine 10 mg-guaifenesin 100 mg/5 mL oral liquid (Guaifenesin AC) 10 ml PO Q6H PRN coughing fits 5 days #237 mL 04/19/22 prednisone 20 mg tablet 40 mg PO BREAKFAST #4 tabs 04/19/22 Hospital Course Operations None Procedures Dialysis Summary of Care Provided Minutes Spent on Discharge: 32 Weight / BMI Weight Weight: 98.1 kg Body Mass Index (BMI) 39.8 ABG / Lab / Microbiology Data Result Diagrams: 04/18/22 06:35 04/18/22 06:35 Microbiology: Microbiology 04/17/22 03:35 Blood Culture (Wb) - Venous Blood Culture - Preliminary No growth in 48 hours. 04/17/22 03:50 Blood Culture (Wb) - Anticubital Right Blood Culture - Preliminary No growth in 48 hours. 04/17/22 04:40 Sputum, Expectorated/Coughed Gram Stain - Final 04/17/22 04:40 Sputum, Expectorated/Coughed Respiratory Culture - Preliminary 04/17/22 04:30 Mucosa - Nasopharyngeal Respiratory Panel (PCR) - Final Human [place] 04/17/22 02:48 Nasal Secretion SARS-CoV-2 & FLU Antigen (Rapid) - Final D/C Instructions Discharge Diet: Renal Diet Call your doctor if you observe: Shortness of breath Meaningful Use Info Meaningful Use Diagnoses (Choose all that apply): None applicable Discharge Plan Admission Admit Date/Time: 04/17/22 03:33 Primary Reason for Your Visit: Pneumonia. Bronchitis. Human metapneumoviral infection. Attending Provider: Everardo Gallardo Primary Care Provider: Deven James Consulting Providers: Luan Lawrence ; Sury Guillermo Instructions Additional Instructions / Restrictions: Dialysis every Thursday, Thursday and Thursday. Discharge Orders/Prescriptions Prescriptions: New prednisone 20 mg Tablet 40 mg PO BREAKFAST Qty: 4 0RF albuterol sulfate 90 mcg/actuation HFA aerosol inhaler 2 puff inhalation Q6H PRN (Reason: shortness of breath or wheezing) Qty: 8.5 0RF codeine-guaifenesin [Guaifenesin AC] 10-100 mg/5 mL liquid 10 ml PO Q6H PRN (Reason: coughing fits) 5 Days Qty: 237 0RF amoxicillin-pot clavulanate 875-125 mg tablet 1 tab PO BID Qty: 8 0RF Continued Nephro-Stephen 0.8 mg tablet 1 tab PO DAILY melatonin 5 mg capsule 5 mg PO QHS cinacalcet [Sensipar] 60 mg tablet 60 mg PO DAILY cholecalciferol (vitamin D3) 25 mcg (1,000 unit) capsule 100 mcg PO DAILY citalopram 20 MG tablet 20 mg PO DAILY Referrals / Follow Up: Ant Anaya MD [Med Staff - Active Staff] - 06/10/22 8:15 am Deven James DO [Primary Care Provider] - Within 2 Weeks Disposition Disposition (needs filled in before D/C Order can be placed): Home, Self Care Charges/Coding Visit Charges Inpatient E&M: 52569 Disch Hosp >30min
--- NOTE | 2022-04-19 14:40 | PCM.PN.REN ---
Subjective Subjective No new complaints. Metapneumovirus positive. Requiring some oxygen. Breathing is better overall. Objective Data Objective Data Vital Signs: Vital Signs Temp Pulse Resp BP Pulse Ox O2 Del Method O2 Flow Rate 99.1 F 81 18 149/89 H 91 Nasal Cannula 3 04/19/22 14:15 04/19/22 14:15 04/19/22 14:15 04/19/22 14:15 04/19/22 14:15 04/19/22 14:15 04/19/22 14:15 FiO2 50 04/18/22 21:20 Oxygen Flow Rate (L/min) [ 3 AMBULATING with Oxygen #1] Oxygen Flow Rate (L/min) [At 2 REST with Oxygen] Oxygen Flow Rate (L/min) 3 Oxygen Delivery Method Nasal Cannula Weight: 98.1 kg Body Mass Index (BMI) 39.8 Intake & Output: Intake and Output for Last 24 Hours 04/17/22 04/18/22 04/19/22 23:59 23:59 23:59 Intake Total 1323.33 / 1323.33 305 / 560 255 / 255 Output Total 3000 / 3000 Balance 1323.33 / 1323.33 -2695 / -2440 255 / 255 Lab / Micro Data Result Diagrams: 04/18/22 06:35 04/18/22 06:35 Micro: Microbiology 04/17/22 03:35 Blood Culture (Wb) - Venous Blood Culture - Preliminary No growth in 48 hours. 04/17/22 03:50 Blood Culture (Wb) - Anticubital Right Blood Culture - Preliminary No growth in 48 hours. 04/17/22 04:40 Sputum, Expectorated/Coughed Gram Stain - Final 04/17/22 04:40 Sputum, Expectorated/Coughed Respiratory Culture - Preliminary 04/17/22 04:30 Mucosa - Nasopharyngeal Respiratory Panel (PCR) - Final Human [place] 04/17/22 02:48 Nasal Secretion SARS-CoV-2 & FLU Antigen (Rapid) - Final Physical Exam Narrative Alert awake oriented x 3 no obvious distress no pallor no icterus no JVD s1s2 no murmurs lungs clear abdomen soft no organomegaly no edema no cyanosis Assessment & Plan Assessment/Plan (1) ESRD (end stage renal disease): PLAN: On dialysis Thursday, Thursday, Thursday. Last dialysis was Thursday. Came in with fever, shortness of breath. Positive for metapneumovirus. Likely DC home on oxygen.
== END 2022-04-19 13:28 | disposition home or self-care (01) | DRG 193 ==
LOC: ED 03:47 → MS3 03:54
PROVIDERS: Admitting Provider Family Medicine; Emergency Provider Emergency Medicine; PCP Student in an Organized Health Care Education/Training Program
DX: J13 Pneumonia due to Streptococcus pneumoniae (principal); N18.6 End stage renal disease; Z94.84 Stem cells transplant status; E66.2 Morbid (severe) obesity with alveolar hypoventilation; D63.1 Anemia in chronic kidney disease; Z99.2 Dependence on renal dialysis; E78.5 Hyperlipidemia, unspecified; E03.9 Hypothyroidism, unspecified; K21.9 Gastro-esophageal reflux disease without esophagitis; J40 Bronchitis, not specified as acute or chronic; F41.9 Anxiety disorder, unspecified; I10 Essential (primary) hypertension; R09.02 Hypoxemia; B97.81 Human metapneumovirus as the cause of diseases classified elsewhere; Z68.39 Body mass index [BMI] 39.0-39.9, adult; F32.A Depression, unspecified; Z20.822 Contact with and (suspected) exposure to COVID-19; Z79.899 Other long term (current) drug therapy; Z86.2 Personal history of diseases of the blood and blood-forming organs and certain disorders involving the immune mechanism; Z87.891 Personal history of nicotine dependence
CPT/HCPCS: 36415; 71045; 80048; 80053; 83605; 83735; 84100; 85025; 87040; 87070; 87077; 87205; 87428; 87633; 87641; 90937; 94640; 94660; 94668; 99252; 99284; J7030; J7050; A4216; G0257; G0463; J2405

== ENCOUNTER 2023-05-04 07:32 | Observation (INO) | payer MEDICARE, BC, SELFPAY ==
[2023-05-04] VITALS (17 sets, daily range): BP systolic 110–284; BP diastolic 65–97; PULSE 79–99; RESP 14–33; TEMP 36.4–36.8; O2SAT 89–98; BMI 34.9; BMI 35.1; BMI 34.5; BMI 31.5
--- NOTE | 2023-05-04 07:59 | RAD_ITS ---
STUDY: X-RAY CHEST REASON FOR EXAM: Female, 52 years old. Sob TECHNIQUE: PA and lateral views of the chest. COMPARISON: Comparison is made with prior study dated April 17, 2022. FINDINGS: EKG electrodes are seen. Left lower lobe pneumonia with small left pleural effusion. Infiltrate in the right middle lobe. Mild degree of vascular congestion and CHF. Normal size heart. Normal mediastinum and yumiko. Normal visualized pulmonary arteries. Normal visualized aortic arch and descending thoracic aorta. There are degenerative changes of the visualized thoracic spine. Normal visualized ribs, clavicles, and shoulders. There is no demonstrated abnormality of the visualized soft tissue structures of the upper abdomen. RAD/Chest PA and Lateral IMPRESSION: Bilateral infiltrations worse at the left lung base with small bilateral pleural effusions superimposed on CHF. Electronically Signed: Ulisses Navarro MD at 10:27 EDT ,
--- NOTE | 2023-05-04 07:59 | EKG12_ITS ---
Test Reason : SOB Blood Pressure : / mmHG Vent. Rate : 090 BPM Atrial Rate : 090 BPM P-R Int : 158 ms QRS Dur : 084 ms QT Int : 382 ms P-R-T Axes : 054 047 027 degrees QTc Int : 467 ms Normal sinus rhythm Possible Left atrial enlargement Nonspecific ST abnormality Abnormal ECG Confirmed by Israel Guzman ([id number]), school photograph editor ANGELA FONTANA ([id number]) on 05/05/2023 11:18:18 AM Referred By: RULA Confirmed By:Israel Guzman
--- NOTE | 2023-05-04 08:27 | ED.VIS.DYS ---
HPI History of Present Illness Chief Complaint: Shortness of Breath Informant: patient and EMS Narrative Narrative: Patient is a 52-year-old female with history of end-stage renal disease on hemodialysis (does not wear oxygen), CONCHIS and intermittent hypoxia (states she wears oxygen at home sometimes whenever she is sick or has a cold) presenting from hemodialysis for concern of hypoxia. Patient apparently arrived today and was 62% on room air. Dialysis was concerned and called 911. Patient was placed on 3 L and given a DuoNeb by EMS and came up to 96%. She notes that she started wearing oxygen at home yesterday because she just could not breathe right. States that she has been feeling more short of breath and has some chest congestion for the past few days. Yesterday developed some mild nasal congestion and sore throat. Has her normal ankles well with no acute change. Denies any fever. Has a cough but it has been nonproductive however she feels that there is mucus in there. She is been taking Mucinex with no relief of this. Denies any cyst abdominal pain, nausea, vomiting or diarrhea. Does not make urine at baseline. Denies any sick contacts. Last had hemodialysis on Thursday (regularly goes Thursday). Notes that she did not have any oxygen for travel to dialysis today and had to get gas before coming to dialysis as well. Denies any associated chest pain. [facility] Medical History Amyloidosis Amyloidosis Anemia Anemia, chronic disease Anxiety and depression Chronic anemia CPAP (continuous positive airway pressure) dependence Depression Dialysis patient End stage renal disease on dialysis ESRD (end stage renal disease) ESRD (end stage renal disease) on dialysis Former smoker Former tobacco use GERD (gastroesophageal reflux disease) Hypothyroidism Kidney disease Migraines Morbid obesity Morbid obesity due to excess calories CONCHIS (obstructive sleep apnea) CONCHIS on CPAP Home Medications citalopram 20 mg tablet 20 mg PO DAILY Depression 03/26/17 [History Last Taken 05/03/23] cinacalcet 60 mg tablet (Sensipar) 60 mg PO DAILY 10/25/20 [History Last Taken 04/24/23] cholecalciferol (vitamin D3) 25 mcg (1,000 unit) capsule 100 mcg PO DAILY 04/23/21 [History Last Taken 05/03/23] albuterol sulfate 90 mcg/actuation aerosol inhaler 2 puff inhalation Q6H PRN shortness of breath or wheezing #8.5 grams 04/19/22 [Rx Last Taken 05/04/23] levothyroxine 50 mcg tablet 50 mcg PO DAILY 06/10/22 [History Last Taken 05/04/23] amlodipine 10 mg tablet 10 mg PO DAILY 05/04/23 [History Last Taken 05/03/23] lanthanum 1,000 mg chewable tablet 1,000 mg PO TID 05/04/23 [History Last Taken 05/03/23] vitamin B complex and vitamin C no.20-folic acid 1 mg capsule (Renal Caps) 1 cap PO DAILY 05/04/23 [History Last Taken 05/03/23] zinc acetate 50 mg (zinc) capsule 50 mg PO DAILY 05/04/23 [History Last Taken 05/04/23] Allergy/AdvReac Type Severity Reaction Status Date / Time No Known Allergies Allergy Verified 05/04/23 07:33 Family History Mother Dementia Leukemia Father Heart disease Kidney disease Surgical History History of cholecystectomy History of Eben-en-Y gastric bypass Hx of section Stem cells transplant status Social History household members: family Smoking Status: Former smoker alcohol intake: never substance use type: does not use ROS ROS ED Constitutional Constitutional ED: Denies chills or fever(s) ENT ENT ED: Reports sore throat and other Details: nasal congetsion ; Denies ear pain Cardiovascular Cardiovascular: Denies chest pain Respiratory/Chest Respiratory/Chest: Reports cough, dyspnea and dyspnea on exertion; Denies sputum Gastrointestinal Gastrointestinal: Denies abdominal pain, diarrhea, nausea or vomiting Genitourinary Genitourinary ED: Reports other Details: Anuric at baseline Musculoskeletal Musculoskeletal: Denies arthralgias or myalgias Integumentary Denies rash Neurologic Neurologic: Denies headache(s) Hematologic/Lymphatic Hematologic/Lymphatic: Denies easy bleeding or easy bruising EXAM Physical Exam Const Vital Signs: 05/04/23 07:33 05/04/23 08:01 05/04/23 07:32 Temperature 97.6 F L Temperature Source Temporal Pulse Rate 92 Respiratory Rate 18 Respiratory Effort Normal Respiratory Depth Normal Respiratory Pattern Normal Blood Pressure 140/79 H Blood Pressure Mean 99 Pulse Ox 89 Oxygen Delivery Method Room Air Room Air Nasal Cannula Oxygen Flow Rate (L/min) 2 05/04/23 07:32 05/04/23 09:32 05/04/23 11:30 Temperature Temperature Source Pulse Rate 99 89 Respiratory Rate 16 25 H Respiratory Effort Respiratory Depth Respiratory Pattern Blood Pressure 148/86 H 141/93 H Blood Pressure Mean 106 109 Pulse Ox 97 96 94 Oxygen Delivery Method Nasal Cannula Nasal Cannula Nasal Cannula Oxygen Flow Rate (L/min) 2 2 Positive well nourished and well developed General Appearance ED: well developed and NAD; Negative for pallor HEENT Reports TM's clear and dry mucous membranes Tympanic Membrane ED: Yes TM's clear Mouth ED: Yes dry mucous membranes Mouth: dry mucous membranes Eyes PERRL and EOMs intact bilaterally Neck supple and no JVD Resp normal respiratory effort Resp Narrative: No wheezing appreciated. Slight crackles noted at the right base. Good air movement. Cardio regular rate and regular rhythm Cardio Narrative: Positive murmur GI non-tender and non-distended Extremity normal to inspection Extremity Narrative: AV graft with palpable thrill in the left upper extremity present General Extremety ED: Negative for edema or tenderness General Extremity: Negative for edema Neuro oriented x3 Sensorium / Orientation: alert Motor Exam: Negative for general weakness Psych mental status grossly normal Skin no wounds General Skin Exam: Negative for pallor Lesions: no lesions MDM MDM MDM Narrative Medical decision making narrative: Patient is evaluated for increased shortness of breath as well as some URI symptoms over the past few days. She was hypoxic on arrival to dialysis. She usually does not wear oxygen except when she is sick or sometimes to work 2 to 3 L. She has started wearing oxygen for the past few days because she is been feeling more short of breath. Upon arrival patient is requiring 2 to 3 L of oxygen. She is tachypneic with any type of exertion. She is of crackles at the base. She is complaining of nasal congestion, ear fullness as well as chest congestion and sore throat and I have more concern for infectious etiology. She is on complaint of chest pain and her EKG does not show any acute ischemic changes. I do not think there is much utility in obtaining troponin at this time as I do not think this is ACS and they likely will be falsely elevated due to her end-stage renal disease. In addition she did miss hemodialysis today because of her hypoxia however she does not appear acutely volume overloaded. Patient does have a leukocytosis 11.6 which is above her baseline. There is a neutrophil predominance. Her BMP is consistent with end-stage renal disease with elevated creatinine and BUN however her potassium is normal. Her magnesium, calcium and phosphorus are also elevated. 2 view chest x-ray viewed by myself as well as radiology is concerning for bilateral infiltrates worse in the left lung base and small bilateral effusions with superimposed CHF. Patient is ambulating when she does not desaturate on supplemental oxygen she becomes quite symptomatic and is tachypneic. Given her underlying comorbidities as well as concern for bilateral pneumonia in the setting of acute respiratory illness I do think she benefit from IV antibiotics and admission. Case is also discussed with Dr. Lawrence, her patient admitting clerk, as she also likely will need dialysis. He is agreeable with her being admitted to the medicine service and of arranging dialysis in the hospital. Patient started on broad-spectrum antibiotics with Rocephin and azithromycin. Case is discussed admitting physician, Dr. Crockett. Patient did receive a DuoNeb and route by EMS. Has no further wheezing she does not require further aerosols at this time. History & Record Review Additional record(s) reviewed:: Prior inpatient record (Admission 1 year ago for hypoxia secondary to human metapneumovirus as well as pneumonia. Was discharged home on 3 L for the time being.) Lab Data Attestation: I reviewed the patient's lab results. Labs: Laboratory Results - last 24 hr 05/04/23 08:23 WBC 11.6 H RBC 3.17 L Hgb 9.5 L Hct 30.3 L MCV 95.6 MCH 30.0 MCHC 31.4 L RDW Std Deviation 58.4 H RDW Coeff of [place]ac[place] 16.5 H Plt Count 345 MPV 9.0 Immature Gran % (Auto) 0.600 Neut % (Auto) 83.6 H Lymph % (Auto) 7.2 L Hand % (Auto) 6.6 Eos % (Auto) 1.7 Baso % (Auto) 0.3 Absolute Neuts (auto) 9.7 H Absolute Lymphs (auto) 0.83 Nucleated RBC % 0 Sodium 136 Potassium 4.5 Chloride 94 L Carbon Dioxide 29.0 Anion Gap 13 BUN 61 H Creatinine 8.41 H* Estim Creat Clear Calc 7.81 Est GFR (MDRD) Af Amer 6 L Est GFR (MDRD) Non-Af 5 L BUN/Creatinine Ratio 7.3 L Glucose 113 H Calcium 10.4 H Phosphorus 8.5 H Magnesium 2.8 H Radiography Chest X-Ray - ED: 2 View, Read by ED Physician, Read by Radiologist, CHF, Right Infiltrate and Left Infiltrate Diagnostic Testing: Clinical Impression(s) from Imaging Studies Chest X-Ray 05/04/23 07:59 IMPRESSION: Bilateral infiltrations worse at the left lung base with small bilateral pleural effusions superimposed on CHF. Electronically Signed: Ulisses Navarro MD at 10:27 EDT , Rhythm Strip Rhythm Strip: Sinus Rhythm Rate: 90 Ectopy: None EKG Initial EKG: Attestation: I personally reviewed and interpreted this EKG as follows: Interpretation: Sinus Rhythm Comments: Normal sinus rhythm rate of 90 bpm Normal axis Normal intervals Normal ST segments with nonspecific T wave version lead III, V1 and V2 Compared to prior EKG no acute changes Management Discussion w/another healthcare provider: Hospitalist and Press Tender Short Goods Discharge Plan Triage Chief Complaint: Shortness of Breath ED Provider: Martha Smart Dx/Rx/DC Orders Clinical Impression: Bilateral pneumonia, ESRD (end stage renal disease) on dialysis, Hypoxia Prescriptions: No Action cinacalcet [Sensipar] 60 mg tablet 60 mg PO DAILY cholecalciferol (vitamin D3) 25 mcg (1,000 unit) capsule 100 mcg PO DAILY levothyroxine 50 mcg tablet 50 mcg PO DAILY citalopram 20 MG tablet 20 mg PO DAILY albuterol sulfate 90 mcg/actuation HFA aerosol inhaler 2 puff inhalation Q6H PRN (Reason: shortness of breath or wheezing) Qty: 8.5 0RF lanthanum 1,000 mg tablet,chewable 1,000 mg PO TID Renal Caps 1 mg capsule 1 cap PO DAILY zinc acetate 50 mg (zinc) capsule 50 mg PO DAILY amlodipine 10 mg tablet 10 mg PO DAILY Primary Care Provider: Deven James Referrals: Deven James DO [Primary Care Provider] - Disposition Disposition: Acute Care Hospital [facility]
[2023-05-04 08:34] LABS: Absolute Lymphocyte Count 0.83 X10^3/uL (0.83-4.51); Absolute Neutrophil Count 9.7 X10^3/uL (2.0-7.7); Basophil# 0.04 X10^3/uL; Basophil% 0.3 % (0-1); Eosinophils% 1.7 % (0-5); Hematocrit 30.3 % (37-47); Hemoglobin 9.5 g/dL (12.0-15.0); Lymphocyte # 0.83 X10^3/ul (0.83-4.51); Lymphocyte % 7.2 % (19-41); Mean Corp Hgb Conc 31.4 g/dL (32-36); Mean Corpuscular Volume 95.6 fL (81-99); Monocyte# 0.76 X10^3/uL; Monocyte% 6.6 % (0-10); NRBC Flagged by Analyzer 0 % (0-5); Neutrophil # 9.67 X10^3/uL (2.7-7.7); Neutrophil % 83.6 % (47-70); Platelet Count 345 K/mm3 (150-450); RBC Distribution Width CV 16.5 % (11.6-14.6); RBC Distribution Width SD 58.4 fl (35.1-43.9); Red Blood Count 3.17 M/mm3 (4.2-5.4); White Blood Count 11.6 K/mm3 (4.4-11.0)
[2023-05-04 08:54] LABS: Anion Gap 13 (5-15); BUN 61 mg/dL (7-18); BUN/Creat Ratio 7.3 RATIO (10-20); Calcium,Total 10.4 mg/dL (8.5-10.1); Chloride 94 mmol/L (98-107); Creatinine, Serum 8.41 mg/dL (0.55-1.02); EST Glomerular Filtration Rate 5 mL/min (>60); Est Glom Filt Rate - Afr Amer 6 mL/min (>60); Estimated Creatinine Clearance 7.81 ml/min; Glucose 113 mg/dL (74-106); Potassium 4.5 mmol/L (3.5-5.1); Sodium Level 136 mmol/L (136-145)
--- NOTE | 2023-05-04 10:32 | HP.PCM.HOS_ITS ---
HPI - General General Date of Admission: 05/04/23 Date of Service: 05/04/23 Chief Complaint: Shortness of breath acute on chronic for about 6 days HPI Narrative SHAYNE ROME, is a 52 F came to ED for acute on chronic shortness of breath a nd hypoxia slowly progressing over last 6 days. She said she felt cough with productive phlegm, sinus headache and pressure started about a week ago and she went to urgent care where she was given Z-Abbe and Mucinex and she completed from Thursday to Thursday, full course. She usually puts CPAP at night and has oxygen at home as needed. She feels more short of breath today and hypoxia when she pu t oxygen in order to get relief but did not feel better therefore called EMS. She is due for dialysis today but could not make it therefore came to ED. No fever or chills. In ED, chest x-ray individually reviewed and shows bilateral infiltrates worse on the left lung base with a small pleural effusion/increased interstitial markings/edema. Twelve-lead EKG shows normal sinus rhythm at 90 bpm, LAE, QTc 467 ms. No significant change from previous EKG of July 2021. Vitals reviewed. Pulse ox 89% on room air otherwise within normal limit. [facility] Medical History Amyloidosis Amyloidosis Anemia Anemia, chronic disease Anxiety and depression Chronic anemia CPAP (continuous positive airway pressure) dependence Depression Dialysis patient End stage renal disease on dialysis ESRD (end stage renal disease) ESRD (end stage renal disease) on dialysis Former smoker Former tobacco use GERD (gastroesophageal reflux disease) Hypothyroidism Kidney disease Migraines Morbid obesity Morbid obesity due to excess calories CONCHIS (obstructive sleep apnea) CONCHIS on CPAP Home Medications citalopram 20 mg tablet 20 mg PO DAILY Depression 03/26/17 [History Last Taken 05/03/23] cinacalcet 60 mg tablet (Sensipar) 60 mg PO DAILY 10/25/20 [History Last Taken 04/24/23] cholecalciferol (vitamin D3) 25 mcg (1,000 unit) capsule 100 mcg PO DAILY 04/23/21 [History Last Taken 05/03/23] albuterol sulfate 90 mcg/actuation aerosol inhaler 2 puff inhalation Q6H PRN shortness of breath or wheezing #8.5 grams 02/25/23 [Rx Last Taken 05/04/23] levothyroxine 50 mcg tablet 50 mcg PO DAILY 06/10/22 [History Last Taken 05/04/23] amlodipine 10 mg tablet 10 mg PO DAILY 05/04/23 [History Last Taken 05/03/23] lanthanum 1,000 mg chewable tablet 1,000 mg PO TID 05/04/23 [History Last Taken 05/03/23] vitamin B complex and vitamin C no.20-folic acid 1 mg capsule (Renal Caps) 1 cap PO DAILY 05/04/23 [History Last Taken 05/03/23] zinc acetate 50 mg (zinc) capsule 50 mg PO DAILY 05/04/23 [History Last Taken 05/04/23] Allergy/AdvReac Type Severity Reaction Status Date / Time No Known Allergies Allergy Verified 05/04/23 07:33 Family History Mother Dementia Leukemia Father Heart disease Kidney disease Surgical History History of cholecystectomy History of Eben-en-Y gastric bypass Hx of section Stem cells transplant status Social History household members: family Smoking Status: Former smoker alcohol intake: never substance use type: does not use ROS ROS Narrative Constitutional: Reports fatigue and weakness. No fever. HEENT: Reports systems reviewed and no addt'l complaints, except as documented Respiratory/Chest: As described in HPI. Mild chest congestion but no chest pain or pressure. CVS: No history of coronary artery disease. Gastrointestinal: Denies coffee ground emesis, hematemesis or vomiting Genitourinary: Denies burning urination or new urinary tract symptoms Musculoskeletal: Denies acute joint pain or limited range of motion. No acute injury Neurologic: Denies seizure-like symptoms. skin: No ulcer. No rash Endocrinology: Reports systems reviewed and no addt'l complaints, except as documented Hematologic/Lymphatic: Reports systems reviewed and no addt'l complaints, except as documented Rest 14 ROS are negative except as mentioned in HPI Vital Signs Vital Signs Vital Signs: 05/04/23 07:33 05/04/23 08:01 05/04/23 07:32 Temperature 97.6 F L Temperature Source Temporal Pulse Rate 92 Respiratory Rate 18 Respiratory Effort Normal Respiratory Depth Normal Respiratory Pattern Normal Blood Pressure 140/79 H Blood Pressure Mean 99 Pulse Ox 89 Oxygen Delivery Method Room Air Room Air Nasal Cannula Oxygen Flow Rate (L/min) 2 05/04/23 07:32 05/04/23 09:32 Temperature Temperature Source Pulse Rate 99 Respiratory Rate 16 Respiratory Effort Respiratory Depth Respiratory Pattern Blood Pressure 148/86 H Blood Pressure Mean 106 Pulse Ox 97 96 Oxygen Delivery Method Nasal Cannula Nasal Cannula Oxygen Flow Rate (L/min) 2 2 Weight Weight: 190 lb 11.198 oz Body Mass Index (BMI) 34.9 Physical Exam Narrative Seen and examined. General: Alert, Oriented x3, Cooperative HEENT: Atraumatic, PERRLA, EOMI, Normocephalic Oral: No Gingival or Mucosal Lesions/ Ulcerations Neck: Supple, No JVD, Negative Carotid Bruits Chest wall/Lungs: Air entry diminished in bilateral lung bases. Mild bilateral expiratory rhonchi. Oral mucosa dry. Cardiovascular: Regular rate, Regular Rhythm, Normal S1, Normal S2, systolic murmur over LLSB and right second ICS. Abdomen: Bowel Sounds Present, Soft, Non Tender, Non-Distended :Left arm AV fistula. Functioning. Baseline patient is an uric. Does not make urine. No renal angle tenderness. No suprapubic tenderness. Extremities: . No edema, Capillary Refill Less than 3 Seconds Skin: No rashes, No breakdown Musculoskeletal: No Tenderness to Palpation of Joints or Extremities Neurological: Cranial nerves II-XII grossly intact, DTR 2+/4. No acute focal neurological deficit. Psych/Mental Status: Flat affect. Results Lab / Micro Data 05/04/23 08:23 05/04/23 08:23 Labs: Laboratory Results - last 24 hr 05/04/23 08:23: WBC 11.6 H, RBC 3.17 L, Hgb 9.5 L, Hct 30.3 L, MCV 95.6, MCH 30.0, MCHC 31.4 L, RDW Std Deviation 58.4 H, RDW Coeff of [place] 16.5 H, Plt Count 345, MPV 9.0, Immature Gran % (Auto) 0.600, Neut % (Auto) 83.6 H, Lymph % (Auto) 7.2 L, [place] % (Auto) 6.6, Eos % (Auto) 1.7, Baso % (Auto) 0.3, Absolute Neuts (auto) 9.7 H, Absolute Lymphs (auto) 0.83, Nucleated RBC % 0, Sodium 136, Potassium 4.5, Chloride 94 L, Carbon Dioxide 29.0, Anion Gap 13, BUN 61 H, Creatinine 8.41 H*, Estim Creat Clear Calc 7.81, Est GFR (MDRD) Af Amer 6 L, Est GFR (MDRD) Non-Af 5 L, BUN/Creatinine Ratio 7.3 L, Glucose 113 H, Calcium 10.4 H Micro: Microbiology 05/04/23 08:23 Mucosa - Nasopharyngeal SARS-CoV-2, Influenza & RSV (PCR) - Final Rhythm Strip Rhythm Strip: Sinus Rhythm Rate: 90 Ectopy: None Imaging Radiology Impression Chest X-Ray 05/04/23 07:59 IMPRESSION: Bilateral infiltrations worse at the left lung base with small bilateral pleural effusions superimposed on CHF. Electronically Signed: Ulisses Navarro MD at 10:27 EDT , Assessment & Plan Assessment/Plan (1) Bilateral pneumonia: QUALIFIERS: Pneumonia type: due to unspecified organism Lung location: lower lobe of lung Qualified Code(s): J18.9 - Pneumonia, unspecified organism PLAN: Plan This is a 52-year-old female being admitted for acute on chronic shortness of breath and URI symptoms and chest x-ray finding suggestive of bilateral lung bases pneumonia. 1. Mild bilateral pneumonia: Patient is being admitted in PCU. Flu COVID and RSV PCR are negative. Pneumonia workup with a sputum culture and respiratory panel ordered. DuoNeb as needed. Patient started on IV ceftriaxone and azithromycin. Mild leukocytosis. Patient was last admitted in March 2022 for right lower lobe pneumonia. 2. ESRD on hemodialysis : She is due for hemodialysis today but could not make it to the dialysis center because of hypoxia and shortness of breath. Production Assembler is consulted. 3. Mild acute on chronic HFpEF with suspicion of mild pulmonary venous congestion/small pleural effusion: It seems patient has chronic HFpEF but she is unaware. Last echo in December 2018 shows EF 55%, stage II diastolic dysfunction, no RWMA 1-2+ TR. PASP 42 mmHg.Patient had NARGIS on January 2019 and EF 65% reported with no obvious vegetation. repeat echo today 4. Anemia of chronic disease due to ESRD: Hemoglobin is on the baseline H&H 9.5/30%. 5. Amyloidosis: Patient s/p stem cell transplant in remission, encourage continued outpatient follow-up. 6 Anxiety and depression: continue patient home citalopram regimen. 7. Hypertension: Blood pressure profile is better after Eben-en-Y gastric bypass surgery. Patient was on on nifedipine and propranolol, but all of these medications after gastric bypass currently only on amlodipine 10 mg daily. Resumed. 8. Multiple other comorbidities include dyslipidemia and GERD, obstructive sleep apnea on CPAP 13 cm of water and hypothyroidism. Patient follows in pulmonary clinic with Dr. Anaya. TSH and free T4 ordered. DVT prophylaxis: Heparin 07/23/2019 subcutaneous 3 times daily. Discontinue if platelet count drops less than 50,000 or hemoglobin less than 8 g% Living will/advanced directive/end of life care: Patient not have living will or advanced directive. near the bedside in ED is power of traffic law attorney for health. After discussion of benefits/risks procedures involved with full code, DNR CC arrest and DNR CC, the patient opted for full code. Patient does want artificial life support including intubation, tube feed, ventilator and/chest compression, central venous catheter, vasopressor and DC shock if needed Total time spent in [id number] encounter in discussion of advanced directive 17 minutes. Microbiology Past 72 Hours 05/04/23 08:23 Mucosa - Nasopharyngeal SARS-CoV-2, Influenza & RSV (PCR) - Final Laboratory Results 05/04/23 08:23: WBC 11.6 H, RBC 3.17 L, Hgb 9.5 L, Hct 30.3 L, MCV 95.6, MCH 30.0, MCHC 31.4 L, RDW Std Deviation 58.4 H, RDW Coeff of [place] 16.5 H, Plt Count 345, MPV 9.0, Immature Gran % (Auto) 0.600, Neut % (Auto) 83.6 H, Lymph % (Auto) 7.2 L, [place] % (Auto) 6.6, Eos % (Auto) 1.7, Baso % (Auto) 0.3, Absolute Neuts (auto) 9.7 H, Absolute Lymphs (auto) 0.83, Nucleated RBC % 0, Sodium 136, Potassium 4.5, Chloride 94 L, Carbon Dioxide 29.0, Anion Gap 13, BUN 61 H, Creatinine 8.41 H*, Estim Creat Clear Calc 7.81, Est GFR (MDRD) Af Amer 6 L, Est GFR (MDRD) Non-Af 5 L, BUN/Creatinine Ratio 7.3 L, Glucose 113 H, Calcium 10.4 H , Phosphorus 8.5 H, Magnesium 2.8 H Clinical Impression(s) from Imaging Studies Chest X-Ray 05/04/23 07:59 IMPRESSION: Bilateral infiltrations worse at the left lung base with small bilateral pleural effusions superimposed on CHF. Electronically Signed: Ulisses Navarro MD at 10:27 EDT , Charges/Coding Visit Charges Inpatient E&M: 79410 Init Hosp L3 Procedures Hospitalists Procedures: 36393 Advncd Care Plan 30 Min
[2023-05-04] MEDS: Acetaminophen 325 MG Tablet 650 MG PO (10:37)
[2023-05-04] MEDS: Ceftriaxone 2 GM in 0.9% Normal Saline (50mL MB+) 50 ML IV (10:37)
[2023-05-04 10:44] LABS: Magnesium 2.8 mg/dL (1.6-2.6)
[2023-05-04] MEDS: Azithromycin 500 MG in Dextrose 5%-Water (250mL Bag) 250 ML 250 MG IV (10:48)
[2023-05-04 10:55] LABS: Phosphorus 8.5 mg/dL (2.5-4.9)
--- NOTE | 2023-05-04 14:52 | ECHOD_ITS ---
Reason For Study: PULMONARY EDEMA Procedure This was a 2D Doppler, Color Flow transthoracic echocardiogram. Exam performed portable in patient room. Left Ventricle Normal LV size. The estimated ejection fraction is 70 %. Unable to assess diastolic dysfunction. No regional wall motion abnormalities noted. Right Ventricle Normal right ventricle. Normal systolic function. Atria The left atrium is moderately enlarged. Normal right atrium. No doppler evidence for ASD. Mitral Valve There is severe mitral annular calcification. Severe mitral valve stenosis. Mild (1+) mitral valve insufficiency. Tricuspid Valve There is no tricuspid stenosis. Trivial tricuspid valve insufficiency. Pulmonary artery systolic pressure is 90 mmHg. Severe pulmonary hypertension. Aortic Valve Trisinus/trileaflet aortic valve. There is no aortic stenosis. Mild-Moderate (1-2+) aortic valve insufficiency. Pulmonic Valve There is no pulmonic valvular stenosis. No pulmonic valve insufficiency. Great Vessels Normal aortic root. Pericardium/Pleural No pericardial effusion. MMode/2D Measurements & Calculations LVIDd: 4.5 cm IVSd: 1.5 cm LVOT diam: 2.0 cm LVIDs: 2.6 cm LVPWd: 1.4 cm LVOT area: 3.1 cm2 RVDd: 3.6 cm FS: 41.7 % Ao root diam: 2.9 cm LAV(MOD-bp): 84.4 ml LVAd ap4: 29.8 cm2 LAV(MOD-bp) Indexed: 45.1 ml/m2 LVLd ap4: 8.3 cm LAV(MOD-sp2): 84.6 ml EDV(MOD-sp4): 88.3 ml LAV(MOD-sp4): 85.5 ml EDV(sp4-el): 90.7 ml LVAs ap4: 14.5 cm2 LVLs ap4: 6.6 cm ESV(MOD-sp4): 26.8 ml ESV(sp4-el): 26.9 ml EF(MOD-sp4): 69.7 % EF(sp4-el): 70.4 % SV(MOD-sp4): 61.5 ml SV(sp4-el): 63.8 ml LA A4 area: 26.5 cm2 LA dimension(2D): 4.9 cm RA A4 area: 13.6 cm2 TAPSE: 1.9 cm Time Measurements MV dec time: 0.38 sec Doppler Measurements & Calculations MV E max mina: 224.8 cm/sec Lat Peak E' Mina: 8.7 cm/sec Med Peak E' Mina: 6.5 cm/sec MV A max mina: 203.3 cm/sec E/E' lat: 25.8 E/E' med: 34.7 MV E/A: 1.1 MV V2 max: 369.3 cm/sec Ao V2 max: 331.6 cm/sec AI max mina: 489.6 cm/sec MV max P.6 mmHg Ao max P.0 mmHg AI max P.9 mmHg MV V2 mean: 249.4 cm/sec Ao V2 mean: 241.6 cm/sec MV mean P.1 mmHg Ao mean P.9 mmHg AI dec slope: 539.5 cm/sec2 MV V2 VTI: 87.8 cm Ao V2 VTI: 57.0 cm AI P1/2t: 265.8 msec AV (velocity ratio): 0.53 MVA(VTI): 1.1 cm2 LEN(I,D): 1.6 cm2 LEN(V,D): 1.5 cm2 LV V1 max: 159.5 cm/sec SV(LVOT): 93.8 ml PA V2 max: 118.5 cm/sec LV V1 max P.2 mmHg LV V1 mean P.7 mmHg LV V1 mean: 122.7 cm/sec LV V1 VTI: 30.4 cm TR max mina: 456.2 cm/sec TR max P.2 mmHg ECHO/Echo Complete Interpretation Summary The estimated ejection fraction is 70 %. Unable to assess diastolic dysfunction. The left atrium is moderately enlarged. Severe mitral valve stenosis. Severe pulmonary hypertension. Mild-Moderate (1-2+) aortic valve insufficiency. Mild (1+) mitral valve insufficiency. Ordering Physician: Jimmy Crockett Referring Physician: LEXI STAUFFER Performed By: Mary Crespo RDCS
[2023-05-04] MEDS: 0.9% Normal Saline 1,000 ML IV.SOLN. 1000 ML OPERA.SITE (15:35)
[2023-05-04] MEDS: PureFlow B 2K Dialysis Soln 1 BAG 6 BAG PF (15:35)
[2023-05-04] MEDS: guaiFENesin 1,200 MG Tablet 1200 MG PO (20:19)
[2023-05-04] MEDS: Ipratropium/Albuterol Sulfate 3 ML AMPUL.NEB INHALATION (20:22)
[2023-05-04] MEDS: Temazepam 15 MG Capsule PO (22:17)
[2023-05-05 03:00] VITALS: BP 154/89; PULSE 91; RESP 18; TEMP 36.3; O2SAT 94
[2023-05-05 03:04] VITALS: BMI 31.6
[2023-05-05 06:46] VITALS: PULSE 88; RESP 20; O2SAT 96
[2023-05-05] MEDS: Ipratropium/Albuterol Sulfate 3 ML AMPUL.NEB INHALATION (06:46)
[2023-05-05] MEDS: Levothyroxine 50 MCG Tablet PO (06:49)
[2023-05-05 08:06] LABS: Absolute Lymphocyte Count 0.98 X10^3/uL (0.83-4.51); Absolute Neutrophil Count 7.6 X10^3/uL (2.0-7.7); Basophil# 0.06 X10^3/uL; Basophil% 0.6 % (0-1); Eosinophil# 0.24 X10^3/uL; Eosinophils% 2.5 % (0-5); Hematocrit 33.7 % (37-47); Hemoglobin 10.3 g/dL (12.0-15.0); Lymphocyte # 0.98 X10^3/ul (0.83-4.51); Lymphocyte % 10.2 % (19-41); Mean Corp Hgb Conc 30.6 g/dL (32-36); Mean Corpuscular Hgb 29.2 pg (27.0-32.0); Mean Corpuscular Volume 95.5 fL (81-99); Mean Platelet Vol. 10.7 fl (6.2-12.0); Monocyte# 0.62 X10^3/uL; Monocyte% 6.5 % (0-10); NRBC Flagged by Analyzer 0 % (0-5); Neutrophil # 7.64 X10^3/uL (2.7-7.7); Neutrophil % 79.8 % (47-70); POSITIVE COUNT YES; RBC Distribution Width CV 16.6 % (11.6-14.6); Red Blood Count 3.53 M/mm3 (4.2-5.4); White Blood Count 9.6 K/mm3 (4.4-11.0)
--- NOTE | 2023-05-05 08:12 | DCINST_ITS ---
Discharge Instructions Diet Discharge Diet: No restrictions Activity Discharge Activity: Return to Normal Activity Weight Bearing Status: Weight bearing as tolerated Dressing / Incision Call your doctor if you observe: Fever of 101 or Higher, Coldness, Increased Pain, Numbness or Tingling, Change in Color, Inability to urinate, Inability to have a bowel movement, Using more than 1 pad per hour, Shortness of breath, Dizziness, Fainting spells, Swelling in the ankles, Chest pain, Prolonged hiccupping, Increased palpitations (irregular heartbeat) and Calf discomfort Follow Up Care When: IN 2 WEEKS Test Results: Test results from this visit will be discussed in further detail at your follow- up appointment, if applicable. Discharge Plan Admission Admit Date/Time: 05/04/23 10:26 Primary Reason for Your Visit: Pneumonia Attending Provider: Jimmy Crockett Primary Care Provider: Deven James Consulting Providers: Luan Lawrence Discharge Orders/Prescriptions Prescriptions: New gyprlevm-eoansnjye-MI 3.5-10,000-1 mg/mL-unit/mL-% Drops,Suspension 4 drp otic (ear) Q6H 7 Days Qty: 10 0RF Rx Instructions: Both ears levofloxacin 500 mg tablet 500 mg PO Q48H 6 Days Qty: 3 0RF Continued cinacalcet [Sensipar] 60 mg tablet 60 mg PO DAILY cholecalciferol (vitamin D3) 25 mcg (1,000 unit) capsule 100 mcg PO DAILY levothyroxine 50 mcg tablet 50 mcg PO DAILY citalopram 20 MG tablet 20 mg PO DAILY albuterol sulfate 90 mcg/actuation HFA aerosol inhaler 2 puff inhalation Q6H PRN (Reason: shortness of breath or wheezing) Qty: 8.5 0RF lanthanum 1,000 mg tablet,chewable 1,000 mg PO TID Renal Caps 1 mg capsule 1 cap PO DAILY zinc acetate 50 mg (zinc) capsule 50 mg PO DAILY amlodipine 10 mg tablet 10 mg PO DAILY Referrals / Follow Up: Nahum Saldivar MD [Med Staff - Active Staff] - Within 1 Week (Right ear pain, otitis media) Luan Lawrence MD [Med Staff - Consulting] - Within 1 Month Deven James DO [Primary Care Provider] - Disposition Disposition (needs filled in before D/C Order can be placed): Home, Self Care
[2023-05-05 08:14] VITALS: BP 121/60; PULSE 90; RESP 18; TEMP 37.1; O2SAT 97
[2023-05-05 08:15] VITALS: BP 115/67; PULSE 78; RESP 16; TEMP 37; O2SAT 95
--- NOTE | 2023-05-05 08:16 | PCM.DC.SUM ---
Providers Date of Admission: 05/04/23 Primary Care Physician: Dr. Deven James, Consultations 05/04/23 14:52 Consult: Nephrology Routine Consulting Provider: Luan Lawrence Reason for Consult: ESRD on HD, DUE FOR HD today EMERGENT Consult: No MD Notified: Yes Date Notified: 05/04/23 Time Notified: 13:29 Method of Notification: ED Physician Initiated Reason For Visit: SOB, HYPOXIA Diagnosis Discharge Diagnosis (1) Bilateral pneumonia: Status: Acute Code(s): J18.9 - Pneumonia, unspecified organism Qualifiers: Lung location: lower lobe of lung Pneumonia type: due to unspecified organism Qualified Code(s): J18.9 - Pneumonia, unspecified organism Plan This is a 52-year-old female being admitted for acute on chronic shortness of breath and URI symptoms and chest x-ray finding suggestive of bilateral lung bases pneumonia. 1. Mild bilateral pneumonia: Patient is being admitted in PCU. Flu COVID and RSV PCR are negative. Pneumonia workup with a sputum culture and respiratory panel ordered. DuoNeb as needed. Patient started on IV ceftriaxone and azithromycin. Mild leukocytosis. Patient was last admitted in March 2022 for right lower lobe pneumonia. 05/04: From [facility], CM told me that patient is on continuous 3 L of oxygen but patient uses 1 L as needed. Today, the patient on 2 L of oxygen. Patient did not have significant cough or respiratory distress or shortness of breath. Patient had 2 doses of IV ceftriaxone and Zithromax. Discharged on Levaquin for 5 more days. 2. ESRD on hemodialysis : She is due for hemodialysis today but could not make it to the dialysis center because of hypoxia and shortness of breath. Program Advisor is consulted. 05/04: Program Advisor was consulted. Patient got dialysis and felt better with regards to shortness of breath. 3. Mild acute on chronic HFpEF with suspicion of mild pulmonary venous congestion/small pleural effusion: It seems patient has chronic HFpEF but she is unaware. Last echo in December 2018 shows EF 55%, stage II diastolic dysfunction, no RWMA 1-2+ TR. PASP 42 mmHg.Patient had NARGIS on January 2019 and EF 65% reported with no obvious vegetation. repeat echo today 05/04: 2D echo is reported EF 70% LA moderately enlarged. Severe mitral valve stenosis, severe pulmonary hypertension, 90 mmHg with moderate 1-2+ aortic valve insufficiency. Mild mitral valve insufficiency. Follow-up manager poker as an outpatient. 4. Anemia of chronic disease due to ESRD: Hemoglobin is on the baseline H&H 9.5/30%. 5. Amyloidosis: Patient s/p stem cell transplant in remission, encourage continued outpatient follow-up. 6 Anxiety and depression: continue patient home citalopram regimen. 7. Hypertension: Blood pressure profile is better after Eben-en-Y gastric bypass surgery. Patient was on on nifedipine and propranolol, but all of these medications after gastric bypass currently only on amlodipine 10 mg daily. Resumed. 8. Multiple other comorbidities include dyslipidemia and GERD, obstructive sleep apnea on CPAP 13 cm of water and hypothyroidism. Patient follows in pulmonary clinic with Dr. Anaya. TSH and free T4 ordered. DVT prophylaxis: Heparin 07/23/2019 subcutaneous 3 times daily. Discontinue if platelet count drops less than 50,000 or hemoglobin less than 8 g% Clinical Impression(s) from Imaging Studies Chest X-Ray 05/04/23 07:59 IMPRESSION: Bilateral infiltrations worse at the left lung base with small bilateral pleural effusions superimposed on CHF. Living will/advanced directive/end of life care: Patient not have living will or advanced directive. near the bedside in ED is power of business attorney for health. After discussion of benefits/risks procedures involved with full code, DNR CC arrest and DNR CC, the patient opted for full code. Patient does want artificial life support including intubation, tube feed, ventilator and/chest compression, central venous catheter, vasopressor and DC shock if needed Total time spent in [id number] encounter in discussion of advanced directive 17 minutes. Microbiology Past 72 Hours 05/04/23 08:23 Mucosa - Nasopharyngeal SARS-CoV-2, Influenza & RSV (PCR) - Final Laboratory Results 05/04/23 08:23: WBC 11.6 H, RBC 3.17 L, Hgb 9.5 L, Hct 30.3 L, MCV 95.6, MCH 30.0, MCHC 31.4 L, RDW Std Deviation 58.4 H, RDW Coeff of Fracisco 16.5 H, Plt Count 345, MPV 9.0, Immature Gran % (Auto) 0.600, Neut % (Auto) 83.6 H, Lymph % (Auto) 7.2 L, Cotton % (Auto) 6.6, Eos % (Auto) 1.7, Baso % (Auto) 0.3, Absolute Neuts (auto) 9.7 H, Absolute Lymphs (auto) 0.83, Nucleated RBC % 0, Sodium 136, Potassium 4.5, Chloride 94 L, Carbon Dioxide 29.0, Anion Gap 13, BUN 61 H, Creatinine 8.41 H*, Estim Creat Clear Calc 7.81, Est GFR (MDRD) Af Amer 6 L, Est GFR (MDRD) Non-Af 5 L, BUN/Creatinine Ratio 7.3 L, Glucose 113 H, Calcium 10.4 H, Phosphorus 8.5 H, Magnesium 2.8 H Clinical Impression(s) from Imaging Studies Chest X-Ray 05/04/23 07:59 IMPRESSION: Bilateral infiltrations worse at the left lung base with small bilateral pleural effusions superimposed on CHF. Electronically Signed: Ulisses Navarro MD at 10:27 EDT , Medications at Discharge Home Medications citalopram 20 mg tablet 20 mg PO DAILY Depression 03/26/17 cinacalcet 60 mg tablet (Sensipar) 60 mg PO DAILY 10/25/20 cholecalciferol (vitamin D3) 25 mcg (1,000 unit) capsule 100 mcg PO DAILY 04/23/21 albuterol sulfate 90 mcg/actuation aerosol inhaler 2 puff inhalation Q6H PRN shortness of breath or wheezing #8.5 grams 04/19/22 levothyroxine 50 mcg tablet 50 mcg PO DAILY 06/10/22 amlodipine 10 mg tablet 10 mg PO DAILY 05/04/23 lanthanum 1,000 mg chewable tablet 1,000 mg PO TID 05/04/23 vitamin B complex and vitamin C no.20-folic acid 1 mg capsule (Renal Caps) 1 cap PO DAILY 05/04/23 zinc acetate 50 mg (zinc) capsule 50 mg PO DAILY 05/04/23 levofloxacin 500 mg tablet 500 mg PO Q48H 6 days #3 tabs 05/05/23 zxcvyjmb-vxndxiodc-kblnqtsmy 3.5 mg-10,000 unit/mL-1 % ear drops,susp 4 drp otic (ear) Q6H 1 week #10 mL 05/05/23 Physical Exam Narrative Patient complained of right ear pain yesterday but got worse last night about 8-10/10 intensity. It is better today. Right ear examined. Patient on 2 L of oxygen. Shortness of breath much improved after dialysis Seen and examined. General: Alert, Oriented x3, Cooperative HEENT: Right ear: Mild congestion, light reflex not clear, foggy. Bony structures seen. Left ear light reflex slight foggy but better. TM intact. Atraumatic, PERRLA, EOMI, Normocephalic Oral: Oral mucosa dry no Gingival or Mucosal Lesions/ Ulcerations Neck: Supple, No JVD, Negative Carotid Bruits Chest wall/Lungs: Air entry diminished in bilateral lung bases. Lungs clear. No crepitation/rhonchi. Cardiovascular: Regular rate, Regular Rhythm, Normal S1, Normal S2, systolic murmur over LLSB and right second ICS. Abdomen: Bowel Sounds Present, Soft, Non Tender, Non-Distended :Left arm AV fistula. Functioning. Baseline patient is an uric No renal angle tenderness. No suprapubic tenderness. Extremities: . No edema, Capillary Refill Less than 3 Seconds Skin: No rashes, No breakdown Musculoskeletal: No Tenderness to Palpation of Joints or Extremities Neurological: Cranial nerves II-XII grossly intact, DTR 2+/4. No acute focal neurological deficit. Psych/Mental Status: Flat affect. Weight / BMI Weight Weight: 171 lb 15.369 oz Body Mass Index (BMI) 31.6 ABG / Lab / Microbiology Data 05/05/23 07:24 05/05/23 07:24 Laboratory: Laboratory Results - last 24 hr 05/04/23 08:23: WBC 11.6 H, RBC 3.17 L, Hgb 9.5 L, Hct 30.3 L, MCV 95.6, MCH 30.0, MCHC 31.4 L, RDW Std Deviation 58.4 H, RDW Coeff of [place]ac[place] 16.5 H, Plt Count 345, MPV 9.0, Immature Gran % (Auto) 0.600, Neut % (Auto) 83.6 H, Lymph % (Auto) 7.2 L, Cotton % (Auto) 6.6, Eos % (Auto) 1.7, Baso % (Auto) 0.3, Absolute Neuts (auto) 9.7 H, Absolute Lymphs (auto) 0.83, Nucleated RBC % 0, Sodium 136, Potassium 4.5, Chloride 94 L, Carbon Dioxide 29.0, Anion Gap 13, BUN 61 H, Creatinine 8.41 H*, Estim Creat Clear Calc 7.81, Est GFR (MDRD) Af Amer 6 L, Est GFR (MDRD) Non-Af 5 L, BUN/Creatinine Ratio 7.3 L, Glucose 113 H, Calcium 10.4 H, Phosphorus 8.5 H, Magnesium 2.8 H Microbiology: Microbiology 05/04/23 14:50 Mucosa - Nose Respiratory Panel (PCR) - Final 05/04/23 08:23 Mucosa - Nasopharyngeal SARS-CoV-2, Influenza & RSV (PCR) - Final Radiography Diagnostic Testing: Radiology Impression Chest X-Ray 05/04/23 07:59 IMPRESSION: Bilateral infiltrations worse at the left lung base with small bilateral pleural effusions superimposed on CHF. Electronically Signed: Ulisses Navarro MD at 10:27 EDT , D/C Instructions Discharge Diet: No restrictions Weight Bearing Status: Weight bearing as tolerated Call your doctor if you observe: Fever of 101 or Higher, Coldness, Increased Pain, Numbness or Tingling, Change in Color, Inability to urinate, Inability to have a bowel movement, Using more than 1 pad per hour, Shortness of breath, Dizziness, Fainting spells, Swelling in the ankles, Chest pain, Prolonged hiccupping, Increased palpitations (irregular heartbeat) and Calf discomfort When: IN 2 WEEKS Meaningful Use Info Meaningful Use Diagnoses (Choose all that apply): None applicable Discharge Plan Admission Admit Date/Time: 05/04/23 10:26 Primary Reason for Your Visit: Pneumonia, heart failure exacerbation Attending Provider: Jimmy Crockett Primary Care Provider: Deven James Consulting Providers: Luan Lawrence Discharge Orders/Prescriptions Prescriptions: New shlrmtzp-vhqludtkh-LW 3.5-10,000-1 mg/mL-unit/mL-% Drops,Suspension 4 drp otic (ear) Q6H 7 Days Qty: 10 0RF Rx Instructions: Both ears levofloxacin 500 mg tablet 500 mg PO Q48H 6 Days Qty: 3 0RF Continued cinacalcet [Sensipar] 60 mg tablet 60 mg PO DAILY cholecalciferol (vitamin D3) 25 mcg (1,000 unit) capsule 100 mcg PO DAILY levothyroxine 50 mcg tablet 50 mcg PO DAILY citalopram 20 MG tablet 20 mg PO DAILY albuterol sulfate 90 mcg/actuation HFA aerosol inhaler 2 puff inhalation Q6H PRN (Reason: shortness of breath or wheezing) Qty: 8.5 0RF lanthanum 1,000 mg tablet,chewable 1,000 mg PO TID Renal Caps 1 mg capsule 1 cap PO DAILY zinc acetate 50 mg (zinc) capsule 50 mg PO DAILY amlodipine 10 mg tablet 10 mg PO DAILY Referrals / Follow Up: Nahum Saldivar MD [Med Staff - Active Staff] - Within 1 Week (Right ear pain, otitis media) Luan Lawrence MD [Med Staff - Consulting] - Within 1 Month Deven James DO [Primary Care Provider] - Israel Guzman MD [Med Staff - Active Staff] - Within 1 Month (For severe valvular heart disease) Disposition Disposition (needs filled in before D/C Order can be placed): Home, Self Care Charges/Coding Visit Charges Inpatient E&M: 80756 Disch Hosp >30min
[2023-05-05] MEDS: guaiFENesin 1,200 MG Tablet 1200 MG PO (08:18)
[2023-05-05] MEDS: Folic Acid/Vitamin B Comp W-C 1 Capsule 1 CAP PO (08:18)
[2023-05-05] MEDS: Azithromycin 250 MG Tablet 500 MG PO (08:18)
[2023-05-05] MEDS: amLODIPine 10 MG Tablet PO (08:18)
[2023-05-05] MEDS: Cinacalcet HCl 30 MG Tablet 60 MG PO (08:22)
[2023-05-05 08:29] LABS: Anion Gap 12 (5-15); BUN 50 mg/dL (7-18); BUN/Creat Ratio 7.4 RATIO (10-20); Calcium,Total 11.3 mg/dL (8.5-10.1); Chloride 96 mmol/L (98-107); Creatinine, Serum 6.79 mg/dL (0.55-1.02); EST Glomerular Filtration Rate 7 mL/min (>60); Est Glom Filt Rate - Afr Amer 8 mL/min (>60); Estimated Creatinine Clearance 9.16 ml/min; Glucose 102 mg/dL (74-106); Potassium 4.4 mmol/L (3.5-5.1); Sodium Level 135 mmol/L (136-145)
[2023-05-05 09:05] VITALS: O2SAT 85; O2SAT 91; O2SAT 95
[2023-05-05 09:08] LABS: Differential Indicated SCAN CRITERIA MET
[2023-05-05 09:09] LABS: Platelet Estimate ADEQUATE (ADEQ)
[2023-05-05] MEDS: Neomycin/Polymyxin/Dexameth 5ML OPTH.BTL 4 DRP OTIC (09:36)
--- NOTE | 2023-05-05 10:44 | CON.PCM.RE_ITS ---
Assessment & Plan Assessment/Plan (1) ESRD (end stage renal disease) on dialysis: PLAN: On hemodialysis. S/p dialysis significantly better. Called and spoke with the dialysis unit, and dry weight will be adjusted down. Discussed with hospitalist. Possible discharge home today. HPI Consult Data Date of Consult: 05/05/23 HPI Narrative Reason for Consultation: ESRD HPI Narrative: SHAYNE ROME, is a 52 F who presents to the hospital with shortness of breath . Received dialysis yesterday. History of ESRD, on hemodialysis Thursday, Thursday, Thursday. Recently had gastric bypass, she has lost a significant amount of weight since then. She went to urgent care about a week ago with cough and shortness of breath, was given antibiotics. Presented to the ER yesterday with worsening shortness of breath. Admission diagnosis pneumonia versus fluid overload. Feels significantly better. Likely fluid overload. No cough. No fever, chills. [facility] Medical History Amyloidosis Amyloidosis Anemia Anemia, chronic disease Anxiety and depression Chronic anemia CPAP (continuous positive airway pressure) dependence Depression Dialysis patient End stage renal disease on dialysis ESRD (end stage renal disease) ESRD (end stage renal disease) on dialysis Former smoker Former tobacco use GERD (gastroesophageal reflux disease) Hypothyroidism Kidney disease Migraines Morbid obesity Morbid obesity due to excess calories CONCHIS (obstructive sleep apnea) CONCHIS on CPAP Home Medications citalopram 20 mg tablet 20 mg PO DAILY Depression 03/26/17 [History Last Taken 05/03/23] cinacalcet 60 mg tablet (Sensipar) 60 mg PO DAILY 10/25/20 [History Last Taken 04/24/23] cholecalciferol (vitamin D3) 25 mcg (1,000 unit) capsule 100 mcg PO DAILY 04/23/21 [History Last Taken 05/03/23] albuterol sulfate 90 mcg/actuation aerosol inhaler 2 puff inhalation Q6H PRN shortness of breath or wheezing #8.5 grams 04/19/22 [Rx Last Taken 05/04/23] levothyroxine 50 mcg tablet 50 mcg PO DAILY 06/10/22 [History Last Taken 05/04/23] amlodipine 10 mg tablet 10 mg PO DAILY 05/04/23 [History Last Taken 05/03/23] lanthanum 1,000 mg chewable tablet 1,000 mg PO TID 05/04/23 [History Last Taken 05/03/23] vitamin B complex and vitamin C no.20-folic acid 1 mg capsule (Renal Caps) 1 cap PO DAILY 05/04/23 [History Last Taken 05/03/23] zinc acetate 50 mg (zinc) capsule 50 mg PO DAILY 05/04/23 [History Last Taken 05/04/23] levofloxacin 500 mg tablet 500 mg PO Q48H 6 days #3 tabs 05/05/23 [Rx Last Taken Unknown] lrmefygg-ngwnmokbq-bcyjlifux 3.5 mg-10,000 unit/mL-1 % ear drops,susp 4 drp otic (ear) Q6H 1 week #10 mL 05/05/23 [Rx Last Taken Unknown] Allergy/AdvReac Type Severity Reaction Status Date / Time No Known Allergies Allergy Verified 05/04/23 07:33 Family History Mother Dementia Leukemia Father Heart disease Kidney disease Surgical History History of cholecystectomy History of Eben-en-Y gastric bypass Hx of section Stem cells transplant status Social History household members: family Smoking Status: Former smoker alcohol intake: never substance use type: does not use ROS ROS Narrative Negative except above Physical Exam Narrative Alert awake oriented x 3 no obvious distress no pallor no icterus no JVD s1s2 no murmurs lungs clear abdomen soft no organomegaly no edema no cyanosis Lab / Micro Data 05/05/23 07:24 05/05/23 07:24 Labs: Laboratory Results - last 24 hr 05/04/23 08:23: Phosphorus 8.5 H, Magnesium 2.8 H 05/05/23 07:24: WBC 9.6, RBC 3.53 L, Hgb 10.3 L, Hct 33.7 L, MCV 95.5, MCH 29.2, MCHC 30.6 L, RDW Std Deviation 58.0 H, RDW Coeff of [place]acisco 16.6 H, Plt Count TNP, MPV 10.7, Immature Gran % (Auto) 0.400, Neut % (Auto) 79.8 H, Lymph % (Auto) 10.2 L, Door % (Auto) 6.5, Eos % (Auto) 2.5, Baso % (Auto) 0.6, Absolute Neuts (auto) 7.6, Absolute Lymphs (auto) 0.98, Nucleated RBC % 0, Platelet Estimate ADEQUATE, Sodium 135 L, Potassium 4.4, Chloride 96 L, Carbon Dioxide 27.0, Anion Gap 12, BUN 50 H, Creatinine 6.79 H, Estim Creat Clear Calc 9.16, Est GFR (MDRD) Af Amer 8 L, Est GFR (MDRD) Non-Af 7 L, BUN/Creatinine Ratio 7.4 L, Glucose 102, Calcium 11.3 H Micro: Microbiology 05/04/23 11:40 Sputum, Expectorated/Coughed Gram Stain - Final 05/04/23 14:50 Mucosa - Nose Respiratory Panel (PCR) - Final 05/04/23 08:23 Mucosa - Nasopharyngeal SARS-CoV-2, Influenza & RSV (PCR) - Final Rhythm Strip Rhythm Strip: Sinus Rhythm Rate: 90 Ectopy: None
--- NOTE | 2023-05-05 11:47 | PHA.DC_ITS ---
Pharmacy [facility] has performed discharge medication reconciliation and counseling for this patient. 1. LEVOFLOXACIN 500MG PO Q48H X 3 DOSES 2. NEOMYCIN/POLYMYXIN/HC 4GTT AU Q6H X 7 DAYS The patient's discharge medication list was reviewed for discrepancies and discrepancies were resolved. The patient was counseled on the following discharge medications and changes in medications for homegoing were reviewed. The Reason for Use, instructions for use, and potential side effects were reviewed for all new medications. The patient's questions regarding all of their medications were answered. The patient was able to verbally demonstrate an understanding of their discharge medications. Medications at Discharge Home Medications citalopram 20 mg tablet 20 mg PO DAILY Depression 03/26/17 cinacalcet 60 mg tablet (Sensipar) 60 mg PO DAILY 10/25/20 cholecalciferol (vitamin D3) 25 mcg (1,000 unit) capsule 100 mcg PO DAILY 04/23/21 albuterol sulfate 90 mcg/actuation aerosol inhaler 2 puff inhalation Q6H PRN shortness of breath or wheezing #8.5 grams 04/19/22 levothyroxine 50 mcg tablet 50 mcg PO DAILY 06/10/22 amlodipine 10 mg tablet 10 mg PO DAILY 05/04/23 lanthanum 1,000 mg chewable tablet 1,000 mg PO TID 05/04/23 vitamin B complex and vitamin C no.20-folic acid 1 mg capsule (Renal Caps) 1 cap PO DAILY 05/04/23 zinc acetate 50 mg (zinc) capsule 50 mg PO DAILY 05/04/23 levofloxacin 500 mg tablet 500 mg PO Q48H 6 days #3 tabs 05/05/23 vtqhgbtv-ucgpvlfjq-hpxiuydhi 3.5 mg-10,000 unit/mL-1 % ear drops,susp 4 drp otic (ear) Q6H 1 week #10 mL 05/05/23
--- NOTE | 2023-05-05 11:57 | CASEMGMT ---
Patient order for discharge. Patient is maintaining on home oxygen order of 3lpm continuously. JOAQUIM STEVENS updated patient regarding home oxygen orders. Patient states her tanks are all empty at home. JOAQUIM STEVENS called [employer] and [facility] to give tank from supply. RN RODNEY provided tank and [place] branch information to call to exchange tanks. RN RODNEY instructed patient to track her SPo2 and to follow up with PCP regarding oxygen use, patient voiced understanding. Patient denies need or help at discharge. Patient had no further questions or concerns.
[2023-05-05 13:02] VITALS: PULSE 85; RESP 20
--- NOTE | 2023-05-05 15:32 | NURSING ---
PIV removed. Discharge instrutions given and reviewed with pt and daughter.
== END 2023-05-05 08:15 | disposition home or self-care (01) ==
LOC: ED 11:52 → PCU 13:53
PROVIDERS: Admitting Provider Internal Medicine; Emergency Provider Emergency Medicine; PCP Student in an Organized Health Care Education/Training Program; Visit Provider Internal Medicine
DX: J18.9 Pneumonia, unspecified organism (principal); Z99.2 Dependence on renal dialysis; I50.33 Acute on chronic diastolic (congestive) heart failure; I13.0 Hypertensive heart and chronic kidney disease with heart failure and stage 1 through stage 4 chronic kidney disease, or unspecified chronic kidney disease; N18.6 End stage renal disease; E85.9 Amyloidosis, unspecified; R09.02 Hypoxemia; Z87.891 Personal history of nicotine dependence; D63.1 Anemia in chronic kidney disease; G47.33 Obstructive sleep apnea (adult) (pediatric); Z99.81 Dependence on supplemental oxygen; E03.9 Hypothyroidism, unspecified; Z79.899 Other long term (current) drug therapy; Z79.890 Hormone replacement therapy; Z98.84 Bariatric surgery status; F41.9 Anxiety disorder, unspecified; F32.A Depression, unspecified; K21.9 Gastro-esophageal reflux disease without esophagitis
CPT/HCPCS: 36415; 71046; 80048; 83735; 84100; 85025; 87070; 87077; 87205; 87631; 87633; 90937; 93005; 93306; 94640; 94668; 96365; 96366; 96368; 99221; 99285; J7030; A4216; G0257; G0378

== ENCOUNTER → 2025-01-09 | Outpatient (CLI) | payer MEDICARE, BC, SELFPAY | END | disposition home or self-care (01) | LOC: SL 20:11 | PROVIDERS: PCP Student in an Organized Health Care Education/Training Program; Referring Provider Nurse Practitioner Acute Care; Visit Provider Nurse Practitioner Acute Care | DX: G47.33 Obstructive sleep apnea (adult) (pediatric) (principal) | CPT/HCPCS: 95810 ==